=== PATIENT | male | born 1980 | race Caucasian/White ===

== ENCOUNTER 2017-04-04 13:13 | Inpatient (IN) | payer OTHER ==
[2017-04-04 13:38] VITALS: BMI 22.8
--- NOTE | 2017-04-04 14:38 | HP ---
COWS - Scale Resting Pulse: 0= OK 80 or Below Sweatin=Flushed/Facial Moisture Restless Observation: 3= Extraneous Movement Pupil Size: 2= Moderately Dilated Bone or Joint Aches: 2= Severe Diffuse Aches Runny Nose/ Eye Tearin= Runny Nose/Eyes GI Upset > 30mins: 3= Vomiting/Diarrhea Tremor Observation: 2= Slight Tremor Visible Yawning Observation: 2= >3x During Session Anxiety or Irritability: 2=Irritable/Anxious Goose Flesh Skin: 0=Smooth Skin COWS Score: 20 CIWA Score - CIWA Score Nausea/Vomitin Muscle Tremors: 3 Anxiety: 3 Agitation: 3 Paroxysmal Sweats: 2 Orientation: 0-Oriented Tacttile Disturbances: 2-Mild Itch/Numbness/Burn Auditory Disturbances: 2-Mild Harshness/Frighten Visual Disturbances: 2-Mild Sensitivity Headache: 2-Mild CIWA-Ar Total Score: 22 Admission ROS BHS - HPI Chief Complaint: i need help to stop using heroin,alcohol and cocaine Allergies/Adverse Reactions: Allergies Allergy/AdvReac Type Severity Reaction Status Date / Time No Known Allergies Allergy Verified 04/04/17 13:48 History of Present Illness: this 36 years old male seeking detox from heroin,alcohol and cocaine, never been in detox before bipolar disorder longest period of sobriety 9 months - Ebola screening Have you traveled outside of the country in the last 21 days: No Have you been sick,other than usual withdrawal symptoms: No - Review of Systems Constitutional: Loss of Appetite, Malaise, Night Sweats EENT: reports: Tearing, Nose Congestion Respiratory: reports: No Symptoms reported Cardiac: reports: Palpitations GI: reports: Diarrhea, Nausea, Vomiting, Abdominal cramping : reports: No Symptoms Reported Musculoskeletal: reports: Back Pain, Joint Pain, Muscle Pain, Joint Stiffness Integumentary: reports: Dryness Neuro: reports: Headache, Tremors Endocrine: reports: No Symptoms Reported Hematology: reports: No Symptoms Reported Psychiatric: reports: No Sypmtoms Reported, Judgement Intact, Mood/Affect Appropiate, Orientated x3, Depressed (bipolar disorder) Patient History - Patient Medical History Hx Anemia: No Hx Asthma: No Hx Chronic Obstructive Pulmonary Disease (COPD): No Hx Cancer: No Hx Cardiac Disorders: No Hx Congestive Heart Failure: No Hx Hypertension: No Hx Hypercholesterolemia: No Hx Pacemaker: No HX Cerebrovascular Accident: No Hx Seizures: No Hx Dementia: No Hx Diabetes: No Hx Gastrointestinal Disorders: No Hx Liver Disease: No Hx Genitourinary Disorders: No Hx Sexually Transmitted Disorders: No Hx Renal Disease (ESRD): No Hx Thyroid Disease: No Hx Human Immunodeficiency Virus (HIV): No (last 2011 negative) Hx Hepatitis C: No Hx Depression: Yes (no med) Hx Suicide Attempt: No Hx Bipolar Disorder: Yes Hx Schizophrenia: No Other Medical History: no suicidal,no homicidal - Patient Surgical History Past Surgical History: No - PPD History Previous Implant?: Yes (unknown) Documented Results: Negative w/o proof Implanted On Prior [facility] Admission?: No PPD to be Administered?: Yes - Smoking Cessation Smoking history: Current every day smoker Have you smoked in the past 12 months: Yes If you are a former smoker, when did you quit?: 5 Hx Chewing Tobacco Use: No Initiated information on smoking cessation: Yes 'Breaking Loose' booklet given: 04/04/17 - Substance & Tx. History Hx Alcohol Use: Yes Hx Substance Use: Yes Substance Use Type: Alcohol, Cocaine, Heroin - Substances Abused Alcohol Route: Oral Frequency: 3-6 times per week Amount used: beer(2 cans)/liquor(2 nips) Age of first use: 17 Date of Last Use: 04/03/17 Heroin Route: Inhalation Frequency: Daily Amount used: 2-3 bags Age of first use: 34 Date of Last Use: 04/03/17 Cocaine Route: Smoking Frequency: Daily Amount used: $40 Age of first use: 19 Date of Last Use: 04/03/17 Family Disease History - Family Disease History Family History: Denies Admission Physical Exam [facility] - Vital Signs Vital Signs: Vital Signs - 24 hr 04/04/17 13:31 Temperature 97.2 F L Pulse Rate 79 Respiratory 20 Rate Blood Pressure 133/64 - Physical General Appearance: Yes: Moderate Distress, Tremorous, Irritable, Sweating, Anxious HEENTM: Yes: Hearing grossly Normal, Normal ENT Inspection, CRISTINA Respiratory: Yes: Lungs Clear, Normal Breath Sounds, No Respiratory Distress Neck: Yes: Within Normal Limits, Supple, Trachea in good position Breast: Yes: Within Normal Limits Cardiology: Yes: Within Normal Limits, Regular Rhythm, Regular Rate, S1, S2 Abdominal: Yes: Within Normal Limits, Normal Bowel Sounds, Non Tender, Flat, Soft Genitourinary: Yes: Within Normal Limits Back: Yes: Muscle Spasm Musculoskeletal: Yes: Back pain, Joint Stiffness, Muscle Pain Extremities: Yes: Within Normal Limits, Normal Range of Motion, Tremors, Inflammation 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: Yes: 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, Fully Oriented, Alert, Motor Strength 5/5 Integumentary: Yes: Dry Lymphatic: Yes: Within Normal Limits - Addiitonal Findings: redness of left leg cellulitis blister of both feet - Diagnostic (1) Opioid dependence with withdrawal Current Visit: Yes Status: Acute (2) Alcohol dependence with uncomplicated withdrawal Current Visit: Yes Status: Acute (3) Cocaine dependence Current Visit: Yes Status: Acute (4) Cellulitis of left leg Current Visit: Yes Status: Acute (5) Blister Current Visit: Yes Status: Acute (6) Bipolar disorder Current Visit: Yes Status: Acute Cleared for Admission [facility] - Detox or Rehab [facility] Level of Care: Medically Managed Detox Regimen/Protocol: Methadone/Valium S Breath Alcohol Content Breath Alcohol Content: 0 Urine Drug Screen - Results Drug Screen Negative: No Urine Drug Screen Results: LIZZIE-Cocaine, OPI-Opiates
[2017-04-04] MEDS ORDERED: hydrOXYzine PAMOATE 25 MG CAPSULE (FP) PO PRN (15:02)
[2017-04-04] MEDS ORDERED: METHADONE HCL 10 MG TABLET (FOR DETOX USE ONLY) PO ONE ×2 (15:02→23:00)
[2017-04-04] MEDS ORDERED: MAG HYDROX/AL HYDROX/SIMETH 30 ML UNIT-DOSE CUP PO PRN (15:02)
[2017-04-04] MEDS ORDERED: P-EPHED 60MG/TRIPROLIDI 2.5MG TABLET PO PRN (15:02)
[2017-04-04] MEDS ORDERED: MAGNESIUM HYDROX 2400MG/30ML ORAL SUSPENSION 30 ML CUP PO PRN (15:02)
[2017-04-04] MEDS ORDERED: IBUPROFEN 400 MG TABLET (FP) PO PRN (15:02)
[2017-04-04] MEDS ORDERED: LOPERAMIDE HCL 2 MG CAPSULE PO PRN (15:02)
[2017-04-04] MEDS ORDERED: diazePAM 5 MG TABLET PO PRN (15:02)
[2017-04-04] MEDS ORDERED: diphenhydrAMINE HCL 50 MG CAPSULE PO PRN (15:02)
[2017-04-04] MEDS ORDERED: guaiFENesin/D-METHORPHAN HB 10 ML UNIT-DOSE CUPS PO PRN (15:02)
[2017-04-04] MEDS ORDERED: ACETAMINOPHEN 325 MG TABLET (FP) PO PRN (15:02)
[2017-04-04] MEDS ORDERED: MENTHOL/PHENOL 1 EACH UD MM PRN (15:02)
[2017-04-04] MEDS ORDERED: diazePAM 5 MG TABLET PO ONE (15:02)
[2017-04-04] MEDS ORDERED: MAGNESIUM CITRATE 300 ML BOTTLE PO PRN (15:02)
[2017-04-04] MEDS: CYCLOBENZAPRINE HCL 10 MG TABLET (FP) PO PRN (15:49)
[2017-04-04] MEDS: NICOTINE 14 MG/24 HOURS TOPICAL PATCH TD SCH (15:49)
[2017-04-04 19:45] LABS: URINE APPEARANCE CLOUDY; URINE BILIRUBIN NEGATIVE (NEGATIVE); URINE BLOOD NEGATIVE (NEGATIVE); URINE COLOR YELLOW; URINE GLUCOSE (UA) NEGATIVE (NEGATIVE); URINE KETONE TRACE (NEGATIVE); URINE LEUK ESTERASE NEGATIVE (NEGATIVE); URINE NITRITE NEGATIVE (NEGATIVE); URINE PROTEIN NEGATIVE (NEGATIVE); URINE UROBILINOGEN NEGATIVE E.U./dl (0.2-1.0)
[2017-04-04] MEDS: diazePAM 5 MG TABLET PO SCH (22:21)
[2017-04-04] MEDS: THIAMINE HCL 100 MG TABLET (FP) PO SCH (22:21)
[2017-04-04] MEDS: cloNIDine HCL 0.1 MG TABLET PO SCH (22:21)
[2017-04-05] MEDS: diazePAM 5 MG TABLET PO SCH ×3 (06:09→22:41)
[2017-04-05] MEDS ORDERED: METHADONE HCL 10 MG TABLET (FOR DETOX USE ONLY) PO SCH (10:00)
[2017-04-05 10:14] LABS: MCH 29.9 pg (25.7-33.7); MCHC 32.8 g/dl (32.0-35.9); MEAN CELL VOLUME 91.1 fl (80-96); MEAN PLT VOLUME 9.2 fl (7.5-11.1); PLATELET COUNT 224 K/MM3 (134-434); WHITE BLOOD COUNT 5.6 K/mm3 (4.0-10.0)
[2017-04-05 10:22] LABS: ALBUMIN 3.2 g/dl (3.4-5.0); ANION GAP 6 (8-16); CALCIUM 8.3 mg/dL (8.5-10.1); CO2 29 mmol/L (21-32)
[2017-04-05 10:28] LABS: ALK PHOS 79 U/L (45-117); BILIRUBIN,TOTAL 0.3 mg/dL (0.2-1.0); COCKROFT - GAULT 133.02; CREATININE 0.8 mg/dL (0.7-1.3); GLUCOSE,RANDOM 82 mg/dL (74-106); SGOT/AST 49 U/L (15-37); SGPT/ALT 47 U/L (12-78); TOT PROT 6.4 g/dl (6.4-8.2)
[2017-04-05] MEDS: cloNIDine HCL 0.1 MG TABLET PO SCH ×2 (10:36→22:41)
[2017-04-05] MEDS: PRENATAL VITAMINS W/ FOLIC ACID TABLET (FP) PO SCH (10:36)
[2017-04-05] MEDS: DIVALPROEX SODIUM 250 MG TABLET E.C. (FP) PO SCH ×2 (10:36→22:41)
[2017-04-05] MEDS: NICOTINE 14 MG/24 HOURS TOPICAL PATCH TD SCH (10:37)
--- NOTE | 2017-04-05 10:57 | PN ---
[facility] CIWA - CIWA Score Nausea/Vomitin-No Nausea/No Vomiting Muscle Tremors: 4-Moderate,w/Arms Extend Anxiety: 2 Agitation: 3 Paroxysmal Sweats: 3 Orientation: 0-Oriented Tacttile Disturbances: 0-None Auditory Disturbances: 0-None Visual Disturbances: 0-None Headache: 0-None Present CIWA-Ar Total Score: 12 BHS COWS - Scale Resting Pulse: 0= [place] 80 or Below Sweatin=Flushed/Facial Moisture Restless Observation: 1= Difficult to Sit Still Pupil Size: 0= Normal to Room Light Bone or Joint Aches: 2= Severe Diffuse Aches Runny Nose/ Eye Tearin= Nasal Congestion GI Upset > 30mins: 0= None Tremor Observation of Outstretched Hands: 2= Slight Tremor Visible Yawning Observation: 2= >3x During Session Anxiety or Irritability: 2=Irritable/Anxious Goose Flesh Skin: 0=Smooth Skin COWS Score: 12 S Progress Note (SOAP) Subjective: agitation anxiety sweats irritable interrupted sleep Objective: 04/05/17 10:56 Vital Signs Temperature 97.7 F 04/05/17 09:37 Pulse Rate 65 04/05/17 09:37 Respiratory Rate 16 04/05/17 09:37 Blood Pressure 104/59 04/05/17 09:37 O2 Sat by Pulse Oximetry (%) Laboratory Tests 04/04/17 04/05/17 04/05/17 Unknown 08:00 08:00 WBC 5.6 RBC 4.90 Hgb 14.6 Hct 44.6 MCV 91.1 MCHC 32.8 RDW 14.0 Plt Count 224 MPV 9.2 Sodium 140 Potassium 4.7 Chloride 105 Carbon Dioxide 29 Anion Gap 6 L BUN 12 Creatinine 0.8 Creat Clearance w eGFR > 60 Random Glucose 82 Calcium 8.3 L Total Bilirubin 0.3 AST 49 H ALT 47 Alkaline Phosphatase 79 Total Protein 6.4 Albumin 3.2 L Urine Color Yellow Urine Appearance Cloudy Urine pH 6.0 Ur Specific [place] 1.015 Urine Protein Negative Urine Glucose (UA) Negative Urine Ketones Trace H Urine Blood Negative Urine Nitrite Negative Urine Bilirubin Negative Urine Urobilinogen Negative Ur Leukocyte Esterase Negative awake/alert ambulating no acute distress Assessment: 04/05/17 10:57 withdrawal sx Plan: continue detox increase fluids
--- NOTE | 2017-04-05 12:47 | CONSULT ---
[facility] Psychiatric Consult - Data Date of interview: 04/05/17 Admission source: [facility] Identifying data: This is 36 years old male with history of Bipolar disorder, intoxicated with: Alcohol, Cocaine and Opioids Substance Abuse History: - Smoking Cessation. Smoking history: Current every day smoker. Have you smoked in the past 12 months: Yes. If you are a former smoker, when did you quit?: 5. Hx Chewing Tobacco Use: No. Initiated information on smoking cessation: Yes. 'Breaking Loose' booklet given: . - Substance & Tx. History. Hx Alcohol Use: Yes. Hx Substance Use: Yes. Substance Use Type: Alcohol, Cocaine, Heroin. - Substances Abused. Alcohol. Route: Oral. Frequency: 3-6 times per week. Amount used: beer(2 cans )/liquor(2 nips). Age of first use: 17. Date of Last Use: 04/03/17. Heroin. Route: Inhalation. Frequency: Daily. Amount used: 2-3 bags. Age of first use: 34. Date of Last Use: 04/03/17. Cocaine. Route: Smoking. Frequency: Daily. Amount used: $40. Age of first use: 19. Date of Last Use: 04/03/17 Medical History: History of Cellulitis Psychiatric History: Patient reports long history of Bipolar disorder, reports being stable on: Depakote 500mg po bid. Zyprexa 2.5mg po qhs. Remeron 15mg po qhs. Wellbutrin XL 150mg poqd Physical/Sexual Abuse/Trauma History: Denies Additional Comment: Depakote 500mg po bid. Zyprexa 2.5mg po qhs. Remeron 15mg po qhs. Wellbutrin XL 150mg poqd Mental Status Exam - Mental Status Exam Alert and Oriented to: Person Cognitive Function: Fair Patient Appearance: Well Groomed Mood: Apprehensive Patient Behavior: Cooperative Speech Pattern: Appropriate Voice Loudness: Normal Thought Process: Goal Oriented Thought Disorder: Being Controlled Hallucinations: Denies Suicidal Ideation: Denies Homicidal Ideation: Denies Insight/Judgement: Fair Sleep: Difficulty falling asleep Appetite: Weight gain Muscle strength/Tone: Normal Gait/Station: Normal Additional Comments: Depakote 500mg po bid. Zyprexa 2.5mg po qhs. Remeron 15mg po qhs. Wellbutrin XL 150mg poqd Psychiatric Findings - Problem List ([place] 1, 2,3) (1) Alcohol dependence with uncomplicated withdrawal Current Visit: Yes Status: Acute (2) Bipolar disorder Current Visit: Yes Status: Acute (3) Cellulitis of left leg Current Visit: Yes Status: Acute (4) Cocaine dependence Current Visit: Yes Status: Acute (5) Opioid dependence with withdrawal Current Visit: Yes Status: Acute - Initial Treatment Plan Initial Treatment Plan: Depakote 250mg po bid. Zyprexa 2.5mg po qhs. Remeron 15mg po qhs. Wellbutrin XL 150mg poqd. Depakote blood level
--- NOTE | 2017-04-05 13:03 | EKG ---
Test Reason : Blood Pressure : / mmHG Vent. Rate : 072 BPM Atrial Rate : 072 BPM P-R Int : 134 ms QRS Dur : 092 ms QT Int : 410 ms P-R-T Axes : 028 055 034 degrees QTc Int : 448 ms NORMAL SINUS RHYTHM CANNOT RULE OUT ANTERIOR INFARCT , AGE UNDETERMINED ABNORMAL ECG NO PREVIOUS ECGS AVAILABLE Confirmed by GENNARO DICKENS, DANNA ([id number]) on 04/05/2017 1:02:29 PM Referred By: Robe Augustine Confirmed By:DANNA BURDICK MD
[2017-04-05] MEDS: MIRTAZAPINE 15 MG TABLET (FP) PO SCH (22:41)
[2017-04-05] MEDS: THIAMINE HCL 100 MG TABLET (FP) PO SCH (22:41)
[2017-04-05] MEDS: OLANZapine 2.5 MG TABLET PO SCH (22:59)
[2017-04-06] MEDS: PRENATAL VITAMINS W/ FOLIC ACID TABLET (FP) PO SCH (10:49)
[2017-04-06] MEDS: DIVALPROEX SODIUM 250 MG TABLET E.C. (FP) PO SCH ×2 (10:49→22:42)
[2017-04-06] MEDS: cloNIDine HCL 0.1 MG TABLET PO SCH ×2 (10:49→22:42)
[2017-04-06] MEDS: diazePAM 5 MG TABLET PO SCH ×2 (10:50→22:42)
[2017-04-06] MEDS: METHADONE HCL 5 MG TABLET (FOR DETOX USE ONLY) PO SCH (10:50)
[2017-04-06] MEDS: NICOTINE 14 MG/24 HOURS TOPICAL PATCH TD SCH (10:50)
--- NOTE | 2017-04-06 11:20 | PN ---
S CIWA - CIWA Score Nausea/Vomitin Muscle Tremors: 3 Anxiety: 3 Agitation: 3 Paroxysmal Sweats: 1-Minimal Palms Moist Orientation: 0-Oriented Tacttile Disturbances: 1-Very Mild Itch/Numbness Auditory Disturbances: 1-Very Mild Visual Disturbances: 1-Very Mild Sensitivity Headache: 2-Mild CIWA-Ar Total Score: 18 BHS COWS - Scale Resting Pulse: 0= [place] 80 or Below Sweatin= Chills/Flushing Restless Observation: 3= Extraneous Movement Pupil Size: 1= Pupils >than Normal Bone or Joint Aches: 2= Severe Diffuse Aches Runny Nose/ Eye Tearin= Runny Nose/Eyes GI Upset > 30mins: 2= Nausea/Diarrhea Tremor Observation of Outstretched Hands: 2= Slight Tremor Visible Yawning Observation: 1= 1-2x During Session Anxiety or Irritability: 2=Irritable/Anxious Goose Flesh Skin: 0=Smooth Skin COWS Score: 16 S Progress Note (SOAP) Subjective: ALERT,IRRITABLE,ANXIOUS,INTERRUPTED SLEEP,PAIN IN THE BODY AND BACK Objective: 04/06/17 11:19 Vital Signs Temperature 96.8 F L 04/06/17 09:41 Pulse Rate 63 04/06/17 09:41 Respiratory Rate 18 04/06/17 09:41 Blood Pressure 144/79 04/06/17 09:41 O2 Sat by Pulse Oximetry (%) Laboratory Last Values WBC 5.6 K/mm3 (4.0-10.0) 04/05/17 08:00 RBC 4.90 M/mm3 (4.00-5.60) 04/05/17 08:00 Hgb 14.6 GM/dL (11.7-16.9) 04/05/17 08:00 Hct 44.6 % (35.4-49) 04/05/17 08:00 MCV 91.1 fl (80-96) 04/05/17 08:00 MCHC 32.8 g/dl (32.0-35.9) 04/05/17 08:00 RDW 14.0 % (11.9-15.9) 04/05/17 08:00 Plt Count 224 K/MM3 (134-434) 04/05/17 08:00 MPV 9.2 fl (7.5-11.1) 04/05/17 08:00 Sodium 140 mmol/L (136-145) 04/05/17 08:00 Potassium 4.7 mmol/L (3.5-5.1) 04/05/17 08:00 Chloride 105 mmol/L (98-107) 04/05/17 08:00 Carbon Dioxide 29 mmol/L (21-32) 04/05/17 08:00 Anion Gap 6 (8-16) L 04/05/17 08:00 BUN 12 mg/dL (7-18) 04/05/17 08:00 Creatinine 0.8 mg/dL (0.7-1.3) 04/05/17 08:00 Creat Clearance w eGFR > 60 (>60) 04/05/17 08:00 Random Glucose 82 mg/dL (74-106) 04/05/17 08:00 Calcium 8.3 mg/dL (8.5-10.1) L 04/05/17 08:00 Total Bilirubin 0.3 mg/dL (0.2-1.0) 04/05/17 08:00 AST 49 U/L (15-37) H 04/05/17 08:00 ALT 47 U/L (12-78) 04/05/17 08:00 Alkaline Phosphatase 79 U/L (45-117) 04/05/17 08:00 Total Protein 6.4 g/dl (6.4-8.2) 04/05/17 08:00 Albumin 3.2 g/dl (3.4-5.0) L 04/05/17 08:00 Urine Color Yellow 04/04/17 Unknown Urine Appearance Cloudy 04/04/17 Unknown Urine pH 6.0 (5.0-8.0) 04/04/17 Unknown Ur Specific [place] 1.015 (1.005-1.025) 04/04/17 Unknown Urine Protein Negative (NEGATIVE) 04/04/17 Unknown Urine Glucose (UA) Negative (NEGATIVE) 04/04/17 Unknown Urine Ketones Trace (NEGATIVE) H 04/04/17 Unknown Urine Blood Negative (NEGATIVE) 04/04/17 Unknown Urine Nitrite Negative (NEGATIVE) 04/04/17 Unknown Urine Bilirubin Negative (NEGATIVE) 04/04/17 Unknown Urine Urobilinogen Negative E.U./dl (0.2-1.0) 04/04/17 Unknown Ur Leukocyte Esterase Negative (NEGATIVE) 04/04/17 Unknown RPR Titer Nonreactive (NONREACTIVE) 04/05/17 08:00 Assessment: 04/06/17 11:19 WITHDRAWAL SYMPTOM Plan: CONTINUE DETOX
[2017-04-06] MEDS: OLANZapine 2.5 MG TABLET PO SCH (22:42)
[2017-04-06] MEDS: MIRTAZAPINE 15 MG TABLET (FP) PO SCH (22:42)
[2017-04-06] MEDS: THIAMINE HCL 100 MG TABLET (FP) PO SCH (22:42)
[2017-04-07] MEDS: DIVALPROEX SODIUM 250 MG TABLET E.C. (FP) PO SCH ×2 (10:27→22:29)
[2017-04-07] MEDS: cloNIDine HCL 0.1 MG TABLET PO SCH ×2 (10:27→22:33)
[2017-04-07] MEDS: METHADONE HCL 5 MG TABLET (FOR DETOX USE ONLY) PO SCH (10:27)
[2017-04-07] MEDS: PRENATAL VITAMINS W/ FOLIC ACID TABLET (FP) PO SCH (10:27)
[2017-04-07] MEDS: diazePAM 5 MG TABLET PO SCH ×2 (10:27→22:29)
[2017-04-07] MEDS: NICOTINE 14 MG/24 HOURS TOPICAL PATCH TD SCH (10:27)
--- NOTE | 2017-04-07 11:21 | PN ---
BHS Progress Note (SOAP) Subjective: sweats agitation anxiety Objective: 04/07/17 11:20 Vital Signs Temperature 96.4 F L 04/07/17 09:39 Pulse Rate 66 04/07/17 09:39 Respiratory Rate 18 04/07/17 09:39 Blood Pressure 129/67 04/07/17 09:39 O2 Sat by Pulse Oximetry (%) Laboratory Tests 04/04/17 04/05/17 04/05/17 Unknown 08:00 08:00 WBC 5.6 RBC 4.90 Hgb 14.6 Hct 44.6 MCV 91.1 MCHC 32.8 RDW 14.0 Plt Count 224 MPV 9.2 Sodium 140 Potassium 4.7 Chloride 105 Carbon Dioxide 29 Anion Gap 6 L BUN 12 Creatinine 0.8 Creat Clearance w eGFR > 60 Random Glucose 82 Calcium 8.3 L Total Bilirubin 0.3 AST 49 H ALT 47 Alkaline Phosphatase 79 Total Protein 6.4 Albumin 3.2 L Urine Color Yellow Urine Appearance Cloudy Urine pH 6.0 Ur Specific [place] 1.015 Urine Protein Negative Urine Glucose (UA) Negative Urine Ketones Trace H Urine Blood Negative Urine Nitrite Negative Urine Bilirubin Negative Urine Urobilinogen Negative Ur Leukocyte Esterase Negative Valproic Acid RPR Titer 04/05/17 04/06/17 08:00 06:00 WBC RBC Hgb Hct MCV MCHC RDW Plt Count MPV Sodium Potassium Chloride Carbon Dioxide Anion Gap BUN Creatinine Creat Clearance w eGFR Random Glucose Calcium Total Bilirubin AST ALT Alkaline Phosphatase Total Protein Albumin Urine Color Urine Appearance Urine pH Ur Specific [place] Urine Protein Urine Glucose (UA) Urine Ketones Urine Blood Urine Nitrite Urine Bilirubin Urine Urobilinogen Ur Leukocyte Esterase Valproic Acid < 3.000 L RPR Titer Nonreactive awake/alert ambulating no acute distress Assessment: 04/07/17 11:20 withdrawal sx Plan: continue detox increase fluids
[2017-04-07] MEDS: CYCLOBENZAPRINE HCL 10 MG TABLET (FP) PO PRN (18:17)
[2017-04-07] MEDS ORDERED: cloNIDine HCL 0.1 MG TABLET PO ONE (20:06)
[2017-04-07] MEDS: OLANZapine 2.5 MG TABLET PO SCH (22:29)
[2017-04-07] MEDS: MIRTAZAPINE 15 MG TABLET (FP) PO SCH (22:29)
[2017-04-07] MEDS: THIAMINE HCL 100 MG TABLET (FP) PO SCH (22:29)
[2017-04-08] MEDS ORDERED: CYCLOBENZAPRINE HCL 10 MG TABLET (FP) PO ONE (08:42)
[2017-04-08] MEDS ORDERED: METHADONE HCL 10 MG TABLET (FOR DETOX USE ONLY) PO SCH (10:00)
[2017-04-08] MEDS ORDERED: diazePAM 5 MG TABLET PO SCH (10:00)
[2017-04-08] MEDS: DIVALPROEX SODIUM 250 MG TABLET E.C. (FP) PO SCH ×2 (10:39→22:43)
[2017-04-08] MEDS: PRENATAL VITAMINS W/ FOLIC ACID TABLET (FP) PO SCH (10:39)
[2017-04-08] MEDS: cloNIDine HCL 0.1 MG TABLET PO SCH ×2 (10:40→22:44)
[2017-04-08] MEDS: NICOTINE 14 MG/24 HOURS TOPICAL PATCH TD SCH (10:40)
--- NOTE | 2017-04-08 10:44 | PN ---
S Progress Note (SOAP) Subjective: ALERT,IRRITABLE,ANXIOUS,INTERRUPTED SLEEP Objective: 04/08/17 10:43 Vital Signs Temperature 97.7 F 04/08/17 09:23 Pulse Rate 74 04/08/17 09:23 Respiratory Rate 18 04/08/17 09:23 Blood Pressure 127/72 04/08/17 09:23 O2 Sat by Pulse Oximetry (%) Assessment: 04/08/17 10:43 WITHDRAWAL SYMPTOM Plan: CONTINUE DETOX,DISCHARGE IN AM
[2017-04-08] MEDS: CYCLOBENZAPRINE HCL 10 MG TABLET (FP) PO PRN (15:41)
[2017-04-08] MEDS: THIAMINE HCL 100 MG TABLET (FP) PO SCH (22:43)
[2017-04-08] MEDS: MIRTAZAPINE 15 MG TABLET (FP) PO SCH (22:43)
[2017-04-08] MEDS: OLANZapine 2.5 MG TABLET PO SCH (22:43)
[2017-04-09] MEDS ORDERED: METHADONE HCL 5 MG TABLET (FOR DETOX USE ONLY) PO SCH (06:00)
--- NOTE | 2017-04-09 08:08 | PN ---
S Progress Note (SOAP) Subjective: ALERT,NO COMPLAINT Objective: 04/09/17 08:07 Vital Signs Temperature 97.0 F L 04/09/17 06:00 Pulse Rate 59 L 04/09/17 06:00 Respiratory Rate 18 04/09/17 06:00 Blood Pressure 113/69 04/09/17 06:00 O2 Sat by Pulse Oximetry (%) Assessment: 04/09/17 08:07 DETOX COMPLETED,NO WITHDRAWAL SYMPTOM Plan: DISCHARGE TODAY,FOLLOW UP WITH AFTER CARE PROGRAM ARRANGEMENT
--- NOTE | 2017-04-09 08:12 | DS ---
[facility] Detox Discharge Summary Admission Date: 04/04/17 Discharge Date: 04/09/17 - History Present History: Alcohol Dependence, Cocaine Dependence, Opioid Dependence Additional Comments: FOLLOW UP WITH AFTER CARE PROGRAM ARRANGEMENT AND PMD FOR MEDICAL PROBLEM Pertinent Past History: BIPOLAR DISORDER BLISTERS BOTH FEET CELLULITIS LEFT LEG - Physical Exam Results Vital Signs: Vital Signs Temperature 97.0 F L 04/09/17 06:00 Pulse Rate 59 L 04/09/17 06:00 Respiratory Rate 18 04/09/17 06:00 Blood Pressure 113/69 04/09/17 06:00 O2 Sat by Pulse Oximetry (%) Pertinent Admission Physical Exam Findings: WITHDRAWAL SYMPTOM - Treatment Patient has Accepted a Rehab Referral to: [facility] - Medication Discharge Medications: Ambulatory Orders Bupropion HCl [Wellbutrin -] 150 mg PO DAILY 04/04/17 Divalproex Sodium [Depakote] 500 mg PO BID 04/04/17 Mirtazapine [Remeron -] 15 mg PO HS 04/04/17 Olanzapine [Zyprexa -] 2.5 mg PO HS 04/04/17 Bupropion HCl [Wellbutrin Xl -] 150 mg PO DAILY #30 tab 04/05/17 Divalproex [Depakote -] 250 mg PO BID #60 tab 04/05/17 Mirtazapine [Remeron -] 15 mg PO HS #30 tab 04/05/17 Olanzapine [Zyprexa -] 2.5 mg PO HS #30 tablet 04/05/17 - Diagnosis (1) Opioid dependence with withdrawal Current Visit: Yes Status: Acute (2) Alcohol dependence with uncomplicated withdrawal Current Visit: Yes Status: Acute (3) Cocaine dependence Current Visit: Yes Status: Acute (4) Cellulitis of left leg Current Visit: Yes Status: Acute (5) Blister Current Visit: Yes Status: Acute (6) Bipolar disorder Current Visit: Yes Status: Acute - AMA Did Patient Leave Against Medical Advice: No
--- NOTE | 2017-04-09 08:24 | PN ---
S Progress Note Note: PATIENT HAS BLISTER BOTH FEET RESOLVING REDNESS OF LEFT LEG IS LESS WITH SCAB FORMATION WILL GIVE BACTRIM DS 1 TAB PO BID FOR 5 DAYS,BACITRACIN OINTMENT BID, FOLLOW UP WITH PMD FOR EVALUATION AND AFTER CARE PROGRAM ARRANGEMENT
[2017-04-09] MEDS: cloNIDine HCL 0.1 MG TABLET PO SCH (09:29)
[2017-04-09] MEDS: PRENATAL VITAMINS W/ FOLIC ACID TABLET (FP) PO SCH (09:30)
[2017-04-09] MEDS: NICOTINE 14 MG/24 HOURS TOPICAL PATCH TD SCH (09:30)
[2017-04-09] MEDS: DIVALPROEX SODIUM 250 MG TABLET E.C. (FP) PO SCH (09:31)
[2017-04-09] MEDS ORDERED: SULFAMETHOXAZOLE/TRIMETHOPRIM 800MG/160MG D.S. TABLET PO SCH (10:00)
[2017-04-09] MEDS ORDERED: BACITRACIN 0.9 GM PACKET TP SCH (10:00)
[2017-04-09 10:24] VITALS: BP 139/60; PULSE 90; TEMP 98.1
== END 2017-04-09 09:35 | disposition home or self-care (01) | DRG 773 ==
LOC: YASAS 13:13 → Y6N 14:14
PROVIDERS: ADMIT Internal Medicine Addiction Medicine; ATTEND Internal Medicine Addiction Medicine
PROC: HZ2ZZZZ Detoxification Services for Substance Abuse Treatment (ICD-10-PCS; principal; 2017-04-09)
DX: F11.23 Opioid dependence with withdrawal (principal); F10.230 Alcohol dependence with withdrawal, uncomplicated; F14.20 Cocaine dependence, uncomplicated; F31.9 Bipolar disorder, unspecified; L03.116 Cellulitis of left lower limb; S90.822A Blister (nonthermal), left foot, initial encounter; S90.821A Blister (nonthermal), right foot, initial encounter
CPT/HCPCS: 36415; 80053; 80164; 81003; 85027; 86593; 93005; 93010

== ENCOUNTER 2017-04-12 08:25 | Inpatient (IN) | payer OTHER ==
[2017-04-12 10:55] VITALS: BMI 28.4
--- NOTE | 2017-04-12 11:58 | HP ---
[facility] Rehab Assess/Revision - Admission History Admitted to Rehab from: [facility] - Vital signs Vital Signs: Vital Signs Period Temp Pulse Resp BP Sys/Roy Pulse Ox Last 24 Hr 95.4 F 84 18 145/95 - Findings Detox History & Physical reviewed: Yes Concur with findings: Yes
[2017-04-12] MEDS ORDERED: NICOTINE POLACRILEX 4 MG GUM BC PRN (12:04)
[2017-04-12] MEDS ORDERED: guaiFENesin/D-METHORPHAN HB 10 ML UNIT-DOSE CUPS PO PRN (12:04)
[2017-04-12] MEDS ORDERED: P-EPHED 60MG/TRIPROLIDI 2.5MG TABLET PO PRN (12:04)
[2017-04-12] MEDS ORDERED: MAGNESIUM HYDROX 2400MG/30ML ORAL SUSPENSION 30 ML CUP PO PRN (12:04)
[2017-04-12] MEDS ORDERED: hydrOXYzine PAMOATE 50 MG CAPSULE (FP) PO PRN ×2 (12:04→16:39)
[2017-04-12] MEDS ORDERED: ACETAMINOPHEN 325 MG TABLET (FP) PO PRN (12:04)
[2017-04-12] MEDS ORDERED: LOPERAMIDE HCL 2 MG CAPSULE PO PRN (12:04)
[2017-04-12] MEDS ORDERED: diphenhydrAMINE HCL 50 MG CAPSULE PO PRN (12:04)
[2017-04-12] MEDS ORDERED: MAG HYDROX/AL HYDROX/SIMETH 30 ML UNIT-DOSE CUP PO PRN (12:04)
[2017-04-12] MEDS ORDERED: MAGNESIUM CITRATE 300 ML BOTTLE PO PRN (12:04)
[2017-04-12] MEDS ORDERED: MENTHOL/PHENOL 1 EACH UD MM PRN (12:04)
[2017-04-12] MEDS ORDERED: COLLOIDAL OATMEAL 1 BAR EACH TP PRN (12:08)
[2017-04-12] MEDS ORDERED: cloNIDine HCL 0.1 MG TABLET PO ONE (13:00)
[2017-04-12] MEDS ORDERED: cloNIDine HCL 0.1 MG TABLET ONE (15:26)
[2017-04-12] MEDS: HYDROCORTISONE 2.5% LOTION - 1 BOTTLE TP SCH ×2 (15:29→21:36)
--- NOTE | 2017-04-12 16:34 | HP ---
Psychiatrist Admission - Data Date of interview: 04/12/17 Admission source: [facility] Identifying data: This is the first admission to [address] [place] [address] for this 36 years old father of 4 , undomiciled,supported by family. Medical History: Significant for L leg cellulitis. Psychiatric History: First contact with psychiatrist was at 19 yo wwhen he was seen at Mental health [facility] at [facility].He addressed depressed mood, anxiety,drug and lcohol problems.Patient was dx with Bipolar disorder.He was on different meds including Abilify,Seroquel ,Celexa,Zoloft,Trazodone and many more.Patient reports one psychiatric hospitalization to [facility] 1 month ago due to severe depression,suicidal ideas.No suicidal attempts reported.Patient was under care of psychiatrist at [facility]PD until recently when he relapsed and stopped taking his medications:Depakote 500 mg po bid,Zyprexa 2,5 mg po hs and Remeron 15 mg po hs.bid,Wellbutrin XL 150 mg po am . Physical/Sexual Abuse/Trauma History: denies Vital Signs: Vital Signs - 24 hr 04/12/17 10:52 Temperature 95.4 F L Pulse Rate 84 Respiratory 18 Rate Blood Pressure 145/95 Allergies/Adverse Reactions: Allergies Allergy/AdvReac Type Severity Reaction Status Date / Time No Known Allergies Allergy Verified 04/12/17 11:58 Date of last physical exam: 04/12/17 Concur with the findings of this exam: Yes - Substance Abuse/Tx History Hx Alcohol Use: Yes (reports drinking since 15 yo) Hx Substance Use: Yes (marijuana since 15 yo,cocaine since 19,heroin since 2016. ) Substance Use Type: Alcohol, Cocaine, Heroin Hx Substance Use Treatment: Yes (3 months at [facility] 5 yo) - Admission Criteria Previous failed treatment: Yes Poor recovery environment: Yes Comorbidities: Yes Lacks judgement: Yes Mental Status Exam - Mental Status Exam Alert and Oriented to: Time, Place, Person Cognitive Function: Grossly Intact Patient Appearance: Well Groomed Mood: Euthymic Affect: Mood Congruent Patient Behavior: Cooperative Speech Pattern: Clear Voice Loudness: Normal Thought Process: Goal Oriented Thought Disorder: Not Present Hallucinations: Denies Suicidal Ideation: Denies Homicidal Ideation: Denies Insight/Judgement: Fair Sleep: Fair Appetite: Good Muscle strength/Tone: Normal Gait/Station: Normal Psychiatric Findings - Problem List ([place] 1, 2,3) (1) Alcohol dependence with uncomplicated withdrawal Current Visit: Yes Status: Chronic (2) Bipolar disorder Current Visit: Yes Status: Chronic (3) Cellulitis of left leg Current Visit: Yes Status: Acute (4) Cocaine dependence Current Visit: Yes Status: Chronic (5) Opioid dependence with withdrawal Current Visit: Yes Status: Chronic - Initial Treatment Plan Initial Treatment Plan: Restart Depakote 500 mg po bid,Zyprexa 5 mg po hs and Remeron 15 mg po hs.Will monitor progress.
[2017-04-12] MEDS: DIVALPROEX SODIUM 500 MG TABLET E.C. PO SCH (21:36)
[2017-04-12] MEDS: NAPROXEN 500 MG TABLET (FP) PO SCH (21:36)
[2017-04-12] MEDS ORDERED: MIRTAZAPINE 15 MG TABLET (FP) PO SCH (22:00)
[2017-04-12] MEDS ORDERED: OLANZapine 5 MG TABLET PO SCH (22:00)
[2017-04-12] MEDS ORDERED: THIAMINE HCL 100 MG TABLET (FP) PO SCH (22:00)
[2017-04-13] MEDS: HYDROCORTISONE 2.5% LOTION - 1 BOTTLE TP SCH ×2 (06:28→15:20)
[2017-04-13 07:06] VITALS: BP 118/67; PULSE 69; TEMP 97.6
[2017-04-13] MEDS ORDERED: cloNIDine HCL 0.1 MG TABLET PO SCH (10:00)
[2017-04-13] MEDS ORDERED: NICOTINE 21 MG/24 HOURS TOPICAL PATCH TD SCH (10:00)
[2017-04-13] MEDS ORDERED: PRENATAL VITAMINS W/ FOLIC ACID TABLET (FP) PO SCH (10:00)
[2017-04-13] MEDS: NAPROXEN 500 MG TABLET (FP) PO SCH (10:10)
[2017-04-13] MEDS: DIVALPROEX SODIUM 500 MG TABLET E.C. PO SCH (10:10)
--- NOTE | 2017-04-13 11:45 | EKG ---
Test Reason : Blood Pressure : / mmHG Vent. Rate : 080 BPM Atrial Rate : 080 BPM P-R Int : 112 ms QRS Dur : 086 ms QT Int : 428 ms P-R-T Axes : 003 067 056 degrees QTc Int : 493 ms NORMAL SINUS RHYTHM NONSPECIFIC T WAVE ABNORMALITY PROLONGED QT ABNORMAL ECG WHEN COMPARED WITH ECG OF 12-APR-2017 14:57, PREMATURE VENTRICULAR COMPLEXES ARE NO LONGER PRESENT Confirmed by GENNARO DICKENS, DANNA ([id number]) on 04/13/2017 11:45:17 AM Referred By: Kristina Machuca Confirmed By:DANNA BURDICK MD
--- NOTE | 2017-04-13 11:46 | EKG ---
Test Reason : Blood Pressure : / mmHG Vent. Rate : 078 BPM Atrial Rate : 078 BPM P-R Int : 120 ms QRS Dur : 086 ms QT Int : 388 ms P-R-T Axes : 036 065 061 degrees QTc Int : 442 ms SINUS RHYTHM WITH FREQUENT PREMATURE VENTRICULAR COMPLEXES OTHERWISE NORMAL ECG WHEN COMPARED WITH ECG OF 04-APR-2017 14:40, PREMATURE VENTRICULAR COMPLEXES ARE NOW PRESENT Confirmed by GENNARO DICKENS, DANNA ([id number]) on 04/13/2017 11:45:28 AM Referred By: Kristina Machuca Confirmed By:DANNA BURDICK MD
--- NOTE | 2017-04-22 15:41 | PN ---
S Progress Note Note: patient signed out AMA on 04/13/17 please see medical staff notes
== END 2017-04-13 15:48 | disposition left against medical advice (07) | DRG 770 ==
LOC: YASAS 08:25 → Y5N 12:10
PROVIDERS: ADMIT Psychiatry & Neurology Psychiatry; ATTEND Psychiatry & Neurology Psychiatry
PROC: HZ42ZZZ Group Counseling for Substance Abuse Treatment, Cognitive-Behavioral (ICD-10-PCS; principal; 2017-04-12)
DX: F11.20 Opioid dependence, uncomplicated (principal); F10.20 Alcohol dependence, uncomplicated; F14.20 Cocaine dependence, uncomplicated; F31.9 Bipolar disorder, unspecified; L03.116 Cellulitis of left lower limb
CPT/HCPCS: 93005; 93010

== ENCOUNTER 2017-09-29 08:29 | Inpatient (IN) | payer OTHER ==
[2017-09-29 10:22] VITALS: BMI 30.2
[2017-09-29] MEDS ORDERED: LOPERAMIDE HCL 2 MG CAPSULE PO PRN (10:46)
[2017-09-29] MEDS ORDERED: ACETAMINOPHEN 325 MG TABLET (FP) PO PRN (10:46)
[2017-09-29] MEDS ORDERED: MENTHOL/PHENOL 1 EACH UD MM PRN (10:46)
[2017-09-29] MEDS ORDERED: guaiFENesin/D-METHORPHAN HB 10 ML UNIT-DOSE CUPS PO PRN (10:46)
[2017-09-29] MEDS ORDERED: MAG HYDROX/AL HYDROX/SIMETH 30 ML UNIT-DOSE CUP PO PRN (10:46)
[2017-09-29] MEDS ORDERED: NICOTINE POLACRILEX 2 MG GUM BC PRN (10:46)
[2017-09-29] MEDS ORDERED: MAGNESIUM HYDROX 2400MG/30ML ORAL SUSPENSION 30 ML CUP PO PRN (10:46)
[2017-09-29] MEDS ORDERED: MAGNESIUM CITRATE 300 ML BOTTLE PO PRN (10:46)
[2017-09-29] MEDS ORDERED: IBUPROFEN 400 MG TABLET (FP) PO PRN (10:46)
[2017-09-29] MEDS ORDERED: P-EPHED 60MG/TRIPROLIDI 2.5MG TABLET PO PRN (10:46)
--- NOTE | 2017-09-29 10:46 | HP ---
COWS - Scale Resting Pulse: 0= [place] 80 or Below Sweatin= Chills/Flushing Restless Observation: 1= Difficult to Sit Still Pupil Size: 1= Pupils >than Normal Bone or Joint Aches: 1= Mild Discomfort Runny Nose/ Eye Tearin= Nasal Congestion GI Upset > 30mins: 2= Nausea/Diarrhea Tremor Observation: 2= Slight Tremor Visible Yawning Observation: 1= 1-2x During Session Anxiety or Irritability: 2=Irritable/Anxious Goose Flesh Skin: 3=Piloerection COWS Score: 15 CIWA Score - CIWA Score Nausea/Vomitin Muscle Tremors: 4-Moderate,w/Arms Extend Anxiety: 4-Mod. Anxious/Guarded Agitation: 4-Moderately Restless Paroxysmal Sweats: 3 Orientation: 0-Oriented Tacttile Disturbances: 0-None Auditory Disturbances: 0-None Visual Disturbances: 0-None Headache: 0-None Present CIWA-Ar Total Score: 18 Admission ROS BHS - HPI Chief Complaint: alcohol and heroin withdrawal sx Allergies/Adverse Reactions: Allergies Allergy/AdvReac Type Severity Reaction Status Date / Time No Known Allergies Allergy Verified 09/29/17 10:35 History of Present Illness: 36 yo m with h/o chronic alcoholism , opioid and cocaine dependence requesting inpatient detoxification because of withdrawal sx. has blister right foot and rash left lower leg. PMHX no sieures or DTS, no suicidal ideaton at this time. Exam Limitations: No Limitations - Ebola screening Have you traveled outside of the country in the last 21 days: No Have you had contact with anyone from an Ebola affected area: No Have you been sick,other than usual withdrawal symptoms: No Do you have a fever: No - Review of Systems Constitutional: Chills, Diaphoresis, Malaise, Night Sweats, Weight Stable EENT: reports: Nose Congestion Respiratory: reports: No Symptoms reported Cardiac: reports: No Symptoms Reported GI: reports: Diarrhea, Nausea, Poor Appetite, Poor Fluid Intake, Indigestion, Abdominal cramping : reports: No Symptoms Reported Musculoskeletal: reports: Back Pain, Joint Pain, Muscle Pain Integumentary: reports: Flushing, Sweating Neuro: reports: Tremors Endocrine: reports: No Symptoms Reported Hematology: reports: No Symptoms Reported Psychiatric: reports: Judgement Intact, Mood/Affect Appropiate, Orientated x3, Anxious, Depressed Other Systems: Reviewed and Negative Patient History - Patient Medical History Hx Anemia: No Hx Asthma: No Hx Chronic Obstructive Pulmonary Disease (COPD): No Hx Cancer: No Hx Cardiac Disorders: No Hx Congestive Heart Failure: No Hx Hypertension: No Hx Hypercholesterolemia: No Hx Pacemaker: No HX Cerebrovascular Accident: No Hx Seizures: No Hx Dementia: No Hx Diabetes: No Hx Gastrointestinal Disorders: No Hx Liver Disease: No Hx Genitourinary Disorders: No Hx Sexually Transmitted Disorders: No Hx Renal Disease (ESRD): No Hx Thyroid Disease: No Hx Human Immunodeficiency Virus (HIV): No (last 2011 negative) Hx Hepatitis C: No Hx Depression: Yes Hx Suicide Attempt: Yes (04/09/17) Hx Bipolar Disorder: Yes Hx Schizophrenia: No - Patient Surgical History Past Surgical History: No Anesthesia Reaction: No - PPD History Previous Implant?: Yes Date: 04/06/17 Results: 0 mm PPD to be Administered?: No - Reproductive History Patient is a Female of Child Bearing Age (11 -55 yrs old): No Patient : No - Smoking Cessation Smoking history: Current every day smoker Have you smoked in the past 12 months: Yes Aproximately how many cigarettes per day: 10 If you are a former smoker, when did you quit?: 5 Hx Chewing Tobacco Use: No Initiated information on smoking cessation: Yes 'Breaking Loose' booklet given: 09/29/17 - Substance & Tx. History Hx Alcohol Use: Yes Hx Substance Use: Yes Substance Use Type: Alcohol, Cocaine, Heroin, Opiates Hx Substance Use Treatment: Yes ( [facility] in march) - Substances Abused Heroin Route: Inhalation Frequency: Daily Amount used: 2-7 BAGS Age of first use: 33 Date of Last Use: 09/28/17 Alcohol Route: Oral Frequency: Daily Amount used: 1 PINT VODKA Age of first use: 17 Date of Last Use: 09/28/17 Cocaine Route: Smoking Frequency: Daily Amount used: 2 BAGS Age of first use: 22 Date of Last Use: 09/28/17 Family Disease History - Family Disease History Family History: Denies Admission Physical Exam BHS - Vital Signs Vital Signs: Vital Signs - 24 hr 09/29/17 10:19 Temperature 96.5 F L Pulse Rate 77 Respiratory 20 Rate Blood Pressure 122/94 - Physical General Appearance: Yes: Nourished, Appropriately Dressed, Disheveled, Mild Distress, Tremorous, Irritable, Sweating, Anxious HEENTM: Yes: Hearing grossly Normal, Normocephalic, Normal Voice, CRISTINA, Pharynx Normal, Nasal Congestion, Rhinorrhea Respiratory: Yes: Within Normal Limits, Chest Non-Tender, Lungs Clear, Normal Breath Sounds, No Respiratory Distress, No Accessory Muscle Use Neck: Yes: Within Normal Limits, No masses,lesions,Nodules, Supple, Trachea in good position Breast: Yes: Breast Exam Deferred Cardiology: Yes: Within Normal Limits, Regular Rhythm, Regular Rate, S1, S2 Abdominal: Yes: Within Normal Limits, Normal Bowel Sounds, Non Tender, Soft, Protuberent, Distended Genitourinary: Yes: Within Normal Limits Back: Yes: Within Normal Limits, Normal Inspection Musculoskeletal: Yes: full range of Motion, Gait Steady, Pelvis Stable, Muscle Pain Extremities: Yes: Normal Capillary Refill, Normal Range of Motion, Non-Tender, Tremors 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: Yes: surgical services asst II-XII NML intact, Fully Oriented, Alert, Motor Strength 5/5, Normal Response, Depressed Affect Integumentary: Yes: Normal Color, Warm, Diaphoresis, Moist, Rash (lower extremity rash, old, blister r foot) Lymphatic: Yes: Within Normal Limits - Addiitonal Findings: withdrawal sx - Diagnostic (1) Blister Current Visit: No Status: Acute (2) Cellulitis of left leg Current Visit: No Status: Acute (3) Alcohol dependence with uncomplicated withdrawal Current Visit: No Status: Chronic (4) Bipolar disorder Current Visit: No Status: Chronic (5) Cocaine dependence Current Visit: No Status: Chronic (6) Opioid dependence with withdrawal Current Visit: No Status: Chronic Cleared for Admission [facility] - Detox or Rehab [facility] Level of Care: Medically Managed Detox Regimen/Protocol: Methadone/Valium [facility] Breath Alcohol Content Breath Alcohol Content: 0 Urine Drug Screen - Results Drug Screen Negative: No Urine Drug Screen Results: LIZZIE-Cocaine, OPI-Opiates
[2017-09-29] MEDS ORDERED: HYDROCORTISONE 0.5% TOPICAL OINTMENT TUBE TP PRN (10:50)
[2017-09-29] MEDS ORDERED: diazePAM 5 MG TABLET PO ONE (14:00)
[2017-09-29] MEDS ORDERED: METHADONE HCL 10 MG TABLET (FOR DETOX USE ONLY) PO ONE ×2 (14:00→23:00)
[2017-09-29] MEDS: BACITRACIN 0.9 GM PACKET TP SCH (15:33)
[2017-09-29] MEDS: NICOTINE 14 MG/24 HOURS TOPICAL PATCH TD SCH (15:33)
[2017-09-29] MEDS: diazePAM 5 MG TABLET PO SCH ×2 (15:33→22:20)
--- NOTE | 2017-09-29 15:43 | CONSULT ---
[facility] Psychiatric Consult - Data Date of interview: 09/29/17 Admission source: [facility] Identifying data: Readmission to [facility] for this 36 y/o male seeking detox treatment on for alcohol,heroin and cocaine dependence.Patient is ,a father of four,homelesss,unemployed and supported on food stamps. Substance Abuse History: Mr Samayoa admits to active use of cocaine,heroin and alcohol as detailed in this imported [facility] report : Smoking history: Current every day smoker. Have you smoked in the past 12 months: Yes. Aproximately how many cigarettes per day: 10. If you are a former smoker, when did you quit? : 5. Hx Chewing Tobacco Use: No. Initiated information on smoking cessation: Yes. 'Breaking Loose' booklet given: 09/29/17. - Substance & Tx. History. Hx Alcohol Use: Yes. Hx Substance Use: Yes. Substance Use Type: Alcohol, Cocaine , Heroin, Opiates. Hx Substance Use Treatment: Yes ([facility] march). - Substances Abused. Heroin. Route: Inhalation. Frequency: Daily. Amount used: 2-7 BAGS. Age of first use: 33. Date of Last Use: 09/28/17. Alcohol. Route: Oral. Frequency: Daily. Amount used: 1 PINT VODKA. Age of first use: 17. Date of Last Use: 09/28/17. Cocaine. Route: Smoking. Frequency: Daily. Amount used: 2 BAGS. Age of first use: 22. Date of Last Use : 09/28/17 Medical History: Patient endorses good general health. Psychiatric History: Onset of psychiatric issues : age 19.Patient admits to one psychiatric hospitalization at [facility].Diagnosed with Bipolar Disorder (2016).Mr Samayoa was treated with various agents but exposure was apparently brief due to non-adherence.Patient reports that he stopped taking medications/going to [facility] OPD clinic about five months ago.Denies history of suicide attempts. Physical/Sexual Abuse/Trauma History: Patient denies history of abuse. Additional Comment: Urine Drug Screen Results: LIZZIE-Cocaine, OPI-Opiates.Noted. Mental Status Exam - Mental Status Exam Alert and Oriented to: Time, Place, Person Cognitive Function: Good Patient Appearance: Well Groomed (overweight) Mood: Hopeful, Euthymic Affect: Appropriate, Normal Range Patient Behavior: Fatigued, Appropriate, Cooperative Speech Pattern: Clear Voice Loudness: Normal Thought Process: Intact, Goal Oriented Thought Disorder: Not Present Hallucinations: Denies Suicidal Ideation: Denies Homicidal Ideation: Denies Insight/Judgement: Poor Sleep: Well (as per self-report) Appetite: Good Muscle strength/Tone: Normal Gait/Station: Normal Psychiatric Findings - Problem List ([place] 1, 2,3) (1) Alcohol dependence with uncomplicated withdrawal Current Visit: Yes Status: Acute (2) Opioid dependence with withdrawal Current Visit: No Status: Acute (3) Cocaine dependence Current Visit: Yes Status: Acute (4) Nicotine dependence Current Visit: Yes Status: Acute (5) Bipolar disorder Current Visit: No Status: Chronic Comment: History as per records.Total non- compliance with OPD care + medications. - Initial Treatment Plan Initial Treatment Plan: Psychoeducation.Detoxification.Patient is presnted with option to resume mood stabilizers.Mr Samayoa REFUSED." These things make me gain weight.I would rather discuss that issue with my psychiatrist at [facility] after detox." Observation.
[2017-09-29] MEDS: THIAMINE HCL 100 MG TABLET (FP) PO SCH (22:19)
[2017-09-29 22:36] LABS: URINE APPEARANCE SLCLOUDY; URINE BILIRUBIN NEGATIVE (NEGATIVE); URINE BLOOD NEGATIVE (NEGATIVE); URINE COLOR DKYELLOW; URINE GLUCOSE (UA) NEGATIVE (NEGATIVE); URINE KETONE NEGATIVE (NEGATIVE); URINE NITRITE NEGATIVE (NEGATIVE); URINE PROTEIN NEGATIVE (NEGATIVE)
[2017-09-30] MEDS: diazePAM 5 MG TABLET PO SCH ×3 (05:55→22:42)
[2017-09-30] MEDS ORDERED: METHADONE HCL 10 MG TABLET (FOR DETOX USE ONLY) PO SCH (10:00)
[2017-09-30 10:02] LABS: MCHC 33.8 g/dl (32.0-35.9); MEAN CELL VOLUME 88.7 fl (80-96); MEAN PLT VOLUME 9.9 fl (7.5-11.1); PLATELET COUNT 222 K/MM3 (134-434); RDW 13.7 % (11.9-15.9); WHITE BLOOD COUNT 5.9 K/mm3 (4.0-10.0)
[2017-09-30] MEDS: NICOTINE 14 MG/24 HOURS TOPICAL PATCH TD SCH (10:46)
[2017-09-30] MEDS: PRENATAL VITAMINS W/ FOLIC ACID TABLET (FP) PO SCH (10:46)
[2017-09-30] MEDS: BACITRACIN 0.9 GM PACKET TP SCH (10:46)
[2017-09-30 11:27] LABS: ALBUMIN 3.7 g/dl (3.4-5.0); ANION GAP 8 (8-16); CALCIUM 8.7 mg/dL (8.5-10.1); CO2 29 mmol/L (21-32); GLUCOSE,RANDOM 147 mg/dL (74-106)
[2017-09-30 11:30] LABS: ALK PHOS 116 U/L (45-117); BILIRUBIN,TOTAL 0.7 mg/dL (0.2-1.0); CREATININE 0.9 mg/dL (0.7-1.3); SGOT/AST 74 U/L (15-37); SGPT/ALT 54 U/L (12-78); TOT PROT 7.1 g/dl (6.4-8.2)
[2017-09-30 11:57] LABS: URINE LEUK ESTERASE Negative (NEGATIVE)
[2017-09-30] MEDS ORDERED: FLU VACCINE QUAD 60 MCG/0.5 ML (MDV 17-18) IM ONE (12:00)
--- NOTE | 2017-09-30 16:07 | PN ---
[facility] CIWA - CIWA Score Nausea/Vomitin-No Nausea/No Vomiting Muscle Tremors: 4-Moderate,w/Arms Extend Anxiety: 3 Agitation: 2 Paroxysmal Sweats: 3 Orientation: 0-Oriented Tacttile Disturbances: 2-Mild Itch/Numbness/Burn Auditory Disturbances: 2-Mild Harshness/Frighten Visual Disturbances: 1-Very Mild Sensitivity Headache: 0-None Present CIWA-Ar Total Score: 17 S COWS - Scale Resting Pulse: 0= [place] 80 or Below Sweatin= Chills/Flushing Restless Observation: 1= Difficult to Sit Still Pupil Size: 0= Normal to Room Light Bone or Joint Aches: 0= None Runny Nose/ Eye Tearin= Runny Nose/Eyes GI Upset > 30mins: 0= None Tremor Observation of Outstretched Hands: 2= Slight Tremor Visible Yawning Observation: 1= 1-2x During Session Anxiety or Irritability: 2=Irritable/Anxious Goose Flesh Skin: 3=Piloerection COWS Score: 12 S Progress Note (SOAP) Subjective: Tremors, Fatigue, Sweating. Objective: PT. A & O X 3. NO ACUTE DISTRESS. 09/30/17 16:04 Vital Signs Temperature 96.8 F L 09/30/17 13:28 Pulse Rate 124 H 09/30/17 13:28 Respiratory Rate 18 09/30/17 13:28 Blood Pressure 145/98 09/30/17 13:28 O2 Sat by Pulse Oximetry (%) Laboratory Tests 09/29/17 09/30/17 09/30/17 21:00 06:00 06:00 WBC 5.9 RBC 4.79 Hgb 14.4 Hct 42.5 MCV 88.7 MCH 30.0 MCHC 33.8 RDW 13.7 Plt Count 222 MPV 9.9 Sodium 137 Potassium 3.9 Chloride 100 Carbon Dioxide 29 Anion Gap 8 BUN 12 Creatinine 0.9 Creat Clearance w eGFR > 60 Random Glucose 147 H D Calcium 8.7 Total Bilirubin 0.7 D AST 74 H D ALT 54 Alkaline Phosphatase 116 D Total Protein 7.1 Albumin 3.7 Urine Color Dkyellow Urine Appearance Slcloudy Urine pH 6.0 Ur Specific [place] 1.020 Urine Protein Negative Urine Glucose (UA) Negative Urine Ketones Negative Urine Blood Negative Urine Nitrite Negative Urine Bilirubin Negative Urine Urobilinogen 2.0 Ur Leukocyte Esterase Negative RPR Titer 09/30/17 06:00 WBC RBC Hgb Hct MCV MCH MCHC RDW Plt Count MPV Sodium Potassium Chloride Carbon Dioxide Anion Gap BUN Creatinine Creat Clearance w eGFR Random Glucose Calcium Total Bilirubin AST ALT Alkaline Phosphatase Total Protein Albumin Urine Color Urine Appearance Urine pH Ur Specific [place] Urine Protein Urine Glucose (UA) Urine Ketones Urine Blood Urine Nitrite Urine Bilirubin Urine Urobilinogen Ur Leukocyte Esterase RPR Titer Nonreactive LABS NOTED. Assessment: 09/30/17 16:05 WITHDRAWAL SYMPTOMS. Plan: CONTINUE DETOX. BGM ACBK FOR ELEVATED ADMISSION RANDOM GLUCOSE LEVEL. REPEAT AST ON 10/02/2017 FOR ELEVATED ADMSSION LEVEL. INCREASE DAILY PO FLUID INTAKE.
--- NOTE | 2017-09-30 16:40 | EKG ---
Test Reason : Blood Pressure : / mmHG Vent. Rate : 073 BPM Atrial Rate : 073 BPM P-R Int : 124 ms QRS Dur : 090 ms QT Int : 404 ms P-R-T Axes : 035 051 036 degrees QTc Int : 445 ms NORMAL SINUS RHYTHM NORMAL ECG WHEN COMPARED WITH ECG OF 12-APR-2017 16:41, NONSPECIFIC T WAVE ABNORMALITY NO LONGER EVIDENT IN LATERAL LEADS Confirmed by SADIE GOMES MD ([id number]) on 09/30/2017 4:40:27 PM Referred By: JUNIOR MONAHAN Confirmed By:SADIE GOMES MD
[2017-09-30] MEDS: diazePAM 5 MG TABLET PO PRN (17:39)
[2017-09-30] MEDS: THIAMINE HCL 100 MG TABLET (FP) PO SCH (22:39)
[2017-10-01] MEDS: diazePAM 5 MG TABLET PO PRN (06:06)
[2017-10-01] MEDS ORDERED: cloNIDine HCL 0.1 MG TABLET PO ONE (10:36)
[2017-10-01] MEDS: METHADONE HCL 5 MG TABLET (FOR DETOX USE ONLY) PO SCH (10:48)
[2017-10-01] MEDS: BACITRACIN 0.9 GM PACKET TP SCH (10:48)
[2017-10-01] MEDS: PRENATAL VITAMINS W/ FOLIC ACID TABLET (FP) PO SCH (10:48)
[2017-10-01] MEDS: diazePAM 5 MG TABLET PO SCH ×2 (10:49→22:12)
[2017-10-01] MEDS: NICOTINE 14 MG/24 HOURS TOPICAL PATCH TD SCH (10:49)
--- NOTE | 2017-10-01 13:07 | PN ---
[facility] CIWA - CIWA Score Nausea/Vomitin-No Nausea/No Vomiting Muscle Tremors: 3 Anxiety: 4-Mod. Anxious/Guarded Agitation: 4-Moderately Restless Paroxysmal Sweats: 3 Orientation: 0-Oriented Tacttile Disturbances: 3-Moderate Itch/Numb/Burn Auditory Disturbances: 0-None Visual Disturbances: 0-None Headache: 0-None Present CIWA-Ar Total Score: 17 S COWS - Scale Resting Pulse: 0= [place] 80 or Below Sweatin= Chills/Flushing Restless Observation: 1= Difficult to Sit Still Pupil Size: 0= Normal to Room Light Bone or Joint Aches: 1= Mild Discomfort Runny Nose/ Eye Tearin= None GI Upset > 30mins: 0= None Tremor Observation of Outstretched Hands: 2= Slight Tremor Visible Yawning Observation: 1= 1-2x During Session Anxiety or Irritability: 4=Extreme Anxiety Goose Flesh Skin: 3=Piloerection COWS Score: 13 S Progress Note (SOAP) Subjective: Anxious, Fatigue, Sweating, Tremors. Objective: PT. A & O X 3, OBSERVED AMBULATING ON UNIT. NO ACUTE DISTRESS. 10/01/17 13:05 Vital Signs Temperature 96.2 F L 10/01/17 09:44 Pulse Rate 80 10/01/17 09:44 Respiratory Rate 16 10/01/17 09:44 Blood Pressure 139/87 10/01/17 09:44 O2 Sat by Pulse Oximetry (%) Laboratory Tests 09/29/17 09/30/17 09/30/17 21:00 06:00 06:00 WBC 5.9 RBC 4.79 Hgb 14.4 Hct 42.5 MCV 88.7 MCH 30.0 MCHC 33.8 RDW 13.7 Plt Count 222 MPV 9.9 Sodium 137 Potassium 3.9 Chloride 100 Carbon Dioxide 29 Anion Gap 8 BUN 12 Creatinine 0.9 Creat Clearance w eGFR > 60 POC Glucometer Random Glucose 147 H D Calcium 8.7 Total Bilirubin 0.7 D AST 74 H D ALT 54 Alkaline Phosphatase 116 D Total Protein 7.1 Albumin 3.7 Urine Color Dkyellow Urine Appearance Slcloudy Urine pH 6.0 Ur Specific [place] 1.020 Urine Protein Negative Urine Glucose (UA) Negative Urine Ketones Negative Urine Blood Negative Urine Nitrite Negative Urine Bilirubin Negative Urine Urobilinogen 2.0 Ur Leukocyte Esterase Negative RPR Titer 09/30/17 10/01/17 06:00 06:06 WBC RBC Hgb Hct MCV MCH MCHC RDW Plt Count MPV Sodium Potassium Chloride Carbon Dioxide Anion Gap BUN Creatinine Creat Clearance w eGFR POC Glucometer 79 Random Glucose Calcium Total Bilirubin AST ALT Alkaline Phosphatase Total Protein Albumin Urine Color Urine Appearance Urine pH Ur Specific [place] Urine Protein Urine Glucose (UA) Urine Ketones Urine Blood Urine Nitrite Urine Bilirubin Urine Urobilinogen Ur Leukocyte Esterase RPR Titer Nonreactive LABS NOTED. Assessment: 10/01/17 13:06 WITHDRAWAL SYMPTOMS. Plan: CONTINUE DETOX. CLONIDINE, 0.1 MG PO X1 FOR DETOX SYMPTOMS. INCREASE DAILY PO FLUID INTAKE. ENCOURAGE AMBULATION.
[2017-10-01] MEDS: THIAMINE HCL 100 MG TABLET (FP) PO SCH (22:12)
[2017-10-02] MEDS: diazePAM 5 MG TABLET PO PRN (06:00)
[2017-10-02] MEDS: diazePAM 5 MG TABLET PO SCH ×2 (10:41→22:17)
[2017-10-02] MEDS: METHADONE HCL 5 MG TABLET (FOR DETOX USE ONLY) PO SCH (10:41)
[2017-10-02] MEDS: PRENATAL VITAMINS W/ FOLIC ACID TABLET (FP) PO SCH (10:42)
[2017-10-02] MEDS: BACITRACIN 0.9 GM PACKET TP SCH (10:43)
[2017-10-02] MEDS: NICOTINE 14 MG/24 HOURS TOPICAL PATCH TD SCH (10:43)
[2017-10-02 11:08] LABS: SGOT/AST 20 U/L (15-37); SGPT/ALT 35 U/L (12-78)
[2017-10-02] MEDS ORDERED: cloNIDine HCL 0.1 MG TABLET PO ONE (14:04)
--- NOTE | 2017-10-02 14:13 | PN ---
S Progress Note (SOAP) Subjective: Anxious, Fatigue, Sweating. Objective: PT. A & O X 3, OBSERVED AMBULATING ON UNIT. NO ACUTE DISTRESS. 10/02/17 14:08 Vital Signs Temperature 96.0 F L 10/02/17 13:15 Pulse Rate 69 10/02/17 13:15 Respiratory Rate 18 10/02/17 13:15 Blood Pressure 128/77 10/02/17 13:15 O2 Sat by Pulse Oximetry (%) Laboratory Tests 09/29/17 09/30/17 09/30/17 21:00 06:00 06:00 WBC 5.9 RBC 4.79 Hgb 14.4 Hct 42.5 MCV 88.7 MCH 30.0 MCHC 33.8 RDW 13.7 Plt Count 222 MPV 9.9 Sodium 137 Potassium 3.9 Chloride 100 Carbon Dioxide 29 Anion Gap 8 BUN 12 Creatinine 0.9 Creat Clearance w eGFR > 60 POC Glucometer Random Glucose 147 H D Calcium 8.7 Total Bilirubin 0.7 D AST 74 H D ALT 54 Alkaline Phosphatase 116 D Total Protein 7.1 Albumin 3.7 Urine Color Dkyellow Urine Appearance Slcloudy Urine pH 6.0 Ur Specific [place] 1.020 Urine Protein Negative Urine Glucose (UA) Negative Urine Ketones Negative Urine Blood Negative Urine Nitrite Negative Urine Bilirubin Negative Urine Urobilinogen 2.0 Ur Leukocyte Esterase Negative RPR Titer 09/30/17 10/01/17 10/02/17 06:00 06:06 06:02 WBC RBC Hgb Hct MCV MCH MCHC RDW Plt Count MPV Sodium Potassium Chloride Carbon Dioxide Anion Gap BUN Creatinine Creat Clearance w eGFR POC Glucometer 79 86 Random Glucose Calcium Total Bilirubin AST ALT Alkaline Phosphatase Total Protein Albumin Urine Color Urine Appearance Urine pH Ur Specific [place] Urine Protein Urine Glucose (UA) Urine Ketones Urine Blood Urine Nitrite Urine Bilirubin Urine Urobilinogen Ur Leukocyte Esterase RPR Titer Nonreactive 10/02/17 07:40 WBC RBC Hgb Hct MCV MCH MCHC RDW Plt Count MPV Sodium Potassium Chloride Carbon Dioxide Anion Gap BUN Creatinine Creat Clearance w eGFR POC Glucometer Random Glucose Calcium Total Bilirubin AST 20 D ALT 35 D Alkaline Phosphatase Total Protein Albumin Urine Color Urine Appearance Urine pH Ur Specific [place] Urine Protein Urine Glucose (UA) Urine Ketones Urine Blood Urine Nitrite Urine Bilirubin Urine Urobilinogen Ur Leukocyte Esterase RPR Titer LABS NOTED. RESULTS OF REPEAT AST AND ALT NOTED. 10/02/17 14:13 Assessment: 10/02/17 14:09 WITHDRAWAL SYMPTOMS. Plan: CONTINUE DETOX. CLONIDINE, 0.1 MG PO FOR DETOX SYMPTOMS. INCREASE DAILY PO FLUID INTAKE.
[2017-10-02] MEDS: THIAMINE HCL 100 MG TABLET (FP) PO SCH (22:17)
[2017-10-02] MEDS: hydrOXYzine PAMOATE 50 MG CAPSULE (FP) PO PRN (22:19)
[2017-10-03] MEDS ORDERED: METHADONE HCL 10 MG TABLET (FOR DETOX USE ONLY) PO SCH (10:00)
[2017-10-03] MEDS ORDERED: diazePAM 5 MG TABLET PO SCH (10:00)
[2017-10-03] MEDS: BACITRACIN 0.9 GM PACKET TP SCH (10:14)
[2017-10-03] MEDS: NICOTINE 14 MG/24 HOURS TOPICAL PATCH TD SCH (10:14)
[2017-10-03] MEDS: PRENATAL VITAMINS W/ FOLIC ACID TABLET (FP) PO SCH (10:14)
--- NOTE | 2017-10-03 14:36 | PN ---
[facility] Progress Note (SOAP) Subjective: Anxious, sweating Objective: 10/03/17 14:34 Last Vital Signs Temp Pulse Resp BP Pulse Ox 97.0 F L 74 18 131/82 10/03/17 13:47 10/03/17 13:47 10/03/17 13:47 10/03/17 13:47 Laboratory Tests 09/29/17 09/30/17 09/30/17 21:00 06:00 06:00 WBC 5.9 RBC 4.79 Hgb 14.4 Hct 42.5 MCV 88.7 MCH 30.0 MCHC 33.8 RDW 13.7 Plt Count 222 MPV 9.9 Sodium 137 Potassium 3.9 Chloride 100 Carbon Dioxide 29 Anion Gap 8 BUN 12 Creatinine 0.9 Creat Clearance w eGFR > 60 POC Glucometer Random Glucose 147 H D Calcium 8.7 Total Bilirubin 0.7 D AST 74 H D ALT 54 Alkaline Phosphatase 116 D Total Protein 7.1 Albumin 3.7 Urine Color Dkyellow Urine Appearance Slcloudy Urine pH 6.0 Ur Specific [place] 1.020 Urine Protein Negative Urine Glucose (UA) Negative Urine Ketones Negative Urine Blood Negative Urine Nitrite Negative Urine Bilirubin Negative Urine Urobilinogen 2.0 Ur Leukocyte Esterase Negative RPR Titer 09/30/17 10/01/17 10/02/17 06:00 06:06 06:02 WBC RBC Hgb Hct MCV MCH MCHC RDW Plt Count MPV Sodium Potassium Chloride Carbon Dioxide Anion Gap BUN Creatinine Creat Clearance w eGFR POC Glucometer 79 86 Random Glucose Calcium Total Bilirubin AST ALT Alkaline Phosphatase Total Protein Albumin Urine Color Urine Appearance Urine pH Ur Specific [place] Urine Protein Urine Glucose (UA) Urine Ketones Urine Blood Urine Nitrite Urine Bilirubin Urine Urobilinogen Ur Leukocyte Esterase RPR Titer Nonreactive 10/02/17 07:40 WBC RBC Hgb Hct MCV MCH MCHC RDW Plt Count MPV Sodium Potassium Chloride Carbon Dioxide Anion Gap BUN Creatinine Creat Clearance w eGFR POC Glucometer Random Glucose Calcium Total Bilirubin AST 20 D ALT 35 D Alkaline Phosphatase Total Protein Albumin Urine Color Urine Appearance Urine pH Ur Specific [place] Urine Protein Urine Glucose (UA) Urine Ketones Urine Blood Urine Nitrite Urine Bilirubin Urine Urobilinogen Ur Leukocyte Esterase RPR Titer Labs noted Assessment: 10/03/17 14:35 Withdrawal symptoms Plan: Continue detox
[2017-10-03] MEDS: THIAMINE HCL 100 MG TABLET (FP) PO SCH (22:18)
[2017-10-03] MEDS: hydrOXYzine PAMOATE 50 MG CAPSULE (FP) PO PRN (22:18)
[2017-10-04] MEDS ORDERED: METHADONE HCL 5 MG TABLET (FOR DETOX USE ONLY) PO SCH (06:00)
--- NOTE | 2017-10-04 08:57 | DS ---
[facility] Detox Discharge Summary Admission Date: 09/29/17 Discharge Date: 10/04/17 - History Present History: Alcohol Dependence, Opioid Dependence Additional Comments: [facility] Past History: anxiety, blister, depression, insomnia, nicotine dependence - Physical Exam Results Vital Signs: Vital Signs Temperature 97.9 F 10/04/17 06:09 Pulse Rate 65 10/04/17 06:09 Respiratory Rate 18 10/04/17 06:09 Blood Pressure 134/85 10/04/17 06:09 O2 Sat by Pulse Oximetry (%) Laboratory Tests 09/29/17 09/30/17 09/30/17 21:00 06:00 06:00 WBC 5.9 RBC 4.79 Hgb 14.4 Hct 42.5 MCV 88.7 MCH 30.0 MCHC 33.8 RDW 13.7 Plt Count 222 MPV 9.9 Sodium 137 Potassium 3.9 Chloride 100 Carbon Dioxide 29 Anion Gap 8 BUN 12 Creatinine 0.9 Creat Clearance w eGFR > 60 POC Glucometer Random Glucose 147 H D Calcium 8.7 Total Bilirubin 0.7 D AST 74 H D ALT 54 Alkaline Phosphatase 116 D Total Protein 7.1 Albumin 3.7 Urine Color Dkyellow Urine Appearance Slcloudy Urine pH 6.0 Ur Specific [place] 1.020 Urine Protein Negative Urine Glucose (UA) Negative Urine Ketones Negative Urine Blood Negative Urine Nitrite Negative Urine Bilirubin Negative Urine Urobilinogen 2.0 Ur Leukocyte Esterase Negative RPR Titer 09/30/17 10/01/17 10/02/17 06:00 06:06 06:02 WBC RBC Hgb Hct MCV MCH MCHC RDW Plt Count MPV Sodium Potassium Chloride Carbon Dioxide Anion Gap BUN Creatinine Creat Clearance w eGFR POC Glucometer 79 86 Random Glucose Calcium Total Bilirubin AST ALT Alkaline Phosphatase Total Protein Albumin Urine Color Urine Appearance Urine pH Ur Specific [place] Urine Protein Urine Glucose (UA) Urine Ketones Urine Blood Urine Nitrite Urine Bilirubin Urine Urobilinogen Ur Leukocyte Esterase RPR Titer Nonreactive 10/02/17 07:40 WBC RBC Hgb Hct MCV MCH MCHC RDW Plt Count MPV Sodium Potassium Chloride Carbon Dioxide Anion Gap BUN Creatinine Creat Clearance w eGFR POC Glucometer Random Glucose Calcium Total Bilirubin AST 20 D ALT 35 D Alkaline Phosphatase Total Protein Albumin Urine Color Urine Appearance Urine pH Ur Specific [place] Urine Protein Urine Glucose (UA) Urine Ketones Urine Blood Urine Nitrite Urine Bilirubin Urine Urobilinogen Ur Leukocyte Esterase RPR Titer Pertinent Admission Physical Exam Findings: withdrawal sx - Treatment Hospital Course: Detox Protocol Followed, Detoxed Safely, Responded well, Discharged Condition Good Patient has Accepted a Rehab Referral to: Yes - Medication Discharge Medications: Ambulatory Orders NK [No Known Home Medication] 09/29/17 - Diagnosis (1) Blister Current Visit: Yes Status: Acute (2) Cellulitis of left leg Current Visit: Yes Status: Acute (3) Alcohol dependence with uncomplicated withdrawal Current Visit: Yes Status: Acute (4) Bipolar disorder Current Visit: Yes Status: Chronic Qualifiers: Active/Remission status: remission status unspecified Qualified Code(s): F31.9 - Bipolar disorder, unspecified (5) Cocaine dependence Current Visit: Yes Status: Chronic Qualifiers: Substance use status: uncomplicated Qualified Code(s): F14.20 - Cocaine dependence, uncomplicated (6) Opioid dependence with withdrawal Current Visit: Yes Status: Acute - AMA Did Patient Leave Against Medical Advice: No
[2017-10-04 09:24] VITALS: BP 141/89; PULSE 78; TEMP 97.5
[2017-10-04] MEDS: PRENATAL VITAMINS W/ FOLIC ACID TABLET (FP) PO SCH (09:30)
[2017-10-04] MEDS: BACITRACIN 0.9 GM PACKET TP SCH (09:30)
[2017-10-04] MEDS: NICOTINE 14 MG/24 HOURS TOPICAL PATCH TD SCH (09:30)
== END 2017-10-04 09:10 | disposition home or self-care (01) | DRG 773 ==
LOC: YASAS 08:29 → Y3N 13:32
PROVIDERS: ADMIT Internal Medicine; ATTEND Internal Medicine
PROC: HZ2ZZZZ Detoxification Services for Substance Abuse Treatment (ICD-10-PCS; principal; 2017-09-29)
DX: F11.23 Opioid dependence with withdrawal (principal); F10.230 Alcohol dependence with withdrawal, uncomplicated; F14.20 Cocaine dependence, uncomplicated; F17.210 Nicotine dependence, cigarettes, uncomplicated; F31.9 Bipolar disorder, unspecified; L03.116 Cellulitis of left lower limb; S90.821A Blister (nonthermal), right foot, initial encounter; Z91.5 Personal history of self-harm
CPT/HCPCS: 36415; 80053; 81003; 84450; 84460; 85027; 86593; 90688; 93005; 93010; G0008

== ENCOUNTER 2018-01-15 03:42 | Inpatient (IN) | payer OTHER ==
--- NOTE | 2018-01-15 03:59 | HP ---
CIWA Score - CIWA Score Nausea/Vomitin-Mild Nausea/No Vomiting Muscle Tremors: 1-None Visible, but [place] Anxiety: 3 Agitation: 1-Slight > Activity Paroxysmal Sweats: 2 Orientation: 2-Disoriented Date<2 days Tacttile Disturbances: 0-None Auditory Disturbances: 2-Mild Harshness/Frighten Visual Disturbances: 1-Very Mild Sensitivity Headache: 1-Very Mild CIWA-Ar Total Score: 14 Admission ROS BHS - HPI Chief Complaint: WITHDRAWAL SYMPTOMS Allergies/Adverse Reactions: Allergies Allergy/AdvReac Type Severity Reaction Status Date / Time No Known Allergies Allergy Verified 01/14/18 22:45 History of Present Illness: TRANSFERRED FROM [facility] ER. 37 Y.O. MAN WITH A HISTORY OF OPIOID AND ALCOHOL DEPENDENCE IS HERE SEEKING ALCOHOL DETOX. HE HAS HAD MULTIPLE ADMISSIONS FOR DETOX AND REHAB. HE REPORTS HE WAS LAST AT [facility] 2 WEEKS PRIOR FOR REHAB BUT STATES HE WAS ADMINISTRATIVELY DISCHARGED. PT. HAS A HISTORY OF HEROIN DEPENDENCE BUT STATES HE LAST USED 1 MONTH AGO. UDS IS POSITIVE FOR METHADONE; PT. STATE WAS WAS GIVEN METHADONE DURING HIS STAY AT [facility]. LABS AND EKG FROM THE ER REVIEWED. Exam Limitations: No Limitations - Review of Systems Constitutional: Chills, Loss of Appetite, Unintentional Wgt. Loss EENT: reports: Nose Congestion Respiratory: reports: Shortness of Breath Cardiac: reports: Chest Pain GI: reports: No Symptoms Reported : reports: No Symptoms Reported Musculoskeletal: reports: Back Pain Integumentary: reports: No Symptoms Reported Neuro: reports: Headache Endocrine: reports: No Symptoms Reported Hematology: reports: No Symptoms Reported Psychiatric: reports: Judgement Intact, Mood/Affect Appropiate, Anxious, Depressed Other Systems: Reviewed and Negative Patient History - Patient Medical History Hx Anemia: No Hx Asthma: No Hx Chronic Obstructive Pulmonary Disease (COPD): No Hx Cancer: No Hx Cardiac Disorders: No Hx Congestive Heart Failure: No Hx Hypertension: No Hx Hypercholesterolemia: No Hx Pacemaker: No HX Cerebrovascular Accident: No Hx Seizures: No Hx Dementia: No Hx Diabetes: No Hx Gastrointestinal Disorders: No Hx Liver Disease: No Hx Genitourinary Disorders: No Hx Sexually Transmitted Disorders: No Hx Renal Disease (ESRD): No Hx Thyroid Disease: No Hx Human Immunodeficiency Virus (HIV): No (last 2011 negative) Hx Hepatitis C: No Hx Depression: Yes Hx Suicide Attempt: Yes (04/09/17) Hx Bipolar Disorder: Yes Hx Schizophrenia: No - Patient Surgical History Past Surgical History: No Anesthesia Reaction: No - PPD History Previous Implant?: Yes Documented Results: Negative w/proof Implanted On Prior R Admission?: Yes Date: 04/06/17 Results: 0 mm PPD to be Administered?: No - Reproductive History Patient is a Female of Child Bearing Age (11 -55 yrs old): No - Smoking Cessation Smoking history: Current every day smoker Have you smoked in the past 12 months: Yes Aproximately how many cigarettes per day: 10 If you are a former smoker, when did you quit?: 5 Hx Chewing Tobacco Use: No Initiated information on smoking cessation: Yes 'Breaking Loose' booklet given: 01/15/18 - Substance & Tx. History Hx Alcohol Use: Yes Hx Substance Use: Yes Substance Use Type: Alcohol, Cocaine Hx Substance Use Treatment: Yes (DETOX: 09/2017 REHAB: [facility] 12/31/17) - Substances Abused Alcohol Route: Oral Frequency: Daily Amount used: 2 PINTS OF LIQUOR Age of first use: 15 Date of Last Use: 01/14/18 Cocaine Route: Smoking Frequency: 3-6 times per week Amount used: 15 BAGS Age of first use: 26 Date of Last Use: 01/14/18 Family Disease History - Family Disease History Family History: Denies Admission Physical Exam BHS - Vital Signs Vital Signs: Last Vital Signs Temp Pulse Resp BP Pulse Ox 97.0 F L 75 18 119/77 01/15/18 04:31 01/15/18 04:31 01/15/18 04:31 01/15/18 04:31 - Physical General Appearance: Yes: Irritable, Sweating, Anxious HEENTM: Yes: Normal ENT Inspection, Normocephalic, Normal Voice, CRISTINA Respiratory: Yes: Chest Non-Tender, Lungs Clear, Normal Breath Sounds Neck: Yes: No masses,lesions,Nodules, Trachea in good position Breast: Yes: Breast Exam Deferred Cardiology: Yes: Regular Rhythm, Regular Rate Abdominal: Yes: Non Tender, Flat, Soft Genitourinary: Yes: Other (NO COMPLAINTS REPORTED) Back: Yes: Normal Inspection Musculoskeletal: Yes: full range of Motion, Gait Steady Extremities: Yes: Normal Capillary Refill, Normal Inspection, Normal Range of Motion, Non-Tender 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: Yes: Alert, Normal Mood/Affect, Normal Response Integumentary: Yes: Normal Color, Dry, Warm Lymphatic: Yes: Within Normal Limits - Diagnostic (1) Alcohol dependence with uncomplicated withdrawal Current Visit: Yes Status: Chronic (2) Cocaine dependence Current Visit: Yes Status: Chronic Qualifiers: (3) Nicotine dependence Current Visit: Yes Status: Chronic Qualifiers: Nicotine product type: cigarettes Substance use status: uncomplicated Qualified Code(s): F17.210 - Nicotine dependence, cigarettes, uncomplicated Cleared for Admission S - Detox or Rehab [facility] Level of Care: Medically Managed Detox Regimen/Protocol: Valium S Breath Alcohol Content Breath Alcohol Content: 0 Vital Signs - Vital Signs Vital Signs Refused: No Temperature: 97.0 F Temperature Source: Oral Pulse Rate: 75 Respiratory Rate: 18 Blood Pressure: 119/77 BP Location: Left Arm Blood Pressure Position: Sitting - Height Height: 5 ft 11 in - Weight Weight: 215 lb Weight Measurement Method: Stated by Patient Body Mass Index (BMI): 29.9 Urine Drug Screen - Test Device Lot Number: [id number] Expiration Date: 09/21/19 - Control Is Test Valid: Yes - Results Drug Screen Negative: No Urine Drug Screen Results: THC-Marijuana, LIZZIE-Cocaine, MTD-Methadone
[2018-01-15] MEDS ORDERED: LOPERAMIDE HCL 2 MG CAPSULE PO PRN (04:23)
[2018-01-15] MEDS ORDERED: ACETAMINOPHEN 325 MG TABLET (FP) PO PRN (04:23)
[2018-01-15] MEDS ORDERED: P-EPHED 60MG/TRIPROLIDI 2.5MG TABLET PO PRN (04:23)
[2018-01-15] MEDS ORDERED: guaiFENesin/D-METHORPHAN HB 10 ML UNIT-DOSE CUPS PO PRN (04:23)
[2018-01-15] MEDS ORDERED: MENTHOL/PHENOL 1 EACH UD MM PRN (04:23)
[2018-01-15] MEDS ORDERED: MAGNESIUM HYDROX 2400MG/30ML ORAL SUSPENSION 30 ML CUP PO PRN (04:23)
[2018-01-15] MEDS ORDERED: IBUPROFEN 400 MG TABLET (FP) PO PRN (04:23)
[2018-01-15] MEDS ORDERED: MAG HYDROX/AL HYDROX/SIMETH 30 ML UNIT-DOSE CUP PO PRN (04:23)
[2018-01-15] MEDS ORDERED: diazePAM 5 MG TABLET PO ONE (04:23)
[2018-01-15] MEDS ORDERED: MAGNESIUM CITRATE 300 ML BOTTLE PO PRN (04:23)
[2018-01-15 04:28] VITALS: BMI 29.9
[2018-01-15] MEDS: diazePAM 5 MG TABLET PO SCH ×3 (07:21→23:30)
[2018-01-15] MEDS: diazePAM 5 MG TABLET PO PRN (09:13)
[2018-01-15] MEDS: NICOTINE 14 MG/24 HOURS TOPICAL PATCH TD SCH (11:08)
[2018-01-15] MEDS: PRENATAL VITAMINS W/ FOLIC ACID TABLET (FP) PO SCH (11:08)
[2018-01-15] MEDS: NICOTINE POLACRILEX 2 MG GUM BC PRN (11:08)
--- NOTE | 2018-01-15 12:27 | CONSULT ---
[facility] Psychiatric Consult - Data Date of interview: 01/15/18 Admission source: [facility] Identifying data: This is one of multiple admissions to [facility] for this 37 y/ o male seeking detox treatment on for alcohol,heroin, marihuana and cocaine dependence.Patient is ,a father of four,homelesss, unemployed and supported on food stamps. Substance Abuse History: Mr Samayoa described this section of current [facility] report as an accurate description of his additive patterns. Details as follows : Smoking history: Current every day smoker. Have you smoked in the past 12 months: Yes. Aproximately how many cigarettes per day: 10. If you are a former smoker, when did you quit?: 5. Hx Chewing Tobacco Use: No. Initiated information on smoking cessation: Yes. 'Breaking Loose' booklet given: . - Substance & Tx. History. Hx Alcohol Use: Yes. Hx Substance Use: Yes. Substance Use Type: Alcohol, Cocaine. Hx Substance Use Treatment: Yes (DETOX: 09/2017 REHAB: [facility] 12/31/17). - Substances Abused. Alcohol. Route : Oral. Frequency: Daily. Amount used: 2 PINTS OF LIQUOR. Age of first use: 15. Date of Last Use: 01/14/18. Cocaine. Route: Smoking. Frequency: 3-6 times per week. Amount used: 15 BAGS. Age of first use: 26. Date of Last Use : 01/14/18 Medical History: Patient denies medical problems. Psychiatric History: Psychiatric disturbances started to occur around age [age] : age 19.Patient admits to one psychiatric hospitalization at [facility].Diagnosed with Bipolar Disorder (2016).Mr Samayoa reports past treatment with various psychotropic medications.Admits to chronic non-adherence to medications.Stopped taking medications/going to [facility] OPD clinic about three weeks ago (patient is an unreliable historian).Denies history of suicide attempts. Physical/Sexual Abuse/Trauma History: Patient denies. Additional Comment: Urine Drug Screen Results: THC-Marijuana, LIZZIE-Cocaine, MTD- Methadone.Noted. Mental Status Exam - Mental Status Exam Alert and Oriented to: Time, Place, Person Cognitive Function: Good Patient Appearance: Well Groomed Mood: Hopeful, Euthymic Affect: Appropriate, Normal Range Patient Behavior: Fatigued, Appropriate, Cooperative Speech Pattern: Clear, Appropriate Voice Loudness: Normal Thought Process: Intact, Goal Oriented Thought Disorder: Not Present Hallucinations: Denies Suicidal Ideation: Denies Homicidal Ideation: Denies Insight/Judgement: Poor Sleep: Well Appetite: Good Muscle strength/Tone: Normal Gait/Station: Normal Psychiatric Findings - Problem List ([place] 1, 2,3) (1) Opioid dependence with withdrawal Current Visit: Yes Status: Acute (2) Alcohol dependence with uncomplicated withdrawal Current Visit: Yes Status: Acute (3) Cocaine dependence Current Visit: Yes Status: Acute Qualifiers: (4) Marijuana abuse Current Visit: Yes Status: Acute (5) Nicotine dependence Current Visit: Yes Status: Acute Qualifiers: Nicotine product type: cigarettes Substance use status: uncomplicated Qualified Code(s): F17.210 - Nicotine dependence, cigarettes, uncomplicated (6) Bipolar disorder Current Visit: No Status: Chronic Qualifiers: Active/Remission status: remission status unspecified Qualified Code(s): F31.9 - Bipolar disorder, unspecified Comment: History as per records.Patient is chronically non adherent to psychiatric OPD care. (7) Substance induced mood disorder Current Visit: Yes Status: Acute - Initial Treatment Plan Initial Treatment Plan: Psychoeducation.Sleep hygiene.Detoxification in progress.Observation.
--- NOTE | 2018-01-15 13:54 | PN ---
S CIWA - CIWA Score Nausea/Vomitin-No Nausea/No Vomiting Muscle Tremors: 2 Anxiety: 3 Agitation: 1-Slight > Activity Paroxysmal Sweats: 3 Orientation: 0-Oriented Tacttile Disturbances: 2-Mild Itch/Numbness/Burn Auditory Disturbances: 0-None Visual Disturbances: 3-Moderate Sensitivity Headache: 3-Moderate CIWA-Ar Total Score: 17 BHS Progress Note (SOAP) Subjective: Fatigue, H/A, Nausea, Interrupted Sleep. Objective: PT. A & O X 3. NO ACUTE DISTRESS. 01/15/18 13:54 Vital Signs Temperature 97.3 F L 01/15/18 09:15 Pulse Rate 69 01/15/18 09:15 Respiratory Rate 18 01/15/18 09:15 Blood Pressure 101/57 01/15/18 09:15 O2 Sat by Pulse Oximetry (%) ADMISSION LABS NOTED. RPR, UA RESULTS PENDING. 01/15/18 13:58 Assessment: 01/15/18 13:57 WITHDRAWAL SYMPTOMS. Plan: CONTINUE DETOX. INCREASE DAILY PO FLUID INTAKE.
[2018-01-15] MEDS ORDERED: PNEUMOCOCCAL 23 VACCINE 0.5 ML VIAL IM ONE (14:00)
[2018-01-15] MEDS: THIAMINE HCL 100 MG TABLET (FP) PO SCH (23:30)
[2018-01-16] MEDS: diazePAM 5 MG TABLET PO SCH ×3 (05:30→22:39)
[2018-01-16] MEDS: diazePAM 5 MG TABLET PO PRN ×2 (09:42→17:45)
[2018-01-16] MEDS: PRENATAL VITAMINS W/ FOLIC ACID TABLET (FP) PO SCH (10:42)
[2018-01-16] MEDS: NICOTINE 14 MG/24 HOURS TOPICAL PATCH TD SCH (10:45)
[2018-01-16] MEDS ORDERED: PNEUMOC 13-VAL CONJ-DIP CRM/PF 0.5 ML DISP.SYRIN IM ONE (12:00)
[2018-01-16] MEDS: NICOTINE POLACRILEX 2 MG GUM BC PRN (13:03)
--- NOTE | 2018-01-16 20:30 | PN ---
[facility] CIWA - CIWA Score Nausea/Vomitin Muscle Tremors: 3 Anxiety: 3 Agitation: 3 Paroxysmal Sweats: 3 Orientation: 0-Oriented Tacttile Disturbances: 0-None Auditory Disturbances: 0-None Visual Disturbances: 0-None Headache: 0-None Present CIWA-Ar Total Score: 15 S COWS - Scale Resting Pulse: 0= [place] 80 or Below Sweatin=Flushed/Facial Moisture Restless Observation: 0= Sits Still Pupil Size: 0= Normal to Room Light Bone or Joint Aches: 1= Mild Discomfort Runny Nose/ Eye Tearin= Nasal Congestion GI Upset > 30mins: 0= None Tremor Observation of Outstretched Hands: 1= Tremor [place], Not Seen Yawning Observation: 1= 1-2x During Session Anxiety or Irritability: 2=Irritable/Anxious Goose Flesh Skin: 3=Piloerection COWS Score: 11 [facility] Progress Note (SOAP) Subjective: shakes sleep disturbance sweats Objective: 01/16/18 20:28 A & O x 3 Vital Signs Temperature 96.3 F L 01/16/18 17:24 Pulse Rate 82 01/16/18 17:24 Respiratory Rate 18 01/16/18 17:24 Blood Pressure 125/77 01/16/18 17:24 O2 Sat by Pulse Oximetry (%) Assessment: withdrawal sx Plan: continue detox
[2018-01-16] MEDS: THIAMINE HCL 100 MG TABLET (FP) PO SCH (22:38)
[2018-01-16] MEDS: hydrOXYzine PAMOATE 50 MG CAPSULE (FP) PO PRN (22:39)
[2018-01-17] MEDS ORDERED: diazePAM 5 MG TABLET PO SCH (10:00)
[2018-01-17] MEDS: NICOTINE POLACRILEX 2 MG GUM BC PRN (10:38)
[2018-01-17] MEDS: hydrOXYzine PAMOATE 50 MG CAPSULE (FP) PO PRN (10:38)
[2018-01-17] MEDS: NICOTINE 14 MG/24 HOURS TOPICAL PATCH TD SCH (10:39)
[2018-01-17] MEDS: PRENATAL VITAMINS W/ FOLIC ACID TABLET (FP) PO SCH (10:41)
--- NOTE | 2018-01-17 13:10 | PN ---
BHS Progress Note (SOAP) Subjective: sweats shakes sleep disturbance Objective: 01/17/18 13:10 A & O x 3 Vital Signs Temperature 97.4 F L 01/17/18 09:57 Pulse Rate 69 01/17/18 09:57 Respiratory Rate 18 01/17/18 09:57 Blood Pressure 125/81 01/17/18 09:57 O2 Sat by Pulse Oximetry (%) Laboratory Last Values Valproic Acid 3.990 ug/ml (50-100) L 01/16/18 07:20 RPR Titer Nonreactive (NONREACTIVE) 01/16/18 07:20 noted Assessment: 01/17/18 13:11 withdrawal sx Plan: continue detox psych consult re-valproic acid(depakote)
[2018-01-17 13:42] VITALS: BP 124/81; PULSE 71; TEMP 98
[2018-01-19] MEDS ORDERED: diazePAM 5 MG TABLET PO SCH (10:00)
== END 2018-01-17 16:00 | disposition left against medical advice (07) | DRG 770 ==
LOC: YASAS 03:42 → Y3N 03:48
PROVIDERS: ADMIT Internal Medicine; ATTEND Internal Medicine
PROC: HZ2ZZZZ Detoxification Services for Substance Abuse Treatment (ICD-10-PCS; principal; 2018-01-15)
DX: F11.23 Opioid dependence with withdrawal (principal); F10.230 Alcohol dependence with withdrawal, uncomplicated; F14.20 Cocaine dependence, uncomplicated; F12.10 Cannabis abuse, uncomplicated; F17.210 Nicotine dependence, cigarettes, uncomplicated; F31.9 Bipolar disorder, unspecified; Z91.5 Personal history of self-harm; Z59.0 Homelessness
CPT/HCPCS: 36415; 80164; 86593

== ENCOUNTER 2018-06-27 09:33 | Inpatient (IN) | payer OTHER ==
[2018-06-27 09:54] VITALS: BMI 24.7
--- NOTE | 2018-06-27 10:28 | HP ---
COWS - Scale Resting Pulse: 0= [place] 80 or Below Sweatin=Flushed/Facial Moisture Restless Observation: 1= Difficult to Sit Still Pupil Size: 2= Moderately Dilated Bone or Joint Aches: 2= Severe Diffuse Aches Runny Nose/ Eye Tearin= Nasal Congestion GI Upset > 30mins: 2= Nausea/Diarrhea Tremor Observation: 2= Slight Tremor Visible Yawning Observation: 1= 1-2x During Session Anxiety or Irritability: 1=Feels Anxious/Irritable Goose Flesh Skin: 0=Smooth Skin COWS Score: 14 Admission [facility] Chief Complaint: Heroin/Alcohol withdrawal symptoms. Allergies/Adverse Reactions: Allergies Allergy/AdvReac Type Severity Reaction Status Date / Time No Known Allergies Allergy Verified 02/12/18 08:32 History of Present Illness: Patient presents with Heroin withdrawal symptoms and cocaine dependence. Patient started using Heroin at age 29 and Cocaine at age 26. Patient sniffs/ smokes 5 bags of Heroin and cocaine daily. Last time he used was last night. Patient denies seizures and overdosed x 2. Last time he overdosed was 1 year ago. Patient also drinks 1.5 pints of alcohol since he was a teenager. Last drink was last night. Patient PMH includes Bipolar disorder. Was admitted at [facility] in 02/2018 for detox but relapsed day of discharge. Denies SI/HI. Exam Limitations: No Limitations - Ebola screening Have you traveled outside of the country in the last 21 days: No Have you had contact with anyone from an Ebola affected area: No Have you been sick,other than usual withdrawal symptoms: No Do you have a fever: No - Review of Systems Constitutional: Chills, Night Sweats, Changes in sleep, Unexplained wgt Loss EENT: reports: Nose Congestion Respiratory: reports: No Symptoms reported Cardiac: reports: No Symptoms Reported GI: reports: Diarrhea, Nausea, Poor Fluid Intake, Abdominal cramping : reports: No Symptoms Reported Musculoskeletal: reports: Back Pain, Joint Pain, Muscle Pain Integumentary: reports: Flushing, Sweating Neuro: reports: Tremors Endocrine: reports: Unexplained Weight Loss Hematology: reports: No Symptoms Reported Psychiatric: reports: Orientated x3, Anxious, Depressed Patient History - Patient Medical History Hx Anemia: No Hx Asthma: No Hx Chronic Obstructive Pulmonary Disease (COPD): No Hx Cancer: No Hx Cardiac Disorders: No Hx Congestive Heart Failure: No Hx Hypertension: No Hx Hypercholesterolemia: No Hx Pacemaker: No HX Cerebrovascular Accident: No Hx Seizures: No Hx Dementia: No Hx Diabetes: No Hx Gastrointestinal Disorders: No Hx Liver Disease: No Hx Genitourinary Disorders: No Hx Sexually Transmitted Disorders: No Hx Renal Disease (ESRD): No Hx Thyroid Disease: No Hx Human Immunodeficiency Virus (HIV): No Hx Hepatitis C: No Hx Depression: Yes Hx Suicide Attempt: No Hx Bipolar Disorder: Yes Hx Schizophrenia: No - Patient Surgical History Past Surgical History: No Hx Neurologic Surgery: No Hx Cataract Extraction: No Hx Cardiac Surgery: No Hx Lung Surgery: No Hx Breast Surgery: No Hx Breast Biopsy: No Hx Abdominal Surgery: No Hx Appendectomy: No Hx Cholecystectomy: No Hx Genitourinary Surgery: No Hx Orthopedic Surgery: No Anesthesia Reaction: No - PPD History Previous Implant?: Yes Documented Results: Negative w/o proof Date: 04/06/17 Results: 0 mm PPD to be Administered?: Yes - Smoking Cessation Smoking history: Current every day smoker Have you smoked in the past 12 months: Yes Aproximately how many cigarettes per day: 12 If you are a former smoker, when did you quit?: 5 Hx Chewing Tobacco Use: No Initiated information on smoking cessation: Yes 'Breaking Loose' booklet given: 06/27/18 - Substance & Tx. History Hx Alcohol Use: Yes Hx Substance Use: Yes Substance Use Type: Cocaine, Heroin Hx Substance Use Treatment: Yes - Substances Abused Heroin Route: Inhalation Frequency: Daily Amount used: 3-4 BAGS Age of first use: 29 Date of Last Use: 06/26/18 Alcohol Route: Oral Frequency: Daily Amount used: 1PT VODKA Age of first use: 15 Date of Last Use: 06/26/18 Cocaine Route: Smoking Frequency: Daily Amount used: $50 Age of first use: 26 Date of Last Use: 06/26/18 Family Disease History - Family Disease History Family Disease History: Other: Father (living, no contact), Mother (living, anxiety), Sister (four, living, anxiety, one with etoh), Son (one), Daughter ( three, one with renal issues, one with seizures) Admission Physical Exam BHS - Vital Signs Vital Signs: Vital Signs - 24 hr 06/27/18 09:53 Temperature 97.1 F L Pulse Rate 74 Respiratory 18 Rate Blood Pressure 125/73 - Physical General Appearance: Yes: Nourished, Disheveled, Tremorous, Sweating, Anxious HEENTM: Yes: EOMI, Hearing grossly Normal, Normocephalic, Normal Voice, CRISTINA, Pharynx Normal, Nasal Congestion Respiratory: Yes: Chest Non-Tender, Lungs Clear, Normal Breath Sounds, No Respiratory Distress, No Accessory Muscle Use Neck: Yes: No masses,lesions,Nodules, Supple Breast: Yes: Breast Exam Deferred Cardiology: Yes: Regular Rhythm, Regular Rate, S1, S2 Abdominal: Yes: Normal Bowel Sounds, Non Tender, Soft Genitourinary: Yes: Within Normal Limits Back: Yes: Other (+scoliosis) Musculoskeletal: Yes: full range of Motion, Gait Steady, Back pain, Muscle Pain Extremities: Yes: Normal Range of Motion, Non-Tender, Tremors 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: Yes: brainer II-XII NML intact, Fully Oriented, Alert, Normal Response , Depressed Affect Integumentary: Yes: Warm, Erythema, Rash Lymphatic: Yes: Within Normal Limits - Diagnostic (1) Rash and nonspecific skin eruption Current Visit: Yes Status: Acute (2) Opioid dependence with withdrawal Current Visit: Yes Status: Acute (3) Cocaine dependence Current Visit: Yes Status: Chronic Qualifiers: Substance use status: uncomplicated Qualified Code(s): F14.20 - Cocaine dependence, uncomplicated (4) Bipolar disorder Current Visit: No Status: Chronic Qualifiers: Active/Remission status: remission status unspecified Qualified Code(s): F31.9 - Bipolar disorder, unspecified Comment: History as per records.Patient is chronically non adherent to psychiatric OPD care. (5) Nicotine dependence Current Visit: Yes Status: Chronic Qualifiers: Nicotine product type: cigarettes Substance use status: uncomplicated Qualified Code(s): F17.210 - Nicotine dependence, cigarettes, uncomplicated (6) Alcohol dependence with withdrawal Current Visit: Yes Status: Acute Qualifiers: Complication of substance-induced condition: uncomplicated Qualified Code(s ): F10.230 - Alcohol dependence with withdrawal, uncomplicated Cleared for Admission S - Detox or Rehab [facility] Level of Care: Medically Managed Detox Regimen/Protocol: Methadone [facility] Breath Alcohol Content Breath Alcohol Content: 0 Urine Drug Screen - Results Drug Screen Negative: No Urine Drug Screen Results: LIZZIE-Cocaine, OPI-Opiates
[2018-06-27] MEDS ORDERED: MAGNESIUM HYDROX 2400MG/30ML ORAL SUSPENSION 30 ML CUP PO PRN (10:37)
[2018-06-27] MEDS ORDERED: MENTHOL/PHENOL 1 EACH UD MM PRN (10:37)
[2018-06-27] MEDS ORDERED: P-EPHED 60MG/TRIPROLIDI 2.5MG TABLET PO PRN (10:37)
[2018-06-27] MEDS ORDERED: MAGNESIUM CITRATE 300 ML BOTTLE PO PRN (10:37)
[2018-06-27] MEDS ORDERED: IBUPROFEN 400 MG TABLET (FP) PO PRN (10:37)
[2018-06-27] MEDS ORDERED: chlordiazePOXIDE HCL 25 MG CAPSULE PO ONE (10:37)
[2018-06-27] MEDS ORDERED: LOPERAMIDE HCL 2 MG CAPSULE PO PRN (10:37)
[2018-06-27] MEDS ORDERED: chlordiazePOXIDE HCL 25 MG CAPSULE PO PRN (10:37)
[2018-06-27] MEDS ORDERED: MAG HYDROX/AL HYDROX/SIMETH 30 ML UNIT-DOSE CUP PO PRN (10:37)
[2018-06-27] MEDS ORDERED: hydrOXYzine PAMOATE 50 MG CAPSULE (FP) PO PRN (10:37)
[2018-06-27] MEDS ORDERED: ACETAMINOPHEN 325 MG TABLET (FP) PO PRN (10:37)
[2018-06-27] MEDS ORDERED: guaiFENesin/D-METHORPHAN HB 10 ML UNIT-DOSE CUPS PO PRN (10:37)
[2018-06-27] MEDS ORDERED: METHADONE HCL 10 MG TABLET (FOR DETOX USE ONLY) PO ONE ×2 (11:15→23:00)
[2018-06-27] MEDS: chlordiazePOXIDE HCL 25 MG CAPSULE PO SCH ×3 (11:50→22:43)
--- NOTE | 2018-06-27 15:43 | CONSULT ---
[facility] Psychiatric Consult - Data Date of interview: 06/27/18 Admission source: [facility] Identifying data: This is 37 years old male, , father of four, unemployed, homeless, on PA, with long history of Alcohol, Cocaine, Heroin and Nicotine depemdence, reports withdrawal symptoms and seeking for detox. Patient reports history of Bipola Disorder, psychiatric hospitalizatiuoin history as well. Substance Abuse History: Patient presents with Heroin withdrawal symptoms and cocaine dependence. Patient started using Heroin at age 29 and Cocaine at age 26. Patient sniffs/smokes 5 bags of Heroin and cocaine daily. Last time he used was last night. Patient denies seizures and overdosed x 2. Last time he overdosed was 1 year ago. Patient also drinks 1.5 pints of alcohol since he was a teenager. Last drink was last night. Patient PMH includes Bipolar disorder. Was admitted at [facility] in 02/2018 for detox but relapsed day of discharge. Denies SI /HI. Medical History: Denies significant medical problems Psychiatric History: Patient reports history of Bipolar Disorder, reports most recent psychiatric admission on more then 7-10 years ago, denies suicidal, homicidial history, reports no medications taking prior to admission, denies suicdial, homicidial history. Physical/Sexual Abuse/Trauma History: Denies Additional Comment: Observation. Detox Uniot Care Protocol Mental Status Exam - Mental Status Exam Alert and Oriented to: Person Cognitive Function: Fair Patient Appearance: Unkempt Mood: Sad Affect: Flat Patient Behavior: Sedated Speech Pattern: Delayed Voice Loudness: Mildly Soft/Quiet Thought Process: Goal Oriented Thought Disorder: Being Controlled Hallucinations: Denies Suicidal Ideation: Denies Homicidal Ideation: Denies Insight/Judgement: Fair Sleep: Difficulty falling asleep Appetite: Fair Muscle strength/Tone: Normal Gait/Station: Shuffling Additional Comments: Observation. Detox Uniot Care Protocol Psychiatric Findings - Problem List ([place] 1, 2,3) (1) Alcohol dependence with withdrawal Current Visit: Yes Status: Acute Qualifiers: Complication of substance-induced condition: uncomplicated Qualified Code(s ): F10.230 - Alcohol dependence with withdrawal, uncomplicated (2) Opioid dependence with withdrawal Current Visit: Yes Status: Acute (3) Cocaine dependence Current Visit: Yes Status: Chronic Qualifiers: Substance use status: uncomplicated Qualified Code(s): F14.20 - Cocaine dependence, uncomplicated (4) Nicotine dependence Current Visit: Yes Status: Chronic Qualifiers: Nicotine product type: cigarettes Substance use status: uncomplicated Qualified Code(s): F17.210 - Nicotine dependence, cigarettes, uncomplicated (5) Alcohol abuse Current Visit: No Status: Acute (6) Substance induced mood disorder Current Visit: No Status: Acute (7) Substance-induced sleep disorder Current Visit: No Status: Acute (8) Bipolar disorder Current Visit: No Status: Chronic Qualifiers: Active/Remission status: remission status unspecified Qualified Code(s): F31.9 - Bipolar disorder, unspecified Comment: History as per records.Patient is chronically non adherent to psychiatric OPD care. (9) Marijuana abuse Current Visit: No Status: Inactive - Initial Treatment Plan Initial Treatment Plan: Observation. Detox Uniot Care Protocol
[2018-06-27 15:52] LABS: HEMATOCRIT 43.9 % (35.4-49); HEMOGLOBIN 14.9 GM/dL (11.7-16.9); MCH 29.9 pg (25.7-33.7); MEAN PLT VOLUME 9.9 fl (7.5-11.1); PLATELET COUNT 239 K/MM3 (134-434); RBC 4.99 M/mm3 (4.00-5.60); RDW 14.3 % (11.9-15.9); WHITE BLOOD COUNT 5.5 K/mm3 (4.0-10.0)
[2018-06-27 16:03] LABS: ALBUMIN 3.9 g/dl (3.4-5.0); ANION GAP 8 (8-16); BLOOD UREA NITROGEN 17 mg/dL (7-18); CALCIUM 9.2 mg/dL (8.5-10.1); CHLORIDE 100 mmol/L (98-107); CO2 28 mmol/L (21-32); CREATININE 0.8 mg/dL (0.7-1.3); GLUCOSE,RANDOM 83 mg/dL (74-106); SGPT/ALT 35 U/L (12-78); SODIUM 136 mmol/L (136-145)
[2018-06-27 16:05] LABS: ALK PHOS 133 U/L (45-117); TOT PROT 7.6 g/dl (6.4-8.2)
[2018-06-27 16:18] LABS: POTASSIUM 4.2 mmol/L (3.5-5.1); SGOT/AST 57 U/L (15-37)
--- NOTE | 2018-06-27 16:48 | EKG ---
Test Reason : Blood Pressure : / mmHG Vent. Rate : 063 BPM Atrial Rate : 063 BPM P-R Int : 108 ms QRS Dur : 092 ms QT Int : 448 ms P-R-T Axes : -12 064 037 degrees QTc Int : 458 ms SINUS RHYTHM WITH SHORT IA OTHERWISE NORMAL ECG WHEN COMPARED WITH ECG OF 12-FEB-2018 11:36, NO SIGNIFICANT CHANGE WAS FOUND Confirmed by DANNA BURDICK MD ([id number]) on 06/27/2018 4:47:26 PM Referred By: Confirmed By:DANNA BURDICK MD
[2018-06-27] MEDS ORDERED: MELATONIN 5 MG TABLETS PO PRN (22:00)
[2018-06-27] MEDS: HYDROCORTISONE 0.5% TOPICAL CREAM 30 GM TUBE TP SCH (22:43)
[2018-06-27] MEDS: THIAMINE HCL 100 MG TABLET (FP) PO SCH (22:43)
[2018-06-28 02:31] LABS: URINE APPEARANCE TURBID; URINE BILIRUBIN NEGATIVE (<2.0 mg/dL); URINE COLOR AMBER; URINE GLUCOSE (UA) NEGATIVE (NEGATIVE); URINE KETONE NEGATIVE (NEGATIVE); URINE LEUK ESTERASE NEGATIVE (NEGATIVE); URINE NITRITE NEGATIVE (NEGATIVE); URINE UROBILINOGEN 4.0 E.U/dl mg/dL (0.2-1.0)
[2018-06-28 03:03] LABS: URINE PROTEIN 1+ (NEGATIVE)
[2018-06-28 03:14] LABS: URINE MUCUS MANY
[2018-06-28] MEDS: chlordiazePOXIDE HCL 25 MG CAPSULE PO SCH ×4 (06:29→22:19)
[2018-06-28] MEDS: NICOTINE POLACRILEX 2 MG GUM BUC PRN ×2 (06:31→22:21)
[2018-06-28] MEDS ORDERED: METHADONE HCL 10 MG TABLET (FOR DETOX USE ONLY) PO SCH (10:00)
[2018-06-28] MEDS: NICOTINE 21 MG/24 HOURS TOPICAL PATCH TD SCH (12:37)
[2018-06-28] MEDS: HYDROCORTISONE 0.5% TOPICAL CREAM 30 GM TUBE TP SCH ×2 (12:37→22:19)
[2018-06-28] MEDS: PRENATAL VITAMINS W/ FOLIC ACID TABLET (FP) PO SCH (12:37)
--- NOTE | 2018-06-28 14:17 | PN ---
[facility] CIWA - CIWA Score Nausea/Vomitin Muscle Tremors: 3 Anxiety: 3 Agitation: 3 Paroxysmal Sweats: 1-Minimal Palms Moist Orientation: 0-Oriented Tacttile Disturbances: 1-Very Mild Itch/Numbness Auditory Disturbances: 1-Very Mild Visual Disturbances: 0-None Headache: 1-Very Mild CIWA-Ar Total Score: 16 BHS COWS - Scale Resting Pulse: 0= [place] 80 or Below Sweatin= Chills/Flushing Restless Observation: 3= Extraneous Movement Pupil Size: 1= Pupils >than Normal Bone or Joint Aches: 2= Severe Diffuse Aches Runny Nose/ Eye Tearin= Runny Nose/Eyes GI Upset > 30mins: 2= Nausea/Diarrhea Tremor Observation of Outstretched Hands: 2= Slight Tremor Visible Yawning Observation: 1= 1-2x During Session Anxiety or Irritability: 2=Irritable/Anxious Goose Flesh Skin: 0=Smooth Skin COWS Score: 16 [facility] Progress Note (SOAP) Subjective: alert,irritable,anxious,interrupted sleep,pain in the body and back Objective: 06/28/18 14:12 Vital Signs Temperature 97.7 F 06/28/18 13:18 Pulse Rate 71 06/28/18 13:18 Respiratory Rate 20 06/28/18 13:18 Blood Pressure 123/62 06/28/18 13:18 O2 Sat by Pulse Oximetry (%) ekg nsr,short pr qt/qtc 448/458 no chest pain,no sob,no dizziness 06/28/18 14:14 Laboratory Last Values WBC 5.5 K/mm3 (4.0-10.0) 06/27/18 11:00 RBC 4.99 M/mm3 (4.00-5.60) 06/27/18 11:00 Hgb 14.9 GM/dL (11.7-16.9) 06/27/18 11:00 Hct 43.9 % (35.4-49) 06/27/18 11:00 MCV 88.0 fl (80-96) 06/27/18 11:00 MCH 29.9 pg (25.7-33.7) 06/27/18 11:00 MCHC 34.0 g/dl (32.0-35.9) 06/27/18 11:00 RDW 14.3 % (11.9-15.9) 06/27/18 11:00 Plt Count 239 K/MM3 (134-434) 06/27/18 11:00 MPV 9.9 fl (7.5-11.1) 06/27/18 11:00 Sodium 136 mmol/L (136-145) 06/27/18 11:00 Potassium 4.2 mmol/L (3.5-5.1) 06/27/18 11:00 Chloride 100 mmol/L (98-107) 06/27/18 11:00 Carbon Dioxide 28 mmol/L (21-32) 06/27/18 11:00 Anion Gap 8 (8-16) 06/27/18 11:00 BUN 17 mg/dL (7-18) 06/27/18 11:00 Creatinine 0.8 mg/dL (0.7-1.3) 06/27/18 11:00 Creat Clearance w eGFR > 60 (>60) 06/27/18 11:00 Random Glucose 83 mg/dL (74-106) D 06/27/18 11:00 Calcium 9.2 mg/dL (8.5-10.1) 06/27/18 11:00 Total Bilirubin 1.0 mg/dL (0.2-1.0) 06/27/18 11:00 AST 57 U/L (15-37) H D 06/27/18 11:00 ALT 35 U/L (12-78) D 06/27/18 11:00 Alkaline Phosphatase 133 U/L (45-117) H 06/27/18 11:00 Total Protein 7.6 g/dl (6.4-8.2) 06/27/18 11:00 Albumin 3.9 g/dl (3.4-5.0) 06/27/18 11:00 Urine Color Alla 06/27/18 23:12 Urine Appearance Turbid 06/27/18 23:12 Urine pH 6.0 (5.0-8.0) 06/27/18 23:12 Ur Specific [place] 1.029 (1.001-1.035) 06/27/18 23:12 Urine Protein 1+ (NEGATIVE) H 06/27/18 23:12 Urine Glucose (UA) Negative (NEGATIVE) 06/27/18 23:12 Urine Ketones Negative (NEGATIVE) 06/27/18 23:12 Urine Blood Negative (NEGATIVE) 06/27/18 23:12 Urine Nitrite Negative (NEGATIVE) 06/27/18 23:12 Urine Bilirubin Negative (<2.0 mg/dL) 06/27/18 23:12 Urine Urobilinogen 4.0 e.u/dl mg/dL (0.2-1.0) 06/27/18 23:12 Ur Leukocyte Esterase Negative (NEGATIVE) 06/27/18 23:12 Urine WBC (Auto) 101 /hpf (3-5) 06/27/18 23:12 Urine RBC (Auto) 162 /hpf (0-3) 06/27/18 23:12 Urine Mucus Many 06/27/18 23:12 RPR Titer Nonreactive (NONREACTIVE) 06/27/18 11:00 HIV 1&2 Antibody Screen Negative 06/27/18 11:00 HIV P24 Antigen Negative 06/27/18 11:00 Assessment: 06/28/18 14:16 withdrawal symptom Plan: continue detox,urine for c/s,bactrim ds 1 tab po bid for uti,
[2018-06-28] MEDS: SULFAMETHOXAZOLE/TRIMETHOPRIM 800MG/160MG D.S. TABLET PO SCH (22:19)
[2018-06-28] MEDS: THIAMINE HCL 100 MG TABLET (FP) PO SCH (22:19)
[2018-06-29] MEDS: chlordiazePOXIDE HCL 25 MG CAPSULE PO SCH (05:44)
[2018-06-29] MEDS ORDERED: METHADONE HCL 5 MG TABLET (FOR DETOX USE ONLY) PO SCH (10:00)
[2018-06-29] MEDS: PRENATAL VITAMINS W/ FOLIC ACID TABLET (FP) PO SCH (10:40)
[2018-06-29] MEDS: SULFAMETHOXAZOLE/TRIMETHOPRIM 800MG/160MG D.S. TABLET PO SCH (10:40)
[2018-06-29] MEDS: NICOTINE 21 MG/24 HOURS TOPICAL PATCH TD SCH (10:41)
[2018-06-29] MEDS: HYDROCORTISONE 0.5% TOPICAL CREAM 30 GM TUBE TP SCH (10:41)
[2018-06-29] MEDS: chlordiazePOXIDE 5 MG CAPSULE PO SCH ×2 (10:42→16:42)
[2018-06-29] MEDS ORDERED: SILVER SULFADIAZINE 1% TOP CREAM 50 GM JAR TP SCH (12:00)
--- NOTE | 2018-06-29 13:05 | PN ---
[facility] CIWA - CIWA Score Nausea/Vomitin Muscle Tremors: 3 Anxiety: 3 Agitation: 2 Paroxysmal Sweats: 1-Minimal Palms Moist Orientation: 0-Oriented Tacttile Disturbances: 1-Very Mild Itch/Numbness Auditory Disturbances: 1-Very Mild Visual Disturbances: 0-None Headache: 2-Mild CIWA-Ar Total Score: 16 BHS COWS - Scale Resting Pulse: 0= [place] 80 or Below Sweatin= Chills/Flushing Restless Observation: 3= Extraneous Movement Pupil Size: 1= Pupils >than Normal Bone or Joint Aches: 2= Severe Diffuse Aches Runny Nose/ Eye Tearin= Runny Nose/Eyes GI Upset > 30mins: 2= Nausea/Diarrhea Tremor Observation of Outstretched Hands: 2= Slight Tremor Visible Yawning Observation: 1= 1-2x During Session Anxiety or Irritability: 2=Irritable/Anxious Goose Flesh Skin: 0=Smooth Skin COWS Score: 16 [facility] Progress Note (SOAP) Subjective: alert,irritable,anxious,interrupted sleep,tremor,pain in the body and back,sun burn both forearms Objective: 06/29/18 13:02 Vital Signs Temperature 97.3 F L 06/29/18 09:29 Pulse Rate 73 06/29/18 09:29 Respiratory Rate 18 06/29/18 09:29 Blood Pressure 120/64 06/29/18 09:29 O2 Sat by Pulse Oximetry (%) 06/29/18 13:03 Laboratory Last Values WBC 5.5 K/mm3 (4.0-10.0) 06/27/18 11:00 RBC 4.99 M/mm3 (4.00-5.60) 06/27/18 11:00 Hgb 14.9 GM/dL (11.7-16.9) 06/27/18 11:00 Hct 43.9 % (35.4-49) 06/27/18 11:00 MCV 88.0 fl (80-96) 06/27/18 11:00 MCH 29.9 pg (25.7-33.7) 06/27/18 11:00 MCHC 34.0 g/dl (32.0-35.9) 06/27/18 11:00 RDW 14.3 % (11.9-15.9) 06/27/18 11:00 Plt Count 239 K/MM3 (134-434) 06/27/18 11:00 MPV 9.9 fl (7.5-11.1) 06/27/18 11:00 Sodium 136 mmol/L (136-145) 06/27/18 11:00 Potassium 4.2 mmol/L (3.5-5.1) 06/27/18 11:00 Chloride 100 mmol/L (98-107) 06/27/18 11:00 Carbon Dioxide 28 mmol/L (21-32) 06/27/18 11:00 Anion Gap 8 (8-16) 06/27/18 11:00 BUN 17 mg/dL (7-18) 06/27/18 11:00 Creatinine 0.8 mg/dL (0.7-1.3) 06/27/18 11:00 Creat Clearance w eGFR > 60 (>60) 06/27/18 11:00 Random Glucose 83 mg/dL (74-106) D 06/27/18 11:00 Calcium 9.2 mg/dL (8.5-10.1) 06/27/18 11:00 Total Bilirubin 1.0 mg/dL (0.2-1.0) 06/27/18 11:00 AST 57 U/L (15-37) H D 06/27/18 11:00 ALT 35 U/L (12-78) D 06/27/18 11:00 Alkaline Phosphatase 133 U/L (45-117) H 06/27/18 11:00 Total Protein 7.6 g/dl (6.4-8.2) 06/27/18 11:00 Albumin 3.9 g/dl (3.4-5.0) 06/27/18 11:00 Urine Color Alla 06/27/18 23:12 Urine Appearance Turbid 06/27/18 23:12 Urine pH 6.0 (5.0-8.0) 06/27/18 23:12 Ur Specific [place] 1.029 (1.001-1.035) 06/27/18 23:12 Urine Protein 1+ (NEGATIVE) H 06/27/18 23:12 Urine Glucose (UA) Negative (NEGATIVE) 06/27/18 23:12 Urine Ketones Negative (NEGATIVE) 06/27/18 23:12 Urine Blood Negative (NEGATIVE) 06/27/18 23:12 Urine Nitrite Negative (NEGATIVE) 06/27/18 23:12 Urine Bilirubin Negative (<2.0 mg/dL) 06/27/18 23:12 Urine Urobilinogen 4.0 e.u/dl mg/dL (0.2-1.0) 06/27/18 23:12 Ur Leukocyte Esterase Negative (NEGATIVE) 06/27/18 23:12 Urine WBC (Auto) 101 /hpf (3-5) 06/27/18 23:12 Urine RBC (Auto) 162 /hpf (0-3) 06/27/18 23:12 Urine Mucus Many 06/27/18 23:12 RPR Titer Nonreactive (NONREACTIVE) 06/27/18 11:00 HIV 1&2 Antibody Screen Negative 06/27/18 11:00 HIV P24 Antigen Negative 06/27/18 11:00 Assessment: 06/29/18 13:04 withdrawal symptom Plan: continue detox,uti,bactrim ds 1 tab po bid
[2018-06-29] MEDS: NICOTINE POLACRILEX 2 MG GUM BUC PRN ×2 (13:29→16:42)
[2018-06-29 17:55] VITALS: BP 147/92; PULSE 84; TEMP 98.1
--- NOTE | 2018-06-29 17:59 | PN ---
[facility] CIWA - CIWA Score Nausea/Vomitin Muscle Tremors: 2 Anxiety: 2 Agitation: 2 Paroxysmal Sweats: 2 Orientation: 0-Oriented Tacttile Disturbances: 0-None Auditory Disturbances: 0-None Visual Disturbances: 0-None Headache: 2-Mild CIWA-Ar Total Score: 12
--- NOTE | 2018-06-29 18:19 | PN ---
[facility] Progress Note Note: Vital Signs Temperature 98.1 F 06/29/18 17:55 Pulse Rate 84 06/29/18 17:55 Respiratory Rate 17 06/29/18 17:55 Blood Pressure 147/92 06/29/18 17:55 O2 Sat by Pulse Oximetry (%) Patient currently medically stable. Patient insist on leaving AMA, reports he will follow up with his after care at [facility]. Denies suicidal/ homicidal ideation at this time. Patient advise if worsening symptoms are present to seek medical attention at local ED, urgent care or PMD.
--- NOTE | 2018-06-29 18:26 | DS ---
[facility] Detox Discharge Summary Admission Date: 06/27/18 Discharge Date: 06/29/18 - History Present History: Alcohol Dependence, Opioid Dependence Additional Comments: Patient currently medically stable. Patient insist on leaving [place], reports he will follow up with his after care at [facility]. Denies suicidal/ homicidal ideation at this time. Patient advise if worsening symptoms are present to seek medical attention at local ED, urgent care or PMD. - Physical Exam Results Vital Signs: Vital Signs Temperature 98.1 F 06/29/18 17:55 Pulse Rate 84 06/29/18 17:55 Respiratory Rate 17 06/29/18 17:55 Blood Pressure 147/92 06/29/18 17:55 O2 Sat by Pulse Oximetry (%) Pertinent Admission Physical Exam Findings: Vital Signs Temperature 98.1 F 06/29/18 17:55 Pulse Rate 84 06/29/18 17:55 Respiratory Rate 17 06/29/18 17:55 Blood Pressure 147/92 06/29/18 17:55 O2 Sat by Pulse Oximetry (%) Laboratory Last Values WBC 5.5 K/mm3 (4.0-10.0) 06/27/18 11:00 RBC 4.99 M/mm3 (4.00-5.60) 06/27/18 11:00 Hgb 14.9 GM/dL (11.7-16.9) 06/27/18 11:00 Hct 43.9 % (35.4-49) 06/27/18 11:00 MCV 88.0 fl (80-96) 06/27/18 11:00 MCH 29.9 pg (25.7-33.7) 06/27/18 11:00 MCHC 34.0 g/dl (32.0-35.9) 06/27/18 11:00 RDW 14.3 % (11.9-15.9) 06/27/18 11:00 Plt Count 239 K/MM3 (134-434) 06/27/18 11:00 MPV 9.9 fl (7.5-11.1) 06/27/18 11:00 Sodium 136 mmol/L (136-145) 06/27/18 11:00 Potassium 4.2 mmol/L (3.5-5.1) 06/27/18 11:00 Chloride 100 mmol/L (98-107) 06/27/18 11:00 Carbon Dioxide 28 mmol/L (21-32) 06/27/18 11:00 Anion Gap 8 (8-16) 06/27/18 11:00 BUN 17 mg/dL (7-18) 06/27/18 11:00 Creatinine 0.8 mg/dL (0.7-1.3) 06/27/18 11:00 Creat Clearance w eGFR > 60 (>60) 06/27/18 11:00 Random Glucose 83 mg/dL (74-106) D 06/27/18 11:00 Calcium 9.2 mg/dL (8.5-10.1) 06/27/18 11:00 Total Bilirubin 1.0 mg/dL (0.2-1.0) 06/27/18 11:00 AST 57 U/L (15-37) H D 06/27/18 11:00 ALT 35 U/L (12-78) D 06/27/18 11:00 Alkaline Phosphatase 133 U/L (45-117) H 06/27/18 11:00 Total Protein 7.6 g/dl (6.4-8.2) 06/27/18 11:00 Albumin 3.9 g/dl (3.4-5.0) 06/27/18 11:00 Urine Color Alla 06/27/18 23:12 Urine Appearance Turbid 06/27/18 23:12 Urine pH 6.0 (5.0-8.0) 06/27/18 23:12 Ur Specific [place] 1.029 (1.001-1.035) 06/27/18 23:12 Urine Protein 1+ (NEGATIVE) H 06/27/18 23:12 Urine Glucose (UA) Negative (NEGATIVE) 06/27/18 23:12 Urine Ketones Negative (NEGATIVE) 06/27/18 23:12 Urine Blood Negative (NEGATIVE) 06/27/18 23:12 Urine Nitrite Negative (NEGATIVE) 06/27/18 23:12 Urine Bilirubin Negative (<2.0 mg/dL) 06/27/18 23:12 Urine Urobilinogen 4.0 e.u/dl mg/dL (0.2-1.0) 06/27/18 23:12 Ur Leukocyte Esterase Negative (NEGATIVE) 06/27/18 23:12 Urine WBC (Auto) 101 /hpf (3-5) 06/27/18 23:12 Urine RBC (Auto) 162 /hpf (0-3) 06/27/18 23:12 Urine Mucus Many 06/27/18 23:12 RPR Titer Nonreactive (NONREACTIVE) 06/27/18 11:00 HIV 1&2 Antibody Screen Negative 06/27/18 11:00 HIV P24 Antigen Negative 06/27/18 11:00 - Medication Discharge Medications: Ambulatory Orders Sulfamethoxazole/Trimethoprim [Bactrim DS -] 1 each PO BID 3 Days #6 tablet 07/09 - Diagnosis (1) Alcohol dependence with withdrawal Current Visit: Yes Status: Acute Qualifiers: Complication of substance-induced condition: uncomplicated Qualified Code(s ): F10.230 - Alcohol dependence with withdrawal, uncomplicated (2) Opioid dependence with withdrawal Current Visit: Yes Status: Acute (3) Rash and nonspecific skin eruption Current Visit: Yes Status: Acute (4) Cocaine dependence Current Visit: Yes Status: Chronic Qualifiers: Substance use status: uncomplicated Qualified Code(s): F14.20 - Cocaine dependence, uncomplicated (5) Nicotine dependence Current Visit: Yes Status: Chronic Qualifiers: Nicotine product type: cigarettes Substance use status: uncomplicated Qualified Code(s): F17.210 - Nicotine dependence, cigarettes, uncomplicated - AMA Did Patient Leave Against Medical Advice: Yes
[2018-06-30] MEDS ORDERED: chlordiazePOXIDE HCL 10 MG CAPSULE PO SCH (11:00)
[2018-07-01] MEDS ORDERED: METHADONE HCL 10 MG TABLET (FOR DETOX USE ONLY) PO SCH (10:00)
[2018-07-02] MEDS ORDERED: METHADONE HCL 5 MG TABLET (FOR DETOX USE ONLY) PO SCH (06:00)
== END 2018-06-29 18:00 | disposition left against medical advice (07) | DRG 770 ==
LOC: YASAS 09:33 → Y6N 11:00
PROVIDERS: ADMIT Surgery; ATTEND Surgery
PROC: HZ2ZZZZ Detoxification Services for Substance Abuse Treatment (ICD-10-PCS; principal; 2018-06-27)
DX: F11.23 Opioid dependence with withdrawal (principal); F10.230 Alcohol dependence with withdrawal, uncomplicated; F14.20 Cocaine dependence, uncomplicated; F12.10 Cannabis abuse, uncomplicated; F17.210 Nicotine dependence, cigarettes, uncomplicated; F31.9 Bipolar disorder, unspecified; F19.282 Other psychoactive substance dependence with psychoactive substance-induced sleep disorder; N39.0 Urinary tract infection, site not specified; R21 Rash and other nonspecific skin eruption; E86.0 Dehydration; Z59.0 Homelessness
CPT/HCPCS: 36415; 80053; 81003; 81015; 85027; 86593; 87086; 87389; 93005; 93010

== ENCOUNTER 2018-07-28 09:12 | Inpatient (IN) | payer OTHER ==
[2018-07-28 10:30] VITALS: BMI 25.1
--- NOTE | 2018-07-28 14:58 | HP ---
Admission [facility] Chief Complaint: Here for rehab. Allergies/Adverse Reactions: Allergies Allergy/AdvReac Type Severity Reaction Status Date / Time No Known Allergies Allergy Verified 07/28/18 11:24 History of Present Illness: Alcohol use started at age 15. Nicotine use started at age 15. Cocaine/crack use started at age 27. Heroin use started at age 27. was in detox in June. States relapsed last night w/ heroin and alcohol but is able to go to rehab w/o concerns for severe withdrawal. Denies hx seizures. Patient wants to restart Suboxone while in rehab. Patient Name: Christopher Samayoa Date: 1980 Address: [address] [place] [address] Sex: Male Rx Written Rx Dispensed Drug Quantity Days Supply Prescriber Name 03/16/2018 03/16/2018 chlordiazepoxide 25 mg capsule 26 5 O'Margie Michelle Patient Name: Christopher Samayoa Date: 1980 Address: [address] [place] [address] Sex: Male Rx Written Rx Dispensed Drug Quantity Days Supply Prescriber Name 12/21/2017 12/21/2017 suboxone 2 mg-0.5 mg sl film 45 15 Yonny Loya MD 12/14/2017 12/14/2017 suboxone 2 mg-0.5 mg sl film 2 1 Yonny Loya MD 12/14/2017 12/14/2017 suboxone 2 mg-0.5 mg sl film 30 10 Yonny Loya MD 11/23/2017 11/23/2017 suboxone 8 mg-2 mg sl film 30 15 Yonny Loya MD 11/18/2017 11/18/2017 suboxone 8 mg-2 mg sl film 15 15 Yonny Loya MD - Ebola screening Have you traveled outside of the country in the last 21 days: No (N) Have you had contact with anyone from an Ebola affected area: No Have you been sick,other than usual withdrawal symptoms: No Do you have a fever: No - Review of Systems Constitutional: Changes in sleep (Difficulty falling and staying asleep.) EENT: reports: Blurred Vision (Needs glasses), Dental Problems (Missing front teeth. Can chew and swallow ok.) Respiratory: reports: No Symptoms reported Cardiac: reports: No Symptoms Reported GI: reports: No Symptoms Reported : reports: No Symptoms Reported Musculoskeletal: reports: No Symptoms Reported Integumentary: reports: No Symptoms Reported Neuro: reports: Tremors (mild tremors) Endocrine: reports: No Symptoms Reported Hematology: reports: No Symptoms Reported Psychiatric: reports: Judgement Intact, Mood/Affect Appropiate, Orientated x3, Anxious, Depressed (Denies thoughts of harming self or others.) Patient History - Patient Medical History Hx Anemia: No Hx Asthma: No Hx Chronic Obstructive Pulmonary Disease (COPD): No Hx Cancer: No Hx Cardiac Disorders: No Hx Congestive Heart Failure: No Hx Hypertension: Yes Hx Hypercholesterolemia: No Hx Pacemaker: No HX Cerebrovascular Accident: No Hx Seizures: No Hx Dementia: No Hx Diabetes: No Hx Gastrointestinal Disorders: No Hx Liver Disease: No Hx Genitourinary Disorders: No Hx Sexually Transmitted Disorders: No Hx Renal Disease (ESRD): No Hx Thyroid Disease: No Hx Human Immunodeficiency Virus (HIV): No Hx Hepatitis C: No Hx Depression: Yes Hx Suicide Attempt: Yes (thought about hurting self /admitted in [facility] x2 wks. until 9) Hx Bipolar Disorder: Yes Hx Schizophrenia: No - Patient Surgical History Past Surgical History: No Hx Neurologic Surgery: No Hx Cataract Extraction: No Hx Cardiac Surgery: No Hx Lung Surgery: No Hx Breast Surgery: No Hx Breast Biopsy: No Hx Abdominal Surgery: No Hx Appendectomy: No Hx Cholecystectomy: No Hx Genitourinary Surgery: No Hx Section: No Hx Orthopedic Surgery: No Anesthesia Reaction: No - PPD History Previous Implant?: Yes Documented Results: Negative w/proof Implanted On Prior [facility] Admission?: Yes Date: 06/29/18 Results: 0 mm PPD to be Administered?: No - Smoking Cessation Smoking history: Current every day smoker Have you smoked in the past 12 months: Yes Aproximately how many cigarettes per day: 10 If you are a former smoker, when did you quit?: \ Hx Chewing Tobacco Use: No Initiated information on smoking cessation: Yes 'Breaking Loose' booklet given: 07/28/18 - Substance & Tx. History Hx Alcohol Use: Yes Hx Substance Use: Yes Substance Use Type: Alcohol, Cocaine, Heroin Hx Substance Use Treatment: Yes (detox, suboxone) - Substances Abused Heroin Route: Inhalation Frequency: Daily Amount used: 3-4 bags Age of first use: 31 Date of Last Use: 07/27/18 Crack Route: Smoking Frequency: Daily Amount used: $20-40 Age of first use: 27 Date of Last Use: 07/27/18 Alcohol-vodka Route: Oral Frequency: Daily Amount used: 1 pt. Age of first use: 15 Date of Last Use: 07/27/18 Family Disease History - Family Disease History Family Disease History: Other: Father (living, no contact), Mother (living, anxiety), Sister (four, living, anxiety, one with etoh), Son (one), Daughter ( three, one with renal issues, one with seizures) Admission Physical Exam [facility] - Vital Signs Vital Signs: Vital Signs - 24 hr 07/28/18 10:17 Temperature 98 F Pulse Rate 68 Respiratory 18 Rate Blood Pressure 124/80 - Physical General Appearance: Yes: Nourished, Appropriately Dressed, Anxious HEENTM: Yes: EOMI, Hearing grossly Normal, Normocephalic, Normal Voice, CRISTINA (5 mm) Respiratory: Yes: Chest Non-Tender, Lungs Clear, Normal Breath Sounds, No Respiratory Distress Neck: Yes: No masses,lesions,Nodules, Supple Breast: Yes: Breast Exam Deferred Cardiology: Yes: Regular Rhythm, Regular Rate, S1, S2 Abdominal: Yes: Normal Bowel Sounds, Non Tender, Flat, Soft Genitourinary: Yes: Within Normal Limits Back: Yes: Normal Inspection Musculoskeletal: Yes: full range of Motion, Gait Steady Extremities: Yes: Normal Capillary Refill, Normal Inspection, Normal Range of Motion, Non-Tender, Tremors (ild tremors of hands upon extension) 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: Yes: classification inspector II-XII NML intact, Fully Oriented, Alert, Motor Strength 5/5, Normal Mood/Affect, Normal Response Integumentary: Yes: Normal Color, Dry, Warm Lymphatic: Yes: Within Normal Limits - Diagnostic (1) Cocaine use disorder, moderate, in early remission Current Visit: Yes Status: Chronic (2) Opioid dependence in remission Current Visit: Yes Status: Acute (3) Alcohol dependence in remission Current Visit: Yes Status: Chronic (4) Marijuana abuse Current Visit: Yes Status: Chronic Cleared for Admission [facility] - Detox or Rehab Claeared for Rehab Admission: Yes [facility] Breath Alcohol Content Breath Alcohol Content: 0 Urine Drug Screen - Results Drug Screen Negative: No Urine Drug Screen Results: LIZZIE-Cocaine, OPI-Opiates, BZO-Benzodiazepines Inpatient Rehab Admission - Initial Determination Are CD services needed?: Yes Free of communicable disease: Yes Not in need of hospitalization: Yes - Rehab Admission Criteria Previous failed treatment: Yes Poor recovery environment: Yes Comorbidities: No Lacks judgement: No Patient is meeting Inpatient Rehab admission criteria:: Yes
[2018-07-28] MEDS ORDERED: MAGNESIUM HYDROX 2400MG/30ML ORAL SUSPENSION 30 ML CUP PO PRN (15:14)
[2018-07-28] MEDS ORDERED: hydrOXYzine PAMOATE 50 MG CAPSULE (FP) PO PRN (15:14)
[2018-07-28] MEDS ORDERED: guaiFENesin/D-METHORPHAN HB 10 ML UNIT-DOSE CUPS PO PRN (15:14)
[2018-07-28] MEDS ORDERED: ACETAMINOPHEN 325 MG TABLET (FP) PO PRN (15:14)
[2018-07-28] MEDS ORDERED: IBUPROFEN 400 MG TABLET (FP) PO PRN (15:14)
[2018-07-28] MEDS ORDERED: MAGNESIUM CITRATE 300 ML BOTTLE PO PRN (15:14)
[2018-07-28] MEDS ORDERED: LOPERAMIDE HCL 2 MG CAPSULE PO PRN (15:14)
[2018-07-28] MEDS ORDERED: P-EPHED 60MG/TRIPROLIDI 2.5MG TABLET PO PRN (15:14)
[2018-07-28] MEDS ORDERED: MAG HYDROX/AL HYDROX/SIMETH 30 ML UNIT-DOSE CUP PO PRN (15:14)
[2018-07-28] MEDS ORDERED: MENTHOL/PHENOL 1 EACH UD MM PRN (15:14)
[2018-07-28] MEDS: NICOTINE POLACRILEX 2 MG GUM BUC PRN (21:26)
[2018-07-28] MEDS ORDERED: THIAMINE HCL 100 MG TABLET (FP) PO SCH (22:00)
[2018-07-28] MEDS ORDERED: MELATONIN 5 MG TABLETS PO PRN (22:00)
[2018-07-29 00:05] LABS: URINE APPEARANCE CLEAR; URINE BILIRUBIN NEGATIVE (<2.0 mg/dL); URINE COLOR AMBER; URINE GLUCOSE (UA) NEGATIVE (NEGATIVE); URINE KETONE NEGATIVE (NEGATIVE); URINE LEUK ESTERASE NEGATIVE (NEGATIVE); URINE NITRITE NEGATIVE (NEGATIVE); URINE UROBILINOGEN 4.0 E.U/dl mg/dL (0.2-1.0)
[2018-07-29 00:07] LABS: URINE PROTEIN 1+ (NEGATIVE)
[2018-07-29 00:19] LABS: URINE MUCUS FEW
[2018-07-29 07:02] VITALS: BP 109/66; PULSE 73; TEMP 98.1
[2018-07-29 09:55] LABS: HEMATOCRIT 44.6 % (35.4-49); HEMOGLOBIN 14.7 GM/dL (11.7-16.9); MCH 29.6 pg (25.7-33.7); MCHC 32.9 g/dl (32.0-35.9); PLATELET COUNT 232 K/MM3 (134-434); RBC 4.96 M/mm3 (4.00-5.60); RDW 15.2 % (11.9-15.9); WHITE BLOOD COUNT 6.9 K/mm3 (4.0-10.0)
[2018-07-29] MEDS ORDERED: PRENATAL VITAMINS W/ FOLIC ACID TABLET (FP) PO SCH (10:00)
[2018-07-29] MEDS ORDERED: NICOTINE 21 MG/24 HOURS TOPICAL PATCH TD SCH (10:00)
--- NOTE | 2018-07-29 10:00 | EKG ---
Test Reason : Blood Pressure : / mmHG Vent. Rate : 095 BPM Atrial Rate : 095 BPM P-R Int : 120 ms QRS Dur : 082 ms QT Int : 358 ms P-R-T Axes : 046 063 044 degrees QTc Int : 449 ms NORMAL SINUS RHYTHM WHEN COMPARED WITH ECG OF 27-JUN-2018 11:34, VENT. RATE HAS INCREASED BY 32 BPM Confirmed by WILBERT THAO MD ([id number]) on 07/29/2018 10:00:06 AM Referred By: Confirmed By:WILBERT THAO MD
[2018-07-29] MEDS: NICOTINE POLACRILEX 2 MG GUM BUC PRN (10:03)
[2018-07-29 10:24] LABS: ALBUMIN 3.9 g/dl (3.4-5.0); ANION GAP 9 MMOL/L (8-16); BLOOD UREA NITROGEN 17 mg/dL (7-18); CALCIUM 9.1 mg/dL (8.5-10.1); CHLORIDE 106 mmol/L (98-107); CO2 28 mmol/L (21-32); GLUCOSE,RANDOM 91 mg/dL (74-106); POTASSIUM 4.3 mmol/L (3.5-5.1); SODIUM 143 mmol/L (136-145)
--- NOTE | 2018-07-29 10:26 | PN ---
[facility] Progress Note Note: Sales Activity Manager reported by the Nursing from [address] [place] [address] that the patient decided to sign out AMA.See staff notes for details.
[2018-07-29 10:28] LABS: ALK PHOS 92 U/L (45-117); BILIRUBIN,TOTAL 0.6 mg/dL (0.2-1.0); SGOT/AST 19 U/L (15-37); SGPT/ALT 24 U/L (12-78); TOT PROT 7.4 g/dl (6.4-8.2)
== END 2018-07-29 10:55 | disposition left against medical advice (07) | DRG 770 ==
LOC: YASAS 09:12 → Y3W 15:25
PROVIDERS: ADMIT Psychiatry & Neurology Psychiatry; ATTEND Psychiatry & Neurology Psychiatry
PROC: HZ42ZZZ Group Counseling for Substance Abuse Treatment, Cognitive-Behavioral (ICD-10-PCS; principal; 2018-07-28)
DX: F11.20 Opioid dependence, uncomplicated (principal); F10.20 Alcohol dependence, uncomplicated; F14.20 Cocaine dependence, uncomplicated; F12.10 Cannabis abuse, uncomplicated; I10 Essential (primary) hypertension; Z91.5 Personal history of self-harm; Z59.0 Homelessness
CPT/HCPCS: 36415; 80053; 81003; 81015; 85027; 86593; 93005; 93010

== ENCOUNTER 2019-04-10 08:03 | Inpatient (IN) | payer OTHER ==
[2019-04-10 08:34] VITALS: BMI 27.1
--- NOTE | 2019-04-10 08:59 | HP ---
COWS - Scale Resting Pulse: 0= [place] 80 or Below Sweatin= Chills/Flushing Restless Observation: 3= Extraneous Movement Pupil Size: 1= Pupils >than Normal Bone or Joint Aches: 2= Severe Diffuse Aches Runny Nose/ Eye Tearin= Runny Nose/Eyes GI Upset > 30mins: 2= Nausea/Diarrhea Tremor Observation: 2= Slight Tremor Visible Yawning Observation: 1= 1-2x During Session Anxiety or Irritability: 2=Irritable/Anxious Goose Flesh Skin: 0=Smooth Skin COWS Score: 16 CIWA Score Nausea/Vomitin Muscle Tremors: 2 Anxiety: 2 Agitation: 3 Paroxysmal Sweats: 1-Minimal Palms Moist Orientation: 0-Oriented Tacttile Disturbances: 2-Mild Itch/Numbness/Burn Auditory Disturbances: 1-Very Mild Visual Disturbances: 1-Very Mild Sensitivity Headache: 2-Mild CIWA-Ar Total Score: 16 - Admission Criteria OASAS Guidelines: Admission for Medically Managed Detox: Requires at least one of the followin. CIWA greater than 12 2. Seizures within the past 24 hours 3. Delirium tremens within the past 24 hours 4. Hallucinations within the past 24 hours 5. Acute intervention needed for co occurring medical disorder 6. Acute intervention needed for co occurring psychiatric disorder 7. Severe withdrawal that cannot be handled at a lower level of care (continued vomiting, continued diarrhea, abnormal vital signs) requiring intravenous medication and/or fluids 8. Admission [facility] Chief Complaint: Vital Signs Temperature 96.7 F L 04/10/19 08:17 Pulse Rate 61 04/10/19 08:17 Respiratory Rate 18 04/10/19 08:17 Blood Pressure 127/84 04/10/19 08:17 O2 Sat by Pulse Oximetry (%) Allergies/Adverse Reactions: Allergies Allergy/AdvReac Type Severity Reaction Status Date / Time No Known Allergies Allergy Verified 07/28/18 11:24 History of Present Illness: this 38 years old male with heroin,alcohol,cocaine and marijuana dependence seeking detox,withdrawal symptom multiple admissions in detox,non compliance issue, last admissions detox 06/27/18 to 06/29/18 not completed,rehab 07/28/18 to 07/29 not completed nicotine dependence 1/2pack per day bipolar,ocd,non compliance longest sobriety 7 and a half months Exam Limitations: No Limitations - Ebola screening Have you traveled outside of the country in the last 21 days: No (N) Have you had contact with anyone from an Ebola affected area: No Do you have a fever: No - Review of Systems Constitutional: Chills, Loss of Appetite, Malaise, Night Sweats, Changes in sleep EENT: reports: Tearing, Nose Congestion Respiratory: reports: No Symptoms reported Cardiac: reports: No Symptoms Reported GI: reports: Diarrhea, Nausea, Vomiting, Abdominal cramping : reports: No Symptoms Reported Musculoskeletal: reports: Back Pain, Joint Pain, Muscle Pain, Joint Stiffness Integumentary: reports: Dryness Endocrine: reports: No Symptoms Reported Hematology: reports: No Symptoms Reported Psychiatric: reports: No Sypmtoms Reported, Judgement Intact, Mood/Affect Appropiate, Orientated x3 (bipolar disorder,ocd) Other Systems: Reviewed and Negative Patient History - Patient Medical History Hx Anemia: No Hx Asthma: No Hx Chronic Obstructive Pulmonary Disease (COPD): No Hx Cancer: No Hx Cardiac Disorders: No Hx Congestive Heart Failure: No Hx Hypertension: No Hx Hypercholesterolemia: No Hx Pacemaker: No HX Cerebrovascular Accident: No Hx Seizures: No Hx Dementia: No Hx Diabetes: No Hx Gastrointestinal Disorders: No Hx Liver Disease: No Hx Genitourinary Disorders: No Hx Sexually Transmitted Disorders: No Hx Renal Disease (ESRD): No Hx Thyroid Disease: No Hx Human Immunodeficiency Virus (HIV): No (last 2019 negative) Hx Hepatitis C: No Hx Depression: Yes Hx Suicide Attempt: No (thought about hurting self /admitted in [facility] x2 wks. until 9) Hx Bipolar Disorder: Yes Hx Schizophrenia: No Other Medical History: no suicidal,no honicidal,fx of calcaneus right in 2009 - Patient Surgical History Past Surgical History: No Hx Neurologic Surgery: No Hx Cataract Extraction: No Hx Cardiac Surgery: No Hx Lung Surgery: No Hx Breast Surgery: No Hx Breast Biopsy: No Hx Abdominal Surgery: No Hx Appendectomy: No Hx Cholecystectomy: No Hx Genitourinary Surgery: No Hx Section: No Hx Orthopedic Surgery: No Anesthesia Reaction: No - PPD History Previous Implant?: Yes Documented Results: Negative w/proof Date: 06/29/18 Results: 0 mm PPD to be Administered?: No - Smoking Cessation Smoking history: Current every day smoker Have you smoked in the past 12 months: Yes Aproximately how many cigarettes per day: 10 Hx Chewing Tobacco Use: No Initiated information on smoking cessation: Yes 'Breaking Loose' booklet given: 04/10/19 - Substance & Tx. History Hx Alcohol Use: Yes Hx Substance Use: Yes Substance Use Type: Alcohol, Cocaine, Heroin, Marijuana Hx Substance Use Treatment: Yes ([facility]/18 ti 06/22/18 not completed,rehab 05/09 to 07/29/18 not comple) - Substances abused Heroin Substance route: Injection Frequency: Daily Amount used: 5 bags Age of first use: 26 Date of last use: 04/09/19 Alcohol Substance route: Oral Frequency: Daily Amount used: 1/2 pnt vodka Age of first use: 15 Date of last use: 04/09/19 Cocaine Substance route: Smoking Frequency: Daily Amount used: 30-40$ Age of first use: 22 Date of last use: 04/09/19 Marijuana/Hashish Substance route: Smoking Frequency: 1-3 times last 30 days Amount used: 10$ Age of first use: 15 Date of last use: 04/09/19 Family Disease History - Family Disease History Family Disease History: Other: Father (living, no contact), Mother (living, anxiety), Sister (four, living, anxiety, one with etoh), Son (one), Daughter ( three, one with renal issues, one with seizures) Admission Physical Exam S - Vital Signs Vital Signs: Vital Signs - 24 hr 04/10/19 08:17 Temperature 96.7 F L Pulse Rate 61 Respiratory 18 Rate Blood Pressure 127/84 - Physical General Appearance: Yes: Moderate Distress, Tremorous, Irritable, Sweating, Anxious HEENTM: Yes: Normal ENT Inspection, Normal Voice, CRISTINA, Pharynx Normal Respiratory: Yes: Lungs Clear, Normal Breath Sounds, No Respiratory Distress Neck: Yes: Within Normal Limits, Supple, Trachea in good position Breast: Yes: Within Normal Limits Cardiology: Yes: Within Normal Limits, Regular Rhythm, Regular Rate, S1, S2 Abdominal: Yes: Within Normal Limits, Normal Bowel Sounds, Non Tender, Flat Genitourinary: Yes: Within Normal Limits Back: Yes: Normal Inspection, Muscle Spasm Musculoskeletal: Yes: Other (fx of calcaneus right in 2008) Extremities: Yes: Within Normal Limits, Normal Inspection, Normal Range of Motion, Tremors 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: Yes: 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, Fully Oriented, Alert, Motor Strength 5/5 Integumentary: Yes: Dry Lymphatic: Yes: Within Normal Limits - Diagnostic (1) Opioid dependence with withdrawal Current Visit: Yes Status: Acute (2) Alcohol dependence with withdrawal Current Visit: Yes Status: Acute Qualifiers: Complication of substance-induced condition: uncomplicated Qualified Code(s ): F10.230 - Alcohol dependence with withdrawal, uncomplicated (3) Cocaine dependence Current Visit: Yes Status: Chronic Qualifiers: Substance use status: uncomplicated Qualified Code(s): F14.20 - Cocaine dependence, uncomplicated (4) Marijuana abuse Current Visit: Yes Status: Chronic (5) Nicotine dependence Current Visit: Yes Status: Chronic Qualifiers: Nicotine product type: cigarettes Substance use status: uncomplicated Qualified Code(s): F17.210 - Nicotine dependence, cigarettes, uncomplicated (6) Bipolar disorder Current Visit: No Status: Chronic Qualifiers: Active/Remission status: remission status unspecified Qualified Code(s): F31.9 - Bipolar disorder, unspecified Comment: History as per records.Patient is chronically non adherent to psychiatric OPD care. (7) Tinea pedis Current Visit: Yes Status: Acute (8) Calcaneus fracture, right Current Visit: Yes Status: Acute Cleared for Admission S - Detox or Rehab [facility] Level of Care: Medically Managed Detox Regimen/Protocol: Methadone/Valium Inpatient Rehab Admission - Rehab Decision to Admit Inpatient rehab admission?: No
[2019-04-10] MEDS ORDERED: cloNIDine HCL 0.1 MG TABLET PO PRN (09:11)
[2019-04-10] MEDS ORDERED: ACETAMINOPHEN 325 MG TABLET (FP) PO PRN ×2 (09:17)
[2019-04-10] MEDS ORDERED: IBUPROFEN 400 MG TABLET (FP) PO PRN (09:17)
[2019-04-10] MEDS ORDERED: MAG HYDROX/AL HYDROX/SIMETH 30 ML UNIT-DOSE CUP PO PRN (09:17)
[2019-04-10] MEDS ORDERED: MAGNESIUM CITRATE 300 ML BOTTLE PO PRN (09:17)
[2019-04-10] MEDS ORDERED: MENTHOL/PHENOL 1 EACH UD MM PRN (09:17)
[2019-04-10] MEDS ORDERED: hydrOXYzine PAMOATE 25 MG CAPSULE (FP) PO PRN (09:17)
[2019-04-10] MEDS ORDERED: BISMUTH SUBSALICYLATE 262 MG/15 ML BTL PO PRN (09:17)
[2019-04-10] MEDS ORDERED: MAGNESIUM HYDROX 2400MG/30ML ORAL SUSPENSION 30 ML CUP PO PRN (09:17)
[2019-04-10] MEDS ORDERED: METHADONE HCL 10 MG TABLET (FOR DETOX USE ONLY) PO ONE ×2 (09:40→23:00)
[2019-04-10] MEDS: diazePAM 5 MG TABLET PO PRN (10:39)
[2019-04-10] MEDS: NICOTINE POLACRILEX 2 MG GUM BUC PRN (10:39)
[2019-04-10] MEDS: PRENATAL VITAMINS W/ FOLIC ACID TABLET (FP) PO SCH (10:39)
[2019-04-10] MEDS: TOLNAFTATE 1% CREAM 15 GM TUBE TP SCH ×2 (11:00→22:47)
[2019-04-10] MEDS: FLUOCINONIDE 0.05% CREAM (60 GM TUBE) TP SCH ×2 (11:00→22:47)
--- NOTE | 2019-04-10 11:28 | CONSULT ---
[facility] Psychiatric Consult - Data Date of interview: 04/10/19 Admission source: [facility] Identifying data: Patient is a 38 year old male, father of four, unemployed, and is currently homeless. This is one of multiple admissions for patient. Patient admitted to for alcohol, cocaine, marijuana, and opiate dependence. Substance Abuse History: Smoking Cessation. Smoking history: Current every day smoker. Have you smoked in the past 12 months: Yes. Aproximately how many cigarettes per day: 10. Hx Chewing Tobacco Use: No. Initiated information on smoking cessation: Yes. 'Breaking Loose' booklet given: 04/10/19. - Substance & Tx. History. Hx Alcohol Use: Yes. Hx Substance Use: Yes. Substance Use Type : Alcohol, Cocaine, Heroin, Marijuana. Hx Substance Use Treatment: Yes ([facility]/09 ti 06/22/18 not completed,rehab 07/28/18 to 07/29/18 not comple). - Substances abused. Heroin. Substance route: Injection. Frequency: Daily. Amount used: 5 bags. Age of first use: 26. Date of last use: 04/09/19. Alcohol. Substance route: Oral. Frequency: Daily. Amount used: 1/2 pnt vodka. Age of first use: 15. Date of last use: 04/09/19. Cocaine. Substance route: Smoking. Frequency: Daily. Amount used: 30-40$. Age of first use: 22. Date of last use: 04/09/19. Marijuana/Hashish. Substance route: Smoking. Frequency: 1-3 times last 30 days. Amount used: 10$. Age of first use: 15. Date of last use: 04/09/19 Medical History: fx of calcaneus right in 2008, Tinea pedis Psychiatric History: Patient reports h/o multiple psychiatric hospitalizations, most recently last year at [facility] after he reported having thoughts to hurt himself. He reports diagnosis of Bipolar disorder and reports past history of accepting wellbutrin, seroquel, depakote, and cymbalta. He reports h/o noncompliance due to his substance abuse. Mr. Samayoa is not currently under the care of a psychiatric care and therefore is not prescribed psychotropic medications. At present, no manic, depressive or psychotic symptoms noted. Patient requesting medications for insomnia. Mental Status Exam - Mental Status Exam Alert and Oriented to: Time, Place, Person Cognitive Function: Good Patient Appearance: Well Groomed Mood: Withdrawn Affect: Appropriate Patient Behavior: Cooperative Speech Pattern: Appropriate Voice Loudness: Normal Thought Process: Goal Oriented Thought Disorder: Not Present Hallucinations: Denies Suicidal Ideation: Denies Homicidal Ideation: Denies Insight/Judgement: Poor Sleep: Poorly Appetite: Poor Muscle strength/Tone: Normal Gait/Station: Normal Psychiatric Findings - Problem List ([place] 1, 2,3) (1) Alcohol dependence with withdrawal Current Visit: Yes Status: Acute Qualifiers: Complication of substance-induced condition: uncomplicated Qualified Code(s ): F10.230 - Alcohol dependence with withdrawal, uncomplicated (2) Opioid dependence with withdrawal Current Visit: Yes Status: Acute (3) Cocaine dependence Current Visit: Yes Status: Chronic Qualifiers: Substance use status: uncomplicated Qualified Code(s): F14.20 - Cocaine dependence, uncomplicated (4) Nicotine dependence Current Visit: Yes Status: Chronic Qualifiers: Nicotine product type: cigarettes Substance use status: uncomplicated Qualified Code(s): F17.210 - Nicotine dependence, cigarettes, uncomplicated (5) Marijuana abuse Current Visit: Yes Status: Chronic (6) Substance-induced sleep disorder Current Visit: Yes Status: Acute (7) Bipolar disorder Current Visit: No Status: Chronic Qualifiers: Active/Remission status: remission status unspecified Qualified Code(s): F31.9 - Bipolar disorder, unspecified Comment: History as per records.Patient is chronically non adherent to psychiatric OPD care. - Initial Treatment Plan Initial Treatment Plan: Psychoeducation provided. Detoxification in progress. Will order Seroquel 50mg HS. Benefits and side effects discussed. Verbal consent given.
[2019-04-10 12:43] LABS: ALBUMIN 3.8 g/dl (3.4-5.0); BILIRUBIN,TOTAL 0.6 mg/dL (0.2-1); CALCIUM 8.1 mg/dL (8.5-10.1); CREATININE 0.7 mg/dL (0.55-1.3); POTASSIUM 4.3 mmol/L (3.5-5.1); TOT PROT 7.4 g/dl (6.4-8.2)
[2019-04-10 12:46] LABS: HEMATOCRIT 41.2 % (35.4-49); HEMOGLOBIN 13.6 GM/dL (11.7-16.9); MCH 29.6 pg (25.7-33.7); MCHC 33.1 g/dl (32.0-35.9); MEAN CELL VOLUME 89.4 fl (80-96); MEAN PLT VOLUME 9.5 fl (7.5-11.1); PLATELET COUNT 228 K/MM3 (134-434); RBC 4.61 M/mm3 (4.00-5.60); RDW 14.8 % (11.9-15.9); WHITE BLOOD COUNT 7.3 K/mm3 (4.0-10.0)
[2019-04-10] MEDS: diazePAM 5 MG TABLET PO SCH ×2 (14:33→22:54)
[2019-04-10 18:02] LABS: PH,URINE 5.5 (5.0-8.0); URINE APPEARANCE TURBID; URINE BILIRUBIN NEGATIVE (NEGATIVE); URINE COLOR DK YELLOW; URINE GLUCOSE (UA) NEGATIVE (NEGATIVE); URINE KETONE NEGATIVE (NEGATIVE); URINE LEUK ESTERASE NEGATIVE (NEGATIVE); URINE NITRITE NEGATIVE (NEGATIVE); URINE PROTEIN NEGATIVE (NEGATIVE)
[2019-04-10] MEDS: THIAMINE HCL 100 MG TABLET (FP) PO SCH (22:37)
[2019-04-10] MEDS: QUEtiapine FUMARATE 50 MG TABLET PO SCH (22:54)
[2019-04-11] MEDS: diazePAM 5 MG TABLET PO SCH ×3 (06:42→22:12)
--- NOTE | 2019-04-11 09:11 | PN ---
S CIWA - CIWA Score Nausea/Vomitin Muscle Tremors: 2 Anxiety: 2 Agitation: 2 Paroxysmal Sweats: 1-Minimal Palms Moist Orientation: 0-Oriented Tacttile Disturbances: 1-Very Mild Itch/Numbness Auditory Disturbances: 1-Very Mild Visual Disturbances: 0-None Headache: 2-Mild CIWA-Ar Total Score: 13 [facility] COWS - Scale Resting Pulse: 0= [place] 80 or Below Sweatin= Chills/Flushing Restless Observation: 1= Difficult to Sit Still Pupil Size: 1= Pupils >than Normal Bone or Joint Aches: 2= Severe Diffuse Aches Runny Nose/ Eye Tearin= Runny Nose/Eyes GI Upset > 30mins: 2= Nausea/Diarrhea Tremor Observation of Outstretched Hands: 2= Slight Tremor Visible Yawning Observation: 1= 1-2x During Session Anxiety or Irritability: 2=Irritable/Anxious Goose Flesh Skin: 0=Smooth Skin COWS Score: 14 S Progress Note (SOAP) Subjective: alert,irritable,anxious,interrupted sleep,pain in the body and back Objective: 04/11/19 09:09 Vital Signs Temperature 97.5 F L 04/11/19 07:34 Pulse Rate 55 L 04/11/19 07:34 Respiratory Rate 18 04/11/19 07:34 Blood Pressure 104/55 L 04/11/19 07:34 O2 Sat by Pulse Oximetry (%) Laboratory Last Values WBC 7.3 K/mm3 (4.0-10.0) 04/10/19 08:25 RBC 4.61 M/mm3 (4.00-5.60) 04/10/19 08:25 Hgb 13.6 GM/dL (11.7-16.9) 04/10/19 08:25 Hct 41.2 % (35.4-49) 04/10/19 08:25 MCV 89.4 fl (80-96) 04/10/19 08:25 MCH 29.6 pg (25.7-33.7) 04/10/19 08:25 MCHC 33.1 g/dl (32.0-35.9) 04/10/19 08:25 RDW 14.8 % (11.9-15.9) 04/10/19 08:25 Plt Count 228 K/MM3 (134-434) 04/10/19 08:25 MPV 9.5 fl (7.5-11.1) 04/10/19 08:25 Sodium 136 mmol/L (136-145) 04/10/19 08:25 Potassium 4.3 mmol/L (3.5-5.1) 04/10/19 08:25 Chloride 104 mmol/L (98-107) 04/10/19 08:25 Carbon Dioxide 26 mmol/L (21-32) 04/10/19 08:25 Anion Gap 6 MMOL/L (8-16) L 04/10/19 08:25 BUN 14 mg/dL (7-18) 04/10/19 08:25 Creatinine 0.7 mg/dL (0.55-1.3) 04/10/19 08:25 Est GFR (CKD-EPI)AfAm 137.78 04/10/19 08:25 Est GFR (CKD-EPI)NonAf 118.88 04/10/19 08:25 Random Glucose 83 mg/dL (74-106) 04/10/19 08:25 Calcium 8.1 mg/dL (8.5-10.1) L 04/10/19 08:25 Total Bilirubin 0.6 mg/dL (0.2-1) 04/10/19 08:25 AST 39 U/L (15-37) H 04/10/19 08:25 ALT 29 U/L (13-61) 04/10/19 08:25 Alkaline Phosphatase 108 U/L (45-117) 04/10/19 08:25 Total Protein 7.4 g/dl (6.4-8.2) 04/10/19 08:25 Albumin 3.8 g/dl (3.4-5.0) 04/10/19 08:25 Urine Color Dk yellow 04/10/19 15:28 Urine Appearance Turbid 04/10/19 15:28 Urine pH 5.5 (5.0-8.0) 04/10/19 15:28 Ur Specific [place] 1.039 (1.010-1.035) H 04/10/19 15:28 Urine Protein Negative (NEGATIVE) 04/10/19 15:28 Urine Glucose (UA) Negative (NEGATIVE) 04/10/19 15:28 Urine Ketones Negative (NEGATIVE) 04/10/19 15:28 Urine Blood Negative (NEGATIVE) 04/10/19 15:28 Urine Nitrite Negative (NEGATIVE) 04/10/19 15:28 Urine Bilirubin Negative (NEGATIVE) 04/10/19 15:28 Urine Urobilinogen 1.0 mg/dL (0.2-1.0) 04/10/19 15:28 Ur Leukocyte Esterase Negative (NEGATIVE) 04/10/19 15:28 RPR Titer Nonreactive (NONREACTIVE) 04/10/19 08:25 Assessment: 04/11/19 09:10 withdrawal symptom Plan: continue detox
[2019-04-11] MEDS ORDERED: METHADONE HCL 10 MG TABLET (FOR DETOX USE ONLY) PO ONE (10:00)
[2019-04-11] MEDS: PRENATAL VITAMINS W/ FOLIC ACID TABLET (FP) PO SCH (12:13)
[2019-04-11] MEDS: FLUOCINONIDE 0.05% CREAM (60 GM TUBE) TP SCH ×2 (12:14→22:12)
[2019-04-11] MEDS: TOLNAFTATE 1% CREAM 15 GM TUBE TP SCH ×2 (12:14→22:12)
[2019-04-11] MEDS: NICOTINE POLACRILEX 2 MG GUM BUC PRN (19:21)
[2019-04-11] MEDS: METHOCARBAMOL 500 MG TABLET PO PRN (19:21)
[2019-04-11] MEDS: diazePAM 5 MG TABLET PO PRN (19:21)
[2019-04-11] MEDS: QUEtiapine FUMARATE 50 MG TABLET PO SCH (22:12)
[2019-04-11] MEDS: THIAMINE HCL 100 MG TABLET (FP) PO SCH (22:12)
[2019-04-11] MEDS: MELATONIN 5 MG TABLETS PO PRN (22:13)
[2019-04-12] MEDS ORDERED: diazePAM 5 MG TABLET PO ONE (06:00)
[2019-04-12] MEDS ORDERED: METHADONE HCL 10 MG TABLET (FOR DETOX USE ONLY) PO ONE (10:00)
[2019-04-12] MEDS: FLUOCINONIDE 0.05% CREAM (60 GM TUBE) TP SCH ×2 (10:26→22:17)
[2019-04-12] MEDS: PRENATAL VITAMINS W/ FOLIC ACID TABLET (FP) PO SCH (10:27)
[2019-04-12] MEDS: TOLNAFTATE 1% CREAM 15 GM TUBE TP SCH ×2 (10:27→22:17)
[2019-04-12] MEDS: METHOCARBAMOL 500 MG TABLET PO PRN ×2 (12:29→19:19)
[2019-04-12] MEDS: diazePAM 5 MG TABLET PO PRN ×3 (12:29→22:18)
--- NOTE | 2019-04-12 13:18 | PN ---
[facility] CIWA - CIWA Score Nausea/Vomitin-No Nausea/No Vomiting Muscle Tremors: 4-Moderate,w/Arms Extend Anxiety: 2 Agitation: 0-Normal Activity Paroxysmal Sweats: 3 Orientation: 0-Oriented Tacttile Disturbances: 0-None Auditory Disturbances: 0-None Visual Disturbances: 2-Mild Sensitivity Headache: 0-None Present CIWA-Ar Total Score: 11 S COWS - Scale Resting Pulse: 0= [place] 80 or Below Sweatin= Chills/Flushing Restless Observation: 0= Sits Still Pupil Size: 0= Normal to Room Light Bone or Joint Aches: 0= None Runny Nose/ Eye Tearin= Nasal Congestion GI Upset > 30mins: 0= None Tremor Observation of Outstretched Hands: 2= Slight Tremor Visible Yawning Observation: 1= 1-2x During Session Anxiety or Irritability: 2=Irritable/Anxious Goose Flesh Skin: 3=Piloerection COWS Score: 10 [facility] Progress Note (SOAP) Subjective: Sweating, Tremors, Interrupted Sleep. Objective: PATIENT A & O X 3. IN NO ACUTE DISTRESS. 04/12/19 13:16 Vital Signs Temperature 97.7 F 04/12/19 10:42 Pulse Rate 69 04/12/19 10:42 Respiratory Rate 20 04/12/19 10:42 Blood Pressure 130/74 04/12/19 10:42 O2 Sat by Pulse Oximetry (%) Laboratory Tests 04/10/19 04/10/19 04/10/19 08:25 08:25 08:25 WBC 7.3 RBC 4.61 Hgb 13.6 Hct 41.2 MCV 89.4 MCH 29.6 MCHC 33.1 RDW 14.8 Plt Count 228 MPV 9.5 Sodium 136 Potassium 4.3 Chloride 104 Carbon Dioxide 26 Anion Gap 6 L BUN 14 Creatinine 0.7 Est GFR (CKD-EPI)AfAm 137.78 Est GFR (CKD-EPI)NonAf 118.88 Random Glucose 83 Calcium 8.1 L Total Bilirubin 0.6 AST 39 H ALT 29 Alkaline Phosphatase 108 Total Protein 7.4 Albumin 3.8 Urine Color Urine Appearance Urine pH Ur Specific [place] Urine Protein Urine Glucose (UA) Urine Ketones Urine Blood Urine Nitrite Urine Bilirubin Urine Urobilinogen Ur Leukocyte Esterase RPR Titer Nonreactive 04/10/19 15:28 WBC RBC Hgb Hct MCV MCH MCHC RDW Plt Count MPV Sodium Potassium Chloride Carbon Dioxide Anion Gap BUN Creatinine Est GFR (CKD-EPI)AfAm Est GFR (CKD-EPI)NonAf Random Glucose Calcium Total Bilirubin AST ALT Alkaline Phosphatase Total Protein Albumin Urine Color Dk yellow Urine Appearance Turbid Urine pH 5.5 Ur Specific [place] 1.039 H Urine Protein Negative Urine Glucose (UA) Negative Urine Ketones Negative Urine Blood Negative Urine Nitrite Negative Urine Bilirubin Negative Urine Urobilinogen 1.0 Ur Leukocyte Esterase Negative RPR Titer LABS NOTED. Assessment: 04/12/19 13:16 WITHDRAWAL SYMPTOMS. HYPOCALCEMIA. 04/12/19 13:17 Plan: CONTINUE DETOX. INCREASE DAILY PO FLUID INTAKE. OSCAL, 250 MG PO BID FOR LOW CA LEVEL.
[2019-04-12] MEDS: NICOTINE POLACRILEX 2 MG GUM BUC PRN (17:17)
[2019-04-12] MEDS: MELATONIN 5 MG TABLETS PO PRN (22:17)
[2019-04-12] MEDS: QUEtiapine FUMARATE 50 MG TABLET PO SCH (22:17)
[2019-04-12] MEDS: THIAMINE HCL 100 MG TABLET (FP) PO SCH (22:17)
[2019-04-12] MEDS: CALCIUM 250MG/VIT-D 125 UNITS 1 COMBO TABLET PO SCH (22:17)
[2019-04-13] MEDS ORDERED: METHADONE HCL 10 MG TABLET (FOR DETOX USE ONLY) ONE (09:17)
[2019-04-13] MEDS ORDERED: METHADONE HCL 5 MG TABLET (FOR DETOX USE ONLY) ONE (09:17)
--- NOTE | 2019-04-13 09:53 | PN ---
[facility] Progress Note (SOAP) Subjective: alert,irritable,anxious,interrupted sleep,pain in the body Objective: 04/13/19 09:53 Vital Signs Temperature 97.6 F 04/13/19 09:29 Pulse Rate 64 04/13/19 09:29 Respiratory Rate 18 04/13/19 09:29 Blood Pressure 133/75 04/13/19 09:29 O2 Sat by Pulse Oximetry (%) Assessment: 04/13/19 09:53 withdrawal symptom Plan: continue detox
[2019-04-13] MEDS ORDERED: METHADONE HCL 10 MG TABLET (FOR DETOX USE ONLY) PO ONE (10:00)
[2019-04-13] MEDS ORDERED: METHADONE (DETOX) 10 MG, METHADONE (DETOX) 5 MG PO ONE (10:00)
[2019-04-13] MEDS: PRENATAL VITAMINS W/ FOLIC ACID TABLET (FP) PO SCH (10:13)
[2019-04-13] MEDS: CALCIUM 250MG/VIT-D 125 UNITS 1 COMBO TABLET PO SCH ×2 (10:13→21:58)
[2019-04-13] MEDS: FLUOCINONIDE 0.05% CREAM (60 GM TUBE) TP SCH ×2 (10:14→22:00)
[2019-04-13] MEDS: TOLNAFTATE 1% CREAM 15 GM TUBE TP SCH ×2 (10:14→22:01)
[2019-04-13] MEDS: METHOCARBAMOL 500 MG TABLET PO PRN (12:26)
[2019-04-13] MEDS: NICOTINE POLACRILEX 2 MG GUM BUC PRN (12:26)
[2019-04-13] MEDS: THIAMINE HCL 100 MG TABLET (FP) PO SCH (21:59)
[2019-04-13] MEDS: MELATONIN 5 MG TABLETS PO PRN (22:00)
[2019-04-13] MEDS: QUEtiapine FUMARATE 50 MG TABLET PO SCH (22:01)
[2019-04-14] MEDS ORDERED: METHADONE HCL 5 MG TABLET (FOR DETOX USE ONLY) PO ONE (06:00)
[2019-04-14 09:36] VITALS: BP 132/74; PULSE 68; TEMP 96.3
[2019-04-14] MEDS ORDERED: METHADONE HCL 10 MG TABLET (FOR DETOX USE ONLY) PO ONE (10:00)
[2019-04-14] MEDS: CALCIUM 250MG/VIT-D 125 UNITS 1 COMBO TABLET PO SCH (10:23)
[2019-04-14] MEDS: PRENATAL VITAMINS W/ FOLIC ACID TABLET (FP) PO SCH (10:23)
[2019-04-14] MEDS: FLUOCINONIDE 0.05% CREAM (60 GM TUBE) TP SCH (10:23)
[2019-04-14] MEDS: TOLNAFTATE 1% CREAM 15 GM TUBE TP SCH (10:24)
--- NOTE | 2019-04-14 12:30 | PN ---
[facility] Progress Note Note: pt states he is feeling better no withdrawals d/c today after his last dose of methadone.
--- NOTE | 2019-04-14 13:14 | DS ---
[facility] Detox Discharge Summary Admission Date: 04/10/19 Discharge Date: 04/14/19 - History Present History: Alcohol Dependence, Cannabis Dependence, Cocaine Dependence, Opioid Dependence - Physical Exam Results Vital Signs: Vital Signs Temperature 96.3 F L 04/14/19 09:35 Pulse Rate 68 04/14/19 09:35 Respiratory Rate 18 04/14/19 09:35 Blood Pressure 132/74 04/14/19 09:35 O2 Sat by Pulse Oximetry (%) - Treatment Hospital Course: Detox Protocol Followed, Detoxed Safely, Responded well, Discharged Condition Good, Rehab Referral Accepted - Medication Discharge Medications: Ambulatory Orders Bupropion HCl [Wellbutrin Xl] 300 mg PO DAILY 04/10/19 Divalproex *ER* [Depakote *ER* -] 250 mg PO BID 04/10/19 Gabapentin [Neurontin -] 300 mg PO Q8H 04/10/19 Olanzapine [Zyprexa -] 2.5 mg PO HS 04/10/19 traZODone HCL [Trazodone HCl] 50 mg PO HS 04/10/19 - Diagnosis (1) Alcohol dependence with withdrawal Current Visit: Yes Status: Chronic Qualifiers: Complication of substance-induced condition: uncomplicated Qualified Code(s ): F10.230 - Alcohol dependence with withdrawal, uncomplicated (2) Calcaneus fracture, right Current Visit: Yes Status: Chronic Qualifiers: Encounter type: sequela (3) Opioid dependence with withdrawal Current Visit: Yes Status: Chronic (4) Substance-induced sleep disorder Current Visit: Yes Status: Acute (5) Tinea pedis Current Visit: Yes Status: Acute (6) Cocaine dependence Current Visit: Yes Status: Chronic Qualifiers: Substance use status: uncomplicated Qualified Code(s): F14.20 - Cocaine dependence, uncomplicated (7) Marijuana abuse Current Visit: Yes Status: Chronic (8) Nicotine dependence Current Visit: Yes Status: Chronic Qualifiers: Nicotine product type: cigarettes Substance use status: uncomplicated Qualified Code(s): F17.210 - Nicotine dependence, cigarettes, uncomplicated (9) Hypokalemia Current Visit: No Status: Acute (10) Substance induced mood disorder Current Visit: No Status: Acute - AMA Did Patient Leave Against Medical Advice: No (going home/referral provided)
[2019-04-15] MEDS ORDERED: METHADONE HCL 5 MG TABLET (FOR DETOX USE ONLY) PO ONE (06:00)
== END 2019-04-14 12:55 | disposition home or self-care (01) | DRG 773 ==
LOC: YASAS 08:03 → Y6N 09:23
PROVIDERS: ADMIT Surgery; ATTEND Surgery
PROC: HZ2ZZZZ Detoxification Services for Substance Abuse Treatment (ICD-10-PCS; principal; 2019-04-10)
DX: F11.23 Opioid dependence with withdrawal (principal); F10.230 Alcohol dependence with withdrawal, uncomplicated; F14.20 Cocaine dependence, uncomplicated; F12.20 Cannabis dependence, uncomplicated; F19.24 Other psychoactive substance dependence with psychoactive substance-induced mood disorder; F19.282 Other psychoactive substance dependence with psychoactive substance-induced sleep disorder; F31.9 Bipolar disorder, unspecified; E83.51 Hypocalcemia; E87.6 Hypokalemia; B35.3 Tinea pedis; Z87.81 Personal history of (healed) traumatic fracture; Z59.0 Homelessness
CPT/HCPCS: 36415; 80053; 81003; 85027; 86593

== ENCOUNTER 2019-04-20 01:26 | Emergency (ER) | payer OTHER | END 2019-04-20 08:38 | disposition home or self-care (01) | LOC: JER 01:26 ==

== ENCOUNTER 2019-04-20 09:09 | Inpatient (IN) | payer OTHER ==
[2019-04-20 10:30] VITALS: BMI 27.8
--- NOTE | 2019-04-20 11:41 | HP ---
COWS - Scale Resting Pulse: 0= [place] 80 or Below Sweatin=Flushed/Facial Moisture Restless Observation: 0= Sits Still Pupil Size: 0= Normal to Room Light Bone or Joint Aches: 4=Acute Joint/Muscle Pain Runny Nose/ Eye Tearin= Nasal Congestion GI Upset > 30mins: 2= Nausea/Diarrhea Tremor Observation: 4= Gross Tremor/Twitching Yawning Observation: 1= 1-2x During Session Anxiety or Irritability: 2=Irritable/Anxious Goose Flesh Skin: 0=Smooth Skin COWS Score: 16 CIWA Score Nausea/Vomitin Muscle Tremors: 4-Moderate,w/Arms Extend Anxiety: 4-Mod. Anxious/Guarded Agitation: 0-Normal Activity Paroxysmal Sweats: 2 Orientation: 0-Oriented Tacttile Disturbances: 0-None Auditory Disturbances: 2-Mild Harshness/Frighten Visual Disturbances: 2-Mild Sensitivity Headache: 5-Severe CIWA-Ar Total Score: 21 - Admission Criteria OASAS Guidelines: Admission for Medically Managed Detox: Requires at least one of the followin. CIWA greater than 12 2. Seizures within the past 24 hours 3. Delirium tremens within the past 24 hours 4. Hallucinations within the past 24 hours 5. Acute intervention needed for co occurring medical disorder 6. Acute intervention needed for co occurring psychiatric disorder 7. Severe withdrawal that cannot be handled at a lower level of care (continued vomiting, continued diarrhea, abnormal vital signs) requiring intravenous medication and/or fluids 8. Admission ROS [facility] Allergies/Adverse Reactions: Allergies Allergy/AdvReac Type Severity Reaction Status Date / Time No Known Allergies Allergy Verified 04/20/19 02:39 History of Present Illness: pt here requesting detox from etoh and opiate use , reports 6 bags ivdu since d/c from this facility , latest use last night , current symptoms as above , has been to [facility] seeking detox 04/18/ and 04/20 , referred to this facility , prior detox at this facility completed cocaine : 5 bags /day tobacco : 1/2 ppd IVDU in abdifatah UE , needeles from friends, denies sharing , + re-using , + abscess " a long time ago " , OD x 2 , most recently > 1 yr ago , Narcan by EMS . denies outpt denies MMTP . etoh - 1 pint /day , + tremors , denies seizures, denies blackouts , latest yesterday , current symptoms as above PMHX : right foot frx pshx : denies Psych dx : bipolar d/o, OCD , social anxiety d/o . does not have psych , was in [facility] until 2 weeks ago after relapse , [facility] all his belongings are . Exam Limitations: Clinical Condition, Intoxication - Ebola screening Have you traveled outside of the country in the last 21 days: No (N) Have you had contact with anyone from an Ebola affected area: No Do you have a fever: No - Review of Systems Constitutional: See HPI EENT: reports: See HPI Respiratory: reports: Shortness of Breath Cardiac: reports: No Symptoms Reported GI: reports: See HPI : reports: No Symptoms Reported Musculoskeletal: reports: See HPI Integumentary: reports: See HPI Neuro: reports: See HPI, Headache, Tremors Endocrine: reports: No Symptoms Reported Psychiatric: reports: Orientated x3, Anxious Patient History - Patient Medical History Hx Anemia: No Hx Asthma: No Hx Chronic Obstructive Pulmonary Disease (COPD): No Hx Cancer: No Hx Cardiac Disorders: No Hx Congestive Heart Failure: No Hx Hypertension: No Hx Hypercholesterolemia: No Hx Pacemaker: No HX Cerebrovascular Accident: No Hx Seizures: No Hx Dementia: No Hx Diabetes: No Hx Gastrointestinal Disorders: No Hx Liver Disease: No Hx Genitourinary Disorders: No Hx Sexually Transmitted Disorders: No Hx Renal Disease (ESRD): No Hx Thyroid Disease: No Hx Human Immunodeficiency Virus (HIV): No (last 2019 negative) Hx Hepatitis C: No Hx Depression: Yes Hx Suicide Attempt: No (thought about hurting self /admitted in [facility] x2 wks. until 9) Hx Bipolar Disorder: Yes Hx Schizophrenia: No - Patient Surgical History Past Surgical History: No Hx Neurologic Surgery: No Hx Cataract Extraction: No Hx Cardiac Surgery: No Hx Lung Surgery: No Hx Breast Surgery: No Hx Breast Biopsy: No Hx Abdominal Surgery: No Hx Appendectomy: No Hx Cholecystectomy: No Hx Genitourinary Surgery: No Hx Section: No Hx Orthopedic Surgery: No Anesthesia Reaction: No - PPD History Date: 06/29/18 Results: 0 mm - Smoking Cessation Smoking history: Current some day smoker Have you smoked in the past 12 months: Yes Aproximately how many cigarettes per day: 10 If you are a former smoker, when did you quit?: \\ Hx Chewing Tobacco Use: No Initiated information on smoking cessation: No - Substances abused Heroin Substance route: Injection Frequency: Daily Amount used: 5 bags Age of first use: 30 Date of last use: 04/19/19 Alcohol Substance route: Oral Frequency: Daily Amount used: 1/2 pnt vodka 3beers- 24oz Age of first use: 15 Date of last use: 04/19/19 Cocaine Substance route: Smoking Frequency: Daily Amount used: 5bag Age of first use: 27 Date of last use: 04/18/19 Marijuana/Hashish Substance route: Smoking Frequency: 1-3 times last 30 days Amount used: 10$ Age of first use: 15 Date of last use: 04/09/19 Family Disease History - Family Disease History Family Disease History: Other: Father (living, no contact), Mother (living, anxiety), Sister (four, living, anxiety, one with etoh), Son (one), Daughter ( three, one with renal issues, one with seizures) Admission Physical Exam S - Vital Signs Vital Signs: Vital Signs - 24 hr 04/20/19 10:26 Temperature 97.1 F L Pulse Rate 78 Respiratory 18 Rate Blood Pressure 129/85 - Physical General Appearance: Yes: Disheveled, Moderate Distress, Severe Distress, Tremorous, Irritable, Anxious HEENTM: Yes: EOMI, Hearing grossly Normal, Normocephalic, Normal Voice, Nasal Congestion, Rhinorrhea Respiratory: Yes: Chest Non-Tender, Normal Breath Sounds, No Respiratory Distress, No Accessory Muscle Use Neck: Yes: No masses,lesions,Nodules, Trachea in good position Cardiology: Yes: Regular Rhythm, Regular Rate, S1, S2 Abdominal: Yes: Non Tender, Soft Back: Yes: Normal Inspection Musculoskeletal: Yes: Back pain, Muscle Pain Extremities: Yes: Non-Tender, Tremors 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: Yes: Alert, Motor Strength 5/5 Integumentary: Yes: Warm, Track Tom[place] (abdifatah UE) - Addiitonal Findings: QT/QTc 358/449 ms 07/28/2018 - Diagnostic (1) Alcohol dependence with withdrawal Current Visit: Yes Status: Acute Qualifiers: Complication of substance-induced condition: uncomplicated Qualified Code(s ): F10.230 - Alcohol dependence with withdrawal, uncomplicated (2) Cocaine dependence Current Visit: Yes Status: Chronic Qualifiers: Substance use status: uncomplicated Qualified Code(s): F14.20 - Cocaine dependence, uncomplicated (3) Nicotine dependence Current Visit: Yes Status: Chronic Qualifiers: Nicotine product type: cigarettes Substance use status: uncomplicated Qualified Code(s): F17.210 - Nicotine dependence, cigarettes, uncomplicated (4) Opioid dependence with withdrawal Current Visit: Yes Status: Chronic Breathalyzer - Breathalyzer Breathalyzer: 0 Urine Drug Screen - Test Device Lot number: [id number] Expiration date: 01/19/21 - Control Is test valid?: Yes - Results Drug screen NEGATIVE: No Urine drug screen results: LIZZIE-Cocaine, FEN-Fentanyl, MOP-Opiates, MTD-Methadone , BZO-Benzodiazepines Inpatient Rehab Admission - Rehab Decision to Admit Inpatient rehab admission?: No
[2019-04-20] MEDS ORDERED: BISMUTH SUBSALICYLATE 524 MG/30 ML UD PO PRN (15:05)
[2019-04-20] MEDS ORDERED: MELATONIN 5 MG TABLETS PO PRN (15:05)
[2019-04-20] MEDS ORDERED: chlordiazePOXIDE HCL 25 MG CAPSULE PO PRN (15:05)
[2019-04-20] MEDS ORDERED: METHOCARBAMOL 500 MG TABLET PO PRN (15:05)
[2019-04-20] MEDS ORDERED: MAGNESIUM CITRATE 300 ML BOTTLE PO PRN (15:05)
[2019-04-20] MEDS ORDERED: hydrOXYzine PAMOATE 25 MG CAPSULE (FP) PO PRN (15:05)
[2019-04-20] MEDS ORDERED: IBUPROFEN 400 MG TABLET (FP) PO PRN (15:05)
[2019-04-20] MEDS ORDERED: MENTHOL/PHENOL 1 EACH UD MM PRN (15:05)
[2019-04-20] MEDS ORDERED: MAGNESIUM HYDROX 2400MG/30ML ORAL SUSPENSION 30 ML CUP PO PRN (15:05)
[2019-04-20] MEDS ORDERED: ACETAMINOPHEN 325 MG TABLET (FP) PO PRN ×2 (15:05)
[2019-04-20] MEDS ORDERED: NICOTINE POLACRILEX 2 MG GUM BUC PRN (15:05)
[2019-04-20] MEDS ORDERED: MAG HYDROX/AL HYDROX/SIMETH 30 ML UNIT-DOSE CUP PO PRN (15:05)
[2019-04-20] MEDS: chlordiazePOXIDE HCL 25 MG CAPSULE PO SCH ×2 (16:53→22:34)
[2019-04-20] MEDS: THIAMINE HCL 100 MG TABLET (FP) PO SCH (22:34)
[2019-04-20] MEDS ORDERED: METHADONE HCL 10 MG TABLET (FOR DETOX USE ONLY) PO ONE (23:00)
[2019-04-21] MEDS: chlordiazePOXIDE HCL 25 MG CAPSULE PO SCH ×4 (06:09→22:03)
[2019-04-21] MEDS ORDERED: METHADONE HCL 5 MG TABLET (FOR DETOX USE ONLY) PO ONE (10:00)
[2019-04-21] MEDS: PRENATAL VITAMINS W/ FOLIC ACID TABLET (FP) PO SCH (10:54)
--- NOTE | 2019-04-21 14:22 | PN ---
S CIWA - CIWA Score Nausea/Vomitin Muscle Tremors: 2 Anxiety: 2 Agitation: 2 Paroxysmal Sweats: 1-Minimal Palms Moist Orientation: 0-Oriented Tacttile Disturbances: 1-Very Mild Itch/Numbness Auditory Disturbances: 1-Very Mild Visual Disturbances: 0-None Headache: 2-Mild CIWA-Ar Total Score: 13 BHS COWS - Scale Resting Pulse: 0= [place] 80 or Below Sweatin= Chills/Flushing Restless Observation: 1= Difficult to Sit Still Pupil Size: 1= Pupils >than Normal Bone or Joint Aches: 2= Severe Diffuse Aches Runny Nose/ Eye Tearin= Runny Nose/Eyes GI Upset > 30mins: 2= Nausea/Diarrhea Tremor Observation of Outstretched Hands: 1= Tremor [place], Not Seen Yawning Observation: 1= 1-2x During Session Anxiety or Irritability: 2=Irritable/Anxious Goose Flesh Skin: 0=Smooth Skin COWS Score: 13 S Progress Note (SOAP) Subjective: alert,irritable,anxious,interrupted sleep,tremor,pain in the body and back Objective: 04/21/19 14:21 Vital Signs Temperature 97.1 F L 04/21/19 13:00 Pulse Rate 72 04/21/19 13:00 Respiratory Rate 18 04/21/19 13:00 Blood Pressure 134/87 04/21/19 13:00 O2 Sat by Pulse Oximetry (%) 04/21/19 14:22 withdrawal symptom 04/21/19 14:22 Vital Signs Temperature 97.1 F L 04/21/19 13:00 Pulse Rate 72 04/21/19 13:00 Respiratory Rate 18 04/21/19 13:00 Blood Pressure 134/87 04/21/19 13:00 O2 Sat by Pulse Oximetry (%) 04/21/19 14:22 labs pending Assessment: 04/21/19 14:23 withdrawal symptom Plan: continue detox
--- NOTE | 2019-04-21 16:26 | CONSULT ---
[facility] Psychiatric Consult - Data Date of interview: 04/21/19 Admission source: [facility] Identifying data: Patient approached twice for psychiatric consultation but refused both times. Mr. Samayoa stated to marketing copywriter, "not right now i don't feel well."
[2019-04-21] MEDS: THIAMINE HCL 100 MG TABLET (FP) PO SCH (22:03)
[2019-04-22] MEDS: chlordiazePOXIDE HCL 25 MG CAPSULE PO SCH ×2 (05:59→10:34)
[2019-04-22 09:09] VITALS: BP 122/84; PULSE 64; TEMP 96.8
[2019-04-22] MEDS ORDERED: METHADONE HCL 10 MG TABLET (FOR DETOX USE ONLY) PO ONE (10:00)
[2019-04-22] MEDS: PRENATAL VITAMINS W/ FOLIC ACID TABLET (FP) PO SCH (10:34)
--- NOTE | 2019-04-22 14:43 | PN ---
[facility] CIWA - CIWA Score Nausea/Vomitin-No Nausea/No Vomiting Muscle Tremors: 3 Anxiety: 3 Agitation: 1-Slight > Activity Paroxysmal Sweats: No Perspiration Orientation: 0-Oriented Tacttile Disturbances: 0-None Auditory Disturbances: 1-Very Mild Visual Disturbances: 2-Mild Sensitivity Headache: 0-None Present CIWA-Ar Total Score: 10 S COWS - Scale Resting Pulse: 1= [place] 81-100 Sweatin= No chills or Flushing Restless Observation: 1= Difficult to Sit Still Pupil Size: 0= Normal to Room Light Bone or Joint Aches: 2= Severe Diffuse Aches Runny Nose/ Eye Tearin= None GI Upset > 30mins: 0= None Tremor Observation of Outstretched Hands: 2= Slight Tremor Visible Yawning Observation: 1= 1-2x During Session Anxiety or Irritability: 2=Irritable/Anxious Goose Flesh Skin: 3=Piloerection COWS Score: 12 S Progress Note (SOAP) Subjective: Tremors, Body Aches, Anxious. Objective: PATIENT A & O X 3, OBSERVED AMBULATING ON UNIT UNASSISTED. IN NO ACUTE DISTRESS. 04/22/19 14:44 Vital Signs Temperature 96.8 F L 04/22/19 09:08 Pulse Rate 64 04/22/19 09:08 Respiratory Rate 18 04/22/19 09:08 Blood Pressure 122/84 04/22/19 09:08 O2 Sat by Pulse Oximetry (%) ADMISSION LAB RESULTS NOTED. 04/22/19 14:46 Assessment: 04/22/19 14:46 WITHDRAWAL SYMPTOMS. Plan: CONTINUE DETOX.
--- NOTE | 2019-04-22 14:53 | DS ---
[facility] Detox Discharge Summary Admission Date: 04/20/19 Discharge Date: 04/22/19 - History Present History: Alcohol Dependence, Cocaine Dependence, Opioid Dependence Additional Comments: PATIENT REPORTS THAT HE DOES NOT WISH TO REMAIN TO COMPLETE DETOX REGIMEN. RISKS OF LEAVING DETOX UNIT AGAINST MEDICAL ADVICE AND PRIOR TO COMPLETION OF DETOX REGIMEN EXPLAINED TO PATIENT. PATIENT ADVISED TO GO IMMEDIATELY TO NEAREST ER SHOULD ANY INTOLERABLE WITHDRAWAL / DETOX SYMPTOMS DEVELOP AT ANY TIME. PATIENT ALSO ADVISED TO FOLLOW-UP WITH [facility] [employer] CONSULTANT SOON POSSIBLE FOR GENERAL MEDICAL ASSESSMENT AND FOR HISTORY OF FRACTURE OF RIGHT FOOT. PATIENT VERBALIZED UNDERSTANDING OF ALL INFORMATION / RECOMMENDATIONS PRESENTED TO HIM PRIOR TO DEPARTURE FROM DETOX UNIT. PATIENT LEFT DETOX UNIT IN STABLE MEDICAL CONDITION. Pertinent Past History: Depression, Bipolar Disorder, Social Anxiety Disorder, History Of Fracture Of Right Foot, Nicotine Dependence. - Physical Exam Results Vital Signs: Vital Signs Temperature 96.8 F L 04/22/19 09:08 Pulse Rate 64 04/22/19 09:08 Respiratory Rate 18 04/22/19 09:08 Blood Pressure 122/84 04/22/19 09:08 O2 Sat by Pulse Oximetry (%) Pertinent Admission Physical Exam Findings: WITHDRAWAL SYMPTOMS. ADMISSION LAB RESULTS NOTED. - Treatment Hospital Course: Detox Protocol Followed, Detoxed Safely - Medication Discharge Medications: Ambulatory Orders Bupropion HCl [Wellbutrin Xl] 300 mg PO DAILY 04/10/19 Divalproex *ER* [Depakote *ER* -] 250 mg PO BID 04/10/19 Olanzapine [Zyprexa -] 2.5 mg PO HS 04/10/19 traZODone HCL [Trazodone HCl] 50 mg PO HS 04/10/19 - Diagnosis (1) Alcohol dependence with withdrawal Current Visit: Yes Status: Acute Qualifiers: Complication of substance-induced condition: uncomplicated Qualified Code(s ): F10.230 - Alcohol dependence with withdrawal, uncomplicated (2) Cocaine dependence Current Visit: Yes Status: Chronic Qualifiers: Substance use status: uncomplicated Qualified Code(s): F14.20 - Cocaine dependence, uncomplicated (3) Nicotine dependence Current Visit: Yes Status: Chronic Qualifiers: Nicotine product type: cigarettes Substance use status: uncomplicated Qualified Code(s): F17.210 - Nicotine dependence, cigarettes, uncomplicated (4) Opioid dependence with withdrawal Current Visit: Yes Status: Acute - AMA Did Patient Leave Against Medical Advice: Yes (PATIENT DID NOT WISH TO REMAIN TO COMPLETE DETOX REGIMEN.)
[2019-04-22] MEDS ORDERED: chlordiazePOXIDE HCL 10 MG CAPSULE PO PRN (17:00)
[2019-04-22] MEDS ORDERED: chlordiazePOXIDE HCL 10 MG CAPSULE PO SCH (17:00)
[2019-04-23] MEDS ORDERED: METHADONE HCL 5 MG TABLET (FOR DETOX USE ONLY) PO ONE (06:00)
[2019-04-23] MEDS ORDERED: chlordiazePOXIDE HCL 10 MG CAPSULE PO SCH (17:00)
== END 2019-04-22 12:22 | disposition left against medical advice (07) | DRG 770 ==
LOC: YASAS 09:09 → Y3N 16:16
PROVIDERS: ADMIT Surgery; ATTEND Surgery
PROC: HZ2ZZZZ Detoxification Services for Substance Abuse Treatment (ICD-10-PCS; principal; 2019-04-20)
DX: F10.230 Alcohol dependence with withdrawal, uncomplicated (principal); F11.23 Opioid dependence with withdrawal; F14.20 Cocaine dependence, uncomplicated; F12.20 Cannabis dependence, uncomplicated; F17.210 Nicotine dependence, cigarettes, uncomplicated; F31.9 Bipolar disorder, unspecified; F40.10 Social phobia, unspecified; F42.9 Obsessive-compulsive disorder, unspecified; Z59.0 Homelessness

== ENCOUNTER 2019-04-24 00:39 | Inpatient (IN) | payer OTHER | END 2019-04-24 12:48 | disposition left against medical advice (07) | LOC: JER 00:39 → JERBED 10:14 ==

== ENCOUNTER 2019-04-26 08:24 | Inpatient (IN) | payer OTHER ==
[2019-04-26 09:46] VITALS: BMI 27.8
--- NOTE | 2019-04-26 10:20 | HP ---
COWS - Scale Resting Pulse: 0= [place] 80 or Below Sweatin= Chills/Flushing Restless Observation: 1= Difficult to Sit Still Pupil Size: 1= Pupils >than Normal Bone or Joint Aches: 2= Severe Diffuse Aches Runny Nose/ Eye Tearin= Runny Nose/Eyes GI Upset > 30mins: 2= Nausea/Diarrhea Tremor Observation: 2= Slight Tremor Visible Yawning Observation: 1= 1-2x During Session Anxiety or Irritability: 2=Irritable/Anxious Goose Flesh Skin: 0=Smooth Skin COWS Score: 14 CIWA Score Nausea/Vomitin Muscle Tremors: 2 Anxiety: 2 Agitation: 2 Paroxysmal Sweats: 1-Minimal Palms Moist Orientation: 0-Oriented Tacttile Disturbances: 1-Very Mild Itch/Numbness Auditory Disturbances: 1-Very Mild Visual Disturbances: 0-None Headache: 2-Mild CIWA-Ar Total Score: 13 - Admission Criteria OASAS Guidelines: Admission for Medically Managed Detox: Requires at least one of the followin. CIWA greater than 12 2. Seizures within the past 24 hours 3. Delirium tremens within the past 24 hours 4. Hallucinations within the past 24 hours 5. Acute intervention needed for co occurring medical disorder 6. Acute intervention needed for co occurring psychiatric disorder 7. Severe withdrawal that cannot be handled at a lower level of care (continued vomiting, continued diarrhea, abnormal vital signs) requiring intravenous medication and/or fluids 8. Admission ROS [facility] Chief Complaint: i need help to stop using heroin,alcohol,and cocaine,seen in [facility] 04/25/19 with drug overdose, has abrasion facial area and laceration of frontal area non compliance last detox [facility] 04/20/19 to 04/22/19 not completed nicotine dependence 1/2 pack/day,would like nicotine patch and gum longest sobriety 7 and a half months bipolar disorder,ocd,social anxiety,no meds for 2 months plan for rehab after detox Allergies/Adverse Reactions: Allergies Allergy/AdvReac Type Severity Reaction Status Date / Time No Known Allergies Allergy Verified 04/26/19 09:40 History of Present Illness: this 38 years old male with heroin,cocaine and alcohol dependence,seeking detox, seen at [facility] on 04/25/19 to 04/26/19 drug overdose last detox [facility] 04/20/19 to 04/22/19 not completed for detox Exam Limitations: No Limitations - Ebola screening Have you traveled outside of the country in the last 21 days: No (N) Have you had contact with anyone from an Ebola affected area: No Do you have a fever: No - Review of Systems Constitutional: Loss of Appetite, Malaise, Night Sweats, Changes in sleep, Weakness EENT: reports: Tearing, Nose Congestion, Other (abrasion of left face stiches of frontal area) Respiratory: reports: No Symptoms reported Cardiac: reports: No Symptoms Reported GI: reports: Nausea, Poor Appetite, Abdominal cramping : reports: No Symptoms Reported Musculoskeletal: reports: Back Pain, Joint Pain, Muscle Pain Integumentary: reports: Dryness Neuro: reports: Headache, Tremors Endocrine: reports: No Symptoms Reported Hematology: reports: No Symptoms Reported Psychiatric: reports: No Sypmtoms Reported, Judgement Intact, Mood/Affect Appropiate, Orientated x3 (bipolar disorder,ocd,personality problem) Patient History - Patient Medical History Hx Anemia: No Hx Asthma: No Hx Chronic Obstructive Pulmonary Disease (COPD): No Hx Cancer: No Hx Cardiac Disorders: No Hx Congestive Heart Failure: No Hx Hypertension: No Hx Hypercholesterolemia: No Hx Pacemaker: No HX Cerebrovascular Accident: No Hx Seizures: No Hx Dementia: No Hx Diabetes: No Hx Gastrointestinal Disorders: No Hx Liver Disease: No Hx Genitourinary Disorders: No Hx Sexually Transmitted Disorders: No Hx Renal Disease (ESRD): No Hx Thyroid Disease: No Hx Human Immunodeficiency Virus (HIV): No (last 2019 negative) Hx Hepatitis C: No Hx Depression: Yes Hx Suicide Attempt: No (thought about hurting self /admitted in [facility] x2 wks. until 9) Hx Bipolar Disorder: Yes Hx Schizophrenia: No Other Medical History: no suicidal,no homicidal,low back pain - Patient Surgical History Past Surgical History: No Hx Neurologic Surgery: No Hx Cataract Extraction: No Hx Cardiac Surgery: No Hx Lung Surgery: No Hx Breast Surgery: No Hx Breast Biopsy: No Hx Abdominal Surgery: No Hx Appendectomy: No Hx Cholecystectomy: No Hx Genitourinary Surgery: No Hx Section: No Hx Orthopedic Surgery: No Anesthesia Reaction: No - PPD History Previous Implant?: Yes Documented Results: Negative w/proof Implanted On Prior [facility] Admission?: Yes Date: 06/29/18 Results: 0 mm PPD to be Administered?: No - Smoking Cessation Smoking history: Current some day smoker Have you smoked in the past 12 months: Yes Aproximately how many cigarettes per day: 10 Cigars Per Day: 0 Hx Chewing Tobacco Use: No Initiated information on smoking cessation: Yes 'Breaking Loose' booklet given: 04/26/19 - Substance & Tx. History Hx Alcohol Use: Yes Hx Substance Use: Yes Substance Use Type: Alcohol, Cocaine, Heroin, Marijuana Hx Substance Use Treatment: Yes ([facility] 04/20/19 to 04/22/19) - Substances abused Heroin Substance route: Injection Frequency: Daily Amount used: 6 bags Age of first use: 30 Date of last use: 04/19/19 Alcohol Substance route: Oral Frequency: Daily Amount used: 1/2 pint vodka 3beers- 24oz Age of first use: 15 Date of last use: 04/19/19 Cocaine Substance route: Smoking Frequency: Daily Amount used: 5bag Age of first use: 27 Date of last use: 04/18/19 Marijuana/Hashish Substance route: Smoking Frequency: 1-3 times last 30 days Amount used: 10$ Age of first use: 15 Date of last use: 04/09/19 Family Disease History - Family Disease History Family Disease History: Other: Father (living, no contact), Mother (living, anxiety), Sister (four, living, anxiety, one with etoh), Son (one), Daughter ( three, one with renal issues, one with seizures) Admission Physical Exam S - Vital Signs Vital Signs: Vital Signs - 24 hr 04/26/19 09:44 Temperature 97.3 F L Pulse Rate 55 L Respiratory 20 Rate Blood Pressure 118/68 - Physical General Appearance: Yes: Moderate Distress, Tremorous, Irritable, Sweating, Anxious HEENTM: Yes: Normocephalic, CRIST[place], Pharynx Normal, Other (stitches left frontal area abrasion left facial) Respiratory: Yes: Lungs Clear, Normal Breath Sounds Neck: Yes: Within Normal Limits, Supple, Trachea in good position Breast: Yes: Within Normal Limits Cardiology: Yes: Bradycardia Abdominal: Yes: Within Normal Limits Genitourinary: Yes: Within Normal Limits Back: Yes: Muscle Spasm Musculoskeletal: Yes: full range of Motion, Back pain, Muscle Pain Extremities: Yes: Normal Range of Motion, Tremors 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, Fully Oriented, Alert, Motor Strength 5/5 Integumentary: Yes: Dry, Track [place] Lymphatic: Yes: Within Normal Limits - Diagnostic (1) Opioid dependence with withdrawal Current Visit: No Status: Acute (2) Alcohol dependence with withdrawal Current Visit: No Status: Acute Qualifiers: Complication of substance-induced condition: uncomplicated Qualified Code(s ): F10.230 - Alcohol dependence with withdrawal, uncomplicated (3) Tinea pedis Current Visit: No Status: Acute (4) Calcaneus fracture, right Current Visit: No Status: Chronic Qualifiers: Encounter type: sequela (5) Marijuana abuse Current Visit: No Status: Chronic (6) Nicotine dependence Current Visit: No Status: Chronic Qualifiers: Nicotine product type: cigarettes Substance use status: uncomplicated Qualified Code(s): F17.210 - Nicotine dependence, cigarettes, uncomplicated (7) IVDU (intravenous drug user) Current Visit: Yes Status: Acute (8) Bipolar disorder Current Visit: Yes Status: Acute (9) OCD (obsessive compulsive disorder) Current Visit: Yes Status: Acute (10) Personality disorder Current Visit: Yes Status: Acute Cleared for Admission S - Detox or Rehab [facility] Level of Care: Medically Managed Detox Regimen/Protocol: Methadone/Librium Breathalyzer - Breathalyzer Breathalyzer: 0 Urine Drug Screen - Test Device Lot number: [id number] Expiration date: 01/19/21 - Control Is test valid?: Yes - Results Drug screen NEGATIVE: No Urine drug screen results: LIZZIE-Cocaine, FEN-Fentanyl, MOP-Opiates, MTD-Methadone , BZO-Benzodiazepines Inpatient Rehab Admission - Rehab Decision to Admit Inpatient rehab admission?: No
[2019-04-26] MEDS ORDERED: chlordiazePOXIDE HCL 25 MG CAPSULE PO PRN (10:39)
[2019-04-26] MEDS ORDERED: MENTHOL/PHENOL 1 EACH UD MM PRN (10:40)
[2019-04-26] MEDS ORDERED: IBUPROFEN 400 MG TABLET (FP) PO PRN (10:40)
[2019-04-26] MEDS ORDERED: MAGNESIUM HYDROX 2400MG/30ML ORAL SUSPENSION 30 ML CUP PO PRN (10:40)
[2019-04-26] MEDS ORDERED: MAG HYDROX/AL HYDROX/SIMETH 30 ML UNIT-DOSE CUP PO PRN (10:40)
[2019-04-26] MEDS ORDERED: MAGNESIUM CITRATE 300 ML BOTTLE PO PRN (10:40)
[2019-04-26] MEDS ORDERED: ACETAMINOPHEN 325 MG TABLET (FP) PO PRN ×2 (10:40)
[2019-04-26] MEDS ORDERED: hydrOXYzine PAMOATE 25 MG CAPSULE (FP) PO PRN (10:40)
[2019-04-26] MEDS ORDERED: BISMUTH SUBSALICYLATE 262 MG/15 ML BTL PO PRN (10:40)
[2019-04-26] MEDS ORDERED: guaiFENesin 200 MG/10 ML 10 ML UNIT-DOSE CUPS PO PRN (10:40)
[2019-04-26] MEDS ORDERED: METHADONE HCL 10 MG TABLET (FOR DETOX USE ONLY) PO ONE ×2 (10:50→23:00)
[2019-04-26] MEDS: chlordiazePOXIDE HCL 25 MG CAPSULE PO SCH ×4 (11:18→23:15)
[2019-04-26] MEDS: cloNIDine HCL 0.1 MG TABLET PO PRN (11:18)
[2019-04-26] MEDS: NICOTINE 21 MG/24 HOURS TOPICAL PATCH TD SCH (11:19)
[2019-04-26] MEDS: TOLNAFTATE 1% CREAM 15 GM TUBE TP SCH ×2 (11:19→23:14)
[2019-04-26 15:03] LABS: HEMATOCRIT 42.4 % (35.4-49); HEMOGLOBIN 13.9 GM/dL (11.7-16.9); MCH 29.6 pg (25.7-33.7); MCHC 32.8 g/dl (32.0-35.9); MEAN CELL VOLUME 90.3 fl (80-96); MEAN PLT VOLUME 9.1 fl (7.5-11.1); PLATELET COUNT 273 K/MM3 (134-434); RDW 15.3 % (11.9-15.9); WHITE BLOOD COUNT 7.1 K/mm3 (4.0-10.0)
[2019-04-26 15:09] LABS: ALBUMIN 3.7 g/dl (3.4-5.0); BILIRUBIN,TOTAL 0.6 mg/dL (0.2-1); CALCIUM 9.1 mg/dL (8.5-10.1); CREATININE 0.8 mg/dL (0.55-1.3); TOT PROT 7.2 g/dl (6.4-8.2)
[2019-04-26 15:10] LABS: URINE APPEARANCE CLEAR; URINE BILIRUBIN 1+ (NEGATIVE); URINE COLOR DK YELLOW; URINE GLUCOSE (UA) NEGATIVE (NEGATIVE); URINE KETONE TRACE (NEGATIVE); URINE LEUK ESTERASE NEGATIVE (NEGATIVE); URINE NITRITE NEGATIVE (NEGATIVE); URINE PROTEIN TRACE (NEGATIVE)
[2019-04-26] MEDS: METHOCARBAMOL 500 MG TABLET PO PRN (21:12)
[2019-04-26] MEDS: NICOTINE POLACRILEX 2 MG GUM BUC PRN (21:12)
[2019-04-26] MEDS: BACITRACIN 0.9 GM PACKET TP SCH (23:14)
[2019-04-26] MEDS: THIAMINE HCL 100 MG TABLET (FP) PO SCH (23:15)
[2019-04-27] MEDS: chlordiazePOXIDE HCL 25 MG CAPSULE PO SCH ×4 (05:47→22:19)
[2019-04-27] MEDS ORDERED: METHADONE HCL 10 MG TABLET (FOR DETOX USE ONLY) PO ONE (10:00)
[2019-04-27] MEDS: PRENATAL VITAMINS W/ FOLIC ACID TABLET (FP) PO SCH (10:06)
[2019-04-27] MEDS: NICOTINE 21 MG/24 HOURS TOPICAL PATCH TD SCH (10:06)
[2019-04-27] MEDS: BACITRACIN 0.9 GM PACKET TP SCH ×2 (10:06→22:18)
[2019-04-27] MEDS: TOLNAFTATE 1% CREAM 15 GM TUBE TP SCH ×2 (10:07→22:20)
[2019-04-27] MEDS: cloNIDine HCL 0.1 MG TABLET PO PRN ×2 (10:07→17:43)
--- NOTE | 2019-04-27 10:17 | PN ---
[facility] CIWA - CIWA Score Nausea/Vomitin-No Nausea/No Vomiting Muscle Tremors: 3 Anxiety: 3 Agitation: 3 Paroxysmal Sweats: 3 Orientation: 0-Oriented Tacttile Disturbances: 0-None Auditory Disturbances: 0-None Visual Disturbances: 0-None Headache: 0-None Present CIWA-Ar Total Score: 12 BHS COWS - Scale Resting Pulse: 0= [place] 80 or Below Sweatin=Flushed/Facial Moisture Restless Observation: 1= Difficult to Sit Still Pupil Size: 0= Normal to Room Light Bone or Joint Aches: 1= Mild Discomfort Runny Nose/ Eye Tearin= None GI Upset > 30mins: 2= Nausea/Diarrhea Tremor Observation of Outstretched Hands: 2= Slight Tremor Visible Yawning Observation: 2= >3x During Session Anxiety or Irritability: 2=Irritable/Anxious Goose Flesh Skin: 0=Smooth Skin COWS Score: 12 S Progress Note (SOAP) Subjective: sweats shakes interrupted sleep body aches anxiety Objective: 04/27/19 10:22 Vital Signs Temperature 98.1 F 04/27/19 09:27 Pulse Rate 62 04/27/19 09:27 Respiratory Rate 18 04/27/19 09:27 Blood Pressure 116/70 04/27/19 09:27 O2 Sat by Pulse Oximetry (%) Laboratory Tests 04/26/19 04/26/19 04/26/19 10:45 10:45 10:45 WBC 7.1 RBC 4.70 Hgb 13.9 Hct 42.4 MCV 90.3 MCH 29.6 MCHC 32.8 RDW 15.3 Plt Count 273 MPV 9.1 Sodium 139 Potassium 4.0 Chloride 103 Carbon Dioxide 29 Anion Gap 7 L BUN 10 Creatinine 0.8 Est GFR (CKD-EPI)AfAm 130.42 Est GFR (CKD-EPI)NonAf 112.53 Random Glucose 91 Calcium 9.1 Total Bilirubin 0.6 AST 19 ALT 27 Alkaline Phosphatase 93 Total Protein 7.2 Albumin 3.7 Urine Color Urine Appearance Urine pH Ur Specific [place] Urine Protein Urine Glucose (UA) Urine Ketones Urine Blood Urine Nitrite Urine Bilirubin Urine Urobilinogen Ur Leukocyte Esterase RPR Titer Nonreactive 04/26/19 12:10 WBC RBC Hgb Hct MCV MCH MCHC RDW Plt Count MPV Sodium Potassium Chloride Carbon Dioxide Anion Gap BUN Creatinine Est GFR (CKD-EPI)AfAm Est GFR (CKD-EPI)NonAf Random Glucose Calcium Total Bilirubin AST ALT Alkaline Phosphatase Total Protein Albumin Urine Color Dk yellow Urine Appearance Clear Urine pH 6.0 Ur Specific [place] 1.031 Urine Protein Trace Urine Glucose (UA) Negative Urine Ketones Trace H Urine Blood Negative Urine Nitrite Negative Urine Bilirubin 1+ H Urine Urobilinogen 1.0 Ur Leukocyte Esterase Negative RPR Titer aaox3 ambulating no acute distress Assessment: 04/27/19 10:22 withdrawal sx Plan: continue detox increase fluids
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
[2019-04-27] MEDS ORDERED: DIVALPROEX NA *ER* EXTEND REL 250 MG TABLET.SA PO SCH (12:15)
[2019-04-27] MEDS: DIVALPROEX SODIUM 250 MG TABLET E.C. PO SCH ×4 (12:58→22:18)
[2019-04-27] MEDS: METHOCARBAMOL 500 MG TABLET PO PRN (13:01)
[2019-04-27] MEDS: NICOTINE POLACRILEX 2 MG GUM BUC PRN (17:44)
[2019-04-27] MEDS: MELATONIN 5 MG TABLETS PO PRN (22:18)
[2019-04-27] MEDS: THIAMINE HCL 100 MG TABLET (FP) PO SCH (22:18)
[2019-04-27] MEDS: OLANZapine 2.5 MG TABLET PO SCH (22:18)
[2019-04-27] MEDS: traZODone HCL 100 MG TABLET (FP) PO SCH (22:18)
[2019-04-28] MEDS ORDERED: chlordiazePOXIDE HCL 10 MG CAPSULE PO PRN (05:00)
[2019-04-28] MEDS: chlordiazePOXIDE HCL 10 MG CAPSULE PO SCH ×4 (05:59→22:01)
[2019-04-28] MEDS: cloNIDine HCL 0.1 MG TABLET PO PRN ×2 (09:05→17:44)
[2019-04-28] MEDS ORDERED: METHADONE HCL 10 MG TABLET (FOR DETOX USE ONLY) PO ONE (10:00)
[2019-04-28] MEDS: PRENATAL VITAMINS W/ FOLIC ACID TABLET (FP) PO SCH (10:09)
[2019-04-28] MEDS: BACITRACIN 0.9 GM PACKET TP SCH ×2 (10:10→22:01)
[2019-04-28] MEDS: DIVALPROEX SODIUM 250 MG TABLET E.C. PO SCH ×2 (10:10→22:00)
[2019-04-28] MEDS: NICOTINE 21 MG/24 HOURS TOPICAL PATCH TD SCH (10:10)
[2019-04-28] MEDS: TOLNAFTATE 1% CREAM 15 GM TUBE TP SCH ×2 (10:11→22:04)
--- NOTE | 2019-04-28 11:16 | PN ---
[facility] CIWA - CIWA Score Nausea/Vomitin-No Nausea/No Vomiting Muscle Tremors: 2 Anxiety: 3 Agitation: 3 Paroxysmal Sweats: 2 Orientation: 0-Oriented Tacttile Disturbances: 0-None Auditory Disturbances: 0-None Visual Disturbances: 0-None Headache: 0-None Present CIWA-Ar Total Score: 10 BHS COWS - Scale Resting Pulse: 0= [place] 80 or Below Sweatin=Flushed/Facial Moisture Restless Observation: 1= Difficult to Sit Still Pupil Size: 0= Normal to Room Light Bone or Joint Aches: 2= Severe Diffuse Aches Runny Nose/ Eye Tearin= Nasal Congestion GI Upset > 30mins: 0= None Tremor Observation of Outstretched Hands: 2= Slight Tremor Visible Yawning Observation: 1= 1-2x During Session Anxiety or Irritability: 2=Irritable/Anxious Goose Flesh Skin: 0=Smooth Skin COWS Score: 11 S Progress Note (SOAP) Subjective: anxiety sweats mild shakes interrupted sleep Objective: 04/28/19 11:04 Vital Signs Temperature 98.3 F 04/28/19 09:22 Pulse Rate 71 04/28/19 09:22 Respiratory Rate 18 04/28/19 09:22 Blood Pressure 125/51 L 04/28/19 09:22 O2 Sat by Pulse Oximetry (%) Laboratory Tests 04/26/19 04/26/19 04/26/19 10:45 10:45 10:45 WBC 7.1 RBC 4.70 Hgb 13.9 Hct 42.4 MCV 90.3 MCH 29.6 MCHC 32.8 RDW 15.3 Plt Count 273 MPV 9.1 Sodium 139 Potassium 4.0 Chloride 103 Carbon Dioxide 29 Anion Gap 7 L BUN 10 Creatinine 0.8 Est GFR (CKD-EPI)AfAm 130.42 Est GFR (CKD-EPI)NonAf 112.53 Random Glucose 91 Calcium 9.1 Total Bilirubin 0.6 AST 19 ALT 27 Alkaline Phosphatase 93 Total Protein 7.2 Albumin 3.7 Urine Color Urine Appearance Urine pH Ur Specific [place] Urine Protein Urine Glucose (UA) Urine Ketones Urine Blood Urine Nitrite Urine Bilirubin Urine Urobilinogen Ur Leukocyte Esterase RPR Titer Nonreactive 04/26/19 12:10 WBC RBC Hgb Hct MCV MCH MCHC RDW Plt Count MPV Sodium Potassium Chloride Carbon Dioxide Anion Gap BUN Creatinine Est GFR (CKD-EPI)AfAm Est GFR (CKD-EPI)NonAf Random Glucose Calcium Total Bilirubin AST ALT Alkaline Phosphatase Total Protein Albumin Urine Color Dk yellow Urine Appearance Clear Urine pH 6.0 Ur Specific [place] 1.031 Urine Protein Trace Urine Glucose (UA) Negative Urine Ketones Trace H Urine Blood Negative Urine Nitrite Negative Urine Bilirubin 1+ H Urine Urobilinogen 1.0 Ur Leukocyte Esterase Negative RPR Titer labs noted aaox3 ambulating no acute distress Assessment: 04/28/19 11:16 withdrawal sx abrasion on face healing slowly. Plan: continue detox increase fluids continue with bacitracin oint
[2019-04-28] MEDS: METHOCARBAMOL 500 MG TABLET PO PRN (17:44)
[2019-04-28] MEDS: OLANZapine 2.5 MG TABLET PO SCH (22:00)
[2019-04-28] MEDS: THIAMINE HCL 100 MG TABLET (FP) PO SCH (22:00)
[2019-04-28] MEDS: traZODone HCL 100 MG TABLET (FP) PO SCH (22:01)
[2019-04-28] MEDS: MELATONIN 5 MG TABLETS PO PRN (22:01)
[2019-04-29] MEDS: chlordiazePOXIDE HCL 10 MG CAPSULE PO SCH ×2 (05:32→16:56)
[2019-04-29] MEDS ORDERED: METHADONE HCL 10 MG TABLET (FOR DETOX USE ONLY) ONE (09:46)
[2019-04-29] MEDS ORDERED: METHADONE HCL 5 MG TABLET (FOR DETOX USE ONLY) ONE (09:46)
[2019-04-29] MEDS ORDERED: METHADONE HCL 10 MG TABLET (FOR DETOX USE ONLY) PO ONE (10:00)
[2019-04-29] MEDS ORDERED: METHADONE (DETOX) 10 MG, METHADONE (DETOX) 5 MG PO ONE (10:00)
[2019-04-29] MEDS: BACITRACIN 0.9 GM PACKET TP SCH ×2 (10:30→22:15)
[2019-04-29] MEDS: PRENATAL VITAMINS W/ FOLIC ACID TABLET (FP) PO SCH (10:31)
[2019-04-29] MEDS: DIVALPROEX SODIUM 250 MG TABLET E.C. PO SCH ×2 (10:31→22:16)
[2019-04-29] MEDS: TOLNAFTATE 1% CREAM 15 GM TUBE TP SCH ×2 (10:31→22:16)
[2019-04-29] MEDS: NICOTINE 21 MG/24 HOURS TOPICAL PATCH TD SCH (10:32)
--- NOTE | 2019-04-29 12:33 | PN ---
[facility] CIWA - CIWA Score Nausea/Vomitin-No Nausea/No Vomiting Muscle Tremors: 3 Anxiety: 2 Agitation: 2 Paroxysmal Sweats: 2 Orientation: 0-Oriented Tacttile Disturbances: 0-None Auditory Disturbances: 0-None Visual Disturbances: 0-None Headache: 0-None Present CIWA-Ar Total Score: 9 BHS COWS - Scale Resting Pulse: 1= [place] 81-100 Sweatin= Chills/Flushing Restless Observation: 1= Difficult to Sit Still Pupil Size: 0= Normal to Room Light Bone or Joint Aches: 1= Mild Discomfort Runny Nose/ Eye Tearin= None GI Upset > 30mins: 0= None Tremor Observation of Outstretched Hands: 1= Tremor Wing, Not Seen Yawning Observation: 1= 1-2x During Session Anxiety or Irritability: 2=Irritable/Anxious Goose Flesh Skin: 0=Smooth Skin COWS Score: 8 S Progress Note (SOAP) Subjective: agitation sweats interrupted sleep Objective: 04/29/19 12:33 Vital Signs Temperature 98.1 F 04/29/19 09:39 Pulse Rate 89 04/29/19 09:39 Respiratory Rate 20 04/29/19 09:39 Blood Pressure 146/72 04/29/19 09:39 O2 Sat by Pulse Oximetry (%) aaox3 ambulating no acute distress Assessment: 04/29/19 12:33 mild withdrawal sx Plan: continue detox increase fluids
[2019-04-29] MEDS: NICOTINE POLACRILEX 2 MG GUM BUC PRN (13:52)
[2019-04-29] MEDS: traZODone HCL 100 MG TABLET (FP) PO SCH (22:15)
[2019-04-29] MEDS: MELATONIN 5 MG TABLETS PO PRN (22:16)
[2019-04-29] MEDS: THIAMINE HCL 100 MG TABLET (FP) PO SCH (22:16)
[2019-04-29] MEDS: OLANZapine 2.5 MG TABLET PO SCH (22:36)
[2019-04-30] MEDS: chlordiazePOXIDE HCL 10 MG CAPSULE PO SCH (05:52)
[2019-04-30] MEDS ORDERED: METHADONE HCL 5 MG TABLET (FOR DETOX USE ONLY) PO ONE (06:00)
[2019-04-30] MEDS ORDERED: METHADONE HCL 10 MG TABLET (FOR DETOX USE ONLY) PO ONE (10:00)
[2019-04-30] MEDS: PRENATAL VITAMINS W/ FOLIC ACID TABLET (FP) PO SCH (10:16)
[2019-04-30] MEDS: TOLNAFTATE 1% CREAM 15 GM TUBE TP SCH (10:16)
[2019-04-30] MEDS: BACITRACIN 0.9 GM PACKET TP SCH (10:16)
[2019-04-30] MEDS: DIVALPROEX SODIUM 250 MG TABLET E.C. PO SCH (10:16)
[2019-04-30] MEDS: NICOTINE 21 MG/24 HOURS TOPICAL PATCH TD SCH (10:16)
[2019-04-30 14:02] VITALS: BP 129/76; PULSE 84; TEMP 97.9
--- NOTE | 2019-04-30 15:10 | PN ---
[facility] CIWA - CIWA Score Nausea/Vomitin-No Nausea/No Vomiting Muscle Tremors: None Anxiety: 3 Agitation: 3 Paroxysmal Sweats: No Perspiration Orientation: 0-Oriented Tacttile Disturbances: 0-None Auditory Disturbances: 0-None Visual Disturbances: 0-None Headache: 0-None Present CIWA-Ar Total Score: 6 S COWS - Scale Resting Pulse: 1= [place] 81-100 Sweatin= No chills or Flushing Restless Observation: 0= Sits Still Pupil Size: 0= Normal to Room Light Bone or Joint Aches: 0= None Runny Nose/ Eye Tearin= None GI Upset > 30mins: 0= None Tremor Observation of Outstretched Hands: 0= None Yawning Observation: 0= None Anxiety or Irritability: 2=Irritable/Anxious Goose Flesh Skin: 0=Smooth Skin COWS Score: 3 [facility] Progress Note (SOAP) Subjective: Patient stated he is feeling much better as his symptoms are mostly gone due to the medication Objective: 04/30/19 15:09 Last Vital Signs Temp Pulse Resp BP Pulse Ox 97.9 F 84 20 129/76 04/30/19 14:01 04/30/19 14:01 04/30/19 14:01 04/30/19 14:01 Laboratory Tests 04/26/19 04/26/19 04/26/19 10:45 10:45 10:45 WBC 7.1 RBC 4.70 Hgb 13.9 Hct 42.4 MCV 90.3 MCH 29.6 MCHC 32.8 RDW 15.3 Plt Count 273 MPV 9.1 Sodium 139 Potassium 4.0 Chloride 103 Carbon Dioxide 29 Anion Gap 7 L BUN 10 Creatinine 0.8 Est GFR (CKD-EPI)AfAm 130.42 Est GFR (CKD-EPI)NonAf 112.53 Random Glucose 91 Calcium 9.1 Total Bilirubin 0.6 AST 19 ALT 27 Alkaline Phosphatase 93 Total Protein 7.2 Albumin 3.7 Urine Color Urine Appearance Urine pH Ur Specific [place] Urine Protein Urine Glucose (UA) Urine Ketones Urine Blood Urine Nitrite Urine Bilirubin Urine Urobilinogen Ur Leukocyte Esterase RPR Titer Nonreactive 04/26/19 12:10 WBC RBC Hgb Hct MCV MCH MCHC RDW Plt Count MPV Sodium Potassium Chloride Carbon Dioxide Anion Gap BUN Creatinine Est GFR (CKD-EPI)AfAm Est GFR (CKD-EPI)NonAf Random Glucose Calcium Total Bilirubin AST ALT Alkaline Phosphatase Total Protein Albumin Urine Color Dk yellow Urine Appearance Clear Urine pH 6.0 Ur Specific [place] 1.031 Urine Protein Trace Urine Glucose (UA) Negative Urine Ketones Trace H Urine Blood Negative Urine Nitrite Negative Urine Bilirubin 1+ H Urine Urobilinogen 1.0 Ur Leukocyte Esterase Negative RPR Titer Labs reviewed Assessment: 04/30/19 15:09 Withdrawal symptoms Plan: Continue detox Encouraged PO water hydration
--- NOTE | 2019-04-30 17:28 | PN ---
S Progress Note Note: patient is stable for discharge ,follow up with put patient program as arrangement
--- NOTE | 2019-04-30 17:32 | DS ---
[facility] Detox Discharge Summary Admission Date: 04/26/19 Discharge Date: 04/30/19 - History Present History: Alcohol Dependence, Cannabis Dependence, Cocaine Dependence, Opioid Dependence Additional Comments: stable for discharge today,follow up with out patient program as arrangement Pertinent Past History: low back pain bipolar disorder - Physical Exam Results Vital Signs: Vital Signs Temperature 97.9 F 04/30/19 14:01 Pulse Rate 84 04/30/19 14:01 Respiratory Rate 20 04/30/19 14:01 Blood Pressure 129/76 04/30/19 14:01 O2 Sat by Pulse Oximetry (%) Pertinent Admission Physical Exam Findings: withdrawal signs and symptom Vital Signs Temperature 97.9 F 04/30/19 14:01 Pulse Rate 84 04/30/19 14:01 Respiratory Rate 20 04/30/19 14:01 Blood Pressure 129/76 04/30/19 14:01 O2 Sat by Pulse Oximetry (%) Laboratory Last Values WBC 7.1 K/mm3 (4.0-10.0) 04/26/19 10:45 RBC 4.70 M/mm3 (4.00-5.60) 04/26/19 10:45 Hgb 13.9 GM/dL (11.7-16.9) 04/26/19 10:45 Hct 42.4 % (35.4-49) 04/26/19 10:45 MCV 90.3 fl (80-96) 04/26/19 10:45 MCH 29.6 pg (25.7-33.7) 04/26/19 10:45 MCHC 32.8 g/dl (32.0-35.9) 04/26/19 10:45 RDW 15.3 % (11.9-15.9) 04/26/19 10:45 Plt Count 273 K/MM3 (134-434) 04/26/19 10:45 MPV 9.1 fl (7.5-11.1) 04/26/19 10:45 Sodium 139 mmol/L (136-145) 04/26/19 10:45 Potassium 4.0 mmol/L (3.5-5.1) 04/26/19 10:45 Chloride 103 mmol/L (98-107) 04/26/19 10:45 Carbon Dioxide 29 mmol/L (21-32) 04/26/19 10:45 Anion Gap 7 MMOL/L (8-16) L 04/26/19 10:45 BUN 10 mg/dL (7-18) 04/26/19 10:45 Creatinine 0.8 mg/dL (0.55-1.3) 04/26/19 10:45 Est GFR (CKD-EPI)AfAm 130.42 04/26/19 10:45 Est GFR (CKD-EPI)NonAf 112.53 04/26/19 10:45 Random Glucose 91 mg/dL (74-106) 04/26/19 10:45 Calcium 9.1 mg/dL (8.5-10.1) 04/26/19 10:45 Total Bilirubin 0.6 mg/dL (0.2-1) 04/26/19 10:45 AST 19 U/L (15-37) 04/26/19 10:45 ALT 27 U/L (13-61) 04/26/19 10:45 Alkaline Phosphatase 93 U/L (45-117) 04/26/19 10:45 Total Protein 7.2 g/dl (6.4-8.2) 04/26/19 10:45 Albumin 3.7 g/dl (3.4-5.0) 04/26/19 10:45 Urine Color Dk yellow 04/26/19 12:10 Urine Appearance Clear 04/26/19 12:10 Urine pH 6.0 (5.0-8.0) 04/26/19 12:10 Ur Specific [place] 1.031 (1.010-1.035) 04/26/19 12:10 Urine Protein Trace (NEGATIVE) 04/26/19 12:10 Urine Glucose (UA) Negative (NEGATIVE) 04/26/19 12:10 Urine Ketones Trace (NEGATIVE) H 04/26/19 12:10 Urine Blood Negative (NEGATIVE) 04/26/19 12:10 Urine Nitrite Negative (NEGATIVE) 04/26/19 12:10 Urine Bilirubin 1+ (NEGATIVE) H 04/26/19 12:10 Urine Urobilinogen 1.0 mg/dL (0.2-1.0) 04/26/19 12:10 Ur Leukocyte Esterase Negative (NEGATIVE) 04/26/19 12:10 RPR Titer Nonreactive (NONREACTIVE) 04/26/19 10:45 - Treatment Hospital Course: Detox Protocol Followed, Detoxed Safely, Responded well, Discharged Condition Good Patient has Accepted a Rehab Referral to: declined - Medication Discharge Medications: Ambulatory Orders Bupropion HCl [Wellbutrin Xl] 300 mg PO DAILY 04/10/19 Divalproex *ER* [Depakote *ER* -] 250 mg PO BID 04/10/19 Olanzapine [Zyprexa -] 2.5 mg PO HS 04/10/19 traZODone HCL [Trazodone HCl] 50 mg PO HS 04/10/19 - Diagnosis (1) Opioid dependence with withdrawal Current Visit: No Status: Acute (2) Alcohol dependence with withdrawal Current Visit: No Status: Acute Qualifiers: Complication of substance-induced condition: uncomplicated Qualified Code(s ): F10.230 - Alcohol dependence with withdrawal, uncomplicated (3) Tinea pedis Current Visit: No Status: Acute (4) Calcaneus fracture, right Current Visit: No Status: Chronic Qualifiers: Encounter type: sequela (5) Marijuana abuse Current Visit: No Status: Chronic (6) Nicotine dependence Current Visit: No Status: Chronic Qualifiers: Nicotine product type: cigarettes Substance use status: uncomplicated Qualified Code(s): F17.210 - Nicotine dependence, cigarettes, uncomplicated (7) IVDU (intravenous drug user) Current Visit: Yes Status: Acute (8) Bipolar disorder Current Visit: Yes Status: Chronic (9) OCD (obsessive compulsive disorder) Current Visit: Yes Status: Acute (10) Personality disorder Current Visit: Yes Status: Acute - AMA Did Patient Leave Against Medical Advice: No
[2019-05-01] MEDS ORDERED: METHADONE HCL 5 MG TABLET (FOR DETOX USE ONLY) PO ONE (06:00)
== END 2019-04-30 17:45 | disposition home or self-care (01) | DRG 773 ==
LOC: YASAS 08:24 → Y6N 10:43
PROVIDERS: ADMIT Surgery; ATTEND Surgery
PROC: HZ2ZZZZ Detoxification Services for Substance Abuse Treatment (ICD-10-PCS; principal; 2019-04-26)
DX: F11.23 Opioid dependence with withdrawal (principal); F10.230 Alcohol dependence with withdrawal, uncomplicated; F14.20 Cocaine dependence, uncomplicated; F12.10 Cannabis abuse, uncomplicated; F17.210 Nicotine dependence, cigarettes, uncomplicated; F19.24 Other psychoactive substance dependence with psychoactive substance-induced mood disorder; F19.282 Other psychoactive substance dependence with psychoactive substance-induced sleep disorder; F31.9 Bipolar disorder, unspecified; F42.9 Obsessive-compulsive disorder, unspecified; F60.3 Borderline personality disorder; M54.5 Low back pain; B35.3 Tinea pedis; Z59.0 Homelessness
CPT/HCPCS: 36415; 80053; 81003; 85027; 86593; J0735

== ENCOUNTER 2019-05-11 08:21 | Inpatient (IN) | payer OTHER ==
[2019-05-11 09:29] VITALS: BMI 27.3
--- NOTE | 2019-05-11 10:30 | HP ---
"COWS - Scale Resting Pulse: 0= [place] 80 or Below Sweatin= Chills/Flushing Restless Observation: 1= Difficult to Sit Still Pupil Size: 0= Normal to Room Light Bone or Joint Aches: 4=Acute Joint/Muscle Pain Runny Nose/ Eye Tearin= Nasal Congestion GI Upset > 30mins: 1= Stomach Cramp Tremor Observation: 0= None Yawning Observation: 0= None Anxiety or Irritability: 2=Irritable/Anxious Goose Flesh Skin: 0=Smooth Skin COWS Score: 10 CIWA Score Nausea/Vomitin-Mild Nausea/No Vomiting Muscle Tremors: None Anxiety: 4-Mod. Anxious/Guarded Agitation: 4-Moderately Restless Paroxysmal Sweats: 1-Minimal Palms Moist Orientation: 0-Oriented Tacttile Disturbances: 0-None Auditory Disturbances: 2-Mild Harshness/Frighten Visual Disturbances: 0-None Headache: 2-Mild CIWA-Ar Total Score: 14 - Admission Criteria OASAS Guidelines: Admission for Medically Managed Detox: Requires at least one of the followin. CIWA greater than 12 2. Seizures within the past 24 hours 3. Delirium tremens within the past 24 hours 4. Hallucinations within the past 24 hours 5. Acute intervention needed for co occurring medical disorder 6. Acute intervention needed for co occurring psychiatric disorder 7. Severe withdrawal that cannot be handled at a lower level of care (continued vomiting, continued diarrhea, abnormal vital signs) requiring intravenous medication and/or fluids 8. Admission ROS [facility] Allergies/Adverse Reactions: Allergies Allergy/AdvReac Type Severity Reaction Status Date / Time No Known Allergies Allergy Verified 05/11/19 09:21 History of Present Illness: This report was requested by: Ashley Townsend | Reference #: [id number] Others' Prescriptions Patient Name: Christopher Samayoa Date: 1980 Address: [address] [address] Sex: Male Rx Written Rx Dispensed Drug Quantity Days Supply Prescriber Name 03/17/2019 03/17/2019 buprenorphine-naloxone 8-2 mg sl film 30 30 Misty Hess MD 02/02/2019 02/02/2019 suboxone 8 mg-2 mg sl film 30 30 Misty Hess MD 12/22/2018 01/02/2019 suboxone 8 mg-2 mg sl film 30 30 Misty Hess MD 12/17/2018 12/17/2018 suboxone 4 mg-1 mg sl film 60 30 Misty Hess MD 12/05/2018 12/05/2018 suboxone 8 mg-2 mg sl film 30 30 Misty Hess MD 11/28/2018 11/28/2018 suboxone 4 mg-1 mg sl film 30 30 Misty Hess MD Patient Name: Christopher Samayoa Date: 1980 Address: [address] [place] [id number] Sex: Male Rx Written Rx Dispensed Drug Quantity Days Supply Prescriber Name 10/14/2018 10/14/2018 suboxone 2 mg-0.5 mg sl film 7 7 Sarai Vuong () 10/05/2018 10/05/2018 suboxone 4 mg-1 mg sl film 9 9 Sarai Vuong () 09/26/2018 09/26/2018 suboxone 4 mg-1 mg sl film 9 9 Shawna Ellis A, HYDROTREATER OPERATOR 09/21/2018 09/22/2018 suboxone 8 mg-2 mg sl film 4 4 Shawna Ellis A, HYDROTREATER OPERATOR 09/21/2018 09/21/2018 suboxone 4 mg-1 mg sl film 7 7 Shawna Ellis A, HYDROTREATER OPERATOR Patient Name: Christopher Samayoa Date: 1980 Address: [address] [place] [id number] Sex: Male Rx Written Rx Dispensed Drug Quantity Days Supply Prescriber Name 09/16/2018 09/16/2018 suboxone 12 mg-3 mg sl film 15 15 Scar Suarez MD 08/24/2018 08/24/2018 suboxone 4 mg-1 mg sl film 30 15 Yonny Loya MD 08/22/2018 08/22/2018 suboxone 8 mg-2 mg sl film 30 15 Yonny Loya MD 08/15/2018 08/15/2018 suboxone 2 mg-0.5 mg sl film 60 15 Scar Suarez MD pt here requesting detox from opiate use , reports relapse after d/c , current daily use 6 bags ivdu , s/p recent admission at [facility] d/c yesterday was given 5 mg Methadone per pt , claims relapsed after d/c , OD 2 weeks ago Narcan by passer by until ems arrived, taken to [facility] ctr . had bruising on forehead , current symptoms as above , needles from friends, denies sharing , + re-using , denies abscess . cocaine : 7 bags /day via inhalation tobacco : 1/2 ppd denies other illicits etoh : 1/2 pint & 2 beers /day since age 15 , reports anxiety if not drinking . Psych meds latest taken 2 mo ago . Exam Limitations: Clinical Condition - Ebola screening Have you traveled outside of the country in the last 21 days: No (N) Have you had contact with anyone from an Ebola affected area: No Do you have a fever: No - Review of Systems Constitutional: See HPI EENT: reports: See HPI Respiratory: reports: No Symptoms reported Cardiac: reports: No Symptoms Reported GI: reports: See HPI : reports: No Symptoms Reported Musculoskeletal: reports: See HPI Integumentary: reports: See HPI, Other (ivdu in abdifatah UE) Neuro: reports: See HPI Endocrine: reports: No Symptoms Reported Psychiatric: reports: Orientated x3, Agitated, Anxious Patient History - Patient Medical History Hx Anemia: No Hx Asthma: No Hx Chronic Obstructive Pulmonary Disease (COPD): No Hx Cancer: No Hx Cardiac Disorders: No Hx Congestive Heart Failure: No Hx Hypertension: No Hx Hypercholesterolemia: No Hx Pacemaker: No HX Cerebrovascular Accident: No Hx Seizures: No Hx Dementia: No Hx Diabetes: No Hx Gastrointestinal Disorders: No Hx Liver Disease: No Hx Genitourinary Disorders: No Hx Sexually Transmitted Disorders: No Hx Renal Disease (ESRD): No Hx Thyroid Disease: No Hx Human Immunodeficiency Virus (HIV): No (last 2019 negative) Hx Hepatitis C: No Hx Depression: Yes Hx Suicide Attempt: No (thought about hurting self /admitted in [facility]. x2 wks. until 9) Hx Bipolar Disorder: Yes Hx Schizophrenia: No - Patient Surgical History Past Surgical History: No Hx Neurologic Surgery: No Hx Cataract Extraction: No Hx Cardiac Surgery: No Hx Lung Surgery: No Hx Breast Surgery: No Hx Breast Biopsy: No Hx Abdominal Surgery: No Hx Appendectomy: No Hx Cholecystectomy: No Hx Genitourinary Surgery: No Hx Section: No Hx Orthopedic Surgery: No Anesthesia Reaction: No - PPD History Date: 06/29/18 Results: 0 mm - Smoking Cessation Smoking history: Current some day smoker Have you smoked in the past 12 months: Yes Aproximately how many cigarettes per day: 10 If you are a former smoker, when did you quit?: \\ Cigars Per Day: 0 Hx Chewing Tobacco Use: No Initiated information on smoking cessation: No - Substances abused Heroin Substance route: Injection Frequency: Daily Amount used: 3-6 bags Age of first use: 30 Date of last use: 05/10/19 Alcohol Substance route: Oral Frequency: Daily Amount used: 1/2 pint vodka 3beers- 24oz Age of first use: 15 Date of last use: 05/10/19 Cocaine Substance route: Smoking Frequency: Daily Amount used: 3-7bags Age of first use: 20 Date of last use: 04/27/19 Marijuana/Hashish Substance route: Smoking Frequency: 1-3 times last 30 days Amount used: 10$ Age of first use: 15 Date of last use: 04/09/19 Family Disease History - Family Disease History Family Disease History: Other: Father (living, no contact), Mother (living, anxiety), Sister (four, living, anxiety, one with etoh), Son (one), Daughter ( three, one with renal issues, one with seizures) Admission Physical Exam [facility] - Vital Signs Vital Signs: Vital Signs - 24 hr 05/11/19 09:23 Temperature 97.8 F Pulse Rate 65 Respiratory 16 Rate Blood Pressure 121/83 - Physical General Appearance: Yes: Mild Distress, Irritable, Anxious HEENTM: Yes: EOMI, Normocephalic, Normal Voice, Nasal Congestion, Other ( healing abrasion forehead left and left infraorbital) Respiratory: Yes: Chest Non-Tender, Lungs Clear, Normal Breath Sounds Neck: Yes: No masses,lesions,Nodules, Trachea in good position Cardiology: Yes: Regular Rhythm, Regular Rate, S1, S2 Abdominal: Yes: Non Tender, Soft Musculoskeletal: Yes: Gait Steady Extremities: Yes: Non-Tender 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: Yes: Fully Oriented, Alert, Motor Strength 5/5 Integumentary: Yes: Warm, Track [place] - Diagnostic (1) Alcohol dependence with withdrawal Current Visit: Yes Status: Acute Qualifiers: Complication of substance-induced condition: uncomplicated Qualified Code(s ): F10.230 - Alcohol dependence with withdrawal, uncomplicated (2) Cocaine dependence Current Visit: Yes Status: Chronic Qualifiers: Substance use status: uncomplicated Qualified Code(s): F14.20 - Cocaine dependence, uncomplicated (3) Opioid dependence with withdrawal Current Visit: Yes Status: Acute (4) Nicotine dependence Current Visit: Yes Status: Chronic Qualifiers: Nicotine product type: cigarettes Breathalyzer - Breathalyzer Breathalyzer: 0 Urine Drug Screen - Test Device Lot number: [id number] Expiration date: 01/19/21 - Control Is test valid?: Yes - Results Drug screen NEGATIVE: No Urine drug screen results: LIZZIE-Cocaine, MOP-Opiates, MTD-Methadone, BZO- Benzodiazepines Inpatient Rehab Admission - Rehab Decision to Admit Inpatient rehab admission?: No"
[2019-05-11] MEDS ORDERED: IBUPROFEN 400 MG TABLET (FP) PO PRN (10:50)
[2019-05-11] MEDS ORDERED: MAG HYDROX/AL HYDROX/SIMETH 30 ML UNIT-DOSE CUP PO PRN (10:50)
[2019-05-11] MEDS ORDERED: ACETAMINOPHEN 325 MG TABLET (FP) PO PRN ×2 (10:50)
[2019-05-11] MEDS ORDERED: hydrOXYzine PAMOATE 25 MG CAPSULE (FP) PO PRN (10:50)
[2019-05-11] MEDS ORDERED: MAGNESIUM HYDROX 2400MG/30ML ORAL SUSPENSION 30 ML CUP PO PRN (10:50)
[2019-05-11] MEDS ORDERED: BISMUTH SUBSALICYLATE 524 MG/30 ML UD PO PRN (10:50)
[2019-05-11] MEDS ORDERED: MENTHOL/PHENOL 1 EACH UD MM PRN (10:50)
[2019-05-11] MEDS ORDERED: MAGNESIUM CITRATE 300 ML BOTTLE PO PRN (10:50)
[2019-05-11] MEDS ORDERED: cloNIDine HCL 0.1 MG TABLET PO PRN (10:51)
[2019-05-11] MEDS ORDERED: diazePAM 5 MG TABLET PO PRN (10:51)
[2019-05-11] MEDS ORDERED: METHADONE HCL 10 MG TABLET (FOR DETOX USE ONLY) PO ONE (10:52)
[2019-05-11] MEDS: diazePAM 5 MG TABLET PO SCH ×2 (15:54→22:22)
[2019-05-11] MEDS: THIAMINE HCL 100 MG TABLET (FP) PO SCH (22:21)
[2019-05-11] MEDS: MELATONIN 5 MG TABLETS PO PRN (22:22)
[2019-05-12] MEDS: diazePAM 5 MG TABLET PO SCH (05:49)
[2019-05-12] MEDS ORDERED: METHADONE HCL 5 MG TABLET (FOR DETOX USE ONLY) PO ONE (10:00)
[2019-05-12] MEDS: PRENATAL VITAMINS W/ FOLIC ACID TABLET (FP) PO SCH (10:53)
--- NOTE | 2019-05-12 11:52 | PN ---
[facility] CIWA - CIWA Score Nausea/Vomitin Muscle Tremors: 2 Anxiety: 2 Agitation: 3 Paroxysmal Sweats: 1-Minimal Palms Moist Orientation: 0-Oriented Tacttile Disturbances: 1-Very Mild Itch/Numbness Auditory Disturbances: 1-Very Mild Visual Disturbances: 0-None Headache: 2-Mild CIWA-Ar Total Score: 14 BHS COWS - Scale Resting Pulse: 0= [place] 80 or Below Sweatin= Chills/Flushing Restless Observation: 1= Difficult to Sit Still Pupil Size: 1= Pupils >than Normal Bone or Joint Aches: 2= Severe Diffuse Aches Runny Nose/ Eye Tearin= Runny Nose/Eyes GI Upset > 30mins: 2= Nausea/Diarrhea Tremor Observation of Outstretched Hands: 2= Slight Tremor Visible Yawning Observation: 1= 1-2x During Session Anxiety or Irritability: 2=Irritable/Anxious Goose Flesh Skin: 0=Smooth Skin COWS Score: 14 [facility] Progress Note (SOAP) Subjective: alert,irritable,anxious,interrupted leep,pain in the body and back,tremor Objective: 05/12/19 11:50 Vital Signs Temperature 97.2 F L 05/12/19 09:34 Pulse Rate 62 05/12/19 09:34 Respiratory Rate 18 05/12/19 09:34 Blood Pressure 117/59 L 05/12/19 09:34 O2 Sat by Pulse Oximetry (%) Assessment: 05/12/19 11:51 withdrawal symptom Plan: continue detox,cbc.cmp,in r in am
[2019-05-12] MEDS: NICOTINE POLACRILEX 2 MG GUM BUC PRN ×2 (13:59→17:34)
[2019-05-12] MEDS: chlordiazePOXIDE HCL 25 MG CAPSULE PO PRN (13:59)
[2019-05-12] MEDS: METHOCARBAMOL 500 MG TABLET PO SCH ×3 (13:59→22:15)
[2019-05-12] MEDS ORDERED: diazePAM 5 MG TABLET PO SCH (14:00)
[2019-05-12] MEDS: chlordiazePOXIDE HCL 25 MG CAPSULE PO SCH ×2 (17:33→22:15)
[2019-05-12] MEDS: THIAMINE HCL 100 MG TABLET (FP) PO SCH (22:15)
[2019-05-12] MEDS: MELATONIN 5 MG TABLETS PO PRN (22:15)
[2019-05-13] MEDS: chlordiazePOXIDE HCL 25 MG CAPSULE PO PRN (02:32)
[2019-05-13] MEDS: chlordiazePOXIDE HCL 25 MG CAPSULE PO SCH ×2 (06:00→10:13)
[2019-05-13] MEDS ORDERED: diazePAM 5 MG TABLET PO ONE (06:00)
[2019-05-13 06:28] VITALS: TEMP 96.9
[2019-05-13 09:47] VITALS: BP 120/82; PULSE 59
[2019-05-13] MEDS ORDERED: METHADONE HCL 10 MG TABLET (FOR DETOX USE ONLY) PO ONE (10:00)
--- NOTE | 2019-05-13 10:08 | PN ---
[facility] CIWA - CIWA Score Nausea/Vomitin-No Nausea/No Vomiting Muscle Tremors: 2 Anxiety: 2 Agitation: 2 Paroxysmal Sweats: 3 Orientation: 0-Oriented Tacttile Disturbances: 0-None Auditory Disturbances: 0-None Visual Disturbances: 0-None Headache: 0-None Present CIWA-Ar Total Score: 9 BHS COWS - Scale Resting Pulse: 0= NM 80 or Below Sweatin= Beads of Sweat on Face Restless Observation: 1= Difficult to Sit Still Pupil Size: 0= Normal to Room Light Bone or Joint Aches: 1= Mild Discomfort Runny Nose/ Eye Tearin= None GI Upset > 30mins: 0= None Tremor Observation of Outstretched Hands: 1= Tremor [place], Not Seen Yawning Observation: 1= 1-2x During Session Anxiety or Irritability: 2=Irritable/Anxious Goose Flesh Skin: 0=Smooth Skin COWS Score: 9 S Progress Note (SOAP) Subjective: c/o sweats, anxiety, and mild shakes. Objective: 05/13/19 10:05 Vital Signs 05/13/19 05/13/19 05/13/19 03:30 06:28 09:46 Temperature 96.9 F L 96.9 F L Pulse Rate 56 L 59 L Respiratory 18 18 18 Rate Blood Pressure 108/64 120/82 Labs pending. Assessment: 05/13/19 10:09 AOX3, in no acute distress. Full rom, ambulates in the unit. withdrawal signs Plan: continue detox.
[2019-05-13] MEDS: PRENATAL VITAMINS W/ FOLIC ACID TABLET (FP) PO SCH (10:13)
[2019-05-13] MEDS: METHOCARBAMOL 500 MG TABLET PO SCH (10:13)
[2019-05-13 10:35] LABS: HEMATOCRIT 44.3 % (35.4-49); HEMOGLOBIN 14.3 GM/dL (11.7-16.9); MCH 29.4 pg (25.7-33.7); MCHC 32.4 g/dl (32.0-35.9); MEAN CELL VOLUME 90.9 fl (80-96); MEAN PLT VOLUME 9.6 fl (7.5-11.1); PLATELET COUNT 250 K/MM3 (134-434); RBC 4.87 M/mm3 (4.00-5.60); RDW 14.9 % (11.9-15.9); WHITE BLOOD COUNT 5.3 K/mm3 (4.0-10.0)
[2019-05-13 10:47] LABS: ALBUMIN 3.4 g/dl (3.4-5.0); BILIRUBIN,TOTAL 0.3 mg/dL (0.2-1); BLOOD UREA NITROGEN 10.8 mg/dL (7-18); CALCIUM 8.8 mg/dL (8.5-10.1); CREATININE 0.9 mg/dL (0.55-1.3); POTASSIUM 4.5 mmol/L (3.5-5.1); TOT PROT 6.6 g/dl (6.4-8.2)
--- NOTE | 2019-05-13 14:11 | DS ---
[facility] Detox Discharge Summary Admission Date: 05/11/19 Discharge Date: 05/13/19 (Pt left AMA) - History Present History: Alcohol Dependence, Cannabis Dependence, Cocaine Dependence, Opioid Dependence Additional Comments: Pt left AMA, pt did not complete his detox protocol. Pt refused to wait for the pratitioner to talk to him. As per RN, pt stated because of family issues he has to live but didn't want to explain further. Pertinent Past History: H/O heroine, cocaine, cannabis, and alcohol use disorder. - Physical Exam Results Vital Signs: Vital Signs Temperature 96.9 F L 05/13/19 09:46 Pulse Rate 59 L 05/13/19 09:46 Respiratory Rate 18 05/13/19 09:46 Blood Pressure 120/82 05/13/19 09:46 O2 Sat by Pulse Oximetry (%) Lab Results WBC 5.3 K/mm3 (4.0-10.0) 05/13/19 08:15 RBC 4.87 M/mm3 (4.00-5.60) 05/13/19 08:15 Hgb 14.3 GM/dL (11.7-16.9) 05/13/19 08:15 Hct 44.3 % (35.4-49) 05/13/19 08:15 MCV 90.9 fl (80-96) 05/13/19 08:15 MCHC 32.4 g/dl (32.0-35.9) 05/13/19 08:15 RDW 14.9 % (11.9-15.9) 05/13/19 08:15 Plt Count 250 K/MM3 (134-434) 05/13/19 08:15 Sodium 140 mmol/L (136-145) 05/13/19 08:15 Potassium 4.5 mmol/L (3.5-5.1) 05/13/19 08:15 Chloride 105 mmol/L (98-107) 05/13/19 08:15 Carbon Dioxide 27 mmol/L (21-32) 05/13/19 08:15 Anion Gap 8 MMOL/L (8-16) 05/13/19 08:15 BUN 10.8 mg/dL (7-18) 05/13/19 08:15 Creatinine 0.9 mg/dL (0.55-1.3) 05/13/19 08:15 Random Glucose 114 mg/dL (74-106) H 05/13/19 08:15 Calcium 8.8 mg/dL (8.5-10.1) 05/13/19 08:15 Labs noted. Pertinent Admission Physical Exam Findings: withdrawal symptoms. - Medication Discharge Medications: Ambulatory Orders Divalproex *ER* [Depakote *ER* -] 250 mg PO BID 04/10/19 Quetiapine Fumarate [Seroquel -] 50 mg PO HS 05/11/19 - Diagnosis (1) Alcohol dependence with withdrawal Status: Acute Qualifiers: Complication of substance-induced condition: uncomplicated Qualified Code(s ): F10.230 - Alcohol dependence with withdrawal, uncomplicated (2) Opioid dependence with withdrawal Status: Acute (3) Cocaine dependence Status: Chronic Qualifiers: Substance use status: uncomplicated Qualified Code(s): F14.20 - Cocaine dependence, uncomplicated (4) Marijuana abuse Status: Chronic (5) Nicotine dependence Status: Chronic Qualifiers: Nicotine product type: cigarettes - AMA Did Patient Leave Against Medical Advice: Yes
[2019-05-13] MEDS ORDERED: chlordiazePOXIDE HCL 25 MG CAPSULE PO SCH (17:00)
[2019-05-14] MEDS ORDERED: METHADONE HCL 5 MG TABLET (FOR DETOX USE ONLY) PO ONE (06:00)
[2019-05-14] MEDS ORDERED: chlordiazePOXIDE HCL 10 MG CAPSULE PO SCH (17:00)
[2019-05-14] MEDS ORDERED: chlordiazePOXIDE HCL 10 MG CAPSULE PO PRN (17:00)
[2019-05-15] MEDS ORDERED: chlordiazePOXIDE HCL 10 MG CAPSULE PO SCH (17:00)
== END 2019-05-13 13:00 | disposition left against medical advice (07) | DRG 770 ==
LOC: YASAS 08:21 → Y3N 10:57
PROVIDERS: ADMIT Surgery; ATTEND Surgery
PROC: HZ2ZZZZ Detoxification Services for Substance Abuse Treatment (ICD-10-PCS; principal; 2019-05-11)
DX: F10.230 Alcohol dependence with withdrawal, uncomplicated (principal); F11.23 Opioid dependence with withdrawal; F14.20 Cocaine dependence, uncomplicated; F12.20 Cannabis dependence, uncomplicated; F17.210 Nicotine dependence, cigarettes, uncomplicated; F31.9 Bipolar disorder, unspecified; Z59.0 Homelessness
CPT/HCPCS: 36415; 80053; 85027; 86593

== ENCOUNTER 2019-05-15 23:12 | Emergency (ER) | payer OTHER ==
[2019-05-15 23:43] VITALS: BP 124/70; PULSE 78; TEMP 97.7; BMI 23.7
--- NOTE | 2019-05-16 00:12 | PDOC ---
History of Present Illness - General Chief Complaint: Weakness Stated Complaint: FATIGUE Time Seen by Provider: 05/15/19 23:33 - History of Present Illness Initial Comments: cocaine : 7 bags /day via inhalation tobacco : 1/2 ppd denies other illicits etoh : 1/2 pint & 2 beers /day since age 15 , reports anxiety if not drinking 05/16/19 00:13 Past History - Past Medical History Allergies/Adverse Reactions: Allergies Allergy/AdvReac Type Severity Reaction Status Date / Time No Known Allergies Allergy Verified 05/15/19 23:43 Home Medications: Ambulatory Orders Divalproex *ER* [Depakote *ER* -] 250 mg PO BID 04/10/19 Quetiapine Fumarate [Seroquel -] 50 mg PO HS 05/11/19 Anemia: No Asthma: No Cancer: No Cardiac Disorders: No CVA: No COPD: No CHF: No Dementia: No Diabetes: No GI Disorders: No Disorders: No HTN: No Hypercholesterolemia: No Kidney Stones: No Liver Disease: No Psychiatric Problems: Yes (depression, anxiety, Bipolar) Seizures: No Thyroid Disease: No - Surgical History Abdominal Surgery: No Appendectomy: No Cardiac Surgery: No Cholecystectomy: No Lung Surgery: No Neurologic Surgery: No Orthopedic Surgery: No - Reproductive History Testicular Surgery: No - Immunization History Immunization Up to Date: Yes - Suicide/Smoking/Psychosocial Hx Smoking History: Current some day smoker Have you smoked in the past 12 months: No Number of Cigarettes Smoked Daily: 10 If you are a former smoker, when did you quit?: \ Cigars Per Day: 0 Information on smoking cessation initiated: No 'Breaking Loose' booklet given: 04/26/19 Hx Alcohol Use: Yes Drug/Substance Use Hx: No Substance Use Type: Alcohol, Cocaine, Heroin, Marijuana Hx Substance Use Treatment: Yes ([facility] 04/20/19 to 04/22/19) Review of Systems - Review of Systems Able to Perform ROS?: Yes Comments:: GENERAL/CONSTITUTIONAL: No fever or chills. No weakness._ HEAD, EYES, EARS, NOSE AND THROAT: No change in vision. No ear pain or discharge. No sore throat._ CARDIOVASCULAR: No chest pain or shortness of breath_ RESPIRATORY: Denies cough, hemoptysis_ GASTROINTESTINAL: No nausea, vomiting, diarrhea or constipation._ GENITOURINARY: No dysuria, frequency, or change in urination._ MUSCULOSKELETAL: No joint or muscle swelling or pain. No neck or back pain._ SKIN: No rash_ NEUROLOGIC: No headache, vertigo, loss of consciousness, or change in strength/ sensation._ ENDOCRINE: No increased thirst. No abnormal weight change_ HEMATOLOGIC/LYMPHATIC: No anemia, easy bleeding, or history of blood clots._ ALLERGIC/IMMUNOLOGIC: No hives or skin allergy._ 05/16/19 00:12 Is the patient limited Jordanian proficient: No *Physical Exam - Vital Signs Last Vital Signs Temp Pulse Resp BP Pulse Ox 97.7 F 78 16 124/70 97 05/15/19 23:12 05/15/19 23:12 05/15/19 23:12 05/15/19 23:12 05/15/19 23:12 - Physical Exam Comments: GENERAL: Awake, alert, and oriented to person/place/time, in no acute distress_ HEAD: No signs of trauma, normocephalic, atraumatic _ EYES: PERRLA, EOMI, sclera anicteric, conjunctiva clear_ ENT: Hearing grossly normal, nares patent, oropharynx clear without exudates. No uvular deviation. Moist mucosa_ NECK: Normal ROM, supple, no lymphadenopathy, JVD, or masses_ LUNGS: No distress, speaks in full sentences, clear to auscultation bilaterally _ HEART: Regular rate and rhythm, normal S1 and S2, no murmurs appreciated, peripheral pulses normal and equal bilaterally._ ABDOMEN: Soft, nontender, normoactive bowel sounds. No guarding, no rebound. No masses_ EXTREMITIES: Normal inspection, Normal range of motion, no edema. No clubbing or cyanosis_ NEUROLOGICAL: Cranial nerves II through XII grossly intact. Normal speech, normal gait, no focal sensorimotor deficits _ SKIN: Warm, Dry, normal turgor, no rashes or lesions noted_ 05/16/19 00:12 *DC/Admit/Observation/Transfer - Discharge Dispostion Condition at time of disposition: Fair - Referrals - Patient Instructions - Post Discharge Activity
[2019-05-16] MEDS ORDERED: SODIUM CHLORIDE 1,000 ML IV STA (01:14)
--- NOTE | 2019-05-16 01:30 | PDOC ---
History of Present Illness - General Chief Complaint: Weakness Stated Complaint: FATIGUE Time Seen by Provider: 05/15/19 23:33 - History of Present Illness Initial Comments: 05/16/19 01:16 38 yo M with h/o bipolar mood disorder, polysubstance abuse, Etoh dependence who p/w lightheadedness. Patient non cooperative on exam, poor historian. Partially responsive to questioning. Patient reports feeling "lighteheaded while sitting," prior to arrival. states that he felt that he was going to " pass out." Patient currently endorsing dizziness, but not characterizing, or responding to additional questions. CTH (04/24/19) with 6 mm x 3 mm hypodensity noted in the postero lateral aspect of left middle cerebral peduncle , may represent recent nonhemorrhagic lacunar infarct. Pt. with recent AMA at detox [facility] (05/11-05/13/19) Patient denies WEST, vision change, palpitations, cough, wheezing, orthopena, PND , leg swelling/pain, N/V, F,C, CP, SOB, urinary complaints, hematuria, BPR, abdominal pain, diarrhea, constipation, sensory changes. PMHx: as noted above ROS: as noted SHx: Denies Etoh, IVDA, tobacco use Allergies: NKDA Past History - Past Medical History Allergies/Adverse Reactions: Allergies Allergy/AdvReac Type Severity Reaction Status Date / Time No Known Allergies Allergy Verified 05/15/19 23:43 Home Medications: Ambulatory Orders Divalproex *ER* [Depakote *ER* -] 250 mg PO BID 04/10/19 Quetiapine Fumarate [Seroquel -] 50 mg PO HS 05/11/19 Anemia: No Asthma: No Cancer: No Cardiac Disorders: No CVA: No COPD: No CHF: No Dementia: No Diabetes: No GI Disorders: No Disorders: No HTN: No Hypercholesterolemia: No Kidney Stones: No Liver Disease: No Psychiatric Problems: Yes (depression, anxiety, Bipolar) Seizures: No Thyroid Disease: No - Surgical History Abdominal Surgery: No Appendectomy: No Cardiac Surgery: No Cholecystectomy: No Lung Surgery: No Neurologic Surgery: No Orthopedic Surgery: No - Reproductive History Testicular Surgery: No - Immunization History Immunization Up to Date: Yes - Suicide/Smoking/Psychosocial Hx Smoking History: Current some day smoker Have you smoked in the past 12 months: No Number of Cigarettes Smoked Daily: 10 If you are a former smoker, when did you quit?: \\ Cigars Per Day: 0 Information on smoking cessation initiated: No 'Breaking Loose' booklet given: 04/26/19 Hx Alcohol Use: Yes Drug/Substance Use Hx: No Substance Use Type: Alcohol, Cocaine, Heroin, Marijuana Hx Substance Use Treatment: Yes ([facility] 04/20/19 to 04/22/19) Review of Systems - Review of Systems Comments:: 05/16/19 01:35 Unable to obtain 13 point ROS inspection *Physical Exam - Vital Signs Last Vital Signs Temp Pulse Resp BP Pulse Ox 97.7 F 78 16 124/70 97 05/15/19 23:12 05/15/19 23:12 05/15/19 23:12 05/15/19 23:12 05/15/19 23:12 - Physical Exam Comments: 05/16/19 01:35 GENERAL: Awake, alert, and fully oriented, in no acute distress. Partially follows commands HEAD: No signs of trauma, normocephalic, atraumatic EYES: PERRLA, EOMI, sclera anicteric, conjunctiva clear ENT: Auricles normal inspection, hearing grossly normal, nares patent, oropharynx clear without exudates. Moist mucosa NECK: Normal ROM, supple, no lymphadenopathy, JVD, or masses LUNGS: No distress, speaks full sentences, clear to auscultation bilaterally HEART: Regular rate and rhythm, normal S1 and S2, no murmurs, rubs or gallops, peripheral pulses normal and equal bilaterally. ABDOMEN: Soft, nontender, normoactive bowel sounds. No guarding, no rebound. No masses EXTREMITIES : Normal inspection, Normal range of motion, no edema. No clubbing or cyanosis. NEUROLOGICAL: Cranial nerves II through XII grossly intact. Normal speech, no focal sensorimotor deficits SKIN: Warm, Dry, normal turgor, no rashes or lesions noted ED Treatment Course - LABORATORY CBC & Chemistry Diagram: 05/16/19 02:16 05/16/19 02:16 Medical Decision Making - Medical Decision Making 05/16/19 01:36 38 yo M with h/o bipolar mood disorder, polysubstance abuse, Etoh dependence who p/w lightheadedness. Vitals wnl, AF, A&Ox3. Physical exam notable for somnolence on encounter. Patient neurologically intact. Will assess for VBI/TIA , cardiac dysarrythmias, hypoglycemia, electrolyte abnml, metabolic and toxic derangements, acid-base disturbances, infection. Ed Course: 05/16/19 02:47 EKG: NSR with absent acute VIRAL, STD. Nml interval duration and axis. Nml R wave progression. 05/16/19 03:16 Laboratory Tests 05/16/19 05/16/19 02:16 02:16 WBC 7.8 Hgb 14.6 Hct 43.6 Plt Count 286 BUN 26.8 H Creatinine 1.1 05/16/19 06:39 Pt. tolerating PO intake, ambulatory Stable for d/c with return precautions *DC/Admit/Observation/Transfer Diagnosis at time of Disposition: Light-headed - Discharge Dispostion Condition at time of disposition: Stable Decision to Admit order: No - Referrals - Patient Instructions Printed Discharge Instructions: DI for Alcohol Abuse Additional Instructions: Please return to the emergency department with any new or worsening symptoms or concerns. Please follow up with your primary care physician within 72 hours. - Post Discharge Activity - Attestations Physician Attestion: 05/16/19 01:45 I attest to the information provided in this note.
--- NOTE | 2019-05-16 02:03 | PDOC ---
Documentation entered by Rey Muñoz SCRIBE, acting as scribe for Jeffery Posada MD. Jeffery Posaad MD: This documentation has been prepared by the ifraheWanda Elijah, SCRIBE, under my direction and personally reviewed by me in its entirety. I confirm that the documentation accurately reflects all work, treatment, procedures, and medical decision making performed by me. Attending Attestation - Resident Resident Name: KunalCelestino - ED Attending Attestation I have performed the following: I have examined & evaluated the patient, The case was reviewed & discussed with the resident, I agree w/resident's findings & plan - HPI HPI: 05/16/19 01:36 The patient is a 38 year old male, with a significant PMH of bipolar disorder, nicotine abuse, heroine abuse, etoh abuse, cocaine abuse who presents to the emergency department BIBA with lightheadedness. The patient reports being lightheaded recently, also notes that he is homeless and has no where to stay, has been out in the sun and is sunburned and requesting something to eat and drink. Pt endorses feeling like he wants to pass out. Denies any sensations of vertigo, n/v, vision changes, dysarthria, foal numbness/tingling/weakness, cp, sob, Pt does endorse using cocaine and heroin yesterday. Denies any cough, fever /chills, diarrhea/melena, bpr, dysuria. Allergies: NKA Social history: Nicotine abuse, Heroine abuse, ETOH abuse, Cocaine abuse - Physicial Exam PE: 05/16/19 01:53 GENERAL: The patient is awake, alert, Nontoxic - in no acute distress, dischevelled HEAD: Normocephalic, atraumatic. EYES: extraocular movements intact, sclera anicteric, conjunctiva clear. ENT: Normal voice, Moist mucous membranes, poor dentition NECK: Normal range of motion, supple LUNGS: Breath sounds equal, clear to auscultation bilaterally. No wheezes, no rhonchi, no rales. HEART: Regular rate and rhythm, normal S1 and S2 without murmur, rub or gallop. ABDOMEN: Soft, nontender, EXTREMITIES: Normal range of motion, no edema PSYCH: Normal mood, normal affect. SKIN: Warm, Dry, normal turgor, NEURO: Mental status: The patient is oriented x3. Cranial nerves: Cranial nerves II through XII are intact Motor: The upper extremities are 5 over 5 in all muscle groups. The lower extremities are 5 over 5 in all muscle groups. Negative pronator drift Sensation: Sensation is intact to light touch throughout Cerebellar: [id number] is normal in both upper extremities. - Medical Decision Making 05/16/19 02:00d will ck basic labs to r/o anemia, metabolic derangement suspect pt may be dehdyrated as he has spent a day in the sun neuro intact will hydrat with tyron signed out to evening team for reeval and dispo
[2019-05-16 02:45] LABS: BASO % 0.9 % (0-2.0); EOS % 2.9 % (0-4.5); HEMATOCRIT 43.6 % (35.4-49); HEMOGLOBIN 14.6 GM/dL (11.7-16.9); LYMPH % 24.5 % (8-40); MCH 29.8 pg (25.7-33.7); MCHC 33.6 g/dl (32.0-35.9); MEAN CELL VOLUME 88.8 fl (80-96); MONO % 13.2 % (3.8-10.2); NEUT % 58.5 % (42.8-82.8); PLATELET COUNT 286 K/MM3 (134-434); RBC 4.91 M/mm3 (4.00-5.60); WHITE BLOOD COUNT 7.8 K/mm3 (4.0-10.0)
[2019-05-16 02:56] LABS: ALBUMIN 3.9 g/dl (3.4-5.0); BILIRUBIN,TOTAL 0.7 mg/dL (0.2-1); BLOOD UREA NITROGEN 26.8 mg/dL (7-18); CALCIUM 8.9 mg/dL (8.5-10.1); CREATININE 1.1 mg/dL (0.55-1.3); POTASSIUM 4.1 mmol/L (3.5-5.1); TOT PROT 7.6 g/dl (6.4-8.2)
--- NOTE | 2019-05-16 10:34 | EKG ---
Test Reason : Blood Pressure : / mmHG Vent. Rate : 073 BPM Atrial Rate : 073 BPM P-R Int : 132 ms QRS Dur : 096 ms QT Int : 404 ms P-R-T Axes : 049 059 051 degrees QTc Int : 445 ms NORMAL SINUS RHYTHM NONSPECIFIC ST AND T WAVE ABNORMALITY ABNORMAL ECG WHEN COMPARED WITH ECG OF 24-APR-2019 08:22, NONSPECIFIC T WAVE ABNORMALITY NOW EVIDENT IN LATERAL LEADS Confirmed by John Peralta MD ([id number]) on 05/16/2019 10:34:04 AM Referred By: Wilfredo KOHLI Confirmed By:John Peralta MD
== END 2019-05-16 07:17 | disposition home or self-care (01) ==
LOC: JER 23:12
PROC: 3E0337Z Introduction of Electrolytic and Water Balance Substance into Peripheral Vein, Percutaneous Approach (ICD-10-PCS; principal; 2019-05-15)
DX: R42 Dizziness and giddiness (principal); F31.9 Bipolar disorder, unspecified; F10.20 Alcohol dependence, uncomplicated; F11.10 Opioid abuse, uncomplicated; F14.10 Cocaine abuse, uncomplicated; F17.210 Nicotine dependence, cigarettes, uncomplicated; Z59.0 Homelessness
CPT/HCPCS: 36415; 80053; 82550; 82553; 84484; 85025; 93005; 93010; 96360; 99283-25; J7030

== ENCOUNTER 2019-06-16 08:12 | Inpatient (IN) | payer OTHER | END 2019-06-20 20:24 | disposition home or self-care (01) | LOC: YASAS 08:12 → Y6N 09:44 ==

== ENCOUNTER 2019-06-23 08:13 | Inpatient (IN) | payer OTHER | END 2019-06-25 14:00 | disposition left against medical advice (07) | LOC: YASAS 08:13 → Y5N 11:44 ==

== ENCOUNTER 2019-07-05 08:06 | Inpatient (IN) | payer OTHER ==
[2019-07-05 08:51] VITALS: BMI 27.4
--- NOTE | 2019-07-05 09:01 | HP ---
COWS - Scale Resting Pulse: 0= MT 80 or Below Sweatin= Chills/Flushing Restless Observation: 1= Difficult to Sit Still Pupil Size: 1= Pupils >than Normal Bone or Joint Aches: 2= Severe Diffuse Aches Runny Nose/ Eye Tearin= Nasal Congestion GI Upset > 30mins: 2= Nausea/Diarrhea Tremor Observation: 2= Slight Tremor Visible Yawning Observation: 1= 1-2x During Session Anxiety or Irritability: 2=Irritable/Anxious Goose Flesh Skin: 0=Smooth Skin COWS Score: 13 CIWA Score Nausea/Vomitin-Mild Nausea/No Vomiting Muscle Tremors: 3 Anxiety: 3 Agitation: 3 Paroxysmal Sweats: 1-Minimal Palms Moist Orientation: 0-Oriented Tacttile Disturbances: 1-Very Mild Itch/Numbness Auditory Disturbances: 0-None Visual Disturbances: 1-Very Mild Sensitivity Headache: 2-Mild CIWA-Ar Total Score: 15 - Admission Criteria OASAS Guidelines: Admission for Medically Managed Detox: Requires at least one of the followin. CIWA greater than 12 2. Seizures within the past 24 hours 3. Delirium tremens within the past 24 hours 4. Hallucinations within the past 24 hours 5. Acute intervention needed for co occurring medical disorder 6. Acute intervention needed for co occurring psychiatric disorder 7. Severe withdrawal that cannot be handled at a lower level of care (continued vomiting, continued diarrhea, abnormal vital signs) requiring intravenous medication and/or fluids 8. Admission ROS S - HPI Chief Complaint: i need help to stop using heroin,cocaine and alcoholism i need to get my life back Allergies/Adverse Reactions: Allergies Allergy/AdvReac Type Severity Reaction Status Date / Time No Known Allergies Allergy Verified 07/05/19 08:43 History of Present Illness: this 38 years old male with heroin,cocaine,alcoholism,dependence,seeking help, multiple admissions in detox and rehab,problem with non compliance issuss, homeless,has 3 chlldren ,ex has custody jimenez children,live in [place], hypertension,no med, fx of right calcaneous of right about 1 0 years ago smoke 1/2 pack/day,would like to take nicotine dependence would like the patch and the gum bipolar disorder,ocd,social anxiety ,non compliance longest period of sobriety 7 and a half months plan for [facility] after detox denid seizure,or black out Exam Limitations: No Limitations - Ebola screening Have you traveled outside of the country in the last 21 days: No Have you had contact with anyone from an Ebola affected area: No - Review of Systems Constitutional: Chills, Loss of Appetite, Malaise, Night Sweats, Changes in sleep, Weakness EENT: reports: Tearing, Nose Congestion Respiratory: reports: No Symptoms reported Cardiac: reports: No Symptoms Reported GI: reports: Nausea, Poor Appetite, Abdominal cramping : reports: No Symptoms Reported Musculoskeletal: reports: Back Pain, Joint Pain, Muscle Pain, Joint Stiffness Integumentary: reports: Dryness Neuro: reports: Tremors Endocrine: reports: No Symptoms Reported Hematology: reports: No Symptoms Reported Psychiatric: reports: No Sypmtoms Reported, Judgement Intact, Mood/Affect Appropiate, Orientated x3, other (biplar disoder,ocd,persolity anxiety) Patient History - Patient Medical History Hx Anemia: No Hx Asthma: No Hx Chronic Obstructive Pulmonary Disease (COPD): No Hx Cancer: No Hx Cardiac Disorders: No Hx Congestive Heart Failure: No Hx Hypertension: No Hx Hypercholesterolemia: No Hx Pacemaker: No HX Cerebrovascular Accident: No Hx Seizures: No Hx Dementia: No Hx Diabetes: No Hx Gastrointestinal Disorders: No Hx Liver Disease: No Hx Genitourinary Disorders: No Hx Sexually Transmitted Disorders: No Hx Renal Disease (ESRD): No Hx Thyroid Disease: No Hx Human Immunodeficiency Virus (HIV): No (last 2019 negative ) Hx Hepatitis C: No Hx Depression: Yes Hx Suicide Attempt: No (thought about hurting self /admitted in [facility] x2 wks. until 9) Hx Bipolar Disorder: Yes Hx Schizophrenia: No Other Medical History: no suicidal,nmo homicidal - Patient Surgical History Past Surgical History: No Hx Neurologic Surgery: No Hx Cataract Extraction: No Hx Cardiac Surgery: No Hx Lung Surgery: No Hx Breast Surgery: No Hx Breast Biopsy: No Hx Abdominal Surgery: No Hx Appendectomy: No Hx Cholecystectomy: No Hx Genitourinary Surgery: No Hx Section: No Hx Orthopedic Surgery: No Anesthesia Reaction: No - PPD History Previous Implant?: Yes Documented Results: Negative w/proof Date: 06/29/18 Results: 0 mm PPD to be Administered?: No - Smoking Cessation Smoking history: Current some day smoker Have you smoked in the past 12 months: Yes Aproximately how many cigarettes per day: 10 If you are a former smoker, when did you quit?: \ Cigars Per Day: 0 Hx Chewing Tobacco Use: No Initiated information on smoking cessation: Yes 'Breaking Loose' booklet given: 07/05/19 - Substance & Tx. History Hx Alcohol Use: Yes Hx Substance Use: Yes Substance Use Type: Alcohol, Cocaine, Heroin, Marijuana - Substances abused Heroin Substance route: Injection Frequency: Daily Amount used: 5 bags Age of first use: 30 Date of last use: 07/04/19 Alcohol Substance route: Oral Frequency: Daily Amount used: 1/2 pint vodka; 4 beers- 24oz Age of first use: 15 Date of last use: 07/04/19 Cocaine Substance route: Smoking Frequency: Daily Amount used: 6 bags Age of first use: 20 Date of last use: 07/04/19 Marijuana/Hashish Substance route: Smoking Frequency: 1-3 times last 30 days Amount used: 10$ Age of first use: 15 Date of last use: 04/09/19 Non-Rx Methadone Substance route: Injection Frequency: Daily Amount used: 3-6 bags Age of first use: 31 Date of last use: 06/14/19 Family Disease History - Family Disease History Family Disease History: Other: Father (living, no contact), Mother (living, anxiety), Sister (four, living, anxiety, one with etoh), Son (one), Daughter ( three, one with renal issues, one with seizures) Admission Physical Exam S - Vital Signs Vital Signs: Vital Signs - 24 hr 07/05/19 07/05/19 08:45 08:56 Temperature 97.4 F L 97.4 F L Pulse Rate 78 78 Respiratory 18 18 Rate Blood Pressure 121/81 121/81 - Physical General Appearance: Yes: Moderate Distress, Tremorous, Irritable, Sweating, Anxious HEENTM: Yes: Normal ENT Inspection, CRISTINA, Pharynx Normal Respiratory: Yes: Lungs Clear, Normal Breath Sounds, No Respiratory Distress Neck: Yes: Supple, Trachea in good position Breast: Yes: Within Normal Limits Cardiology: Yes: Within Normal Limits, Regular Rhythm, Regular Rate, S1, S2 Abdominal: Yes: Within Normal Limits, Normal Bowel Sounds, Non Tender, Soft Genitourinary: Yes: Within Normal Limits Back: Yes: Muscle Spasm Musculoskeletal: Yes: Back pain, Muscle Pain Extremities: Yes: Tremors 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: Yes: consulting sales manager II-XII NML intact, Fully Oriented, Alert, Motor Strength 5/5 Integumentary: Yes: Dry Lymphatic: Yes: Within Normal Limits - Diagnostic (1) Alcohol dependence with withdrawal Current Visit: No Status: Acute Qualifiers: Complication of substance-induced condition: uncomplicated Qualified Code(s ): F10.230 - Alcohol dependence with withdrawal, uncomplicated (2) Cannabis dependence Current Visit: No Status: Acute (3) Cocaine dependence Current Visit: No Status: Acute Qualifiers: Substance use status: uncomplicated Qualified Code(s): F14.20 - Cocaine dependence, uncomplicated (4) IVDU (intravenous drug user) Current Visit: No Status: Acute (5) OCD (obsessive compulsive disorder) Current Visit: No Status: Acute (6) Opioid dependence with withdrawal Current Visit: No Status: Acute (7) Personality disorder Current Visit: No Status: Acute (8) Tinea pedis Current Visit: No Status: Acute (9) Bipolar disorder Current Visit: No Status: Chronic (10) Low back pain Current Visit: No Status: Chronic (11) Nicotine dependence Current Visit: No Status: Chronic Qualifiers: Nicotine product type: cigarettes Cleared for Admission S - Detox or Rehab [facility] Level of Care: Medically Managed Detox Regimen/Protocol: Methadone/Librium Breathalyzer - Breathalyzer Breathalyzer: 0.007 POC Urine test - Test device test lot number: NOT APPLICABLE Urine Drug Screen - Test Device Lot number: [id number] Expiration date: 03/21/21 - Control Is test valid?: Yes - Results Drug screen NEGATIVE: No Urine drug screen results: THC-Marijuana, LIZZIE-Cocaine, MET-Methamphetamine, FEN- Fentanyl, MOP-Opiates, OXY-Oxycodone, MTD-Methadone, BZO-Benzodiazepines Inpatient Rehab Admission - Rehab Decision to Admit Inpatient rehab admission?: No
[2019-07-05] MEDS ORDERED: hydrOXYzine PAMOATE 25 MG CAPSULE (FP) PO PRN (09:29)
[2019-07-05] MEDS ORDERED: cloNIDine HCL 0.1 MG TABLET PO PRN (09:29)
[2019-07-05] MEDS ORDERED: BISMUTH SUBSALICYLATE 262 MG/15 ML BTL PO PRN (09:29)
[2019-07-05] MEDS ORDERED: MELATONIN 5 MG TABLETS PO PRN (09:29)
[2019-07-05] MEDS ORDERED: MENTHOL/PHENOL 1 EACH UD MM PRN (09:29)
[2019-07-05] MEDS ORDERED: ACETAMINOPHEN 325 MG TABLET (FP) PO PRN ×2 (09:29)
[2019-07-05] MEDS ORDERED: MAGNESIUM HYDROX 2400MG/30ML ORAL SUSPENSION 30 ML CUP PO PRN (09:29)
[2019-07-05] MEDS ORDERED: IBUPROFEN 400 MG TABLET (FP) PO PRN (09:29)
[2019-07-05] MEDS ORDERED: MAGNESIUM CITRATE 300 ML BOTTLE PO PRN (09:29)
[2019-07-05] MEDS ORDERED: chlordiazePOXIDE HCL 25 MG CAPSULE PO PRN (09:29)
[2019-07-05] MEDS ORDERED: METHADONE HCL 10 MG TABLET (FOR DETOX USE ONLY) PO ONE (10:40)
[2019-07-05] MEDS ORDERED: hydrOXYzine HCL 25 MG TABLET (FP) PO PRN (10:46)
[2019-07-05] MEDS: METHOCARBAMOL 500 MG TABLET PO PRN ×2 (11:04→22:34)
[2019-07-05] MEDS: PRENATAL VITAMINS W/ FOLIC ACID TABLET (FP) PO SCH (11:04)
[2019-07-05] MEDS: chlordiazePOXIDE HCL 25 MG CAPSULE PO SCH ×3 (11:04→22:32)
[2019-07-05] MEDS: BACITRACIN 15 GM TUBE TOPICAL OINTMENT TP SCH ×2 (11:07→22:45)
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
[2019-07-05 15:17] LABS: BILIRUBIN,TOTAL 0.8 mg/dL (0.2-1); BLOOD UREA NITROGEN 11.3 mg/dL (7-18); CALCIUM 9.1 mg/dL (8.5-10.1); CREATININE 0.8 mg/dL (0.55-1.3); POTASSIUM 3.6 mmol/L (3.5-5.1); TOT PROT 7.6 g/dl (6.4-8.2)
[2019-07-05 15:25] LABS: HEMATOCRIT 43.3 % (35.4-49); HEMOGLOBIN 14.5 GM/dL (11.7-16.9); MCH 30.2 pg (25.7-33.7); MCHC 33.5 g/dl (32.0-35.9); MEAN CELL VOLUME 90.2 fl (80-96); MEAN PLT VOLUME 8.7 fl (7.5-11.1); PLATELET COUNT 317 K/MM3 (134-434); WHITE BLOOD COUNT 6.6 K/mm3 (4.0-10.0)
[2019-07-05] MEDS: MAG HYDROX/AL HYDROX/SIMETH 30 ML UNIT-DOSE CUP PO PRN (17:23)
[2019-07-05] MEDS: QUEtiapine FUMARATE 200 MG TABLET PO SCH (22:32)
[2019-07-05] MEDS: THIAMINE HCL 100 MG TABLET (FP) PO SCH (22:35)
[2019-07-06] MEDS: chlordiazePOXIDE HCL 25 MG CAPSULE PO SCH ×4 (06:57→22:16)
[2019-07-06] MEDS ORDERED: METHADONE HCL 10 MG TABLET (FOR DETOX USE ONLY) ONE (08:42)
[2019-07-06] MEDS ORDERED: METHADONE HCL 5 MG TABLET (FOR DETOX USE ONLY) ONE (08:42)
--- NOTE | 2019-07-06 09:37 | PN ---
S CIWA - CIWA Score Nausea/Vomitin-No Nausea/No Vomiting Muscle Tremors: 2 Anxiety: 3 Agitation: 0-Normal Activity Paroxysmal Sweats: 3 Orientation: 0-Oriented Tacttile Disturbances: 0-None Auditory Disturbances: 0-None Visual Disturbances: 0-None Headache: 2-Mild CIWA-Ar Total Score: 10 BHS COWS - Scale Resting Pulse: 0= ND 80 or Below Sweatin= Beads of Sweat on Face Restless Observation: 1= Difficult to Sit Still Pupil Size: 0= Normal to Room Light Bone or Joint Aches: 2= Severe Diffuse Aches Runny Nose/ Eye Tearin= None GI Upset > 30mins: 0= None Tremor Observation of Outstretched Hands: 2= Slight Tremor Visible Yawning Observation: 1= 1-2x During Session Anxiety or Irritability: 2=Irritable/Anxious Goose Flesh Skin: 0=Smooth Skin COWS Score: 11 S Progress Note (SOAP) Subjective: c/o headache, sweats, anxiety, irritability, and interrupted sleep. Objective: 07/06/19 09:36 Vital Signs 07/06/19 07/06/19 03:30 08:17 Temperature 97 F L Pulse Rate 56 L Respiratory 18 18 Rate Blood Pressure 95/60 Lab Results WBC 6.6 K/mm3 (4.0-10.0) 07/05/19 09:40 RBC 4.80 M/mm3 (4.00-5.60) 07/05/19 09:40 Hgb 14.5 GM/dL (11.7-16.9) 07/05/19 09:40 Hct 43.3 % (35.4-49) 07/05/19 09:40 MCV 90.2 fl (80-96) 07/05/19 09:40 MCHC 33.5 g/dl (32.0-35.9) 07/05/19 09:40 RDW 16.0 % (11.9-15.9) H 07/05/19 09:40 Plt Count 317 K/MM3 (134-434) D 07/05/19 09:40 Sodium 139 mmol/L (136-145) 07/05/19 09:40 Potassium 3.6 mmol/L (3.5-5.1) 07/05/19 09:40 Chloride 106 mmol/L (98-107) 07/05/19 09:40 Carbon Dioxide 27 mmol/L (21-32) 07/05/19 09:40 Anion Gap 7 MMOL/L (8-16) L 07/05/19 09:40 BUN 11.3 mg/dL (7-18) 07/05/19 09:40 Creatinine 0.8 mg/dL (0.55-1.3) 07/05/19 09:40 Random Glucose 99 mg/dL (74-106) 07/05/19 09:40 Calcium 9.1 mg/dL (8.5-10.1) 07/05/19 09:40 Labs noted. Assessment: 07/06/19 09:36 AOX3, in no acute respiratory distress. Full ROM, ambulating in the unit. withdrawal symptoms. Plan: continue detox.
[2019-07-06] MEDS ORDERED: METHADONE (DETOX) 20 MG, METHADONE (DETOX) 5 MG PO ONE (10:00)
[2019-07-06] MEDS: PRENATAL VITAMINS W/ FOLIC ACID TABLET (FP) PO SCH (14:36)
[2019-07-06] MEDS: BACITRACIN 15 GM TUBE TOPICAL OINTMENT TP SCH ×2 (14:36→22:14)
[2019-07-06] MEDS: THIAMINE HCL 100 MG TABLET (FP) PO SCH (22:14)
[2019-07-06] MEDS: QUEtiapine FUMARATE 200 MG TABLET PO SCH (22:14)
[2019-07-06] MEDS: MAG HYDROX/AL HYDROX/SIMETH 30 ML UNIT-DOSE CUP PO PRN (22:18)
[2019-07-07] MEDS: chlordiazePOXIDE HCL 25 MG CAPSULE PO SCH ×4 (05:40→22:27)
[2019-07-07] MEDS ORDERED: METHADONE HCL 10 MG TABLET (FOR DETOX USE ONLY) PO ONE (10:00)
[2019-07-07] MEDS: PRENATAL VITAMINS W/ FOLIC ACID TABLET (FP) PO SCH (10:20)
[2019-07-07] MEDS: BACITRACIN 15 GM TUBE TOPICAL OINTMENT TP SCH ×2 (10:20→22:28)
--- NOTE | 2019-07-07 10:30 | PN ---
S CIWA - CIWA Score Nausea/Vomitin-No Nausea/No Vomiting Muscle Tremors: None Anxiety: 3 Agitation: 2 Paroxysmal Sweats: 3 Orientation: 0-Oriented Tacttile Disturbances: 0-None Auditory Disturbances: 0-None Visual Disturbances: 0-None Headache: 2-Mild CIWA-Ar Total Score: 10 S COWS - Scale Resting Pulse: 0= ID 80 or Below Sweatin= Beads of Sweat on Face Restless Observation: 1= Difficult to Sit Still Pupil Size: 0= Normal to Room Light Bone or Joint Aches: 2= Severe Diffuse Aches Runny Nose/ Eye Tearin= None GI Upset > 30mins: 0= None Tremor Observation of Outstretched Hands: 0= None Yawning Observation: 1= 1-2x During Session Anxiety or Irritability: 2=Irritable/Anxious Goose Flesh Skin: 0=Smooth Skin COWS Score: 9 [facility] Progress Note (SOAP) Subjective: c/o headache, anxiety, irritability, muscle aches, and sweats. Objective: 07/07/19 10:30 Vital Signs 07/07/19 07/07/19 07/07/19 03:30 06:00 09:39 Temperature 97.3 F L 97.2 F L Pulse Rate 56 L 67 Respiratory 18 18 16 Rate Blood Pressure 123/71 138/74 Assessment: 07/07/19 10:30 AOX3, in no acute respiratory distress. Full ROM, ambulating in the unit. Withdrawal symptoms. Plan: continue detox.
[2019-07-07] MEDS: METHOCARBAMOL 500 MG TABLET PO PRN (17:27)
[2019-07-07] MEDS: THIAMINE HCL 100 MG TABLET (FP) PO SCH (22:27)
[2019-07-07] MEDS: QUEtiapine FUMARATE 200 MG TABLET PO SCH (22:27)
[2019-07-08] MEDS ORDERED: chlordiazePOXIDE HCL 10 MG CAPSULE PO PRN
[2019-07-08] MEDS: chlordiazePOXIDE HCL 10 MG CAPSULE PO SCH ×4 (06:30→22:23)
[2019-07-08] MEDS ORDERED: METHADONE HCL 10 MG TABLET (FOR DETOX USE ONLY) ONE (09:29)
[2019-07-08] MEDS ORDERED: METHADONE HCL 5 MG TABLET (FOR DETOX USE ONLY) ONE (09:29)
[2019-07-08] MEDS ORDERED: METHADONE (DETOX) 10 MG, METHADONE (DETOX) 5 MG PO ONE (10:00)
[2019-07-08] MEDS: BACITRACIN 15 GM TUBE TOPICAL OINTMENT TP SCH ×2 (10:57→22:23)
[2019-07-08] MEDS: PRENATAL VITAMINS W/ FOLIC ACID TABLET (FP) PO SCH (10:57)
--- NOTE | 2019-07-08 11:50 | PN ---
S CIWA - CIWA Score Nausea/Vomitin-No Nausea/No Vomiting Muscle Tremors: None Anxiety: 3 Agitation: 1-Slight > Activity Paroxysmal Sweats: 3 Orientation: 0-Oriented Tacttile Disturbances: 0-None Auditory Disturbances: 0-None Visual Disturbances: 0-None Headache: 2-Mild CIWA-Ar Total Score: 9 S COWS - Scale Resting Pulse: 0= CO 80 or Below Sweatin= Beads of Sweat on Face Restless Observation: 1= Difficult to Sit Still Pupil Size: 0= Normal to Room Light Bone or Joint Aches: 2= Severe Diffuse Aches Runny Nose/ Eye Tearin= None GI Upset > 30mins: 0= None Tremor Observation of Outstretched Hands: 0= None Yawning Observation: 1= 1-2x During Session Anxiety or Irritability: 2=Irritable/Anxious Goose Flesh Skin: 0=Smooth Skin COWS Score: 9 S Progress Note (SOAP) Subjective: c/o sweats, anxiety, interrupted sleep, and headache. Objective: 07/08/19 11:50 Vital Signs 07/08/19 07/08/19 07:03 09:39 Temperature 96.3 F L 96.8 F L Pulse Rate 57 L 78 Respiratory 18 16 Rate Blood Pressure 111/61 128/87 Lab Results WBC 6.6 K/mm3 (4.0-10.0) 07/05/19 09:40 RBC 4.80 M/mm3 (4.00-5.60) 07/05/19 09:40 Hgb 14.5 GM/dL (11.7-16.9) 07/05/19 09:40 Hct 43.3 % (35.4-49) 07/05/19 09:40 MCV 90.2 fl (80-96) 07/05/19 09:40 MCHC 33.5 g/dl (32.0-35.9) 07/05/19 09:40 RDW 16.0 % (11.9-15.9) H 07/05/19 09:40 Plt Count 317 K/MM3 (134-434) D 07/05/19 09:40 Sodium 139 mmol/L (136-145) 07/05/19 09:40 Potassium 3.6 mmol/L (3.5-5.1) 07/05/19 09:40 Chloride 106 mmol/L (98-107) 07/05/19 09:40 Carbon Dioxide 27 mmol/L (21-32) 07/05/19 09:40 Anion Gap 7 MMOL/L (8-16) L 07/05/19 09:40 BUN 11.3 mg/dL (7-18) 07/05/19 09:40 Creatinine 0.8 mg/dL (0.55-1.3) 07/05/19 09:40 Random Glucose 99 mg/dL (74-106) 07/05/19 09:40 Calcium 9.1 mg/dL (8.5-10.1) 07/05/19 09:40 Labs noted. Assessment: 07/08/19 11:50 AOX3, in no acute distress. Full ROM, ambulating in the unit. Withdrawal symptoms. Plan: continue detox.
[2019-07-08] MEDS: NICOTINE POLACRILEX 2 MG GUM BUC PRN (17:41)
[2019-07-08] MEDS: THIAMINE HCL 100 MG TABLET (FP) PO SCH (22:23)
[2019-07-08] MEDS: QUEtiapine FUMARATE 200 MG TABLET PO SCH (22:23)
[2019-07-09] MEDS: chlordiazePOXIDE HCL 10 MG CAPSULE PO SCH ×2 (07:42→17:53)
[2019-07-09] MEDS ORDERED: METHADONE HCL 10 MG TABLET (FOR DETOX USE ONLY) PO ONE (10:00)
[2019-07-09] MEDS: PRENATAL VITAMINS W/ FOLIC ACID TABLET (FP) PO SCH (10:30)
[2019-07-09] MEDS: BACITRACIN 15 GM TUBE TOPICAL OINTMENT TP SCH (11:56)
--- NOTE | 2019-07-09 13:22 | PN ---
[facility] CIWA - CIWA Score Nausea/Vomitin-No Nausea/No Vomiting Muscle Tremors: 3 Anxiety: 1-Mildly Anxious Agitation: 1-Slight > Activity Paroxysmal Sweats: 1-Minimal Palms Moist Orientation: 0-Oriented Tacttile Disturbances: 0-None Auditory Disturbances: 0-None Visual Disturbances: 0-None Headache: 0-None Present CIWA-Ar Total Score: 6 BHS COWS - Scale Resting Pulse: 2= DC 101-120 Sweatin=Flushed/Facial Moisture Restless Observation: 0= Sits Still Pupil Size: 0= Normal to Room Light Bone or Joint Aches: 1= Mild Discomfort Runny Nose/ Eye Tearin= Nasal Congestion GI Upset > 30mins: 0= None Tremor Observation of Outstretched Hands: 1= Tremor [place], Not Seen Yawning Observation: 1= 1-2x During Session Anxiety or Irritability: 1=Feels Anxious/Irritable Goose Flesh Skin: 0=Smooth Skin COWS Score: 9 S Progress Note (SOAP) Subjective: anxiety sweats agitation Objective: 07/09/19 13:22 Vital Signs Temperature 97.3 F L 07/09/19 09:55 Pulse Rate 103 H 07/09/19 09:55 Respiratory Rate 18 07/09/19 09:55 Blood Pressure 146/84 07/09/19 09:55 O2 Sat by Pulse Oximetry (%) Laboratory Tests 07/05/19 07/05/19 07/05/19 09:30 09:40 09:40 WBC 6.6 RBC 4.80 Hgb 14.5 Hct 43.3 MCV 90.2 MCH 30.2 MCHC 33.5 RDW 16.0 H Plt Count 317 D MPV 8.7 Sodium 139 Potassium 3.6 Chloride 106 Carbon Dioxide 27 Anion Gap 7 L BUN 11.3 Creatinine 0.8 Est GFR (CKD-EPI)AfAm 130.42 Est GFR (CKD-EPI)NonAf 112.53 Random Glucose 99 Calcium 9.1 Total Bilirubin 0.8 AST 24 ALT 25 Alkaline Phosphatase 87 Total Protein 7.6 Albumin 4.0 RPR Titer HIV 1&2 Ag/Ab, 4th Gen Non reactive HIV 1&2 Antibody Screen HIV P24 Antigen 07/05/19 07/05/19 09:40 09:40 WBC RBC Hgb Hct MCV MCH MCHC RDW Plt Count MPV Sodium Potassium Chloride Carbon Dioxide Anion Gap BUN Creatinine Est GFR (CKD-EPI)AfAm Est GFR (CKD-EPI)NonAf Random Glucose Calcium Total Bilirubin AST ALT Alkaline Phosphatase Total Protein Albumin RPR Titer Nonreactive HIV 1&2 Ag/Ab, 4th Gen HIV 1&2 Antibody Screen Cancelled HIV P24 Antigen Cancelled aaox3 ambulating no acute distress Assessment: 07/09/19 13:22 withdrawal sx Plan: continue detox increase fluids d/c in am
[2019-07-09] MEDS: NICOTINE POLACRILEX 2 MG GUM BUC PRN (14:51)
[2019-07-09 17:40] VITALS: BP 146/84; PULSE 103; TEMP 100.4
--- NOTE | 2019-07-09 19:53 | PN ---
[facility] Progress Note Note: patient would like to be discharged today and will go to [facility] tomorrow for follow up care
--- NOTE | 2019-07-09 19:57 | DS ---
[facility] Detox Discharge Summary Admission Date: 07/05/19 Discharge Date: 07/09/19 - History Present History: Cannabis Dependence, Cocaine Dependence, Opioid Dependence Additional Comments: patient is stable for discharge today,follow up with [facility] as arrangement Pertinent Past History: bipolar disorder IVDU - Physical Exam Results Vital Signs: Vital Signs Temperature 100.4 F H 07/09/19 17:40 Pulse Rate 103 H 07/09/19 17:40 Respiratory Rate 18 07/09/19 17:40 Blood Pressure 146/84 07/09/19 17:40 O2 Sat by Pulse Oximetry (%) Pertinent Admission Physical Exam Findings: withdrawal signs and symptom Laboratory Last Values WBC 6.6 K/mm3 (4.0-10.0) 07/05/19 09:40 RBC 4.80 M/mm3 (4.00-5.60) 07/05/19 09:40 Hgb 14.5 GM/dL (11.7-16.9) 07/05/19 09:40 Hct 43.3 % (35.4-49) 07/05/19 09:40 MCV 90.2 fl (80-96) 07/05/19 09:40 MCH 30.2 pg (25.7-33.7) 07/05/19 09:40 MCHC 33.5 g/dl (32.0-35.9) 07/05/19 09:40 RDW 16.0 % (11.9-15.9) H 07/05/19 09:40 Plt Count 317 K/MM3 (134-434) D 07/05/19 09:40 MPV 8.7 fl (7.5-11.1) 07/05/19 09:40 Sodium 139 mmol/L (136-145) 07/05/19 09:40 Potassium 3.6 mmol/L (3.5-5.1) 07/05/19 09:40 Chloride 106 mmol/L (98-107) 07/05/19 09:40 Carbon Dioxide 27 mmol/L (21-32) 07/05/19 09:40 Anion Gap 7 MMOL/L (8-16) L 07/05/19 09:40 BUN 11.3 mg/dL (7-18) 07/05/19 09:40 Creatinine 0.8 mg/dL (0.55-1.3) 07/05/19 09:40 Est GFR (CKD-EPI)AfAm 130.42 07/05/19 09:40 Est GFR (CKD-EPI)NonAf 112.53 07/05/19 09:40 Random Glucose 99 mg/dL (74-106) 07/05/19 09:40 Calcium 9.1 mg/dL (8.5-10.1) 07/05/19 09:40 Total Bilirubin 0.8 mg/dL (0.2-1) 07/05/19 09:40 AST 24 U/L (15-37) 07/05/19 09:40 ALT 25 U/L (13-61) 07/05/19 09:40 Alkaline Phosphatase 87 U/L (45-117) 07/05/19 09:40 Total Protein 7.6 g/dl (6.4-8.2) 07/05/19 09:40 Albumin 4.0 g/dl (3.4-5.0) 07/05/19 09:40 RPR Titer Nonreactive (NONREACTIVE) 07/05/19 09:40 HIV 1&2 Ag/Ab, 4th Gen Non reactive (Non Reactive) 07/05/19 09:30 HIV 1&2 Antibody Screen Cancelled 07/05/19 09:40 HIV P24 Antigen Cancelled 07/05/19 09:40 - Treatment Hospital Course: Detox Protocol Followed, Detoxed Safely, Responded well, Discharged Condition Good, Rehab Referral Accepted Patient has Accepted a Rehab Referral to: [facility] - Medication Discharge Medications: Ambulatory Orders Divalproex *ER* [Depakote *ER* -] 250 mg PO BID 04/10/19 Quetiapine Fumarate [Seroquel -] 200 mg PO HS 05/11/19 Escitalopram Oxalate [Lexapro -] 20 mg PO DAILY 06/23/19 - Diagnosis (1) Alcohol dependence with withdrawal Current Visit: No Status: Acute Qualifiers: Complication of substance-induced condition: uncomplicated Qualified Code(s ): F10.230 - Alcohol dependence with withdrawal, uncomplicated (2) Cannabis dependence Current Visit: No Status: Acute (3) Cocaine dependence Current Visit: No Status: Acute Qualifiers: Substance use status: uncomplicated Qualified Code(s): F14.20 - Cocaine dependence, uncomplicated (4) IVDU (intravenous drug user) Current Visit: No Status: Acute (5) OCD (obsessive compulsive disorder) Current Visit: No Status: Acute (6) Opioid dependence with withdrawal Current Visit: No Status: Acute (7) Personality disorder Current Visit: No Status: Acute (8) Tinea pedis Current Visit: No Status: Acute (9) Bipolar disorder Current Visit: No Status: Chronic (10) Low back pain Current Visit: No Status: Chronic (11) Nicotine dependence Current Visit: No Status: Chronic Qualifiers: Nicotine product type: cigarettes - AMA Did Patient Leave Against Medical Advice: No
[2019-07-10] MEDS ORDERED: chlordiazePOXIDE HCL 10 MG CAPSULE PO ONE (05:00)
[2019-07-10] MEDS ORDERED: METHADONE HCL 5 MG TABLET (FOR DETOX USE ONLY) PO ONE (06:00)
== END 2019-07-09 20:33 | disposition home or self-care (01) | DRG 773 ==
LOC: YASAS 08:06 → Y6N 10:30
PROVIDERS: ADMIT Surgery; ATTEND Surgery
PROC: HZ2ZZZZ Detoxification Services for Substance Abuse Treatment (ICD-10-PCS; principal; 2019-07-05)
DX: F11.23 Opioid dependence with withdrawal (principal); F10.230 Alcohol dependence with withdrawal, uncomplicated; F14.20 Cocaine dependence, uncomplicated; F12.20 Cannabis dependence, uncomplicated; F17.210 Nicotine dependence, cigarettes, uncomplicated; F42.9 Obsessive-compulsive disorder, unspecified; F69 Unspecified disorder of adult personality and behavior; F31.9 Bipolar disorder, unspecified; F19.282 Other psychoactive substance dependence with psychoactive substance-induced sleep disorder; B35.3 Tinea pedis; M54.5 Low back pain; G89.29 Other chronic pain
CPT/HCPCS: 36415; 80053; 85027; 86593; 87389; J0735

== ENCOUNTER 2019-07-24 04:52 | Inpatient (IN) | payer OTHER ==
--- NOTE | 2019-07-24 05:19 | HP ---
COWS - Scale Resting Pulse: 0= [place] 80 or Below Sweatin=Flushed/Facial Moisture Restless Observation: 0= Sits Still Pupil Size: 1= Pupils >than Normal (Pupils = 3 mm) Bone or Joint Aches: 1= Mild Discomfort Runny Nose/ Eye Tearin= None GI Upset > 30mins: 0= None Tremor Observation: 1= Tremor [place], Not Seen Yawning Observation: 0= None Anxiety or Irritability: 1=Feels Anxious/Irritable Goose Flesh Skin: 0=Smooth Skin COWS Score: 6 CIWA Score Nausea/Vomitin-No Nausea/No Vomiting Muscle Tremors: 3 Anxiety: 1-Mildly Anxious Agitation: 0-Normal Activity Paroxysmal Sweats: 3 (Increased facial moisture) Orientation: 0-Oriented Tacttile Disturbances: 0-None Auditory Disturbances: 0-None Visual Disturbances: 0-None Headache: 0-None Present CIWA-Ar Total Score: 7 - Admission Criteria OAS Guidelines: Admission for Medically Managed Detox: Requires at least one of the followin. CIWA greater than 12 2. Seizures within the past 24 hours 3. Delirium tremens within the past 24 hours 4. Hallucinations within the past 24 hours 5. Acute intervention needed for co occurring medical disorder 6. Acute intervention needed for co occurring psychiatric disorder 7. Severe withdrawal that cannot be handled at a lower level of care (continued vomiting, continued diarrhea, abnormal vital signs) requiring intravenous medication and/or fluids 8. Patient presents the following: Acute intervention needed for co-occurring med or psych disorder (B/P: 168/110; co-occurring heroin, cocaine and MH disorders) Admission Criteria Met: Admission criteria met Admission ROS [facility] Chief Complaint: I need detox anad rehab. Allergies/Adverse Reactions: Allergies Allergy/AdvReac Type Severity Reaction Status Date / Time No Known Allergies Allergy Verified 07/05/19 08:43 History of Present Illness: This is the 7th admission, since March 2019 for this this 38 year old with hx heroin, alcohol, and cocaine use disorder. Patient presents today w/ some withdrawal symptoms seeking detox. CIWA(7) and COWS(6) on lower scale but patient also presents w/ severe HTN, as well as hx MH disorders. Hx: Overdose (3 months ago) Heroin use began at age [age]. Current use is 4 bags heroin daily. Uses IV and IN. States relapsed the day after last detox. No Narcan kit at home. States last used Suboxone 3 days ago. Denies methadone or benzo use. Alcohol use began at age 15. Current use is approx 1/2 liquor and 3 - 22 oz beers daily. Last drink about 1 a.m. Cocaine use began at age [age]. Currently uses 2- 6 bags daily. (Smokes) Nicotine use began at age 15. Current use is 1/2 PPD. Utox: + LIZZIE/MOP/OXY/MTD/BZO/BUP SIMEON: 0.007 Hx: Overdose (4 months ago) . Denies seizures, blackouts. Longest sobriety 7 and a half months PMHx: HTN (not on medications) states only told when in [facility]; States SOB and chest tightness when uses cocaine. Does not f/u health issues w/ a PCP. Encouraged to f/u upon discharge. Last EK04/24/19 - NSB. MHHx: Bipolar disorder, OCD; Social anxiety. Only takes MH meds while in hospital. Last saw on MH Provider years ago. Denies thoughts of harming self or others. Needs a community mental health provider - encouraged to obtain. SHx: Undomiciled. Unemployed. Patient Name: Christopher Samayoa Date: 1980 Address: [address] [place] [address] Sex: Male Rx Written Rx Dispensed Drug Quantity Days Supply Prescriber Name 03/17/2019 03/17/2019 buprenorphine-naloxone 8-2 mg sl film 30 30 Misty Hess MD 02/02/2019 02/02/2019 suboxone 8 mg-2 mg sl film 30 30 Misty Hess MD 12/22/2018 01/02/2019 suboxone 8 mg-2 mg sl film 30 30 Misty Hess MD 12/17/2018 12/17/2018 suboxone 4 mg-1 mg sl film 60 30 Misty Hess MD 12/05/2018 12/05/2018 suboxone 8 mg-2 mg sl film 30 30 Misty Hess MD 11/28/2018 11/28/2018 suboxone 4 mg-1 mg sl film 30 30 Misty Hess MD Patient Name: Christopher Samayoa Date: 1980 Address: [address] [place] [address] [place] [address] Sex: Male Rx Written Rx Dispensed Drug Quantity Days Supply Prescriber Name 10/14/2018 10/14/2018 suboxone 2 mg-0.5 mg sl film 7 7 Sarai Vuong ( ) 10/05/2018 10/05/2018 suboxone 4 mg-1 mg sl film 9 9 Sarai Vuong ) 09/26/2018 09/26/2018 suboxone 4 mg-1 mg sl film 9 9 Shawna Ellis A, CYTOGENETIC TECHNOLOGIST 09/21/2018 09/22/2018 suboxone 8 mg-2 mg sl film 4 4 Shawna Ellis A, CYTOGENETIC TECHNOLOGIST 09/21/2018 09/21/2018 suboxone 4 mg-1 mg sl film 7 7 Shawna Ellis A, CYTOGENETIC TECHNOLOGIST Patient Name: Christopher Samayoa Date: 1980 Address: [address] [place] [id number] Sex: Male Rx Written Rx Dispensed Drug Quantity Days Supply Prescriber Name 09/16/2018 09/16/2018 suboxone 12 mg-3 mg sl film 15 15 Scar Suarez MD 08/24/2018 08/24/2018 suboxone 4 mg-1 mg sl film 30 15 Yonny Loya MD 08/22/2018 08/22/2018 suboxone 8 mg-2 mg sl film 30 15 Yonny Loya MD 08/15/2018 08/15/2018 suboxone 2 mg-0.5 mg sl film 60 15 Scar Suarez MD Exam Limitations: No Limitations - Ebola screening Have you traveled outside of the country in the last 21 days: No Have you had contact with anyone from an Ebola affected area: No Have you been sick,other than usual withdrawal symptoms: No (Denies measles exposure) Do you have a fever: No - Review of Systems Constitutional: Chills, Changes in sleep (Difficulty staying asleep.) EENT: reports: Blurred Vision, Dental Problems (Missing teeth. Chews and swallows ok) Respiratory: reports: Shortness of Breath (r/t cocaine or cigarette use) Cardiac: reports: Palpitations (Occ palpatations. States associated w/ CP and SOB when using cocaine) GI: reports: No Symptoms Reported : reports: No Symptoms Reported Musculoskeletal: reports: Back Pain (Chroinic intermittent mid back pain. None- at this time. Triggers by slouching.), Muscle Pain (Upper thigh intermittent - not at this time) Integumentary: reports: No Symptoms Reported Neuro: reports: Tremors Endocrine: reports: Increased Thirst Hematology: reports: No Symptoms Reported Psychiatric: reports: Judgement Intact, Orientated x3, Agitated, Anxious Patient History - Patient Medical History Hx Anemia: No Hx Asthma: No Hx Chronic Obstructive Pulmonary Disease (COPD): No Hx Cancer: No Hx Cardiac Disorders: No Hx Congestive Heart Failure: No Hx Hypertension: No Hx Hypercholesterolemia: No Hx Pacemaker: No HX Cerebrovascular Accident: No Hx Seizures: No Hx Dementia: No Hx Diabetes: No Hx Gastrointestinal Disorders: No Hx Liver Disease: No Hx Genitourinary Disorders: No Hx Sexually Transmitted Disorders: No Hx Renal Disease (ESRD): No Hx Thyroid Disease: No Hx Human Immunodeficiency Virus (HIV): No (last 2019 negative ) Hx Hepatitis C: No Hx Depression: Yes Hx Suicide Attempt: No Hx Bipolar Disorder: Yes Hx Schizophrenia: No - Patient Surgical History Past Surgical History: No Hx Neurologic Surgery: No Hx Cataract Extraction: No Hx Cardiac Surgery: No Hx Lung Surgery: No Hx Breast Surgery: No Hx Breast Biopsy: No Hx Abdominal Surgery: No Hx Appendectomy: No Hx Cholecystectomy: No Hx Genitourinary Surgery: No Hx Section: No Hx Orthopedic Surgery: No Anesthesia Reaction: No - PPD History Previous Implant?: Yes (Will do TB Gold (QTF) test) Documented Results: Negative w/o proof Implanted On Prior [facility] Admission?: Yes Date: 06/29/18 Results: 0 mm PPD to be Administered?: No - Smoking Cessation Smoking history: Current every day smoker Have you smoked in the past 12 months: Yes Aproximately how many cigarettes per day: 10 Cigars Per Day: 0 Hx Chewing Tobacco Use: No Initiated information on smoking cessation: Yes 'Breaking Loose' booklet given: 07/24/19 - Substance & Tx. History Hx Alcohol Use: Yes Hx Substance Use: Yes Substance Use Type: Alcohol, Cocaine, Heroin Hx Substance Use Treatment: Yes (detox, rehab, past Suboxone) - Substances abused Heroin Substance route: Injection Frequency: Daily Amount used: 5 bags Age of first use: 30 Date of last use: 07/04/19 Alcohol Substance route: Oral Frequency: Daily Amount used: 1/2 pint vodka; 4 beers- 24oz Age of first use: 15 Date of last use: 07/04/19 Cocaine Substance route: Smoking Frequency: Daily Amount used: 6 bags Age of first use: 20 Date of last use: 07/04/19 Marijuana/Hashish Substance route: Smoking Frequency: 1-3 times last 30 days Amount used: 10$ Age of first use: 15 Date of last use: 04/09/19 Non-Rx Methadone Substance route: Injection Frequency: Daily Amount used: 3-6 bags Age of first use: 31 Date of last use: 06/14/19 Family Disease History - Family Disease History Family Disease History: Other: Father (living, no contact), Mother (living, anxiety), Sister (four, living, anxiety, one with etoh), Son (one), Daughter ( three, one with renal issues, one with seizures) Admission Physical Exam [facility] - Physical General Appearance: Yes: Nourished, Mild Distress, Tremorous, Sweating ( Increased facial moisture), Anxious HEENTM: Yes: EOMI, Hearing grossly Normal, Normocephalic, Normal Voice, CRISTINA ( Pupils = 3 mkm), Pharynx Normal Respiratory: Yes: Lungs Clear, Normal Breath Sounds, No Respiratory Distress Neck: Yes: No masses,lesions,Nodules, Supple Breast: Yes: Breast Exam Deferred Cardiology: Yes: Regular Rhythm, Regular Rate (HR: 74), S1, S2 Abdominal: Yes: Non Tender, Flat, Soft, Increased Bowel Sounds Genitourinary: Yes: Within Normal Limits Back: Yes: Normal Inspection Musculoskeletal: Yes: full range of Motion, Gait Steady Extremities: Yes: Normal Capillary Refill, Tremors 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: Yes: humanities instructor II-XII NML intact, Fully Oriented, Alert, Motor Strength 5/5 Integumentary: Yes: Normal Color, Warm, Track [place] (No fresh track tomlin), Other (dry, cracked, flaky skin feet and toes.) Lymphatic: Yes: Within Normal Limits - Diagnostic (1) Alcohol dependence with withdrawal Current Visit: Yes Status: Acute Qualifiers: Complication of substance-induced condition: uncomplicated Qualified Code(s ): F10.230 - Alcohol dependence with withdrawal, uncomplicated (2) Cocaine dependence Current Visit: Yes Status: Chronic Qualifiers: Substance use status: uncomplicated Qualified Code(s): F14.20 - Cocaine dependence, uncomplicated (3) HTN (hypertension) Current Visit: Yes Status: Chronic Qualifiers: Hypertension type: unspecified Qualified Code(s): I10 - Essential (primary ) hypertension (4) Opioid dependence with withdrawal Current Visit: Yes Status: Acute (5) Tinea pedis Current Visit: Yes Status: Chronic Qualifiers: Laterality: bilateral Qualified Code(s): B35.3 - Tinea pedis (6) Nicotine dependence Current Visit: Yes Status: Chronic Qualifiers: Nicotine product type: cigarettes Substance use status: uncomplicated Qualified Code(s): F17.210 - Nicotine dependence, cigarettes, uncomplicated (7) History of chest pain Current Visit: No Status: Chronic Comment: R/t cocaine use Cleared for Admission [facility] - Detox or Rehab [facility] Level of Care: Medically Managed Detox Regimen/Protocol: Methadone/Librium Claeared for Rehab Admission: No Breathalyzer - Breathalyzer Breathalyzer: 0.007 POC Urine test - Test device test lot number: NOT APPLICABLE Urine Drug Screen - Test Device Lot number: [id number] Expiration date: 03/21/21 - Control Is test valid?: Yes - Results Drug screen NEGATIVE: No Urine drug screen results: THC-Marijuana, LIZZIE-Cocaine, MET-Methamphetamine, FEN- Fentanyl, MOP-Opiates, OXY-Oxycodone, MTD-Methadone, BZO-Benzodiazepines Inpatient Rehab Admission - Rehab Decision to Admit Inpatient rehab admission?: No
[2019-07-24] MEDS ORDERED: ACETAMINOPHEN 325 MG TABLET (FP) PO PRN ×2 (06:07)
[2019-07-24] MEDS ORDERED: METHOCARBAMOL 500 MG TABLET PO PRN (06:07)
[2019-07-24] MEDS ORDERED: METHADONE HCL 10 MG TABLET (FOR DETOX USE ONLY) PO ONE ×2 (06:07→10:00)
[2019-07-24] MEDS ORDERED: IBUPROFEN 400 MG TABLET (FP) PO PRN (06:07)
[2019-07-24] MEDS ORDERED: chlordiazePOXIDE HCL 25 MG CAPSULE PO PRN (06:07)
[2019-07-24] MEDS ORDERED: chlordiazePOXIDE HCL 25 MG CAPSULE PO ONE (06:07)
[2019-07-24] MEDS ORDERED: BISMUTH SUBSALICYLATE 524 MG/30 ML UD PO PRN (06:07)
[2019-07-24] MEDS ORDERED: MAGNESIUM HYDROX 2400MG/30ML ORAL SUSPENSION 30 ML CUP PO PRN (06:07)
[2019-07-24] MEDS ORDERED: MAGNESIUM CITRATE 300 ML BOTTLE PO PRN (06:07)
[2019-07-24] MEDS ORDERED: MAG HYDROX/AL HYDROX/SIMETH 30 ML UNIT-DOSE CUP PO PRN (06:07)
[2019-07-24] MEDS ORDERED: cloNIDine HCL 0.1 MG TABLET PO ONE (06:10)
[2019-07-24] MEDS ORDERED: chlordiazePOXIDE HCL 10 MG CAPSULE PO ONE (06:14)
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
--- NOTE | 2019-07-24 09:08 | EKG ---
Test Reason : Blood Pressure : / mmHG Vent. Rate : 072 BPM Atrial Rate : 072 BPM P-R Int : 132 ms QRS Dur : 088 ms QT Int : 394 ms P-R-T Axes : 032 054 051 degrees QTc Int : 431 ms NORMAL SINUS RHYTHM NONSPECIFIC T WAVE ABNORMALITY ABNORMAL ECG WHEN COMPARED WITH ECG OF 16-MAY-2019 02:19, NO SIGNIFICANT CHANGE WAS FOUND Confirmed by NINA GHOSH MD ([id number]) on 07/24/2019 9:08:06 AM Referred By: MAXINE Confirmed By:NINA GHOSH MD
[2019-07-24] MEDS: NICOTINE POLACRILEX 2 MG GUM BUC PRN (10:04)
[2019-07-24] MEDS: NICOTINE 14 MG/24 HOURS TOPICAL PATCH TD SCH (10:04)
[2019-07-24] MEDS: chlordiazePOXIDE HCL 25 MG CAPSULE PO SCH ×3 (10:06→22:05)
[2019-07-24] MEDS: PRENATAL VITAMINS W/ FOLIC ACID TABLET (FP) PO SCH (10:06)
[2019-07-24] MEDS: TOLNAFTATE 1% CREAM 15 GM TUBE TP SCH ×2 (11:02→22:06)
[2019-07-24] MEDS: MENTHOL/PHENOL 1 EACH UD MM PRN (19:28)
[2019-07-24] MEDS: QUEtiapine FUMARATE 100 MG TABLET (FP) PO SCH (22:05)
[2019-07-24] MEDS: THIAMINE HCL 100 MG TABLET (FP) PO SCH (22:05)
[2019-07-24] MEDS: guaiFENesin 200 MG/10 ML 10 ML UNIT-DOSE CUPS PO PRN (22:05)
[2019-07-24] MEDS: MELATONIN 5 MG TABLETS PO PRN (22:06)
[2019-07-25] MEDS: guaiFENesin 200 MG/10 ML 10 ML UNIT-DOSE CUPS PO PRN (05:35)
[2019-07-25] MEDS: chlordiazePOXIDE HCL 25 MG CAPSULE PO SCH ×4 (05:35→22:17)
[2019-07-25 09:57] LABS: HEMATOCRIT 42.8 % (35.4-49); HEMOGLOBIN 14.5 GM/dL (11.7-16.9); MCH 30.2 pg (25.7-33.7); MCHC 33.8 g/dl (32.0-35.9); MEAN CELL VOLUME 89.4 fl (80-96); MEAN PLT VOLUME 9.4 fl (7.5-11.1); PLATELET COUNT 190 K/MM3 (134-434); RBC 4.79 M/mm3 (4.00-5.60); RDW 15.7 % (11.9-15.9)
[2019-07-25] MEDS ORDERED: METHADONE HCL 5 MG TABLET (FOR DETOX USE ONLY) PO ONE (10:00)
[2019-07-25 10:06] LABS: ALBUMIN 3.1 g/dl (3.4-5.0); BILIRUBIN,TOTAL 0.3 mg/dL (0.2-1); BLOOD UREA NITROGEN 15.8 mg/dL (7-18); CALCIUM 8.5 mg/dL (8.5-10.1); CREATININE 0.8 mg/dL (0.55-1.3); POTASSIUM 3.9 mmol/L (3.5-5.1); TOT PROT 6.2 g/dl (6.4-8.2)
[2019-07-25] MEDS: NICOTINE 14 MG/24 HOURS TOPICAL PATCH TD SCH (10:23)
--- NOTE | 2019-07-25 14:00 | PN ---
[facility] CIWA - CIWA Score Nausea/Vomitin-Mild Nausea/No Vomiting Muscle Tremors: 3 Anxiety: 3 Agitation: 3 Paroxysmal Sweats: 2 Orientation: 2-Disoriented Date<2 days Tacttile Disturbances: 0-None Auditory Disturbances: 0-None Visual Disturbances: 0-None Headache: 0-None Present CIWA-Ar Total Score: 14 [facility] COWS - Scale Resting Pulse: 0= [place] 80 or Below Sweatin= Chills/Flushing Restless Observation: 0= Sits Still Pupil Size: 0= Normal to Room Light Bone or Joint Aches: 1= Mild Discomfort Runny Nose/ Eye Tearin= Nasal Congestion GI Upset > 30mins: 2= Nausea/Diarrhea (no diarrhea) Tremor Observation of Outstretched Hands: 2= Slight Tremor Visible Yawning Observation: 1= 1-2x During Session Anxiety or Irritability: 2=Irritable/Anxious Goose Flesh Skin: 3=Piloerection COWS Score: 13 S Progress Note (SOAP) Subjective: 38 years old male multiple patient [facility] admission since 2017 was admitted on 07/24/19 for alcohol and opiate withdrawal sx management doing well with librum and methadone detox regimen tremor body aches muscles sore Objective: 07/25/19 14:02 Vital Signs Temperature 96.9 F L 07/25/19 13:19 Pulse Rate 76 07/25/19 13:19 Respiratory Rate 18 07/25/19 13:19 Blood Pressure 121/92 07/25/19 13:19 O2 Sat by Pulse Oximetry (%) Laboratory Last Values WBC 4.0 K/mm3 (4.0-10.0) 07/25/19 07:00 RBC 4.79 M/mm3 (4.00-5.60) 07/25/19 07:00 Hgb 14.5 GM/dL (11.7-16.9) 07/25/19 07:00 Hct 42.8 % (35.4-49) 07/25/19 07:00 MCV 89.4 fl (80-96) 07/25/19 07:00 MCH 30.2 pg (25.7-33.7) 07/25/19 07:00 MCHC 33.8 g/dl (32.0-35.9) 07/25/19 07:00 RDW 15.7 % (11.9-15.9) 07/25/19 07:00 Plt Count 190 K/MM3 (134-434) D 07/25/19 07:00 MPV 9.4 fl (7.5-11.1) 07/25/19 07:00 Sodium 141 mmol/L (136-145) 07/25/19 07:00 Potassium 3.9 mmol/L (3.5-5.1) 07/25/19 07:00 Chloride 106 mmol/L (98-107) 07/25/19 07:00 Carbon Dioxide 30 mmol/L (21-32) 07/25/19 07:00 Anion Gap 5 MMOL/L (8-16) L 07/25/19 07:00 BUN 15.8 mg/dL (7-18) 07/25/19 07:00 Creatinine 0.8 mg/dL (0.55-1.3) 07/25/19 07:00 Est GFR (CKD-EPI)AfAm 130.42 07/25/19 07:00 Est GFR (CKD-EPI)NonAf 112.53 07/25/19 07:00 Random Glucose 66 mg/dL (74-106) L 07/25/19 07:00 Calcium 8.5 mg/dL (8.5-10.1) 07/25/19 07:00 Total Bilirubin 0.3 mg/dL (0.2-1) 07/25/19 07:00 AST 21 U/L (15-37) 07/25/19 07:00 ALT 21 U/L (13-61) 07/25/19 07:00 Alkaline Phosphatase 78 U/L (45-117) 07/25/19 07:00 Total Protein 6.2 g/dl (6.4-8.2) L 07/25/19 07:00 Albumin 3.1 g/dl (3.4-5.0) L 07/25/19 07:00 Valproic Acid 9.9 ug/mL (50-100) L 07/25/19 07:00 lab noted Assessment: 07/25/19 14:03 alcohol and opiate withdrawal sx alert ambulating on hallway ate breakfast and lunch Plan: continue librium and methadone detox regimen
[2019-07-25] MEDS: PRENATAL VITAMINS W/ FOLIC ACID TABLET (FP) PO SCH (14:54)
[2019-07-25] MEDS: TOLNAFTATE 1% CREAM 15 GM TUBE TP SCH ×2 (14:54→22:17)
[2019-07-25] MEDS: THIAMINE HCL 100 MG TABLET (FP) PO SCH (22:17)
[2019-07-25] MEDS: QUEtiapine FUMARATE 100 MG TABLET (FP) PO SCH (22:17)
[2019-07-26] MEDS: chlordiazePOXIDE HCL 25 MG CAPSULE PO SCH ×4 (06:15→22:00)
[2019-07-26] MEDS ORDERED: ONDANSETRON *ODT* 4 MG TABLET SL ONE (09:31)
--- NOTE | 2019-07-26 09:37 | PN ---
[facility] CIWA - CIWA Score Nausea/Vomitin-Mild Nausea/No Vomiting Muscle Tremors: 3 Anxiety: 2 Agitation: 2 Paroxysmal Sweats: 1-Minimal Palms Moist Orientation: 0-Oriented Tacttile Disturbances: 0-None Auditory Disturbances: 0-None Visual Disturbances: 0-None Headache: 2-Mild CIWA-Ar Total Score: 11 BHS COWS - Scale Resting Pulse: 0= [place] 80 or Below Sweatin= Chills/Flushing Restless Observation: 0= Sits Still Pupil Size: 0= Normal to Room Light Bone or Joint Aches: 1= Mild Discomfort Runny Nose/ Eye Tearin= Nasal Congestion GI Upset > 30mins: 2= Nausea/Diarrhea Tremor Observation of Outstretched Hands: 2= Slight Tremor Visible Yawning Observation: 2= >3x During Session Anxiety or Irritability: 2=Irritable/Anxious Goose Flesh Skin: 0=Smooth Skin COWS Score: 11 [facility] Progress Note (SOAP) Subjective: doing well with librium and methadone detox regimen mild nausea no vomiting no diarrhea zofran 4 mg sl x 1 discontinue motrin begn zantac 150 mg po bid while in detox with GI distress Objective: 07/26/19 09:36 Vital Signs Temperature 97.7 F 07/26/19 09:03 Pulse Rate 66 07/26/19 09:03 Respiratory Rate 18 07/26/19 09:03 Blood Pressure 117/64 07/26/19 09:03 O2 Sat by Pulse Oximetry (%) Laboratory Last Values WBC 4.0 K/mm3 (4.0-10.0) 07/25/19 07:00 RBC 4.79 M/mm3 (4.00-5.60) 07/25/19 07:00 Hgb 14.5 GM/dL (11.7-16.9) 07/25/19 07:00 Hct 42.8 % (35.4-49) 07/25/19 07:00 MCV 89.4 fl (80-96) 07/25/19 07:00 MCH 30.2 pg (25.7-33.7) 07/25/19 07:00 MCHC 33.8 g/dl (32.0-35.9) 07/25/19 07:00 RDW 15.7 % (11.9-15.9) 07/25/19 07:00 Plt Count 190 K/MM3 (134-434) D 07/25/19 07:00 MPV 9.4 fl (7.5-11.1) 07/25/19 07:00 Sodium 141 mmol/L (136-145) 07/25/19 07:00 Potassium 3.9 mmol/L (3.5-5.1) 07/25/19 07:00 Chloride 106 mmol/L (98-107) 07/25/19 07:00 Carbon Dioxide 30 mmol/L (21-32) 07/25/19 07:00 Anion Gap 5 MMOL/L (8-16) L 07/25/19 07:00 BUN 15.8 mg/dL (7-18) 07/25/19 07:00 Creatinine 0.8 mg/dL (0.55-1.3) 07/25/19 07:00 Est GFR (CKD-EPI)AfAm 130.42 07/25/19 07:00 Est GFR (CKD-EPI)NonAf 112.53 07/25/19 07:00 Random Glucose 66 mg/dL (74-106) L 07/25/19 07:00 Calcium 8.5 mg/dL (8.5-10.1) 07/25/19 07:00 Total Bilirubin 0.3 mg/dL (0.2-1) 07/25/19 07:00 AST 21 U/L (15-37) 07/25/19 07:00 ALT 21 U/L (13-61) 07/25/19 07:00 Alkaline Phosphatase 78 U/L (45-117) 07/25/19 07:00 Total Protein 6.2 g/dl (6.4-8.2) L 07/25/19 07:00 Albumin 3.1 g/dl (3.4-5.0) L 07/25/19 07:00 Valproic Acid 9.9 ug/mL (50-100) L 07/25/19 07:00 lab noted Assessment: 07/26/19 09:36 alcohol and opiate withdrawal sx alert oriented x 3 abdomen soft +bowel sound none tender on epigastric area Plan: continue librium and methadone detox regimen
[2019-07-26] MEDS ORDERED: METHADONE HCL 10 MG TABLET (FOR DETOX USE ONLY) PO ONE (10:00)
[2019-07-26] MEDS: TOLNAFTATE 1% CREAM 15 GM TUBE TP SCH ×2 (10:45→22:00)
[2019-07-26] MEDS: PRENATAL VITAMINS W/ FOLIC ACID TABLET (FP) PO SCH (10:46)
[2019-07-26] MEDS: guaiFENesin 200 MG/10 ML 10 ML UNIT-DOSE CUPS PO PRN ×2 (10:46→17:11)
[2019-07-26] MEDS: NICOTINE 14 MG/24 HOURS TOPICAL PATCH TD SCH (10:47)
[2019-07-26] MEDS: RANITIDINE HCL 150 MG TABLET (FP) PO SCH ×2 (10:48→22:00)
[2019-07-26] MEDS: NICOTINE POLACRILEX 2 MG GUM BUC PRN (17:12)
[2019-07-26] MEDS: THIAMINE HCL 100 MG TABLET (FP) PO SCH (22:00)
[2019-07-26] MEDS: QUEtiapine FUMARATE 100 MG TABLET (FP) PO SCH (22:00)
[2019-07-26] MEDS: MELATONIN 5 MG TABLETS PO PRN (22:02)
[2019-07-27] MEDS ORDERED: chlordiazePOXIDE HCL 10 MG CAPSULE PO PRN
[2019-07-27] MEDS: chlordiazePOXIDE HCL 10 MG CAPSULE PO SCH ×2 (05:18→10:06)
[2019-07-27] MEDS: guaiFENesin 200 MG/10 ML 10 ML UNIT-DOSE CUPS PO PRN (05:19)
[2019-07-27] MEDS: MENTHOL/PHENOL 1 EACH UD MM PRN ×2 (05:20→10:09)
[2019-07-27] MEDS ORDERED: METHADONE HCL 5 MG TABLET (FOR DETOX USE ONLY) PO ONE (06:00)
[2019-07-27 09:16] VITALS: BP 134/87; PULSE 75; TEMP 97.8
[2019-07-27] MEDS: TOLNAFTATE 1% CREAM 15 GM TUBE TP SCH (10:05)
[2019-07-27] MEDS: NICOTINE 14 MG/24 HOURS TOPICAL PATCH TD SCH (10:06)
[2019-07-27] MEDS: PRENATAL VITAMINS W/ FOLIC ACID TABLET (FP) PO SCH (10:06)
[2019-07-27] MEDS: RANITIDINE HCL 150 MG TABLET (FP) PO SCH (10:06)
[2019-07-27] MEDS: NICOTINE POLACRILEX 2 MG GUM BUC PRN (10:08)
--- NOTE | 2019-07-27 17:54 | DS ---
[facility] Detox Discharge Summary Admission Date: 07/24/19 Discharge Date: 07/27/19 - History Present History: Alcohol Dependence, Cannabis Dependence, Cocaine Dependence, Opioid Dependence Additional Comments: DESPITE EFFORTS BY ORTHO ASSISTANT AND BY NURSING STAFF TO ADDRESS PATIENT'S MEDICAL NEEDS / CONCERNS, PATIENT DOES NOT WISH TO REMAIN TO COMPLETE DETOX REGIMEN. RISKS OF LEAVING DETOX UNIT AGAINST MEDICAL ADVICE AND PRIOR TO COMPLETION OF DETOX REGIMEN EXPLAINED TO PATIENT. PATIENT ADVISED TO GO IMMEDIATELY TO NEAREST ER SHOULD ANY INTOLERABLE WITHDRAWAL / DETOX SYMPTOMS DEVELOP AT ANY TIME. PATIENT VERBALIZED UNDERSTANDING OF ALL INFORMATION / RECOMMENDATIONS PRESENTED TO HIM PRIOR TO DEPARTURE FROM DETOX UNIT. PATIENT LEFT DETOX UNIT IN STABLE MEDICAL CONDITION. Pertinent Past History: HTN, Depression, Bipolar Disorder, History Of Social Anxiety Disorder, History Of Chest Pain, Tinea Pedis, Nicotine Dependence, History Of Lower Back Pain, History Of Calcaneus Fracture (Right Side). - Physical Exam Results Vital Signs: Vital Signs Temperature 97.8 F 07/27/19 09:14 Pulse Rate 75 07/27/19 09:14 Respiratory Rate 18 07/27/19 09:14 Blood Pressure 134/87 07/27/19 09:14 O2 Sat by Pulse Oximetry (%) Pertinent Admission Physical Exam Findings: WITHDRAWAL SYMPTOMS. Laboratory Tests 07/25/19 07/25/19 07/25/19 07:00 07:00 07:00 WBC 4.0 RBC 4.79 Hgb 14.5 Hct 42.8 MCV 89.4 MCH 30.2 MCHC 33.8 RDW 15.7 Plt Count 190 D MPV 9.4 Sodium 141 Potassium 3.9 Chloride 106 Carbon Dioxide 30 Anion Gap 5 L BUN 15.8 Creatinine 0.8 Est GFR (CKD-EPI)AfAm 130.42 Est GFR (CKD-EPI)NonAf 112.53 Random Glucose 66 L Calcium 8.5 Total Bilirubin 0.3 AST 21 ALT 21 Alkaline Phosphatase 78 Total Protein 6.2 L Albumin 3.1 L Valproic Acid TB (QFT) Incubation TB Test (QFT) Nil 0.04 TB Test (QFT) Mitogen >10.00 TB Test (QFT) Antigen 0.04 TB Test (QFT) Negative TB Positive Criteria 07/25/19 07:00 WBC RBC Hgb Hct MCV MCH MCHC RDW Plt Count MPV Sodium Potassium Chloride Carbon Dioxide Anion Gap BUN Creatinine Est GFR (CKD-EPI)AfAm Est GFR (CKD-EPI)NonAf Random Glucose Calcium Total Bilirubin AST ALT Alkaline Phosphatase Total Protein Albumin Valproic Acid 9.9 L TB (QFT) Incubation TB Test (QFT) Nil TB Test (QFT) Mitogen TB Test (QFT) Antigen TB Test (QFT) TB Positive Criteria LABS NOTED. - Medication Discharge Medications: Ambulatory Orders Divalproex *ER* [Depakote *ER* -] 250 mg PO BID 04/10/19 Quetiapine Fumarate [Seroquel -] 200 mg PO HS 05/11/19 Escitalopram Oxalate [Lexapro -] 20 mg PO DAILY 06/23/19 - Diagnosis (1) Alcohol dependence with withdrawal Status: Acute Qualifiers: Complication of substance-induced condition: uncomplicated Qualified Code(s ): F10.230 - Alcohol dependence with withdrawal, uncomplicated (2) Cocaine dependence Status: Acute Qualifiers: Substance use status: uncomplicated Qualified Code(s): F14.20 - Cocaine dependence, uncomplicated (3) Opioid dependence with withdrawal Status: Acute (4) HTN (hypertension) Status: Chronic Qualifiers: Hypertension type: unspecified Qualified Code(s): I10 - Essential (primary ) hypertension (5) History of chest pain Status: Chronic (6) Nicotine dependence Status: Chronic Qualifiers: Nicotine product type: cigarettes Substance use status: uncomplicated Qualified Code(s): F17.210 - Nicotine dependence, cigarettes, uncomplicated (7) Tinea pedis Status: Chronic Qualifiers: Laterality: bilateral Qualified Code(s): B35.3 - Tinea pedis (8) Cannabis dependence Status: Acute (9) Calcaneus fracture, right Status: Chronic Qualifiers: Encounter type: sequela Calcaneus location: unspecified portion of calcaneus Fracture type: closed Fracture alignment: nondisplaced Qualified Code(s): S92.001S - Unspecified fracture of right calcaneus, sequela (10) Low back pain Status: Chronic Qualifiers: Chronicity: unspecified Back pain laterality: unspecified Sciatica presence: unspecified whether sciatica present Qualified Code(s): M54.5 - Low back pain (11) Substance-induced sleep disorder Status: Acute - AMA Did Patient Leave Against Medical Advice: Yes (PATIENT DID NOT WIOSH TO REMAIN TO COMPLETE DETOX REGIMEN.) BHS CIWA - CIWA Score Nausea/Vomitin Muscle Tremors: None Anxiety: 3 Agitation: 3 Paroxysmal Sweats: No Perspiration Orientation: 0-Oriented Tacttile Disturbances: 0-None Auditory Disturbances: 0-None Visual Disturbances: 1-Very Mild Sensitivity Headache: 0-None Present CIWA-Ar Total Score: 9 BHS COWS - Scale Resting Pulse: 0= CA 80 or Below Sweatin= No chills or Flushing Restless Observation: 1= Difficult to Sit Still Pupil Size: 0= Normal to Room Light Bone or Joint Aches: 0= None Runny Nose/ Eye Tearin= None GI Upset > 30mins: 2= Nausea/Diarrhea Tremor Observation of Outstretched Hands: 0= None Yawning Observation: 1= 1-2x During Session Anxiety or Irritability: 2=Irritable/Anxious Goose Flesh Skin: 0=Smooth Skin COWS Score: 6
[2019-07-28] MEDS ORDERED: chlordiazePOXIDE HCL 10 MG CAPSULE PO SCH (05:00)
[2019-07-29] MEDS ORDERED: chlordiazePOXIDE HCL 10 MG CAPSULE PO ONE (05:00)
== END 2019-07-27 13:08 | disposition left against medical advice (07) | DRG 770 ==
LOC: YASAS 04:52 → Y3N 06:10
PROVIDERS: ADMIT Surgery; ATTEND Surgery
PROC: HZ2ZZZZ Detoxification Services for Substance Abuse Treatment (ICD-10-PCS; principal; 2019-07-24)
DX: F10.230 Alcohol dependence with withdrawal, uncomplicated (principal); F11.23 Opioid dependence with withdrawal; F14.20 Cocaine dependence, uncomplicated; F12.20 Cannabis dependence, uncomplicated; F17.210 Nicotine dependence, cigarettes, uncomplicated; F19.282 Other psychoactive substance dependence with psychoactive substance-induced sleep disorder; F31.70 Bipolar disorder, currently in remission, most recent episode unspecified; I10 Essential (primary) hypertension; B35.3 Tinea pedis; M54.5 Low back pain; R07.9 Chest pain, unspecified; Z87.81 Personal history of (healed) traumatic fracture
CPT/HCPCS: 36415; 80053; 80164; 85027; 86480; 93005; 93010; J0735; Q0162

== ENCOUNTER 2019-07-30 05:42 | Emergency (ER) | payer OTHER ==
[2019-07-30] MEDS ORDERED: SODIUM CHLORIDE 1,000 ML IV STA (06:23)
[2019-07-30 06:35] VITALS: BMI 23.7
[2019-07-30 07:30] LABS: ALBUMIN 3.5 g/dl (3.4-5.0); BILIRUBIN,TOTAL 0.7 mg/dL (0.2-1); BLOOD UREA NITROGEN 15.3 mg/dL (7-18); CALCIUM 8.3 mg/dL (8.5-10.1); CREATININE 0.9 mg/dL (0.55-1.3); POTASSIUM 3.9 mmol/L (3.5-5.1); TOT PROT 6.6 g/dl (6.4-8.2)
--- NOTE | 2019-07-30 07:31 | PDOC ---
History of Present Illness - General Chief Complaint: Alcohol intoxication Stated Complaint: FALL Time Seen by Provider: 07/30/19 07:16 History Source: Patient Exam Limitations: Intoxication - History of Present Illness Initial Comments: Christopher Samayoa is a 38 yo M w a hx of polysubstance abuse who presents to the [facility] er [facility] after he did multiple drugs yesterday fell down and hit multiple parts of his body. He admits to drinking alcohol yesterday as well as smoking both PCP and K2, doing heroin and cocaine, and a good amount of marijuana. Patient states he fell down and hit his head, right shoulder, right hip, right knee, and worst of all his left foot specifically the big toe hurts. Patient is able to ambulate with a wobbly gait. Patient states that he currently has a headache right now. Denies current nausea, vomiting, chest pain, back pain, SOB, difficulty breathing. PCP: None PSH: None reported Social hx: Uses "every drug he can get his hands on" Allergies: NKDA Past History - Past Medical History Allergies/Adverse Reactions: Allergies Allergy/AdvReac Type Severity Reaction Status Date / Time No Known Allergies Allergy Verified 07/05/19 08:43 Home Medications: Ambulatory Orders Divalproex *ER* [Depakote *ER* -] 250 mg PO BID 04/10/19 Quetiapine Fumarate [Seroquel -] 200 mg PO HS 05/11/19 Escitalopram Oxalate [Lexapro -] 20 mg PO DAILY 06/23/19 Anemia: No Asthma: No Cancer: No Cardiac Disorders: No CVA: No COPD: No CHF: No Dementia: No Diabetes: No GI Disorders: No Disorders: No HTN: No Hypercholesterolemia: No Kidney Stones: No Liver Disease: No Psychiatric Problems: Yes (depression, anxiety, Bipolar) Seizures: No Thyroid Disease: No - Surgical History Abdominal Surgery: No Appendectomy: No Cardiac Surgery: No Cholecystectomy: No Lung Surgery: No Neurologic Surgery: No Orthopedic Surgery: No - Reproductive History Testicular Surgery: No - Immunization History Immunization Up to Date: Yes - Suicide/Smoking/Psychosocial Hx Smoking History: Unknown if ever smoked Have you smoked in the past 12 months: Yes Number of Cigarettes Smoked Daily: 10 If you are a former smoker, when did you quit?: \\ Cigars Per Day: 0 'Breaking Loose' booklet given: 07/24/19 Hx Alcohol Use: Yes Drug/Substance Use Hx: Yes Substance Use Type: Alcohol, Cocaine, Heroin Hx Substance Use Treatment: Yes Review of Systems - Review of Systems Able to Perform ROS?: No (intoxicated) *Physical Exam - Vital Signs Last Vital Signs Temp Pulse Resp BP Pulse Ox 98.1 F 92 H 18 101/53 L 95 07/30/19 06:00 07/30/19 06:00 07/30/19 06:00 07/30/19 06:00 07/30/19 06:00 - Physical Exam Comments: GENERAL: Patient is sleepy but responsive. Speech is slurred but appropriate. HEAD: Atraumatic and nontender. HEENT: Pupils are dilated, equal, round and reactive to light, extraocular movements are intact. There is a bruise on the right forehead. The oropharynx is clear. NECK: The trachea is midline, there is no stridor. There is no midline cervical spine tenderness, full range of motion of neck. CHEST: Non-tender, no ecchymosis or abrasions. Equal chest wall expansion bilaterally. No flail segments. Lungs are clear to auscultation bilaterally. CARDIOVASCULAR: S1-S2, regular rate and rhythm. No murmurs or rubs. ABDOMEN: Soft, nontender, nondistended. Bowel sounds are normoactive. There is no abdominal or flank ecchymosis. BACK/PELVIS: There is no midline thoracic or lumbosacral spine tenderness or step-off. Pelvis is stable and nontender. EXTREMITIES: The right shoulder has a 4 cm laceration that is closed and not bleeding. The right knee has a large abrasion. The left big toe is discolored and TTP. 2+ distal pulses throughout. NEURO: Alert and oriented x3. Cranial nerves II through XII are intact. 5 out of 5 motor strength x4 extremities. No gross sensory deficits. SKIN: Abrasions and lacerations as noted above. No hematomas PSYCH: Affect is appropriate ED Treatment Course - LABORATORY CBC & Chemistry Diagram: 07/30/19 06:40 07/30/19 06:40 - RADIOLOGY Radiology Studies Ordered: Category Date Time Status HEAD CT WITHOUT CONTRAST [CT] Stat CT Scan 07/30/19 07:24 Ordered FOOT-LEFT [RAD] Stat Radiology 07/30/19 07:25 Ordered KNEE 2 POS-RIGHT [RAD] Stat Radiology 07/30/19 07:25 Ordered SHOULDER-RIGHT [RAD] Stat Radiology 07/30/19 07:24 Ordered Radiograph Interpretation: CXR: Chest: Possible pneumothorax 3 views of the chest have been submitted. Since the prior study 02/05/2018 the patient is rotated to the left with clear lungs, prominent mediastinum and sharp angles. The bones and soft tissues are intact. There is no sign of a pneumothorax, pleural fluid or atelectasis. In the lateral view of the degenerative changes with wedging. There is no sign of posterior blunting. Impression: No acute pathology. No sign of a pneumothorax. Shoulder XR: Right shoulder: Pain. 2 views of the right shoulder revealed no sign of fracture or subluxation and no sign of blastic or lytic changes. There is limited range of motion as the shoulder shows no significant change in appearance from internal to external rotation. The AC joint, scapula and upper ribs are intact. Impression: Limited movement. No acute fracture. If symptoms persist, further imaging and orthopedic consultation is suggested. Knee XR: Right knee: Pain. 2 views of the right knee reveal no sign of fracture or subluxation and no sign of blastic or lytic changes. Swelling, foreign body or soft tissue air is seen. There is no sign of an effusion. If symptoms persist , further imaging may be of help. Impression: No acute right knee pathology. Foot XR: Left foot: Great toe pain 3 views of the left foot have been submitted. There are no prior studies for comparison. The toes are angulated with some arthritic changes. There is bunion formation at the first MTP joint. There is no sign of erosive changes or calcifications to suggest gout. A foreign body or soft tissue air is not seen. There is no sign of calcaneal spurring. If symptoms persist, further imaging and orthopedic consultation may be of help. Impression: arthritic changes. Head CT: HISTORY PROVIDED: Rule out bleed TECHNIQUE: Sequential axial images were obtained from the base of the skull to the vertex. There is no evidence of acute intracranial hemorrhage, mass lesions or infarctions. There is a mild degree of diffuse cerebral atrophy with sulcal widening and ventricular dilatation. IMPRESSION: No evidence of acute intracranial pathology. - Medications Given in the ED: ED Medications Discontinued Medications Generic Name Dose Route Start Last Admin Trade Name Freq PRN Reason Stop Dose Admin Sodium Chloride 1,000 mls @ 1,000 mls/hr 07/30/19 06:23 07/30/19 06:45 Normal Saline - IV 07/30/19 07:22 1,000 mls/hr ASDIR STA Administration Medical Decision Making - Medical Decision Making Christopher Samayoa is a 38 yo M w a hx of polysubstance abuse who presents to the [facility] er [facility] after he did multiple drugs yesterday fell down and hit multiple parts of his body. He admits to drinking alcohol yesterday as well as smoking both PCP and K2, doing heroin and cocaine, and a good amount of marijuana. Patient states he fell down and hit his head, right shoulder, right hip, right knee, and worst of all his left foot specifically the big toe hurts. Patient is able to ambulate with a wobbly gait. Patient states that he currently has a headache right now. Denies current nausea, vomiting, chest pain, back pain, SOB, difficulty breathing. Vital Signs Temp Pulse Resp BP Pulse Ox 98.1 F 92 H 18 101/53 L 95 07/30/19 06:00 07/30/19 06:00 07/30/19 06:00 07/30/19 06:00 07/30/19 06:00 MDM: Patient presents after using multiple drugs and has several injuries. DDx IBNLT: ICH, pneumothorax, shoulder fx, knee fx, toe fx, electrolyte/ metabolic disturbance Plan: Labs, Urine, IV hydration, XR, CT, analgesia, EKG, re-assess EKG: NS rate of 84, narrow complexes, normal axis, no hypertrophy, no abnormal TWI's, no ST elevations or depressions, no Q waves, QTc 496, MN 138 XR: No acute fx CT: No intracranial hemorrhage Labs: unremarkable other than mildly elevated AST Re-assess: Patient is clinically sober and requests to be discharged. We are providing a list of local Detox centers for the patient to attend Disposition: Home and Detox *DC/Admit/Observation/Transfer Diagnosis at time of Disposition: Polysubstance abuse - Discharge Dispostion Disposition: HOME Condition at time of disposition: Stable Decision to Admit order: No - Referrals Referrals: [facility] [place] [Provider Group] - Patient Instructions Printed Discharge Instructions: DI for Alcohol Abuse Additional Instructions: You came into the ER after doing multiple substances yesterday. Below is a list of 10 detox facilities for you to choose from and schedule a detox session. Please do your best to stop using drugs and try to goto a detox center to get clean. Come back to the ER immediately if you feel like you need to use drugs or have any other new or worsening concerns. Thank you for coming to the [facility] ER. We hope you feel better soon! 1) [facility] [address] [place], [address] 0.59 miles from the [place], [place] [facility], [facility], [facility], Buprenorphine (Suboxone) Detoxification, SAMHSA- certified Opioid Treatment Program Dual diagnosis patients, Adult women, Adult men 2) [facility] [address] [place], [address] 1.02 miles from the [place] [facility], [facility] Alcohol [facility] Center, Buprenorphine (Suboxone) Detoxification, Naltrexone (oral) Coed 3) [facility] [address] [place], [address] 1.90 miles from the [place] [facility], [facility] Center, Methadone maintenance, [facility], Buprenorphine (Suboxone) Detoxification, Naltrexone (oral), SAMHSA-certified Opioid Treatment Program Dual diagnosis patients, Clients referred from the court/judicial system (other than DUI/DWI), Adult women, Adult men, Patients with issues regarding trauma 4) [facility] [address] [place], [address] 1.98 miles from the [place] [facility], [facility] Center, Methadone maintenance, [facility], Buprenorphine (Suboxone) Detoxification, All Clients in Opioid Treatment Program, SAMHSA-certified Opioid Treatment Program French, Other languages 5) [facility] ([facility]) [address] [place], [address] 2.32 miles from the [place] [facility], Drug [facility] Alcohol Detox Center, Buprenorphine (Suboxone) Detoxification, Naltrexone (oral), Vivitrol? ( injectable Naltrexone) Coed 6) [facility] [address] [place], [address] 2.44 miles from [place] [facility], [facility] Center Young adults, Adults 7) [place], [place] [address] [place], [address] 0.00 miles from [place] [facility], [facility], [facility], Buprenorphine (Suboxone) Detoxification, Naltrexone (oral), SAMHSA-certified Opioid Treatment Program Young adults, Adults 8) [facility] [address] [place], [address] 2.79 miles from [place] [facility], [facility] French, Other languages 9) [facility] [address] [place], [address] 3.28 miles from [place] [facility], [facility] Center, Methadone maintenance, [facility], All Clients in Opioid Treatment Program, SAMHSA-certified Opioid Treatment Program French, Other languages 10) [facility] [address] [place], [address] 3.45 miles from [place] [facility] Facility, Drug & Alcohol Detox Center, Buprenorphine (Suboxone) Detoxification, Naltrexone (oral), Vivitrol? ( injectable Naltrexone) French Print Language: PALAUAN - Post Discharge Activity
[2019-07-30 07:33] LABS: BASO % 0.4 % (0-2.0); EOS % 2.4 % (0-4.5); HEMATOCRIT 37.9 % (35.4-49); HEMOGLOBIN 12.7 GM/dL (11.7-16.9); LYMPH % 11.4 % (8-40); MCHC 33.4 g/dl (32.0-35.9); MEAN CELL VOLUME 89.7 fl (80-96); MONO % 9.8 % (3.8-10.2); PLATELET COUNT 243 K/MM3 (134-434); RBC 4.23 M/mm3 (4.00-5.60); RDW 15.3 % (11.9-15.9); WHITE BLOOD COUNT 7.8 K/mm3 (4.0-10.0)
--- NOTE | 2019-07-30 07:37 | PDOC ---
Attending Attestation - Resident Resident Name: JoeDaniel - ED Attending Attestation I have performed the following: I have examined & evaluated the patient, The case was reviewed & discussed with the resident, I agree w/resident's findings & plan, Exceptions are as noted - HPI HPI: 07/30/19 08:24 38y M hx of polysubstance abuse presents with body aches. Pt states he was doing multiple drugs last night and remembers falling seeral times when walking around. Denies any headache, vision changes, n/v, neck pain, back pain abd pain , numbness/tingling/weakness, cp. pt endorses some pain to his legs. doesnt remember the exact circumstances of each fall. physical exam: Back: No midline tenderness to the cervical, thoracic or lumbar spine, no ecchymosis or focal parspinal tenderness. Musculoskelatal: FROM of b/l shoulders, elbows, wrist. FROM of hips, knees, ankles - No signs of ecchymosis, erythema, or crepitus noted on palpation extremities, chest wall, clavicals, ribs, back. Mild ttp to the superior aspect of R shoulder (with normal ROM otherwise), abrasion over his R shoulder, anterior of R/L patella with no focal ttp. GENERAL: The patient is awake, alert, Nontoxic - in no acute distress. HEAD: Normocephalic, atraumatic. EYES: extraocular movements intact, sclera anicteric, conjunctiva clear. no racoon eyes ENT: Normal voice, Moist mucous membranes. Missing 2 front teeth (chronic), neg battles sign, NECK: Normal range of motion, supple LUNGS: Breath sounds equal, clear to auscultation bilaterally. No wheezes, no rhonchi, no rales. HEART: Regular rate and rhythm, ABDOMEN: Soft, nontender, No guarding, no rebound. No CVA tenderness NEUROLOGICAL: No facial assymetry, Normal speech, moving all 4 extremities spontaneously and symmetrically SKIN: Warm, Dry, normal turgor, a/p 38ym intoxicated male presenting with minor trauma imaging will dc pt when fully awake pt retquests detox but states he was at [facility] recently, will give pt list of local facilities - Physicial Exam PE: 07/30/19 08:33 see aove - Medical Decision Making 07/30/19 08:34 see above 07/30/19 10:01 pts labs and imaging reviewed neg for acute findings pt doing better. awake, alert and oriented x 3 will dc pt with outpt management return precuations wre discussed Heart Score/ECG Review - ECG Impressions Comment:: 07/30/19 08:25 Twelve-lead EKG was performed and reviewed by me. There is normal sinus rhythm with a normal rate. rate of 84 The axis is normal. The intervals are normal. There is abnormal R wave progression There are no ST or T wave abnormalities.
[2019-07-30] MEDS ORDERED: ACETAMINOPHEN 325 MG TABLET (FP) PO ONE (08:30)
[2019-07-30] MEDS ORDERED: ACETAMINOPHEN 325 MG TABLET (FP) ONE (09:27)
[2019-07-30 12:49] VITALS: BP 110/60; PULSE 61; TEMP 98
--- NOTE | 2019-07-30 16:32 | EKG ---
Test Reason : Blood Pressure : / mmHG Vent. Rate : 084 BPM Atrial Rate : 084 BPM P-R Int : 138 ms QRS Dur : 092 ms QT Int : 420 ms P-R-T Axes : 032 032 029 degrees QTc Int : 496 ms NORMAL SINUS RHYTHM CANNOT RULE OUT ANTERIOR INFARCT , AGE UNDETERMINED BORDERLINE ST ELEVATION LATERAL LEADS ABNORMAL ECG WHEN COMPARED WITH ECG OF 24-JUL-2019 06:57, QT HAS LENGTHENED Confirmed by SAMANTHA KLEIN MD ([id number]) on 07/30/2019 4:32:38 PM Referred By: Confirmed By:SAMANTHA KLEIN MD
== END 2019-07-30 12:54 | disposition home or self-care (01) ==
LOC: JER 05:42
PROC: 3E0337Z Introduction of Electrolytic and Water Balance Substance into Peripheral Vein, Percutaneous Approach (ICD-10-PCS; principal; 2019-07-30)
DX: F10.120 Alcohol abuse with intoxication, uncomplicated (principal); F19.10 Other psychoactive substance abuse, uncomplicated; S09.8XXA Other specified injuries of head, initial encounter; M25.561 Pain in right knee; M25.551 Pain in right hip; M79.672 Pain in left foot; W19.XXXA Unspecified fall, initial encounter; Y93.89 Activity, other specified; Y92.89 Other specified places as the place of occurrence of the external cause; Y99.8 Other external cause status
CPT/HCPCS: 36415; 70450-TC; 71046-TC-FY; 73030-TC-RT-FY; 73560-TC-RT-FY; 73630-TC-LT; 80053; 80307; 82009; 85025; 93005; 93010; 96360; 99284-25; J7030

== ENCOUNTER 2020-07-07 17:38 | Inpatient (IN) | payer OTHER ==
[2020-07-07] MEDS ORDERED: MASKS NR ONE (19:17)
[2020-07-07] MEDS ORDERED: MENTHOL/PHENOL 1 EACH UD MM PRN (19:54)
[2020-07-07] MEDS ORDERED: MAGNESIUM HYDROX 2400MG/30ML ORAL SUSPENSION 30 ML CUP PO PRN (19:54)
[2020-07-07] MEDS ORDERED: guaiFENesin 200 MG/10 ML 10 ML UNIT-DOSE CUPS PO PRN (19:54)
[2020-07-07] MEDS ORDERED: IBUPROFEN 400 MG TABLET (FP) PO PRN (19:54)
[2020-07-07] MEDS ORDERED: P-EPHED 60MG/TRIPROLIDI 2.5MG TABLET PO PRN (19:54)
[2020-07-07] MEDS ORDERED: MAGNESIUM CITRATE 300 ML BOTTLE PO PRN (19:54)
[2020-07-07] MEDS ORDERED: ACETAMINOPHEN 325 MG TABLET (FP) PO PRN (19:54)
[2020-07-07] MEDS ORDERED: MAG HYDROX/AL HYDROX/SIMETH 30 ML UNIT-DOSE CUP PO PRN (19:54)
[2020-07-07] MEDS ORDERED: LOPERAMIDE HCL 2 MG CAPSULE PO PRN (19:54)
--- NOTE | 2020-07-07 19:54 | HP ---
[facility] Rehab Assess/Revision - Admission History Admitted to Rehab from: [facility] Date of Admission to Rehab: 07/07/20 - Vital signs Vital Signs: Vital Signs Period Temp Pulse Resp BP Sys/Roy Pulse Ox Last 24 Hr 98.0 F 101 18 122/87 - Findings Detox History & Physical reviewed: Yes Concur with findings: Yes Comments/Additional Findings: for rehab as protocol Inpatient Rehab Admission - Rehab Decision to Admit Inpatient rehab admission?: Yes - Initial Determination Are CD services needed?: Yes Free of communicable disease: Yes Not in need of hospitalization: Yes - Rehab Admission Criteria Previous failed treatment: Yes Poor recovery environment: Yes Comorbidities: Yes Lacks judgement: No Patient is meeting Inpatient Rehab admission criteria:: Yes
[2020-07-07] MEDS: THIAMINE HCL 100 MG TABLET (FP) PO SCH (21:48)
[2020-07-07] MEDS: QUEtiapine FUMARATE 200 MG TABLET PO SCH (21:48)
[2020-07-07] MEDS: DIVALPROEX SODIUM 500 MG TABLET E.C. PO SCH (21:48)
[2020-07-07] MEDS: MELATONIN 5 MG TABLETS PO SCH (21:48)
[2020-07-07] MEDS: hydrOXYzine PAMOATE 25 MG CAPSULE (FP) PO SCH (21:48)
[2020-07-08] MEDS: hydrOXYzine PAMOATE 25 MG CAPSULE (FP) PO SCH ×5 (06:24→22:22)
[2020-07-08] MEDS: NICOTINE POLACRILEX 2 MG GUM BUC PRN ×2 (06:25→12:25)
[2020-07-08] MEDS ORDERED: ARIPiprazole 20 MG TABLET PO SCH (10:00)
--- NOTE | 2020-07-08 12:04 | PN ---
S Progress Note Note: Pt is a 39 y/o male with a hx of Heroin,alcohol and cocaine use disorder admitted to rehab yesterday after detoxing on . Pt c/o tiredness and drowsiness. Denies any SOB or Chest discomfort, n/v/d. States I'm ok, I just need to rest. Vital Signs - 24 hr 07/07/20 07/07/20 07/08/20 17:45 20:03 07:56 Temperature 98.0 F 97.8 F Pulse Rate 101 H 78 Respiratory 18 18 Rate Blood Pressure 122/87 127/78 O2 Sat by Pulse 96 96 Oximetry (%) Alert o x 3 nad oob ambulating with steady gait cardiac:s1 s2,rrr S/p Detox New Rehab pt maintain safety Increase po fluids Pt encouraged to rest in bed today
[2020-07-08] MEDS: DIVALPROEX SODIUM 500 MG TABLET E.C. PO SCH ×2 (12:24→22:22)
[2020-07-08] MEDS: NICOTINE 7 MG/24 HOURS TOPICAL PATCH TD SCH (12:25)
[2020-07-08] MEDS: PRENATAL VITAMINS W/ FOLIC ACID TABLET (FP) PO SCH (12:25)
--- NOTE | 2020-07-08 16:21 | CONSULT ---
[facility] Psychiatric Consult - Data Date of interview: 07/08/20 Admission source: Transfer from [address] [place] [address]. Identifying data: Detoxification completed at [address] [place] [address]. Mr Samayoa is now admitted to [address] for continuity of care (rehabilitation for maintenance of sobriety + management of co-morbid schizoaffective disorder. TULIO issues : heroin, cocaine, alcohol, nicotine. Patient is a 39 y/o male, , a father of 4, unemployed (with no source of income) and occasionally supported by relatives. Substance Abuse History: Discussed with the patient. TULIO profile as follows : Alcohol. Substance amount: 1 pint vodka, 3 beers x 12 ounce each. Frequency of use: Daily. Substance route: Oral. Date of Last Use: 07/01/20 (Began age 17). Heroin. Substance amount: 2 bags. Frequency of use: Daily. Substance route: Inhalation (ex: sniffing or snorting). Date of Last Use: 06/25/20 (First use age 30). Cocaine-Crack. Substance amount: 6 bags. Frequency of use: Daily. Substance route: Smoking. Date of Last Use: 07/01/20 (first use age 30 y). Nicotine. Substance amount: 1/2 pack. Frequency of use: Daily. Substance route: Smoking. Date of Last Use: 07/02/20 (First use age 15). - Last Treatment. Date of last treatment: february 2020. Treatment type: Substance Use Disorder (TULIO). Where was last treatment: Detox. History Source: Patient. Limitations to Obtaining History: No Limitations. History of multiple TULIO treatment failures. Medical History: Medical history is remarkable for chronic lumbar pain + antecedent of fracture of right foot. Psychiatric History: Patient presents with an extensive history of psychiatric hospitalizations. Received the diagnosis of Bipolar Disorder at age 19 ([facility]). Mr Samayoa endorses a history of multiple psychiatric hospitalizations : [facility] in [facility] in [place], [place], [facility] (discharged a few days prior to this [facility] visit, as per self-report) in [place], [place]. Medications prescribed at patient's discharge from [facility] : seroquel 200 mg/hs + depakote 500 mg/bid + abilify 20 mg/day + abilify maintena 400 mg/IM monthly (scripts are still on hold at [facility]; not picked up by patient). Patient did not follow-up with his psychiatric aftercare referrals. Appointments not kept. Instead, the patient relapsed into the use of drugs. Has not taken any psychotropic medications after his discharge. Patient admitrs to distant history of one suicide attempt via wrist-cutting (10 years ago). Physical/Sexual Abuse/Trauma History: Patient denies. Additional Comment: Urine drug screen results: LIZZIE-Cocaine, FEN-Fentanyl, MOP- Opiates. Noted. Mental Status Exam - Mental Status Exam Alert and Oriented to: Time, Place, Person Cognitive Function: Good Patient Appearance: Well Groomed (short stature, obese) Mood: Anxious (mildly anxious), Hopeful Affect: Appropriate, Normal Range Patient Behavior: Appropriate, Cooperative Speech Pattern: Clear, Appropriate Voice Loudness: Normal Thought Process: Intact, Goal Oriented Thought Disorder: Not Present Hallucinations: Denies Suicidal Ideation: Denies Homicidal Ideation: Denies Insight/Judgement: Fair Sleep: Well Appetite: Good Gait/Station: Normal Psychiatric Findings - Problem List ([place] 1, 2,3) (1) Alcohol use disorder Current Visit: Yes Status: Chronic (2) Opioid use disorder Current Visit: Yes Status: Chronic (3) Cocaine dependence Current Visit: Yes Status: Chronic (4) Nicotine dependence Current Visit: Yes Status: Chronic Qualifiers: Nicotine product type: cigarettes Substance use status: uncomplicated Qualified Code(s): F17.210 - Nicotine dependence, cigarettes, uncomplicated (5) Substance induced mood disorder Current Visit: Yes Status: Chronic (6) History of bipolar disorder Current Visit: Yes Status: Chronic (7) Non-compliance Current Visit: Yes Status: Chronic Comment: Chronically non-adherent to OPD care. - Initial Treatment Plan Initial Treatment Plan: Stable mental status. Continue psychoeducation. Support. Motivational counseling. Group and individual therapy. Observance of COVID-19 guidelines : face mask wearing + hand washing + social distancing. Desk Clerk made telephone contact with pharmacist at [facility] ([phone]) : confirmed scripts for 06/03/20 (patient has neglected to lease picker his medications). Medications resumed as follows : abilify is decreased to 10 mg po daily (complaint of daytime drowsiness) + depakote 500 mg po bid + seroquel 200 mg po hs. Side effects/benefits of these medications are discussed with patient in this interview. Mr Samayoa is in agreement with this plan of care. Consent (verbal) granted to MD. Varma.
[2020-07-08] MEDS: MELATONIN 5 MG TABLETS PO SCH (22:22)
[2020-07-08] MEDS: QUEtiapine FUMARATE 200 MG TABLET PO SCH (22:22)
[2020-07-08] MEDS: THIAMINE HCL 100 MG TABLET (FP) PO SCH (22:23)
[2020-07-09] MEDS: hydrOXYzine PAMOATE 25 MG CAPSULE (FP) PO SCH ×2 (07:02→12:35)
[2020-07-09] MEDS: NICOTINE 7 MG/24 HOURS TOPICAL PATCH TD SCH (11:01)
[2020-07-09] MEDS: DIVALPROEX SODIUM 500 MG TABLET E.C. PO SCH ×2 (11:01→21:41)
[2020-07-09] MEDS: PRENATAL VITAMINS W/ FOLIC ACID TABLET (FP) PO SCH (11:02)
[2020-07-09] MEDS: NICOTINE POLACRILEX 2 MG GUM BUC PRN (11:03)
[2020-07-09] MEDS: ARIPiprazole 10 MG TABLET PO SCH (11:30)
[2020-07-09] MEDS: THIAMINE HCL 100 MG TABLET (FP) PO SCH (21:41)
[2020-07-09] MEDS: QUEtiapine FUMARATE 200 MG TABLET PO SCH (21:41)
[2020-07-09] MEDS: MELATONIN 5 MG TABLETS PO SCH (21:41)
[2020-07-10] MEDS: NICOTINE POLACRILEX 2 MG GUM BUC PRN ×4 (08:47→20:10)
[2020-07-10] MEDS: DIVALPROEX SODIUM 500 MG TABLET E.C. PO SCH ×2 (09:33→21:53)
[2020-07-10] MEDS: NICOTINE 7 MG/24 HOURS TOPICAL PATCH TD SCH (09:33)
[2020-07-10] MEDS: PRENATAL VITAMINS W/ FOLIC ACID TABLET (FP) PO SCH (09:33)
[2020-07-10] MEDS: ARIPiprazole 10 MG TABLET PO SCH (09:33)
[2020-07-10] MEDS: hydrOXYzine PAMOATE 25 MG CAPSULE (FP) PO PRN ×2 (09:34→21:53)
[2020-07-10] MEDS: QUEtiapine FUMARATE 200 MG TABLET PO SCH (21:53)
[2020-07-10] MEDS: MELATONIN 5 MG TABLETS PO SCH (21:53)
[2020-07-10] MEDS: THIAMINE HCL 100 MG TABLET (FP) PO SCH (21:53)
[2020-07-11] MEDS: DIVALPROEX SODIUM 500 MG TABLET E.C. PO SCH ×2 (09:37→21:35)
[2020-07-11] MEDS: PRENATAL VITAMINS W/ FOLIC ACID TABLET (FP) PO SCH (09:37)
[2020-07-11] MEDS: ARIPiprazole 10 MG TABLET PO SCH (09:38)
[2020-07-11] MEDS: NICOTINE 7 MG/24 HOURS TOPICAL PATCH TD SCH (09:38)
[2020-07-11] MEDS: NICOTINE POLACRILEX 2 MG GUM BUC PRN ×4 (09:39→20:18)
[2020-07-11] MEDS: hydrOXYzine PAMOATE 25 MG CAPSULE (FP) PO PRN ×2 (09:39→21:36)
--- NOTE | 2020-07-11 12:51 | PN ---
[facility] Progress Note Note: Pt requesting to restart suboxone stating he was on suboxone MAT with [facility]. C/o anxiety and craving for heroin. Pt completed Alcohol detox on but has also been using heroin per detox admission H/P. Below is a LINE PULLER history of suboxone Rx on Mr. Samayoa.Last Rx was 04/25/20 for 30 days. Pt reports stopped going to the clinic afterwards and resorted to using heroin thereafter. Others' Prescriptions Patient Name: Christopher SamayoaBirth Date: 1980 Address: [address] [place] [id number]: Male Rx Written Rx Dispensed Drug Quantity Days Supply Prescriber Name Payment Method Dispenser 04/19/2020 04/25/2020 buprenorphine-naloxone 8-2 mg sl film 30 30 Sofie Salas MD Insurance [facility] Patient Name: Christopher SamayoaBirth Date: 1980 Address: [address] [place] [id number]: Male Rx Written Rx Dispensed Drug Quantity Days Supply Prescriber Name Payment Method Dispenser 01/18/2020 01/18/2020 buprenorphine-naloxone 8-2 mg sl film 7 7 Sarai Vuong) [facility] 12/22/2019 01/15/2020 buprenorphine-naloxone 8-2 mg sl film 7 7 Sarai Vuong) [facility] 12/22/2019 01/08/2020 buprenorphine-naloxone 8-2 mg sl film 6 6 Sarai Vuong) [facility] 12/22/2019 12/25/2019 buprenorphine-naloxone 8-2 mg sl film 7 7 Sarai Vuong) [facility] 11/23/2019 12/21/2019 buprenorphine-naloxone 8-2 mg sl film 7 7 Sarai Vuong) [facility] 11/23/2019 12/14/2019 buprenorphine-naloxone 8-2 mg sl film 7 7 Sarai Vuong) [facility] 11/23/2019 12/08/2019 buprenorphine-naloxone 8-2 mg sl film 7 7 Sarai Vuong) [facility] 11/23/2019 11/25/2019 buprenorphine-naloxone 8-2 mg sl film 7 7 Sarai Vuong) [facility] 11/07/2019 11/21/2019 buprenorphine-naloxone 8-2 mg sl film 7 7 Sarai Vuong) [facility] 11/07/2019 11/09/2019 buprenorphine-naloxone 8-2 mg sl film 7 7 Sarai Vuong) [facility] 10/17/2019 11/05/2019 buprenorphine-naloxone 8-2 mg sl film 7 7 Nohemi Hart MD [facility] 10/17/2019 10/30/2019 buprenorphine-naloxone 8-2 mg sl film 7 7 Nohemi Hart MD [facility] 10/17/2019 10/17/2019 buprenorphine-naloxone 8-2 mg sl film 7 7 Nohemi Hart MD [facility] Patient Name: Christopher Morrissey Date: 1980 Address: [address] [place] [id number]: Male Rx Written Rx Dispensed Drug Quantity Days Supply Prescriber Name Payment Method Dispenser 10/05/2019 10/05/2019 buprenorphine-naloxone 8-2 mg sl film 30 30 Yonny Loya MD [facility] 09/05/2019 09/05/2019 buprenorphine-naloxone 8-2 mg sl film 30 30 Yonny Loya MD [facility] 08/23/2019 08/23/2019 buprenorphine-naloxone 8-2 mg sl film 15 15 Garland Stephens [facility] 08/09/2019 08/09/2019 buprenorphine-naloxone 4-1 mg sl film 1 1 Garland Stephens [facility] 08/09/2019 08/09/2019 buprenorphine-naloxone 8-2 mg sl film 15 15 Garland Stephens [facility] * Vital Signs - 24 hr 07/10/20 07/11/20 20:27 06:14 Temperature 97.5 F L Pulse Rate 78 Respiratory 18 Rate Blood Pressure 126/77 O2 Sat by Pulse 97 95 Oximetry (%) Alert o x 3, anxious nad oob ambulating with steady gait Suboxone pt UTOX screen today D/w pt to meet with his counselor for coordination of care on discharge regarding Suboxone maintenance. Pt has been referred to possible Cd aftercare at [facility] or [facility]. Pt can continue with Suboxone treatment in either of the sites.
[2020-07-11] MEDS: QUEtiapine FUMARATE 200 MG TABLET PO SCH (21:35)
[2020-07-11] MEDS: THIAMINE HCL 100 MG TABLET (FP) PO SCH (21:35)
[2020-07-11] MEDS: MELATONIN 5 MG TABLETS PO SCH (21:36)
[2020-07-12] MEDS: NICOTINE POLACRILEX 2 MG GUM BUC PRN ×4 (06:42→20:12)
[2020-07-12] MEDS: DIVALPROEX SODIUM 500 MG TABLET E.C. PO SCH ×2 (09:12→21:29)
[2020-07-12] MEDS: ARIPiprazole 10 MG TABLET PO SCH (09:12)
[2020-07-12] MEDS: PRENATAL VITAMINS W/ FOLIC ACID TABLET (FP) PO SCH (09:12)
[2020-07-12] MEDS: NICOTINE 7 MG/24 HOURS TOPICAL PATCH TD SCH (09:13)
[2020-07-12] MEDS ORDERED: BUPRENORPHINE/NALOXONE 2 MG/0.5 MG FILM PACKET SL ONE (15:30)
[2020-07-12] MEDS: hydrOXYzine PAMOATE 25 MG CAPSULE (FP) PO PRN (21:29)
[2020-07-12] MEDS: THIAMINE HCL 100 MG TABLET (FP) PO SCH (21:29)
[2020-07-12] MEDS: QUEtiapine FUMARATE 200 MG TABLET PO SCH (21:29)
[2020-07-12] MEDS: MELATONIN 5 MG TABLETS PO SCH (21:30)
[2020-07-13] MEDS: BUPRENORPHINE/NALOXONE 4 MG/1 MG FILM PACKET SL SCH (09:18)
[2020-07-13] MEDS: NICOTINE 7 MG/24 HOURS TOPICAL PATCH TD SCH (09:18)
[2020-07-13] MEDS: PRENATAL VITAMINS W/ FOLIC ACID TABLET (FP) PO SCH (09:18)
[2020-07-13] MEDS: ARIPiprazole 10 MG TABLET PO SCH (09:18)
[2020-07-13] MEDS: DIVALPROEX SODIUM 500 MG TABLET E.C. PO SCH ×2 (09:18→21:27)
[2020-07-13] MEDS: NICOTINE POLACRILEX 2 MG GUM BUC PRN ×3 (09:21→21:28)
[2020-07-13] MEDS: THIAMINE HCL 100 MG TABLET (FP) PO SCH (21:27)
[2020-07-13] MEDS: MELATONIN 5 MG TABLETS PO SCH (21:27)
[2020-07-13] MEDS: QUEtiapine FUMARATE 200 MG TABLET PO SCH (21:27)
[2020-07-13] MEDS: hydrOXYzine PAMOATE 25 MG CAPSULE (FP) PO PRN (21:27)
[2020-07-14] MEDS: DIVALPROEX SODIUM 500 MG TABLET E.C. PO SCH ×2 (10:32→21:33)
[2020-07-14] MEDS: PRENATAL VITAMINS W/ FOLIC ACID TABLET (FP) PO SCH (10:32)
[2020-07-14] MEDS: BUPRENORPHINE/NALOXONE 4 MG/1 MG FILM PACKET SL SCH (10:32)
[2020-07-14] MEDS: ARIPiprazole 10 MG TABLET PO SCH (10:32)
[2020-07-14] MEDS: NICOTINE 7 MG/24 HOURS TOPICAL PATCH TD SCH (10:32)
[2020-07-14] MEDS: NICOTINE POLACRILEX 2 MG GUM BUC PRN ×2 (17:49→21:33)
[2020-07-14] MEDS: THIAMINE HCL 100 MG TABLET (FP) PO SCH (21:33)
[2020-07-14] MEDS: MELATONIN 5 MG TABLETS PO SCH (21:33)
[2020-07-14] MEDS: hydrOXYzine PAMOATE 25 MG CAPSULE (FP) PO PRN (21:33)
[2020-07-14] MEDS: QUEtiapine FUMARATE 200 MG TABLET PO SCH (21:33)
[2020-07-15] MEDS: DIVALPROEX SODIUM 500 MG TABLET E.C. PO SCH ×2 (09:45→21:23)
[2020-07-15] MEDS: PRENATAL VITAMINS W/ FOLIC ACID TABLET (FP) PO SCH (09:45)
[2020-07-15] MEDS: BUPRENORPHINE/NALOXONE 4 MG/1 MG FILM PACKET SL SCH (09:45)
[2020-07-15] MEDS: ARIPiprazole 10 MG TABLET PO SCH (09:46)
[2020-07-15] MEDS: NICOTINE 7 MG/24 HOURS TOPICAL PATCH TD SCH (09:46)
[2020-07-15] MEDS: NICOTINE POLACRILEX 2 MG GUM BUC PRN ×3 (14:41→21:23)
[2020-07-15] MEDS: THIAMINE HCL 100 MG TABLET (FP) PO SCH (21:23)
[2020-07-15] MEDS: hydrOXYzine PAMOATE 25 MG CAPSULE (FP) PO PRN (21:23)
[2020-07-15] MEDS: QUEtiapine FUMARATE 200 MG TABLET PO SCH (21:23)
[2020-07-15] MEDS: MELATONIN 5 MG TABLETS PO SCH (21:23)
[2020-07-16] MEDS: BUPRENORPHINE/NALOXONE 4 MG/1 MG FILM PACKET SL SCH (10:36)
[2020-07-16] MEDS: ARIPiprazole 10 MG TABLET PO SCH (10:36)
[2020-07-16] MEDS: PRENATAL VITAMINS W/ FOLIC ACID TABLET (FP) PO SCH (10:37)
[2020-07-16] MEDS: DIVALPROEX SODIUM 500 MG TABLET E.C. PO SCH ×2 (10:37→21:19)
[2020-07-16] MEDS: NICOTINE 7 MG/24 HOURS TOPICAL PATCH TD SCH (10:37)
[2020-07-16] MEDS: NICOTINE POLACRILEX 2 MG GUM BUC PRN ×5 (10:39→20:34)
--- NOTE | 2020-07-16 16:18 | PN ---
Psychiatric Progress Note Vital Signs: Vital Signs Period Temp Pulse Resp BP Sys/Roy Pulse Ox Last 24 Hr 97.3 F 64 18 121/78 94-96 Date of Session: 07/16/20 Chief Complaint:: " I feel fine except for weight gain. I want to cut down on seroquel." HPI: Day 8 of rehabilitation treatment at [address] Patient has made significant progress. Mr Samayoa reports feeling fine on his medications except for weight gain. He wanted to see the psychiatrist to discuss reduction of his dose of seroquel. No other complaint offered. ROS: Unremarkable. Patient is ambulatory. Steady gait. Intact cognition. Except for weight gain, patient reports no additional complaint. Current Medications: Active Medications Generic Name Dose Route Start Last Admin Trade Name Freq PRN Reason Stop Dose Admin Acetaminophen 650 mg 07/07/20 19:54 Tylenol - PO Q4H PRN FEVER Al Hydroxide/Mg Hydroxide 30 ml 07/07/20 19:54 Mylanta Oral Suspension - PO Q6H PRN DYSPEPSIA Aripiprazole 10 mg 07/09/20 10:00 07/16/20 10:36 Abilify PO 10 mg DAILY SALOMÓN Administration Buprenorphine/Naloxone 1 each 07/13/20 10:00 07/16/20 10:36 Suboxone 4 Mg/1 Mg Film Packet SL 07/20/20 09:59 1 each DAILY SALOMÓN Administration Divalproex Sodium 500 mg 07/07/20 22:00 07/16/20 10:37 Depakote - PO 500 mg BID SALOMÓN Administration Eucalyptus/Menthol/Phenol/Sorbitol 1 each 07/07/20 19:54 Cepastat Lozenge - MM Q4H PRN SORE THROAT Guaifenesin 10 ml 07/07/20 19:54 Robitussin - PO Q6H PRN COUGH Hydroxyzine Pamoate 25 mg 07/09/20 09:59 07/15/20 21:23 Vistaril - PO 25 mg Q4H PRN Administration ANXIETY Ibuprofen 400 mg 07/07/20 19:54 Motrin - PO Q6H PRN Pain Level 4-6 Loperamide HCl 4 mg 07/07/20 19:54 Imodium - PO Q6H PRN DIARRHEA Magnesium Citrate 300 ml 07/07/20 19:54 Citroma - PO Q48H PRN CONSTIPATION Magnesium Hydroxide 30 ml 07/07/20 19:54 Milk Of Magnesia - PO DAILY PRN CONSTIPATION Melatonin 5 mg 07/07/20 22:00 07/15/20 21:23 Melatonin PO 5 mg HS SALOMÓN Administration Nicotine 7 mg 07/08/20 10:00 07/16/20 10:37 Nicoderm Patch - TD Not Given DAILY SALOMÓN Nicotine Polacrilex 2 mg 07/07/20 19:54 07/16/20 15:05 Nicorette Gum - BUC 2 mg Q2H PRN Administration NICOTINE REPLACEMENT RX Multivit/Folic Acid/Iron 1 tab 07/08/20 10:00 07/16/20 10:37 Vitamins (Sjr) - PO 1 tab DAILY SALOMÓN Administration Pseudoephedrine/Triprolidine 1 combo 07/07/20 19:54 Actifed - PO TID PRN NASAL CONGESTION Quetiapine Fumarate 200 mg 07/07/20 22:00 07/15/20 21:23 Seroquel - PO 200 mg HS SALOMÓN Administration Thiamine HCl 100 mg 07/07/20 22:00 07/15/20 21:23 Vitamin B1 - PO 100 mg HS SALOMÓN Administration Medication(s) Change(s): Seroquel is reduced to 100 mg po hs at patient's request. He insists, however, on staying on valproate (in spite of his knowledge that depakote causes weight gain as well). Abilify is raised to 15 mg po daily with patient's consent. Loading Unit Operator Powder Charging provided psychoeducation in this session : review of side effects/benefits of abilify + depakote + seroquel with the patient. Mr Samayoa grants consent (verbal) to . Current Side Effect: Yes (weight gain) Lab tests ordered: Yes (depakote level) Lab tests reviewed: Yes Provider note:: Chart reviewed. Patient is evaluated. He is a good historian. Admits to having made significant therapeutic gains in this treatment course (mood stabilization, impulse control, amelioration of sleep quality, increased motivation for maintenance of sobriety, investment in wellness, enhancement of self-confidence and future-orientedness). Side effects of current medications are revisited with the patient. He is counseled about controlling his eating habits (patient recognizes his propensity for consuming extra portions of bread, juices and peanut butter) and devote time for physical exercises. He will be referred to the unit wedding decorator for a consult. Mr Danita is in agreement with this plan of care. Patient is well-groomed, energetic, focused on his aftercare goals and stable. No evidence of psychosis or [place]. Patient is at his baseline. Total face to face time:: 35 Mental Status Exam - Mental Status Exam Alert and Oriented to: Time, Place, Person Cognitive Function: Good Patient Appearance: Well Groomed (overweight) Mood: Hopeful, Euthymic Affect: Appropriate, Normal Range Patient Behavior: Appropriate, Cooperative Speech Pattern: Clear, Appropriate Voice Loudness: Normal Thought Process: Intact, Goal Oriented Thought Disorder: Not Present Hallucinations: Denies Suicidal Ideation: Denies Homicidal Ideation: Denies Insight/Judgement: Good Sleep: Well Appetite: Good Gait/Station: Normal Psychiatric Treatment Plan - Problem List (1) Alcohol use disorder Current Visit: Yes Comment: . (2) Opioid use disorder Current Visit: Yes Comment: . (3) Cocaine dependence Current Visit: Yes Comment: . (4) Nicotine dependence Current Visit: Yes Qualifiers: Nicotine product type: cigarettes Substance use status: uncomplicated Qualified Code(s): F17.210 - Nicotine dependence, cigarettes, uncomplicated Comment: . (5) History of bipolar disorder Current Visit: Yes Comment: .
[2020-07-16] MEDS: QUEtiapine FUMARATE 100 MG TABLET (FP) PO SCH (21:19)
[2020-07-16] MEDS: THIAMINE HCL 100 MG TABLET (FP) PO SCH (21:19)
[2020-07-16] MEDS: MELATONIN 5 MG TABLETS PO SCH (21:19)
[2020-07-17] MEDS: BUPRENORPHINE/NALOXONE 4 MG/1 MG FILM PACKET SL SCH (10:39)
[2020-07-17] MEDS: DIVALPROEX SODIUM 500 MG TABLET E.C. PO SCH ×2 (10:41→21:16)
[2020-07-17] MEDS: ARIPiprazole 15 MG TABLET PO SCH (10:41)
[2020-07-17] MEDS: PRENATAL VITAMINS W/ FOLIC ACID TABLET (FP) PO SCH (10:41)
[2020-07-17] MEDS: NICOTINE 7 MG/24 HOURS TOPICAL PATCH TD SCH (10:42)
[2020-07-17] MEDS: NICOTINE POLACRILEX 2 MG GUM BUC PRN ×4 (10:44→21:17)
[2020-07-17] MEDS: hydrOXYzine PAMOATE 25 MG CAPSULE (FP) PO PRN (21:16)
[2020-07-17] MEDS: THIAMINE HCL 100 MG TABLET (FP) PO SCH (21:16)
[2020-07-17] MEDS: QUEtiapine FUMARATE 100 MG TABLET (FP) PO SCH (21:17)
[2020-07-17] MEDS: MELATONIN 5 MG TABLETS PO SCH (21:17)
[2020-07-18] MEDS: NICOTINE POLACRILEX 2 MG GUM BUC PRN ×6 (07:51→21:43)
[2020-07-18] MEDS: NICOTINE 7 MG/24 HOURS TOPICAL PATCH TD SCH (09:49)
[2020-07-18] MEDS: DIVALPROEX SODIUM 500 MG TABLET E.C. PO SCH ×2 (09:49→21:43)
[2020-07-18] MEDS: PRENATAL VITAMINS W/ FOLIC ACID TABLET (FP) PO SCH (09:49)
[2020-07-18] MEDS: ARIPiprazole 15 MG TABLET PO SCH (09:49)
[2020-07-18] MEDS: BUPRENORPHINE/NALOXONE 4 MG/1 MG FILM PACKET SL SCH (10:19)
[2020-07-18] MEDS: MELATONIN 5 MG TABLETS PO SCH (21:42)
[2020-07-18] MEDS: THIAMINE HCL 100 MG TABLET (FP) PO SCH (21:43)
[2020-07-18] MEDS: QUEtiapine FUMARATE 100 MG TABLET (FP) PO SCH (21:43)
[2020-07-19] MEDS: ARIPiprazole 15 MG TABLET PO SCH (09:39)
[2020-07-19] MEDS: PRENATAL VITAMINS W/ FOLIC ACID TABLET (FP) PO SCH (09:39)
[2020-07-19] MEDS: DIVALPROEX SODIUM 500 MG TABLET E.C. PO SCH ×2 (09:39→21:23)
[2020-07-19] MEDS: NICOTINE 7 MG/24 HOURS TOPICAL PATCH TD SCH (09:40)
[2020-07-19] MEDS: BUPRENORPHINE/NALOXONE 4 MG/1 MG FILM PACKET SL SCH (09:41)
[2020-07-19] MEDS: NICOTINE POLACRILEX 2 MG GUM BUC PRN ×3 (12:49→19:46)
--- NOTE | 2020-07-19 12:57 | PN ---
S Progress Note Note: Pt requests increased Suboxone to 8 mg/2mg sl today. Vital Signs 07/19/20 06:36 Temperature 97.1 F L Pulse Rate 76 Respiratory 18 Rate Blood Pressure 116/70 O2 Sat by Pulse 96 Oximetry (%) Laboratory Tests 07/17/20 08:15 Valproic Acid 60.4 Alert o x 3 nad oob ambulating with steady gait. A:Suboxone adjustment D/w pt will order additional suboxone 4 mg/1mg sl x 1 dose at 2pm today Will start Suboxone 8mg/2mg sl daily from 07/20/20 @ 1000.
[2020-07-19] MEDS ORDERED: BUPRENORPHINE/NALOXONE 4 MG/1 MG FILM PACKET SL ONE (14:00)
[2020-07-19] MEDS: THIAMINE HCL 100 MG TABLET (FP) PO SCH (21:23)
[2020-07-19] MEDS: hydrOXYzine PAMOATE 25 MG CAPSULE (FP) PO PRN (21:23)
[2020-07-19] MEDS: MELATONIN 5 MG TABLETS PO SCH (21:23)
[2020-07-19] MEDS: QUEtiapine FUMARATE 100 MG TABLET (FP) PO SCH (21:23)
[2020-07-20] MEDS: PRENATAL VITAMINS W/ FOLIC ACID TABLET (FP) PO SCH (10:01)
[2020-07-20] MEDS: DIVALPROEX SODIUM 500 MG TABLET E.C. PO SCH ×2 (10:01→21:29)
[2020-07-20] MEDS: NICOTINE POLACRILEX 2 MG GUM BUC PRN ×4 (10:02→21:30)
[2020-07-20] MEDS: NICOTINE 7 MG/24 HOURS TOPICAL PATCH TD SCH (10:02)
[2020-07-20] MEDS: ARIPiprazole 15 MG TABLET PO SCH (10:02)
[2020-07-20] MEDS: BUPRENORPHINE/NALOXONE 8 MG/2 MG FILM PACKET SL SCH (10:02)
[2020-07-20] MEDS: THIAMINE HCL 100 MG TABLET (FP) PO SCH (21:29)
[2020-07-20] MEDS: QUEtiapine FUMARATE 100 MG TABLET (FP) PO SCH (21:29)
[2020-07-20] MEDS: MELATONIN 5 MG TABLETS PO SCH (21:29)
[2020-07-21] MEDS: PRENATAL VITAMINS W/ FOLIC ACID TABLET (FP) PO SCH (09:59)
[2020-07-21] MEDS: DIVALPROEX SODIUM 500 MG TABLET E.C. PO SCH ×2 (09:59→21:34)
[2020-07-21] MEDS: BUPRENORPHINE/NALOXONE 8 MG/2 MG FILM PACKET SL SCH (09:59)
[2020-07-21] MEDS: NICOTINE 7 MG/24 HOURS TOPICAL PATCH TD SCH (10:00)
[2020-07-21] MEDS: NICOTINE POLACRILEX 2 MG GUM BUC PRN ×3 (10:00→21:35)
[2020-07-21] MEDS: ARIPiprazole 15 MG TABLET PO SCH (10:01)
[2020-07-21] MEDS: QUEtiapine FUMARATE 100 MG TABLET (FP) PO SCH (21:34)
[2020-07-21] MEDS: THIAMINE HCL 100 MG TABLET (FP) PO SCH (21:34)
[2020-07-21] MEDS: MELATONIN 5 MG TABLETS PO SCH (21:35)
[2020-07-22] MEDS: BUPRENORPHINE/NALOXONE 8 MG/2 MG FILM PACKET SL SCH (10:10)
[2020-07-22] MEDS: ARIPiprazole 15 MG TABLET PO SCH (10:11)
[2020-07-22] MEDS: PRENATAL VITAMINS W/ FOLIC ACID TABLET (FP) PO SCH (10:11)
[2020-07-22] MEDS: DIVALPROEX SODIUM 500 MG TABLET E.C. PO SCH ×2 (10:11→21:30)
[2020-07-22] MEDS: NICOTINE 7 MG/24 HOURS TOPICAL PATCH TD SCH (10:11)
[2020-07-22] MEDS: NICOTINE POLACRILEX 2 MG GUM BUC PRN ×5 (10:13→21:31)
[2020-07-22] MEDS: MELATONIN 5 MG TABLETS PO SCH (21:30)
[2020-07-22] MEDS: QUEtiapine FUMARATE 100 MG TABLET (FP) PO SCH (21:30)
[2020-07-22] MEDS: THIAMINE HCL 100 MG TABLET (FP) PO SCH (21:30)
[2020-07-22] MEDS: hydrOXYzine PAMOATE 25 MG CAPSULE (FP) PO PRN (21:30)
[2020-07-23 06:57] VITALS: BP 123/78; PULSE 64; TEMP 97.3
[2020-07-23] MEDS: BUPRENORPHINE/NALOXONE 8 MG/2 MG FILM PACKET SL SCH (10:41)
[2020-07-23] MEDS: NICOTINE 7 MG/24 HOURS TOPICAL PATCH TD SCH (10:42)
[2020-07-23] MEDS: ARIPiprazole 15 MG TABLET PO SCH (10:42)
[2020-07-23] MEDS: PRENATAL VITAMINS W/ FOLIC ACID TABLET (FP) PO SCH (10:42)
[2020-07-23] MEDS: DIVALPROEX SODIUM 500 MG TABLET E.C. PO SCH (10:42)
[2020-07-23] MEDS: NICOTINE POLACRILEX 2 MG GUM BUC PRN (10:44)
--- NOTE | 2020-07-23 11:00 | DS ---
[facility] Rehab Discharge Summary - [facility] Rehab Discharge Summary Admission Date: 07/07/20 Discharge Date: 07/23/20 - History Present History: Alcohol dependence, Cocaine dependence, Opioid dependence Pertinent Past History: Denies PMHx Psych Hx: Depression(on meds) - Discharge Physical Exam Vital Signs: Vital Signs Temperature 97.3 F L 07/23/20 06:38 Pulse Rate 64 07/23/20 06:38 Respiratory Rate 18 07/23/20 06:38 Blood Pressure 123/78 07/23/20 06:38 O2 Sat by Pulse Oximetry (%) 97 07/23/20 06:38 General:Alert o x 3, coherent Resp:nad, no resp difficulty msk:oob ambulating with steady gait Neuro:Active FROM, all limbs Pertinent Admission Physical Exam Findings: s/p detox Laboratory Tests 07/17/20 08:15 Valproic Acid 60.4 - Treatment Discharge Condition: Discharge condition good, Rehabilitated safely, Responded well, Outpatient referral accepted Hospital Course: Pt accepted CD aftercare to [facility] - Medication Discharge Medications: Ambulatory Orders Aripiprazole [Abilify] 20 mg PO DAILY #30 tablet 07/05/20 Divalproex [Depakote -] 500 mg PO BID #60 tablet.ec 07/05/20 Quetiapine Fumarate [Seroquel -] 200 mg PO HS #30 tablet 07/05/20 Buprenorphine/Naloxone [Suboxone 8Mg/2Mg Sl Film -] 1 each SL DAILY #7 packet MDD 1 07/23/20 Naloxone HCl [Narcan] 4 mg NS ONCE #1 spray 07/23/20 - Medication-Assisted Treatment (MAT) Medication-Assisted Treatment (MAT): Yes Medication Prescribed: Suboxone MAT Follow-up Referral: [facility] ferral site to continue suboxone MAT. Addendum:Pt states he was with [facility] Suboxone program before coming here for admission this period - Discharge Instructions Diet, activity, other medical instructions: Diet:Regular Activity: oob ad cristino Other medical instructions:Follow up with CD aftercare at [facility] as scheduled. Follow up with your primary care at [facility] [place]. - Diagnosis (1) Alcohol use disorder Current Visit: Yes Status: Chronic (2) Cocaine dependence Current Visit: Yes Status: Chronic Qualifiers: Substance use status: uncomplicated Qualified Code(s): F14.20 - Cocaine dependence, uncomplicated (3) Nicotine dependence Current Visit: Yes Status: Chronic Qualifiers: Nicotine product type: cigarettes Substance use status: uncomplicated Qualified Code(s): F17.210 - Nicotine dependence, cigarettes, uncomplicated (4) Opioid use disorder Current Visit: Yes Status: Chronic (5) IVDU (intravenous drug user) Current Visit: Yes Status: Chronic (6) History of depression Current Visit: Yes Status: Chronic - Follow-up Referral Minutes to complete discharge: 20 - AMA Did Patient Leave Against Medical Advice: No Additional Comments: Courtesy Rx for Suboxone 8 mg/2 mg sl #7 and Narcan nasal spray #1 electronically sent to [facility], 2 eliel hamlin for 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
== END 2020-07-23 11:00 | disposition home or self-care (01) | DRG 772 ==
LOC: YASAS 17:38 → Y5N 17:39
PROVIDERS: ADMIT Allergy & Immunology; ATTEND Allergy & Immunology
PROC: HZ42ZZZ Group Counseling for Substance Abuse Treatment, Cognitive-Behavioral (ICD-10-PCS; principal; 2020-07-07)
DX: F10.20 Alcohol dependence, uncomplicated (principal); F11.20 Opioid dependence, uncomplicated; F14.20 Cocaine dependence, uncomplicated; F17.210 Nicotine dependence, cigarettes, uncomplicated; F25.9 Schizoaffective disorder, unspecified; F31.9 Bipolar disorder, unspecified; F19.24 Other psychoactive substance dependence with psychoactive substance-induced mood disorder; M54.5 Low back pain; G89.29 Other chronic pain; Z56.0 Unemployment, unspecified; Z87.81 Personal history of (healed) traumatic fracture; Z91.19 Patient's noncompliance with other medical treatment and regimen
CPT/HCPCS: 80164

== ENCOUNTER 2021-07-17 10:03 | Inpatient (IN) | payer OTHER ==
[2021-07-17 10:42] VITALS: BMI 21.4
[2021-07-17] MEDS: FLUOCINONIDE 0.05% CREAM (60 GM TUBE) TP SCH ×2 (10:47→13:57)
[2021-07-17] MEDS ORDERED: NICOTINE POLACRILEX 2 MG GUM BUC PRN (10:55)
[2021-07-17] MEDS ORDERED: MENTHOL/PHENOL 1 EACH UD MM PRN (10:55)
[2021-07-17] MEDS ORDERED: ACETAMINOPHEN 325 MG TABLET (FP) PO PRN ×2 (10:55)
[2021-07-17] MEDS ORDERED: METHOCARBAMOL 500 MG TABLET PO PRN (10:55)
[2021-07-17] MEDS ORDERED: cloNIDine HCL 0.1 MG TABLET PO PRN (10:55)
[2021-07-17] MEDS ORDERED: NICOTINE 10 MG CARTRIDGE (INHALER) IH PRN (10:55)
[2021-07-17] MEDS ORDERED: IBUPROFEN 400 MG TABLET (FP) PO PRN (10:55)
[2021-07-17] MEDS ORDERED: BISMUTH SUBSALICYLATE 524 MG/30 ML PO PRN (10:55)
[2021-07-17] MEDS ORDERED: MAGNESIUM HYDROX 2400MG/30ML ORAL SUSPENSION 30 ML CUP PO PRN (10:55)
[2021-07-17] MEDS ORDERED: ONDANSETRON *ODT* 4 MG TABLET SL PRN (10:55)
[2021-07-17] MEDS ORDERED: MAG HYDROX/AL HYDROX/SIMETH 30 ML UNIT-DOSE CUP PO PRN (10:55)
[2021-07-17] MEDS ORDERED: MAGNESIUM CITRATE 300 ML BOTTLE PO PRN (10:55)
[2021-07-17] MEDS ORDERED: diazePAM 5 MG TABLET PO PRN (11:00)
[2021-07-17] MEDS ORDERED: methaDONE HCL 10 MG TABLET (FOR DETOX USE ONLY) PO ONE (12:15)
[2021-07-17] MEDS ORDERED: methaDONE HCL 10 MG TABLET (FOR DETOX USE ONLY) ONE (13:03)
[2021-07-17] MEDS ORDERED: hydrOXYzine PAMOATE 25 MG CAPSULE (FP) PO ONE (13:04)
[2021-07-17] MEDS: hydrOXYzine PAMOATE 25 MG CAPSULE (FP) PO SCH ×3 (13:11→22:45)
[2021-07-17 16:50] LABS: HIV INTERPRETATION NEGATIVE (NEGATIVE)
[2021-07-17] MEDS ORDERED: MASKS NR ONE (21:50)
[2021-07-17] MEDS: THIAMINE HCL 100 MG TABLET (FP) PO SCH (22:45)
[2021-07-17] MEDS: MELATONIN 5 MG TABLETS PO SCH (22:45)
[2021-07-18] MEDS: hydrOXYzine PAMOATE 25 MG CAPSULE (FP) PO SCH ×5 (06:20→23:46)
[2021-07-18] MEDS ORDERED: methaDONE HCL 10 MG TABLET (FOR DETOX USE ONLY) ONE (09:42)
[2021-07-18] MEDS: PRENATAL VITAMINS W/ FOLIC ACID TABLET (FP) PO SCH (10:24)
[2021-07-18] MEDS: NICOTINE 21 MG/24 HOURS TOPICAL PATCH TD SCH (10:24)
[2021-07-18] MEDS: FLUOCINONIDE 0.05% CREAM (60 GM TUBE) TP SCH ×2 (10:24→23:46)
[2021-07-18 11:21] LABS: HEMATOCRIT 40.2 % (35.4-49); HEMOGLOBIN 13.4 GM/dL (11.7-16.9); MCH 29.7 pg (25.7-33.7); MCHC 33.3 g/dl (32.0-35.9); MEAN CELL VOLUME 89.2 fl (80-96); MEAN PLT VOLUME 9.7 fl (7.5-11.1); PLATELET COUNT 240 10^3/uL (134-434); RBC 4.51 M/mm3 (4.00-5.60); WHITE BLOOD COUNT 5.9 K/mm3 (4.0-10.0)
[2021-07-18 11:29] LABS: CALCIUM 8.4 mg/dL (8.5-10.1)
[2021-07-18 11:30] LABS: ALBUMIN 3.5 g/dl (3.4-5.0); BLOOD UREA NITROGEN 14.1 mg/dL (7-18)
[2021-07-18 11:32] LABS: CREATININE 0.7 mg/dL (0.55-1.3)
[2021-07-18 11:34] LABS: BILIRUBIN,TOTAL 0.9 mg/dL (0.2-1); TOT PROT 7.1 g/dl (6.4-8.2)
[2021-07-18] MEDS: MELATONIN 5 MG TABLETS PO SCH (23:46)
[2021-07-18] MEDS: THIAMINE HCL 100 MG TABLET (FP) PO SCH (23:47)
[2021-07-19] MEDS: hydrOXYzine PAMOATE 25 MG CAPSULE (FP) PO SCH ×3 (06:32→14:00)
[2021-07-19] MEDS ORDERED: methaDONE HCL 10 MG TABLET (FOR DETOX USE ONLY) PO ONE (10:00)
[2021-07-19] MEDS: PRENATAL VITAMINS W/ FOLIC ACID TABLET (FP) PO SCH (10:48)
[2021-07-19] MEDS: FLUOCINONIDE 0.05% CREAM (60 GM TUBE) TP SCH (10:48)
[2021-07-19] MEDS: NICOTINE 21 MG/24 HOURS TOPICAL PATCH TD SCH (10:48)
[2021-07-19 11:23] VITALS: BP 124/75; PULSE 50; TEMP 98.3
[2021-07-21] MEDS ORDERED: methaDONE HCL 10 MG TABLET (FOR DETOX USE ONLY) PO ONE (10:00)
== END 2021-07-19 12:26 | disposition left against medical advice (07) | DRG 770 ==
LOC: YASAS 10:03 → Y3N 13:18
PROVIDERS: ADMIT Allergy & Immunology; ATTEND Allergy & Immunology
PROC: HZ2ZZZZ Detoxification Services for Substance Abuse Treatment (ICD-10-PCS; principal; 2021-07-17)
DX: F11.23 Opioid dependence with withdrawal (principal); F10.230 Alcohol dependence with withdrawal, uncomplicated; F14.20 Cocaine dependence, uncomplicated; F17.210 Nicotine dependence, cigarettes, uncomplicated; F19.24 Other psychoactive substance dependence with psychoactive substance-induced mood disorder; F31.9 Bipolar disorder, unspecified; L25.9 Unspecified contact dermatitis, unspecified cause; M54.5 Low back pain; G89.29 Other chronic pain; R63.4 Abnormal weight loss; Z68.21 Body mass index [BMI] 21.0-21.9, adult; Z86.59 Personal history of other mental and behavioral disorders
CPT/HCPCS: 36415; 80053; 85027; 86780; 87389; C9803; U0003; U0005

== ENCOUNTER 2022-07-24 10:31 | Inpatient (IN) | payer OTHER ==
[2022-07-24 11:33] VITALS: BMI 25.7
[2022-07-24] MEDS ORDERED: MAGNESIUM HYDROX 2400MG/30ML ORAL SUSPENSION 30 ML CUP PO PRN (12:49)
[2022-07-24] MEDS ORDERED: DICYCLOMINE HCL 10 MG CAPSULE PO PRN (12:49)
[2022-07-24] MEDS ORDERED: chlordiazePOXIDE HCL 25 MG CAPSULE PO PRN (12:49)
[2022-07-24] MEDS ORDERED: MAGNESIUM CITRATE 300 ML BOTTLE PO PRN (12:49)
[2022-07-24] MEDS ORDERED: ONDANSETRON *ODT* 4 MG TABLET SL PRN (12:49)
[2022-07-24] MEDS ORDERED: NICOTINE 10 MG CARTRIDGE (INHALER) IH PRN (12:49)
[2022-07-24] MEDS ORDERED: LOPERAMIDE HCL 2 MG CAPSULE PO PRN (12:49)
[2022-07-24] MEDS ORDERED: MAG HYDROX/AL HYDROX/SIMETH 30 ML UNIT-DOSE CUP PO PRN (12:49)
[2022-07-24] MEDS ORDERED: ACETAMINOPHEN 325 MG TABLET (FP) PO PRN ×2 (12:49)
[2022-07-24] MEDS ORDERED: BISMUTH SUBSALICYLATE 524 MG/30 ML PO PRN (12:49)
[2022-07-24] MEDS ORDERED: NICOTINE POLACRILEX 4 MG GUM BUC PRN (12:49)
[2022-07-24] MEDS ORDERED: IBUPROFEN 600 MG TABLET (FP) PO PRN (12:49)
[2022-07-24] MEDS ORDERED: cloNIDine HCL 0.1 MG TABLET PO PRN (12:49)
[2022-07-24] MEDS ORDERED: BENZOCAINE/MENTHOL (CHLORASEPTIC ) LOZENGE MM PRN (12:49)
[2022-07-24] MEDS ORDERED: IBUPROFEN 400 MG TABLET (FP) PO PRN (12:49)
[2022-07-24] MEDS: hydrOXYzine PAMOATE 25 MG CAPSULE (FP) PO SCH ×3 (13:55→22:24)
[2022-07-24] MEDS ORDERED: methaDONE HCL 10 MG TABLET (FOR DETOX USE ONLY) PO ONE (14:00)
[2022-07-24] MEDS: chlordiazePOXIDE HCL 25 MG CAPSULE PO SCH ×2 (18:09→22:24)
[2022-07-24] MEDS ORDERED: MELATONIN 5 MG TABLETS PO SCH (22:00)
[2022-07-24] MEDS: THIAMINE HCL 100 MG TABLET (FP) PO SCH (22:24)
[2022-07-24] MEDS: MELATONIN 5 MG TABLETS PO SCH (22:25)
[2022-07-25] MEDS: chlordiazePOXIDE HCL 25 MG CAPSULE PO SCH ×4 (05:50→22:19)
[2022-07-25] MEDS: hydrOXYzine PAMOATE 25 MG CAPSULE (FP) PO SCH ×5 (05:50→22:18)
[2022-07-25] MEDS: PRENATAL VITAMINS W/ FOLIC ACID TABLET (FP) PO SCH (10:39)
[2022-07-25] MEDS: METHOCARBAMOL 500 MG TABLET PO PRN ×2 (10:39→17:37)
[2022-07-25 15:35] LABS: HEMATOCRIT 38.3 % (35.4-49); HEMOGLOBIN 12.5 GM/dL (11.7-16.9); MCH 29.2 pg (25.7-33.7); MCHC 32.6 g/dl (32.0-35.9); MEAN CELL VOLUME 89.3 fl (80-96); PLATELET COUNT 216 10^3/uL (134-434); RBC 4.29 M/mm3 (4.00-5.60); RDW 15.1 % (11.9-15.9); WHITE BLOOD COUNT 5.6 K/mm3 (4.0-10.0)
[2022-07-25 15:36] LABS: INR 1.14 (0.83-1.09); PROTHROMBIN TIME (PATIENT) 13.1 SEC (9.7-13.0)
[2022-07-25 15:50] LABS: ALBUMIN 2.9 g/dl (3.4-5.0); CALCIUM 8.5 mg/dL (8.5-10.1)
[2022-07-25 15:51] LABS: BLOOD UREA NITROGEN 12.8 mg/dL (7-18)
[2022-07-25 15:53] LABS: CREATININE 0.7 mg/dL (0.55-1.3)
[2022-07-25 15:55] LABS: TOT PROT 5.3 g/dl (6.4-8.2)
[2022-07-25 15:56] LABS: BILIRUBIN,TOTAL 0.3 mg/dL (0.2-1)
[2022-07-25] MEDS: THIAMINE HCL 100 MG TABLET (FP) PO SCH (22:18)
[2022-07-25] MEDS: MELATONIN 5 MG TABLETS PO SCH (22:18)
[2022-07-26] MEDS: chlordiazePOXIDE HCL 25 MG CAPSULE PO SCH ×4 (05:46→22:46)
[2022-07-26] MEDS: hydrOXYzine PAMOATE 25 MG CAPSULE (FP) PO SCH ×5 (05:47→22:46)
[2022-07-26] MEDS: METHOCARBAMOL 500 MG TABLET PO PRN ×3 (05:48→17:38)
[2022-07-26] MEDS ORDERED: methaDONE HCL 10 MG TABLET (FOR DETOX USE ONLY) PO ONE (10:00)
[2022-07-26] MEDS: PRENATAL VITAMINS W/ FOLIC ACID TABLET (FP) PO SCH (10:52)
[2022-07-26] MEDS: MELATONIN 5 MG TABLETS PO SCH (22:46)
[2022-07-26] MEDS: THIAMINE HCL 100 MG TABLET (FP) PO SCH (22:46)
[2022-07-27] MEDS ORDERED: chlordiazePOXIDE HCL 10 MG CAPSULE PO PRN
[2022-07-27] MEDS: hydrOXYzine PAMOATE 25 MG CAPSULE (FP) PO SCH ×3 (06:02→13:40)
[2022-07-27] MEDS: chlordiazePOXIDE HCL 10 MG CAPSULE PO SCH ×2 (06:02→10:10)
[2022-07-27] MEDS: PRENATAL VITAMINS W/ FOLIC ACID TABLET (FP) PO SCH (10:09)
[2022-07-27 13:41] VITALS: BP 122/78; PULSE 68; RESP 18; TEMP 98
[2022-07-28] MEDS ORDERED: chlordiazePOXIDE HCL 10 MG CAPSULE PO SCH (05:00)
[2022-07-28] MEDS ORDERED: methaDONE HCL 10 MG TABLET (FOR DETOX USE ONLY) PO ONE (10:00)
[2022-07-29] MEDS ORDERED: chlordiazePOXIDE HCL 10 MG CAPSULE PO ONE (05:00)
== END 2022-07-27 15:00 | disposition home or self-care (01) | DRG 773 ==
LOC: YASAS 10:31 → Y6N 13:10
PROVIDERS: ADMIT Allergy & Immunology; ATTEND Surgery
PROC: HZ2ZZZZ Detoxification Services for Substance Abuse Treatment (ICD-10-PCS; principal; 2022-07-24)
DX: F11.23 Opioid dependence with withdrawal (principal); F10.230 Alcohol dependence with withdrawal, uncomplicated; F14.20 Cocaine dependence, uncomplicated; F12.20 Cannabis dependence, uncomplicated; F17.213 Nicotine dependence, cigarettes, with withdrawal; F19.282 Other psychoactive substance dependence with psychoactive substance-induced sleep disorder; F19.280 Other psychoactive substance dependence with psychoactive substance-induced anxiety disorder; F31.9 Bipolar disorder, unspecified; M54.59 Other low back pain; G89.29 Other chronic pain; Z28.310 Unvaccinated for COVID-19; Z56.0 Unemployment, unspecified; Z59.00 Homelessness unspecified
CPT/HCPCS: 36415; 80053; 85027; 85610; 86780; C9803-CS; U0003; U0005

== ENCOUNTER 2022-08-25 11:48 | Inpatient (IN) | payer OTHER ==
[2022-08-25 13:27] VITALS: BMI 24.0
[2022-08-25] MEDS ORDERED: BENZOCAINE/MENTHOL (CHLORASEPTIC ) LOZENGE MM PRN (14:22)
[2022-08-25] MEDS ORDERED: NICOTINE 10 MG CARTRIDGE (INHALER) IH PRN (14:22)
[2022-08-25] MEDS ORDERED: DICYCLOMINE HCL 10 MG CAPSULE PO PRN (14:22)
[2022-08-25] MEDS ORDERED: NICOTINE POLACRILEX 2 MG GUM BUC PRN (14:22)
[2022-08-25] MEDS ORDERED: MAG HYDROX/AL HYDROX/SIMETH 30 ML UNIT-DOSE CUP PO PRN (14:22)
[2022-08-25] MEDS ORDERED: IBUPROFEN 400 MG TABLET (FP) PO PRN (14:22)
[2022-08-25] MEDS ORDERED: MAGNESIUM CITRATE 300 ML BOTTLE PO PRN (14:22)
[2022-08-25] MEDS ORDERED: ACETAMINOPHEN 325 MG TABLET (FP) PO PRN ×2 (14:22)
[2022-08-25] MEDS ORDERED: NALOXONE HCL (KLOXXADO) 8 MG SPRAY NS PRN (14:22)
[2022-08-25] MEDS ORDERED: LOPERAMIDE HCL 2 MG CAPSULE PO PRN (14:22)
[2022-08-25] MEDS ORDERED: IBUPROFEN 600 MG TABLET (FP) PO PRN (14:22)
[2022-08-25] MEDS ORDERED: MAGNESIUM HYDROX 2400MG/30ML ORAL SUSPENSION 30 ML CUP PO PRN (14:22)
[2022-08-25] MEDS ORDERED: ONDANSETRON *ODT* 4 MG TABLET SL PRN (14:22)
[2022-08-25] MEDS ORDERED: BISMUTH SUBSALICYLATE 262 MG/15 ML BTL PO PRN (14:22)
[2022-08-25] MEDS: PRENATAL VITAMINS W/ FOLIC ACID TABLET (FP) PO SCH (14:59)
[2022-08-25] MEDS: hydrOXYzine PAMOATE 25 MG CAPSULE (FP) PO SCH ×2 (18:25→22:43)
[2022-08-25] MEDS: cloNIDine HCL 0.1 MG TABLET PO PRN (21:00)
[2022-08-25] MEDS: TOLNAFTATE 1% CREAM 15 GM TUBE TP SCH (21:02)
[2022-08-25] MEDS: THIAMINE HCL 100 MG TABLET (FP) PO SCH (21:05)
[2022-08-25] MEDS: MELATONIN 5 MG TABLETS PO SCH (22:42)
[2022-08-25] MEDS ORDERED: methaDONE HCL 10 MG TABLET (FOR DETOX USE ONLY) PO ONE (23:00)
[2022-08-26] MEDS: hydrOXYzine PAMOATE 25 MG CAPSULE (FP) PO SCH ×5 (06:26→23:49)
[2022-08-26] MEDS: PRENATAL VITAMINS W/ FOLIC ACID TABLET (FP) PO SCH (10:05)
[2022-08-26] MEDS: METHOCARBAMOL 500 MG TABLET PO PRN (10:05)
[2022-08-26] MEDS: TOLNAFTATE 1% CREAM 15 GM TUBE TP SCH ×2 (10:06→23:49)
[2022-08-26] MEDS ORDERED: ALBUTEROL SO4 HFA INHALER IH PRN (14:52)
[2022-08-26 15:22] LABS: HEMATOCRIT 40.1 % (35.4-49); HEMOGLOBIN 13.2 GM/dL (11.7-16.9); MCH 29.4 pg (25.7-33.7); MCHC 32.9 g/dl (32.0-35.9); MEAN CELL VOLUME 89.5 fl (80-96); MEAN PLT VOLUME 9.7 fl (7.5-11.1); PLATELET COUNT 184 10^3/uL (134-434); RBC 4.48 M/mm3 (4.00-5.60); RDW 15.6 % (11.9-15.9); WHITE BLOOD COUNT 4.4 K/mm3 (4.0-10.0)
[2022-08-26 15:29] LABS: CALCIUM 8.5 mg/dL (8.5-10.1)
[2022-08-26 15:30] LABS: ALBUMIN 3.1 g/dl (3.4-5.0)
[2022-08-26 15:33] LABS: CREATININE 0.6 mg/dL (0.55-1.3)
[2022-08-26 15:34] LABS: BILIRUBIN,TOTAL 0.4 mg/dL (0.2-1)
[2022-08-26 16:17] LABS: HIV INTERPRETATION NEGATIVE (NEGATIVE)
[2022-08-26] MEDS: MELATONIN 5 MG TABLETS PO SCH (23:49)
[2022-08-26] MEDS: THIAMINE HCL 100 MG TABLET (FP) PO SCH (23:49)
[2022-08-27] MEDS: hydrOXYzine PAMOATE 25 MG CAPSULE (FP) PO SCH ×5 (05:37→22:40)
[2022-08-27] MEDS ORDERED: methaDONE HCL 10 MG TABLET (FOR DETOX USE ONLY) PO ONE (10:00)
[2022-08-27] MEDS: PRENATAL VITAMINS W/ FOLIC ACID TABLET (FP) PO SCH (10:38)
[2022-08-27] MEDS: TOLNAFTATE 1% CREAM 15 GM TUBE TP SCH ×2 (10:39→22:40)
[2022-08-27] MEDS: METHOCARBAMOL 500 MG TABLET PO PRN (10:39)
[2022-08-27] MEDS: cloNIDine HCL 0.1 MG TABLET PO PRN (13:09)
[2022-08-27] MEDS: THIAMINE HCL 100 MG TABLET (FP) PO SCH (22:40)
[2022-08-27] MEDS: MELATONIN 5 MG TABLETS PO SCH (22:40)
[2022-08-28] MEDS: hydrOXYzine PAMOATE 25 MG CAPSULE (FP) PO SCH (06:58)
[2022-08-28 09:07] VITALS: BP 120/69; PULSE 59; RESP 18; TEMP 98.6
[2022-08-29] MEDS ORDERED: methaDONE HCL 10 MG TABLET (FOR DETOX USE ONLY) PO ONE (10:00)
== END 2022-08-28 11:10 | disposition left against medical advice (07) | DRG 770 ==
LOC: YASAS 11:48 → Y6N 14:47
PROVIDERS: ADMIT Allergy & Immunology; ATTEND Allergy & Immunology
PROC: HZ2ZZZZ Detoxification Services for Substance Abuse Treatment (ICD-10-PCS; principal; 2022-08-25)
DX: F11.23 Opioid dependence with withdrawal (principal); F14.20 Cocaine dependence, uncomplicated; F10.10 Alcohol abuse, uncomplicated; F12.20 Cannabis dependence, uncomplicated; F17.210 Nicotine dependence, cigarettes, uncomplicated; Z86.59 Personal history of other mental and behavioral disorders
CPT/HCPCS: 36415; 80053; 85027; 86780; 87389; C9803-CS; U0003; U0005

== ENCOUNTER 2022-10-29 17:04 | Inpatient (IN) | payer OTHER ==
[2022-10-29 17:44] VITALS: BMI 22.3
[2022-10-29] MEDS ORDERED: MAGNESIUM HYDROX 2400MG/30ML ORAL SUSPENSION 30 ML CUP PO PRN (19:36)
[2022-10-29] MEDS ORDERED: IBUPROFEN 400 MG TABLET (FP) PO PRN (19:36)
[2022-10-29] MEDS ORDERED: NALOXONE HCL (KLOXXADO) 8 MG SPRAY NS PRN (19:36)
[2022-10-29] MEDS ORDERED: METHOCARBAMOL 500 MG TABLET PO PRN (19:36)
[2022-10-29] MEDS ORDERED: BENZOCAINE/MENTHOL (CHLORASEPTIC ) LOZENGE MM PRN (19:36)
[2022-10-29] MEDS ORDERED: ACETAMINOPHEN 325 MG TABLET (FP) PO PRN ×2 (19:36)
[2022-10-29] MEDS ORDERED: POLYETHYLENE GLYCOL (HEALTHYLAX) 3350 17 GM PACKET PO PRN (19:36)
[2022-10-29] MEDS ORDERED: MAG HYDROX/AL HYDROX/SIMETH 30 ML UNIT-DOSE CUP PO PRN (19:36)
[2022-10-29] MEDS ORDERED: DICYCLOMINE HCL 10 MG CAPSULE PO PRN (19:36)
[2022-10-29] MEDS ORDERED: IBUPROFEN 600 MG TABLET (FP) PO PRN (19:36)
[2022-10-29] MEDS ORDERED: NICOTINE 10 MG CARTRIDGE (INHALER) IH PRN (19:36)
[2022-10-29] MEDS ORDERED: LOPERAMIDE HCL 2 MG CAPSULE PO PRN (19:36)
[2022-10-29] MEDS ORDERED: BISMUTH SUBSALICYLATE 524 MG/30 ML PO PRN (19:36)
[2022-10-29] MEDS ORDERED: THIAMINE HCL 100 MG TABLET (FP) PO SCH (22:00)
[2022-10-29] MEDS ORDERED: MELATONIN 5 MG TABLETS PO SCH (22:00)
[2022-10-30 01:03] VITALS: RESP 18
[2022-10-30] MEDS ORDERED: cloNIDine HCL 0.1 MG TABLET PO PRN (09:44)
[2022-10-30] MEDS ORDERED: PRENATAL VITAMINS W/ FOLIC ACID TABLET (FP) PO SCH (10:00)
[2022-10-30] MEDS ORDERED: methaDONE HCL 10 MG TABLET (FOR DETOX USE ONLY) PO ONE (10:15)
[2022-10-30 10:29] LABS: HEMOGLOBIN 12.9 GM/dL (11.7-16.9); MCHC 32.1 g/dl (32.0-35.9); MEAN PLT VOLUME 7.9 fl (7.5-11.1); PLATELET COUNT 437 10^3/uL (134-434); RDW 14.6 % (11.9-15.9); WHITE BLOOD COUNT 7.6 K/mm3 (4.0-10.0)
[2022-10-30] MEDS ORDERED: ONDANSETRON *ODT* 4 MG TABLET SL PRN (10:43)
[2022-10-30 10:50] LABS: CALCIUM 8.4 mg/dL (8.5-10.1)
[2022-10-30 10:52] LABS: ALBUMIN 2.7 g/dl (3.4-5.0); BLOOD UREA NITROGEN 12.8 mg/dL (7-18)
[2022-10-30 10:54] LABS: BILIRUBIN,TOTAL 0.3 mg/dL (0.2-1); CREATININE 0.5 mg/dL (0.55-1.3); TOT PROT 5.8 g/dl (6.4-8.2)
[2022-10-30 13:39] VITALS: BP 122/63; PULSE 79; TEMP 97.1
[2022-11-01] MEDS ORDERED: methaDONE HCL 10 MG TABLET (FOR DETOX USE ONLY) PO ONE (10:00)
[2022-11-03] MEDS ORDERED: methaDONE HCL 10 MG TABLET (FOR DETOX USE ONLY) PO ONE (10:00)
== END 2022-10-30 13:48 | disposition left against medical advice (07) | DRG 770 ==
LOC: YASAS 17:04 → Y6N 10-30 00:49
PROVIDERS: ADMIT Allergy & Immunology; ATTEND Surgery
PROC: HZ2ZZZZ Detoxification Services for Substance Abuse Treatment (ICD-10-PCS; principal; 2022-10-30)
DX: F11.23 Opioid dependence with withdrawal (principal); F14.20 Cocaine dependence, uncomplicated; F17.210 Nicotine dependence, cigarettes, uncomplicated; F20.9 Schizophrenia, unspecified; F31.9 Bipolar disorder, unspecified; F41.9 Anxiety disorder, unspecified; Z56.0 Unemployment, unspecified; Z59.00 Homelessness unspecified
CPT/HCPCS: 36415; 80053; 85027; 86780; C9803-CS; U0003; U0005

== ENCOUNTER 2023-08-03 06:43 | Inpatient (IN) | payer OTHER ==
[2023-08-03] MEDS ORDERED: ACETAMINOPHEN 325 MG TABLET (FP) PO PRN (08:49)
[2023-08-03] MEDS ORDERED: hydrOXYzine PAMOATE 25 MG CAPSULE (FP) PO PRN (08:49)
[2023-08-03] MEDS ORDERED: ONDANSETRON *ODT* 4 MG TABLET SL PRN (08:49)
[2023-08-03] MEDS ORDERED: guaiFENesin 600 MG TABLET.ER (FP) PO PRN (08:49)
[2023-08-03] MEDS ORDERED: BENZONATATE 200 MG CAPSULE PO PRN (08:49)
[2023-08-03] MEDS ORDERED: METHOCARBAMOL 500 MG TABLET PO PRN (08:49)
[2023-08-03] MEDS ORDERED: NALOXONE HCL 0.4 MG/ML VIAL IM PRN (08:49)
[2023-08-03] MEDS ORDERED: LOPERAMIDE HCL 2 MG CAPSULE PO PRN (08:49)
[2023-08-03] MEDS ORDERED: MAGNESIUM HYDROX 2400MG/30ML ORAL SUSPENSION 30 ML CUP PO PRN (08:49)
[2023-08-03] MEDS ORDERED: DICYCLOMINE HCL 10 MG CAPSULE PO PRN (08:49)
[2023-08-03] MEDS ORDERED: IBUPROFEN 600 MG TABLET (FP) PO PRN (08:49)
[2023-08-03] MEDS ORDERED: BENZOCAINE/MENTHOL (CHLORASEPTIC ) LOZENGE MM PRN (08:49)
[2023-08-03] MEDS ORDERED: IBUPROFEN 400 MG TABLET (FP) PO PRN (08:49)
[2023-08-03] MEDS ORDERED: BISMUTH SUBSALICYLATE 524 MG/30 ML PO PRN (08:49)
[2023-08-03] MEDS ORDERED: MAG HYDROX/AL HYDROX/SIMETH 30 ML UNIT-DOSE CUP PO PRN (08:49)
[2023-08-03] MEDS ORDERED: POLYETHYLENE GLYCOL (HEALTHYLAX) 3350 17 GM PACKET PO PRN (08:49)
[2023-08-03] MEDS ORDERED: NICOTINE POLACRILEX 2 MG GUM BUC PRN (08:49)
[2023-08-03] MEDS ORDERED: NALOXONE HCL (KLOXXADO) 8 MG SPRAY NS PRN (08:49)
[2023-08-03 09:16] VITALS: BMI 22.8
[2023-08-03] MEDS ORDERED: PRENATAL VITAMINS W/ FOLIC ACID TABLET (FP) PO ONE (09:42)
[2023-08-03] MEDS ORDERED: NICOTINE 14 MG/24 HOURS TOPICAL PATCH TD ONE (09:42)
[2023-08-03] MEDS ORDERED: METHOCARBAMOL 500 MG TABLET ONE (09:42)
[2023-08-03] MEDS: NICOTINE 14 MG/24 HOURS TOPICAL PATCH TD SCH (09:44)
[2023-08-03] MEDS: PRENATAL VITAMINS W/ FOLIC ACID TABLET (FP) PO SCH (09:44)
[2023-08-03] MEDS ORDERED: cloNIDine HCL 0.1 MG TABLET PO PRN (10:03)
[2023-08-03] MEDS ORDERED: methaDONE HCL 10 MG TABLET (FOR DETOX USE ONLY) PO ONE (10:30)
[2023-08-03] MEDS ORDERED: methaDONE HCL 10 MG TABLET (FOR DETOX USE ONLY) ONE (12:34)
[2023-08-03 13:01] VITALS: RESP 18
[2023-08-03] MEDS ORDERED: THIAMINE HCL 100 MG TABLET (FP) PO SCH (22:00)
[2023-08-03] MEDS ORDERED: MELATONIN 5 MG TABLETS PO SCH (22:00)
[2023-08-03] MEDS ORDERED: MIRTAZAPINE 15 MG TABLET (FP) PO SCH (22:00)
[2023-08-04 09:14] VITALS: BP 136/80; PULSE 65; TEMP 97.7
[2023-08-04] MEDS ORDERED: diazePAM 5 MG TABLET PO PRN (09:15)
[2023-08-04 10:43] LABS: HEMATOCRIT 34.3 % (35.4-49); HEMOGLOBIN 11.9 GM/dL (11.7-16.9); MCH 29.6 pg (25.7-33.7); MCHC 34.7 g/dl (32.0-35.9); MEAN CELL VOLUME 85.3 fl (80-96); MEAN PLT VOLUME 9.4 fl (7.5-11.1); PLATELET COUNT 214 10^3/uL (134-434); RBC 4.02 M/mm3 (4.00-5.60); RDW 15.2 % (11.9-15.9); WHITE BLOOD COUNT 5.1 K/mm3 (4.0-10.0)
[2023-08-04] MEDS: PRENATAL VITAMINS W/ FOLIC ACID TABLET (FP) PO SCH (10:44)
[2023-08-04] MEDS: NICOTINE 14 MG/24 HOURS TOPICAL PATCH TD SCH (10:44)
[2023-08-04 10:50] LABS: POTASSIUM 4.4 mmol/L (3.5-5.1)
[2023-08-04 10:53] LABS: CALCIUM 7.8 mg/dL (8.5-10.1)
[2023-08-04 10:54] LABS: ALBUMIN 2.8 g/dl (3.4-5.0); BLOOD UREA NITROGEN 16.6 mg/dL (7-18)
[2023-08-04 10:57] LABS: CREATININE 0.6 mg/dL (0.55-1.3)
[2023-08-04 10:59] LABS: BILIRUBIN,TOTAL 0.3 mg/dL (0.2-1); TOT PROT 5.1 g/dl (6.4-8.2)
[2023-08-05] MEDS ORDERED: methaDONE HCL 10 MG TABLET (FOR DETOX USE ONLY) PO ONE (10:00)
[2023-08-07] MEDS ORDERED: methaDONE HCL 10 MG TABLET (FOR DETOX USE ONLY) PO ONE (10:00)
== END 2023-08-04 11:02 | disposition left against medical advice (07) | DRG 770 ==
LOC: YASAS 06:43 → Y6N 09:27
PROVIDERS: ADMIT Allergy & Immunology; ATTEND Surgery
PROC: HZ2ZZZZ Detoxification Services for Substance Abuse Treatment (ICD-10-PCS; principal; 2023-08-03)
DX: F11.23 Opioid dependence with withdrawal (principal); F10.20 Alcohol dependence, uncomplicated; F14.20 Cocaine dependence, uncomplicated; F12.20 Cannabis dependence, uncomplicated; F17.210 Nicotine dependence, cigarettes, uncomplicated; F20.9 Schizophrenia, unspecified; F31.9 Bipolar disorder, unspecified; F19.282 Other psychoactive substance dependence with psychoactive substance-induced sleep disorder; F19.24 Other psychoactive substance dependence with psychoactive substance-induced mood disorder; F41.9 Anxiety disorder, unspecified; M54.50 Low back pain, unspecified; G89.29 Other chronic pain
CPT/HCPCS: 36415; 80053; 85027; 86780; 87635; 93005; 93010

== ENCOUNTER 2023-09-18 13:59 | Inpatient (IN) | payer OTHER ==
[2023-09-18 17:29] VITALS: BMI 19.6
[2023-09-18] MEDS ORDERED: MAGNESIUM HYDROX 2400MG/30ML ORAL SUSPENSION 30 ML CUP PO PRN (17:47)
[2023-09-18] MEDS ORDERED: NALOXONE HCL 0.4 MG/ML VIAL IM PRN (17:47)
[2023-09-18] MEDS ORDERED: BISMUTH SUBSALICYLATE 524 MG/30 ML PO PRN (17:47)
[2023-09-18] MEDS ORDERED: IBUPROFEN 400 MG TABLET (FP) PO PRN (17:47)
[2023-09-18] MEDS ORDERED: MAG HYDROX/AL HYDROX/SIMETH 30 ML UNIT-DOSE CUP PO PRN (17:47)
[2023-09-18] MEDS ORDERED: DICYCLOMINE HCL 10 MG CAPSULE PO PRN (17:47)
[2023-09-18] MEDS ORDERED: LOPERAMIDE HCL 2 MG CAPSULE PO PRN (17:47)
[2023-09-18] MEDS ORDERED: guaiFENesin 600 MG TABLET.ER (FP) PO PRN (17:47)
[2023-09-18] MEDS ORDERED: NICOTINE POLACRILEX 2 MG GUM BUC PRN (17:47)
[2023-09-18] MEDS ORDERED: ONDANSETRON *ODT* 4 MG TABLET SL PRN (17:47)
[2023-09-18] MEDS ORDERED: ACETAMINOPHEN 325 MG TABLET (FP) PO PRN (17:47)
[2023-09-18] MEDS ORDERED: hydrOXYzine PAMOATE 25 MG CAPSULE (FP) PO PRN (17:47)
[2023-09-18] MEDS ORDERED: POLYETHYLENE GLYCOL (HEALTHYLAX) 3350 17 GM PACKET PO PRN (17:47)
[2023-09-18] MEDS ORDERED: AMMONIUM LACTATE 12% LOTION 225 GM BOTTLE TP PRN (17:47)
[2023-09-18] MEDS ORDERED: NALOXONE HCL (KLOXXADO) 8 MG SPRAY NS PRN (17:47)
[2023-09-18] MEDS ORDERED: METHOCARBAMOL 500 MG TABLET PO PRN (17:47)
[2023-09-18] MEDS ORDERED: COLLOIDAL OATMEAL 1 BAR EACH TP PRN (17:47)
[2023-09-18] MEDS ORDERED: BENZOCAINE/MENTHOL (CHLORASEPTIC ) LOZENGE MM PRN (17:47)
[2023-09-18] MEDS ORDERED: BENZONATATE 200 MG CAPSULE PO PRN (17:47)
[2023-09-18] MEDS ORDERED: IBUPROFEN 600 MG TABLET (FP) PO PRN (17:47)
[2023-09-18] MEDS ORDERED: THIAMINE HCL 100 MG TABLET (FP) PO SCH (22:00)
[2023-09-18] MEDS ORDERED: MELATONIN 5 MG TABLETS PO SCH (22:00)
[2023-09-19 09:12] VITALS: RESP 18; TEMP 97.7
[2023-09-19 09:48] LABS: HEMATOCRIT 39.4 % (35.4-49); HEMOGLOBIN 13.2 GM/dL (11.7-16.9); MCH 28.8 pg (25.7-33.7); MCHC 33.4 g/dl (32.0-35.9); MEAN CELL VOLUME 86.2 fl (80-96); MEAN PLT VOLUME 8.3 fl (7.5-11.1); PLATELET COUNT 268 10^3/uL (134-434); RBC 4.57 M/mm3 (4.00-5.60); RDW 14.7 % (11.9-15.9); WHITE BLOOD COUNT 5.3 K/mm3 (4.0-10.0)
[2023-09-19 09:51] LABS: CHLORIDE 109 mmol/L (98-107); POTASSIUM 4.3 mmol/L (3.5-5.1); SODIUM 141 mmol/L (136-145)
[2023-09-19 09:56] LABS: CALCIUM 8.2 mg/dL (8.5-10.1)
[2023-09-19 09:57] LABS: ANION GAP 4 mmol/L (4-13); BLOOD UREA NITROGEN 9.9 mg/dL (7-18); CO2 28 mmol/L (21-32); GLUCOSE,RANDOM 85 mg/dL (74-106)
[2023-09-19 09:58] LABS: SGPT/ALT 42 U/L (13-61)
[2023-09-19 09:59] LABS: CREATININE 0.6 mg/dL (0.55-1.3)
[2023-09-19 10:00] LABS: BILIRUBIN,TOTAL 0.4 mg/dL (0.2-1); SGOT/AST 32 U/L (15-37); TOT PROT 5.7 g/dl (6.4-8.2)
[2023-09-19] MEDS ORDERED: PRENATAL VITAMINS W/ FOLIC ACID TABLET (FP) PO SCH (10:00)
[2023-09-19] MEDS ORDERED: NICOTINE 14 MG/24 HOURS TOPICAL PATCH TD SCH (10:00)
[2023-09-19 10:01] LABS: ALK PHOS 92 U/L (45-117)
[2023-09-19 12:40] VITALS: BP 121/71; PULSE 75
== END 2023-09-19 15:07 | disposition home or self-care (01) | DRG 773 ==
LOC: YASAS 13:59 → Y6N 18:18 → Y3N 18:19
PROVIDERS: ADMIT Allergy & Immunology; ATTEND Surgery
PROC: HZ2ZZZZ Detoxification Services for Substance Abuse Treatment (ICD-10-PCS; principal; 2023-09-18)
DX: F11.23 Opioid dependence with withdrawal (principal); F14.20 Cocaine dependence, uncomplicated; F17.210 Nicotine dependence, cigarettes, uncomplicated; M54.50 Low back pain, unspecified; G89.29 Other chronic pain
CPT/HCPCS: 36415; 80053; 80307; 85027; 86780; 87635

== ENCOUNTER 2024-06-27 20:15 | Inpatient (IN) | payer OTHER ==
[2024-06-27 15:40] VITALS: BMI 23.0
[2024-06-28] MEDS ORDERED: IBUPROFEN 600 MG TABLET (FP) PO PRN (00:48)
[2024-06-28] MEDS ORDERED: BENZONATATE 200 MG CAPSULE PO PRN (00:48)
[2024-06-28] MEDS ORDERED: DICYCLOMINE HCL 10 MG CAPSULE PO PRN (00:48)
[2024-06-28] MEDS ORDERED: IBUPROFEN 400 MG TABLET (FP) PO PRN (00:48)
[2024-06-28] MEDS ORDERED: NALOXONE (NARCAN) HCL 4 MG/0.1 ML SPRAY NS PRN (00:48)
[2024-06-28] MEDS ORDERED: guaiFENesin 600 MG TABLET.ER (FP) PO PRN (00:48)
[2024-06-28] MEDS ORDERED: BENZOCAINE/MENTHOL (CHLORASEPTIC ) LOZENGE MM PRN (00:48)
[2024-06-28] MEDS ORDERED: NALOXONE HCL 0.4 MG/ML VIAL IM PRN (00:48)
[2024-06-28] MEDS ORDERED: MAGNESIUM HYDROX 2400MG/30ML ORAL SUSPENSION 30 ML CUP PO PRN (00:48)
[2024-06-28] MEDS ORDERED: MAG HYDROX/AL HYDROX/SIMETH 30 ML UNIT-DOSE CUP PO PRN (00:48)
[2024-06-28] MEDS ORDERED: POLYETHYLENE GLYCOL (HEALTHYLAX) 3350 17 GM PACKET PO PRN (00:48)
[2024-06-28] MEDS ORDERED: BISMUTH SUBSALICYLATE 524 MG/30 ML PO PRN (00:48)
[2024-06-28] MEDS ORDERED: hydrOXYzine PAMOATE 25 MG CAPSULE (FP) PO PRN (00:48)
[2024-06-28] MEDS ORDERED: LOPERAMIDE HCL 2 MG CAPSULE PO PRN (00:48)
[2024-06-28] MEDS ORDERED: diazePAM 5 MG TABLET PO PRN (09:11)
[2024-06-28] MEDS: PRENATAL VITAMINS W/ FOLIC ACID TABLET (FP) PO SCH (10:20)
[2024-06-28] MEDS: diazePAM 5 MG TABLET PO SCH (10:20)
[2024-06-28] MEDS: BUPRENORPHINE/NALOXONE 8 MG/2 MG FILM PACKET SL SCH (10:20)
[2024-06-28] MEDS: NICOTINE 14 MG/24 HOURS TOPICAL PATCH TD SCH (10:20)
[2024-06-28] MEDS: ONDANSETRON *ODT* 4 MG TABLET SL PRN (17:49)
[2024-06-28] MEDS: MELATONIN 5 MG TABLETS PO SCH (22:32)
[2024-06-28] MEDS: THIAMINE 100 MG TABLET PO SCH (22:32)
[2024-06-29] MEDS: diazePAM 5 MG TABLET PO SCH (06:54)
[2024-06-29] MEDS: METHOCARBAMOL 500 MG TABLET PO PRN (09:17)
[2024-06-29 11:39] LABS: POTASSIUM 3.9 mmol/L (3.5-5.1)
[2024-06-29 11:42] LABS: HEMATOCRIT 37.2 % (35.4-49); HEMOGLOBIN 12.7 GM/dL (11.7-16.9); MCH 29.2 pg (25.7-33.7); MCHC 34.2 g/dl (32.0-35.9); MEAN CELL VOLUME 85.3 fl (80-96); MEAN PLT VOLUME 10.1 fl (7.5-11.1); PLATELET COUNT 213 10^3/uL (134-434); RBC 4.36 M/mm3 (4.00-5.60); RDW 13.7 % (11.9-15.9); WHITE BLOOD COUNT 5.9 K/mm3 (4.0-10.0)
[2024-06-29 12:03] LABS: BLOOD UREA NITROGEN 18.9 mg/dL (7-18); CALCIUM 8.6 mg/dL (8.5-10.1)
[2024-06-29 12:06] LABS: CREATININE 0.7 mg/dL (0.55-1.3)
[2024-06-29 12:07] LABS: BILIRUBIN,TOTAL 0.6 mg/dL (0.2-1); TOT PROT 5.8 g/dl (6.4-8.2)
[2024-06-30] MEDS: diazePAM 5 MG TABLET PO SCH (05:29)
[2024-06-30] MEDS: NICOTINE POLACRILEX 2 MG GUM BUC PRN (17:36)
[2024-06-30] MEDS: MIRTAZAPINE 15 MG TABLET (FP) PO SCH (22:27)
[2024-07-01] MEDS: diazePAM 5 MG TABLET PO ONE (05:40)
[2024-07-02] MEDS: ACETAMINOPHEN 325 MG TABLET (FP) PO PRN (05:31)
[2024-07-03 08:52] VITALS: BP 117/75; PULSE 69; RESP 16; TEMP 97.4
== END 2024-07-03 12:00 | disposition home or self-care (01) | DRG 773 ==
LOC: YASAS 20:15 → Y6N 06-28 02:11
PROVIDERS: ADMIT Allergy & Immunology; ATTEND Surgery
PROC: HZ2ZZZZ Detoxification Services for Substance Abuse Treatment (ICD-10-PCS; principal; 2024-06-28)
DX: F10.230 Alcohol dependence with withdrawal, uncomplicated (principal); F11.20 Opioid dependence, uncomplicated; F14.20 Cocaine dependence, uncomplicated; F12.20 Cannabis dependence, uncomplicated; F17.210 Nicotine dependence, cigarettes, uncomplicated; F31.9 Bipolar disorder, unspecified; F19.982 Other psychoactive substance use, unspecified with psychoactive substance-induced sleep disorder; R94.5 Abnormal results of liver function studies; M54.59 Other low back pain; G89.29 Other chronic pain; Z91.51 Personal history of suicidal behavior; Z56.0 Unemployment, unspecified; Z59.00 Homelessness unspecified
CPT/HCPCS: 36415; 80053; 80305; 80307; 84450; 85027; 86780; 93005; 93010; Q0162

== ENCOUNTER 2024-07-28 19:41 | Inpatient (IN) | payer OTHER ==
[2024-07-29 01:46] VITALS: BMI 23.1
[2024-07-29] MEDS ORDERED: MAGNESIUM HYDROX 2400MG/30ML ORAL SUSPENSION 30 ML CUP PO PRN (05:10)
[2024-07-29] MEDS ORDERED: NALOXONE (NARCAN) HCL 4 MG/0.1 ML SPRAY NS PRN (05:10)
[2024-07-29] MEDS ORDERED: BISMUTH SUBSALICYLATE 524 MG/30 ML PO PRN (05:10)
[2024-07-29] MEDS ORDERED: ACETAMINOPHEN 325 MG TABLET (FP) PO PRN (05:10)
[2024-07-29] MEDS ORDERED: POLYETHYLENE GLYCOL (HEALTHYLAX) 3350 17 GM PACKET PO PRN (05:10)
[2024-07-29] MEDS ORDERED: BENZOCAINE/MENTHOL (CHLORASEPTIC ) LOZENGE MM PRN (05:10)
[2024-07-29] MEDS ORDERED: guaiFENesin 600 MG TABLET.ER (FP) PO PRN (05:10)
[2024-07-29] MEDS ORDERED: hydrOXYzine PAMOATE 25 MG CAPSULE (FP) PO PRN (05:10)
[2024-07-29] MEDS ORDERED: BENZONATATE 200 MG CAPSULE PO PRN (05:10)
[2024-07-29] MEDS ORDERED: LOPERAMIDE HCL 2 MG CAPSULE PO PRN (05:10)
[2024-07-29] MEDS ORDERED: MAG HYDROX/AL HYDROX/SIMETH 30 ML UNIT-DOSE CUP PO PRN (05:10)
[2024-07-29] MEDS ORDERED: IBUPROFEN 600 MG TABLET (FP) PO PRN (05:10)
[2024-07-29] MEDS ORDERED: NALOXONE HCL 0.4 MG/ML VIAL IM PRN (05:10)
[2024-07-29] MEDS ORDERED: methaDONE HCL 10 MG TABLET (FOR DETOX USE ONLY) ONE (06:22)
[2024-07-29] MEDS: methaDONE HCL 10 MG TABLET (FOR DETOX USE ONLY) PO ONE (06:31)
[2024-07-29] MEDS ORDERED: PRENATAL VITAMINS W/ FOLIC ACID TABLET (FP) PO ONE (10:19)
[2024-07-29] MEDS: NICOTINE 14 MG/24 HOURS TOPICAL PATCH TD SCH (10:23)
[2024-07-29] MEDS: PRENATAL VITAMINS W/ FOLIC ACID TABLET (FP) PO SCH (10:23)
[2024-07-29] MEDS: ONDANSETRON *ODT* 4 MG TABLET SL PRN (15:04)
[2024-07-29] MEDS: DICYCLOMINE HCL 10 MG CAPSULE PO PRN (22:58)
[2024-07-29] MEDS: IBUPROFEN 400 MG TABLET (FP) PO PRN (22:58)
[2024-07-29] MEDS: cloNIDine HCL 0.1 MG TABLET PO PRN (22:58)
[2024-07-29] MEDS: METHOCARBAMOL 500 MG TABLET PO PRN (22:58)
[2024-07-29] MEDS: MELATONIN 5 MG TABLETS PO SCH (22:59)
[2024-07-29] MEDS: THIAMINE 100 MG TABLET PO SCH (22:59)
[2024-07-30 09:54] VITALS: BP 146/85; PULSE 60; RESP 16; TEMP 98.4
[2024-07-31] MEDS ORDERED: methaDONE HCL 10 MG TABLET (FOR DETOX USE ONLY) PO ONE (10:00)
[2024-08-02] MEDS ORDERED: methaDONE HCL 10 MG TABLET (FOR DETOX USE ONLY) PO ONE (10:00)
== END 2024-07-30 09:25 | disposition left against medical advice (07) | DRG 770 ==
LOC: YASAS 19:41 → Y6N 07-29 13:23
PROVIDERS: ADMIT Surgery; ATTEND Family Medicine Addiction Medicine
PROC: HZ2ZZZZ Detoxification Services for Substance Abuse Treatment (ICD-10-PCS; principal; 2024-07-29)
DX: F11.23 Opioid dependence with withdrawal (principal); F14.20 Cocaine dependence, uncomplicated; F17.210 Nicotine dependence, cigarettes, uncomplicated; F31.9 Bipolar disorder, unspecified; F41.9 Anxiety disorder, unspecified
CPT/HCPCS: 80305; 93005; 93010; Q0162

== ENCOUNTER 2024-11-14 00:50 | Inpatient (IN) | payer OTHER ==
[2024-11-14] MEDS ORDERED: BENZOCAINE/MENTHOL (CHLORASEPTIC ) LOZENGE MM PRN (03:14)
[2024-11-14] MEDS ORDERED: LOPERAMIDE HCL 2 MG CAPSULE PO PRN (03:14)
[2024-11-14] MEDS ORDERED: NALOXONE (NARCAN) HCL 4 MG/0.1 ML SPRAY NS PRN (03:14)
[2024-11-14] MEDS ORDERED: BENZONATATE 200 MG CAPSULE PO PRN (03:14)
[2024-11-14] MEDS ORDERED: MAGNESIUM HYDROX 2400MG/30ML ORAL SUSPENSION 30 ML CUP PO PRN (03:14)
[2024-11-14] MEDS ORDERED: IBUPROFEN 600 MG TABLET (FP) PO PRN (03:14)
[2024-11-14] MEDS ORDERED: POLYETHYLENE GLYCOL (HEALTHYLAX) 3350 17 GM PACKET PO PRN (03:14)
[2024-11-14] MEDS ORDERED: IBUPROFEN 400 MG TABLET (FP) PO PRN (03:14)
[2024-11-14] MEDS ORDERED: guaiFENesin 600 MG TABLET.ER (FP) PO PRN (03:14)
[2024-11-14] MEDS ORDERED: methaDONE HCL 10 MG TABLET (FOR DETOX USE ONLY) ONE (04:45)
[2024-11-14] MEDS: methaDONE HCL 10 MG TABLET (FOR DETOX USE ONLY) PO ONE (04:52)
[2024-11-14 05:09] VITALS: BMI 29.5
[2024-11-14] MEDS: PRENATAL VITAMINS W/ FOLIC ACID TABLET (FP) PO SCH (09:50)
[2024-11-14] MEDS: NICOTINE 14 MG/24 HOURS TOPICAL PATCH TD SCH (09:51)
[2024-11-14] MEDS ORDERED: methaDONE HCL 10 MG TABLET PO PRN (14:14)
[2024-11-14] MEDS: METHOCARBAMOL 500 MG TABLET PO PRN (17:44)
[2024-11-14] MEDS: cloNIDine HCL 0.1 MG TABLET PO PRN (17:44)
[2024-11-14] MEDS: methaDONE HCL 10 MG TABLET (FOR DETOX USE ONLY) PO PRN (17:45)
[2024-11-14] MEDS: ONDANSETRON *ODT* 4 MG TABLET SL PRN (17:48)
[2024-11-14] MEDS: MELATONIN 5 MG TABLETS PO SCH (22:23)
[2024-11-14] MEDS: hydrOXYzine PAMOATE 25 MG CAPSULE (FP) PO PRN (22:23)
[2024-11-14] MEDS: MIRTAZAPINE 15 MG TABLET (FP) PO SCH (22:23)
[2024-11-14] MEDS: THIAMINE 100 MG TABLET PO SCH (22:23)
[2024-11-15] MEDS: methaDONE 40 MG, methaDONE 10 MG PO ONE (10:11)
[2024-11-15 10:44] LABS: HEMOGLOBIN 11.5 GM/dL (11.7-16.9); MCH 28.4 pg (25.7-33.7); MEAN CELL VOLUME 86.1 fl (80-96); MEAN PLT VOLUME 8.8 fl (7.5-11.1); PLATELET COUNT 290 10^3/uL (134-434); RBC 4.06 M/mm3 (4.00-5.60); RDW 16.8 % (11.9-15.9); WHITE BLOOD COUNT 4.7 K/mm3 (4.0-10.0)
[2024-11-15 10:46] LABS: POTASSIUM 4.1 mmol/L (3.5-5.1)
[2024-11-15 10:49] LABS: ALBUMIN 3.1 g/dl (3.4-5.0); CALCIUM 8.4 mg/dL (8.5-10.1)
[2024-11-15 10:50] LABS: BLOOD UREA NITROGEN 13.3 mg/dL (7-18)
[2024-11-15 10:53] LABS: CREATININE 0.6 mg/dL (0.55-1.3)
[2024-11-15 10:54] LABS: BILIRUBIN,TOTAL 0.4 mg/dL (0.2-1); TOT PROT 5.5 g/dl (6.4-8.2)
[2024-11-15] MEDS: ACETAMINOPHEN 325 MG TABLET (FP) PO PRN (17:53)
[2024-11-15] MEDS: MAG HYDROX/AL HYDROX/SIMETH 30 ML UNIT-DOSE CUP PO PRN (20:23)
[2024-11-15] MEDS: DICYCLOMINE HCL 10 MG CAPSULE PO PRN (20:23)
[2024-11-16] MEDS ORDERED: cloNIDine HCL 0.1 MG TABLET PO PRN
[2024-11-16] MEDS ORDERED: methaDONE HCL 10 MG TABLET (FOR DETOX USE ONLY) PO ONE (10:00)
[2024-11-16] MEDS: methaDONE 40 MG, methaDONE 20 MG PO ONE (10:43)
[2024-11-16] MEDS: NICOTINE POLACRILEX 2 MG GUM BUC PRN (14:46)
[2024-11-17] MEDS ORDERED: SIMETHICONE 80 MG TAB.CHEW (FP) PO PRN (07:34)
[2024-11-17] MEDS: methaDONE 40 MG, methaDONE 30 MG PO ONE (09:34)
[2024-11-18] MEDS ORDERED: methaDONE HCL 10 MG TABLET (FOR DETOX USE ONLY) PO ONE (10:00)
[2024-11-18] MEDS: methaDONE HCL 40 MG DISPERSABLE TABLET PO ONE (10:16)
[2024-11-19] MEDS: methaDONE 80 MG, methaDONE 10 MG PO ONE (10:01)
[2024-11-19] MEDS: NALOXONE (NYS OPIOID OVERDOSE PROGRAM) 4 MG/0.1 ML SPRAY NS SCH (11:30)
[2024-11-20] MEDS: BISMUTH SUBSALICYLATE 524 MG/30 ML PO PRN (01:35)
[2024-11-20] MEDS: methaDONE 80 MG, methaDONE 10 MG PO SCH (05:36)
[2024-11-20] MEDS ORDERED: methaDONE HCL 10 MG TABLET PO SCH (06:00)
[2024-11-21 09:36] VITALS: BP 131/84; PULSE 87; RESP 18; TEMP 98
== END 2024-11-21 11:58 | disposition other institution (70) | DRG 773 ==
LOC: YASAS 00:50 → Y6N 04:30
PROVIDERS: ADMIT Allergy & Immunology; ATTEND Allergy & Immunology
PROC: HZ2ZZZZ Detoxification Services for Substance Abuse Treatment (ICD-10-PCS; principal; 2024-11-14)
DX: F11.23 Opioid dependence with withdrawal (principal); F14.20 Cocaine dependence, uncomplicated; F12.20 Cannabis dependence, uncomplicated; F17.213 Nicotine dependence, cigarettes, with withdrawal; F19.282 Other psychoactive substance dependence with psychoactive substance-induced sleep disorder; F19.280 Other psychoactive substance dependence with psychoactive substance-induced anxiety disorder; F19.24 Other psychoactive substance dependence with psychoactive substance-induced mood disorder; F31.9 Bipolar disorder, unspecified; M54.50 Low back pain, unspecified; G89.29 Other chronic pain
CPT/HCPCS: 36415; 80053; 80307; 85027; 86780; 93005; 93010; Q0162